=== PATIENT | female | born 1995 | race Caucasian/White ===

== ENCOUNTER 2025-03-02 13:00 | Outpatient (CLI) | payer MEDICAID, SELFPAY ==
[2025-03-02] VITALS (7 sets, daily range): BP systolic 114–119; BP diastolic 68–75; PULSE 80–92; RESP 18; TEMP 36.2; O2SAT 97; BMI 40.1
[2025-03-02 13:55] LABS: Hematocrit 28.7 % (37-47); Hemoglobin 9.4 g/dL (12.0-15.0); Mean Corp Hgb Conc 32.8 g/dL (32-36); Mean Corpuscular Volume 90.3 fL (81-99); Mean Platelet Vol. 10.4 fl (6.2-12.0); Platelet Count 190 K/mm3 (150-450); RBC Distribution Width CV 13.2 % (11.6-14.6); RBC Distribution Width SD 43.5 fl (35.1-43.9); Red Blood Count 3.18 M/mm3 (4.2-5.4); White Blood Count 6.8 K/mm3 (4.4-11.0)
[2025-03-02 14:34] LABS: Creatinine, Urine (random) 112.00 mg/dL (28.00-217.00); Protein, Urine (Random) 16.6 mg/dL (0.0-12.0); Protein:Creat Ratio 148 mg/g CRE (0-200)
[2025-03-02 14:35] LABS: AST(SGOT) 17 U/L (<=31); Alanine Aminotransfer ALT/SGPT 16 U/L (<=34); Estimated Creatinine Clearance 186.32 ml/min (50-250); Uric Acid 5.4 mg/dL (2.6-6.0)
--- NOTE | 2025-03-02 17:49 | OB.TRI.NOTE ---
HPI - General HPI Narrative LORA MAGAÑA, is a 29 F at 36.0 weeks gestation who presents with elevated blood pressures at home and headache. PFSH PFSH Home Medications ?Medication ?Instructions ?Recorded ?Last Taken ?Type aspirin 81 mg chewable tablet 162 mg PO DAILY 03/02/25 03/01/25 History (Aspirin Childrens) ferrous sulfate 325 mg (65 mg 325 mg PO DAILY 03/02/25 03/01/25 History iron) tablet insulin NPH isoph U-100 human 100 10 unit subcut QPM 03/02/25 03/01/25 History unit/mL (3 mL) subcutaneous pen vitamin-ferrous fumarate tab PO DAILY 03/02/25 03/01/25 History 28 mg iron-folic acid 800 mcg tablet ( Tablet) Allergy/AdvReac Type Severity Reaction Status Date / Time adhesive Allergy Intermediate Rash Verified 03/02/25 13:20 ROS Eyes Eyes: Denies blurry vision Cardiovascular Cardiovascular: Reports none; Denies chest pain at rest, chest pain with activity or dizziness Respiratory/Chest Respiratory/Chest: Denies cough or dyspnea Gastrointestinal Gastrointestinal: Reports none and other; Denies diarrhea or vomiting Genitourinary Genitourinary: Denies dysuria Musculoskeletal Musculoskeletal: Reports none Integumentary Integumentary: Reports none; Denies rash Neurologic Neurologic: Denies dizziness or other visual disturbances Psychiatric Psychiatric: Reports none Physical Exam Const alert and no apparent distress General Appearance: cooperative Orientation / Consciousness: awake Exam Limitations: no limitations HEENT normocephalic Eyes General Eye: normal appearance of both eyes Neck full ROM Chest inspection of chest normal Resp normal respiratory effort and normal air movement Effort and Inspection: symmetric chest movement Auscultation: clear to auscultation bilaterally Cardio regular rate GI soft to palpation, non-tender and non-distended Inspection: and other Back/Spine normal ROM Extremity full ROM, normal capillary refill and no calf tenderness Skin no rashes or lesions noted Neuro oriented x3 and CN's II-XII intact bilaterally Psych mental status grossly normal NST FHR Rate Baby A Baseline: 120 Variability:: Moderate Accelerations:: 15 x 15 Decelerations:: None NST Reactive:: Yes FHR Category:: Category I Uterine Activity:: Irregular Assessment & Plan (1) 36 weeks gestation of : (2) Chronic hypertension affecting : (3) GDM (gestational diabetes mellitus): (4) Headache: PLAN: Plan BP stable- no severe ranges BP ranging 114-119/68-75 PIH labs - Normal Tylenol 1000 mg PO X 1 given and headache improved D/C home with follow up in office this week
== END 2025-03-02 15:05 | disposition home or self-care (01) ==
LOC: WPOUT 13:11 → WP 13:12
PROVIDERS: Visit Provider Advanced Practice Midwife
DX: O99.891 Other specified diseases and conditions complicating pregnancy (principal); O24.419 Gestational diabetes mellitus in pregnancy, unspecified control; O10.913 Unspecified pre-existing hypertension complicating pregnancy, third trimester; R51.9 Headache, unspecified; Z3A.36 36 weeks gestation of pregnancy
CPT/HCPCS: 36415; 59025; 59050; 82565; 82570; 84156; 84450; 84460; 84550; 85027; 99221; G0378

== ENCOUNTER 2025-03-22 07:25 | Inpatient (IN) | payer MEDICAID, SELFPAY ==
[2025-03-22] VITALS (8 sets, daily range): BP systolic 110–166; BP diastolic 67–84; PULSE 72–97; RESP 16; TEMP 36.4–36.6; BMI 41.1; BMI 1949.0; BMI 20251226.0
--- OUTSIDE RECORDS SUMMARY | 2025-03-22 07:25 | XMS RPT_ITS | CCD ---
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 Date Time Provider Department 01/08/25 BEA ROSE OBGYWM During your visit today, we recorded the following information about you: Eleazar Hamilton RN 01/08/2025 10:14 AM Signed 28w3d Pt picked up Insulin NPH from [facility] yesterday; however, needs insulin needles to be able to administer to self. Please place order and fax to pharmacy. Informed Pt that message would be routed to provider AND Rx would be faxed to pharmacy. LUCINDA Heaton Karmon, MD 01/08/2025 11:57 AM Signed Please pend correct needles MD Hira Cosby Trisha, LUCINDA 01/08/2025 12:06 PM Signed Please file rx. LUCINDA Roman Trisha, RN 01/08/2025 12:08 PM Signed Left voicemail that rx was sent to her pharmacy. The following approved medication requests have been transmitted electronically. Requested Prescriptions Signed Prescriptions Disp Refills insulin needles, DISPOSABLE, (PEN NEEDLE) 31 gauge x 5/16 30 each 4 Si each once daily. Authorizing Provider: BEA ROSE Pharmacy Information Pharmacy Address Telephone [facility]/pharmacy #[id number] [address] [place] [address] Allergies As of Date: 01/08/2025 Noted Allergy Reaction ADHESIVE 09/04/2024 14 - Other: See Comments Comments: Surgical Glue: Inflammation around the incisions/pus Date Reviewed: 01/04/2025 Reviewed by: Bea Rose MD - Fully Assessed Reason for Visit: insulin needles [Other] Order(s):insulin needles, DISPOSABLE, (PEN NEEDLE) 31 gauge x 5/161 each once daily.Disp: 30 eachRfl: 4 Prescriptions as of 01/08/2025 - insulin needles, DISPOSABLE, (PEN NEEDLE) 31 gauge x 5/16 1 each once daily. - insulin NPH subcutaneous pen Inject 10 Units subcutaneously daily at bedtime. - BLOOD PRESSURE CUFF EVERY DAY - Blood-Glucose Meter Use as directed to check glucose levels up to seven times daily. - blood sugar diagnostic test strip Use as directed to check glucose levels up to seven times daily. - Lancets Use as directed to check glucose levels up to seven times daily. - alcohol swabs (ALCOHOL PREP PADS) Use as directed to check glucose levels up to seven times daily. - aspirin, enteric coated (ECOTRIN LOW STRENGTH) 81 mg EC tablet Take 2 tablets by mouth daily at bedtime. Starting at 12 weeks. - PNV no.95/ferrous fum/folic ac ( ORAL) Take by mouth. Problem List As Of Date 01/08/2025 Noted Resolved Chronic hypertension affecting (HCC) *09/05/2024 Family history of deafness [Z82.2] 09/05/2024 Obesity affecting in first trimester *09/05/2024 Nicotine dependence due to vaping tobacco produ*09/05/2024 Caffeine use during in first trimeste*09/05/2024 History of alcohol abuse [F10.11] 09/05/2024 Nausea and vomiting during (HCC) [O21*09/05/2024 Rubella non-immune status, antepartum (HCC) [Z3*09/06/2024 Elevated hemoglobin A1c [R73.09] 09/06/2024 Elevated glucose tolerance test [R73.09] 09/07/2024 Diet controlled gestational diabetes mellitus (*09/14/2024 Antepartum anemia complicating in thi*01/07/2025 Prescriptions ordered this encounter Disp Refills Start End PEN NEEDLE, DIABETIC 31 GAUGE X 5/16 30 e* 4 01/08/2025 Route: Misc Si each once daily. Encounter Status:Closed by LILLIAN TRACY on 01/08/25 Normal [facility] CBC panel Auto (Bld)on 01-04 Erythrocyte distribution width (RBC) [Ratio] 12.6 % Normal 11.5-15.0 [facility] Comment on above: Order Comment: Speci men Type: BLOOD SPECIMEN Ordering Facility: [facility] Address: [address] [place] [address] Performed By: #### 5 8410-2 #### [facility] CLIA [id number] [address] [place] [address] [place] Hematocrit (Bld) [Volume fraction] 30.1 % Low 36.0-46.0 [facility] Comment on above: Order Comment: Speci men Type: BLOOD SPECIMEN Ordering Facility: [facility] Address: [address] [place] [address] Performed By: #### 5 8410-2 #### [facility] CLIA [id number] [address] [place] [address] [place] Hemoglobin (Bld) [Mass/Vol] 10.6 g/dL Low 11.5-15.5 [facility] Comment on above: Order Comment: Speci men Type: BLOOD SPECIMEN Ordering Facility: [facility] Address: [address] [place] [address] Performed By: #### 5 8410-2 #### [id number] [address] [place] [address] [place] MCH (RBC) [Entitic mass] 31.4 pg Normal 26.0-34.0 [facility] Comment on above: Order Comment: Speci men Type: BLOOD SPECIMEN Ordering Facility: [facility] Address: [address] [place] [address] Performed By: #### 5 8410-2 #### [facility] CLIA [id number] [address] [place] [address] [place] MCHC (RBC) [Mass/Vol] 35.2 g/dL Normal 30.5-36.0 [facility] Comment on above: Order Comment: Speci men Type: BLOOD SPECIMEN Ordering Facility: [facility] Address: [address] [place] [address] Performed By: #### 5 8410-2 #### [facility] [id number] [address] [place] [address] [place] MCV (RBC) [Entitic vol] 89.1 fL Normal 80.0-100.0 [facility] Comment on above: Order Comment: Speci men Type: BLOOD SPECIMEN Ordering Facility: [facility] Address: [address] [place] [address] Performed By: #### 5 8410-2 #### [facility] CLIA [id number] [address] [place] [address] [place] Nucleated RBC (Bld) [#/Vol] 10*3/uL Normal <0.01 [facility] Comment on above: Order Comment: Speci men Type: BLOOD SPECIMEN Ordering Facility: [facility] Address: [address] [place] [address] Performed By: #### 5 8410-2 #### [facility] CLIA [id number] [address] [place] [address] [place] Platelet mean volume (Bld) [Entitic vol] 9.7 fL Normal 9.0-12.7 [facility] Comment on above: Order Comment: Speci men Type: BLOOD SPECIMEN Ordering Facility: [facility] Address: [address] [place] [address] Performed By: #### 5 8410-2 #### [facility] CLIA [id number] [address] [place] [address] [place] Platelets (Bld) [#/Vol] 200 10*3/uL Normal 150-400 [facility] Comment on above: Order Comment: Speci men Type: BLOOD SPECIMEN Ordering Facility: [facility] Address: [address] [place] [address] Performed By: #### 5 8410-2 #### [facility] CLIA [id number] [address] [place] [address] [place] RBC (Bld) [#/Vol] 3.38 10*6/uL Low 3.90-5.20 [facility] Comment on above: Order Comment: Speci men Type: BLOOD SPECIMEN Ordering Facility: [facility] Address: [address] [place] [address] Performed By: #### 5 8410-2 #### [facility] CLIA [id number] [address] [place] [address] [place] WBC (Bld) [#/Vol] 5.78 10*3/uL Normal 3.70-11.00 [facility] Comment on above: Order Comment: Speci men Type: BLOOD SPECIMEN Ordering Facility: [facility] Address: [address] [place] [address] Performed By: #### 5 8410-2 #### [facility] CLIA [id number] [address] [place] [address] [place] [facility] 2024 Ferritin [Mass/Vol] 35.5 ng/mL Normal 14.7-205.1 [facility] Comment on above: Order Comment: Speci men Type: BLOOD SPECIMENOrdering Facility: [facility] Address: [address] [place] [address] Performed By: #### 2 276-4, 96331-0 ####[facility] [id number] [place] [address] [place] Iron and Iron binding capaci panelon 01-04-2025 Iron [Mass/Vol] 66 ug/dL Normal 41-186 [facility] Comment on above: Order Comment: Speci men Type: BLOOD SPECIMEN Ordering Facility: [facility] Address: [address] [place] [address] Performed By: #### 5 8410-2 #### [facility] [id number] [address] [place] [address] [place] Iron binding capacity [Mass/Vol] 436 ug/dL High 232-386 [facility] Comment on above: Order Comment: Speci men Type: BLOOD SPECIMEN Ordering Facility: [facility] Address: [address] [place] [address] Performed By: #### 5 8410-2 #### [facility] CLIA [id number] [address] [place] [address] [place] Iron/TIBC [Molar ratio] 15.1 % Normal 15.0-57.0 [facility] Comment on above: Order Comment: Speci men Type: BLOOD SPECIMEN Ordering Facility: [facility] Address: [address] [place] [address] Performed By: #### 5 8410-2 #### [facility] CLIA [id number] [address] [place] [address] [place] Reagin and Treponema pallidu m IgG and IgM [Interp]on 01-04-2025 T. pallidum IgG+IgM IA Ql (S) Non-Reactive Normal Nonreactive [facility] Comment on above: Order Comment: Speci men Type: BLOOD SPECIMENOrdering Facility: [facility] Address: [address] [place] [address] Performed By: #### 7 3752-8 ####[facility] [id number] [place] [address] [place] Reagin+T pallidum IgG+IgM Se rPl-Impon 01-04-2025 Reagin and Treponema pallidum IgG and IgM [Interp] Cannot exclude recent Treponemal infection if specimen collected within 7-10 days after appearance of suspect lesions or 2-3 weeks after an exposure. Clinical correlation is required. Normal [facility] Comment on above: Order Comment: Speci men Type: BLOOD SPECIMENOrdering Facility: [facility] Address: [address] [place] [address] Performed By: #### 7 3752-8 ####[facility] [id number] [place] [address] [place] CNPNon 12-17-2024 CNPN Telephone ([id number]) -- BRONWYN HIGGINBOTHAM ([id number]) 1995 F Date Time Provider Department 12/17/24 TRICIA LAMBERT [id number] During your visit today, we recorded the following information about you: Tricia Lambert RN 12/17/2024 7:40 AM Signed 2nd risk assessment form submitted 12/17/2024. 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 - blood sugar diagnostic test strip Use as directed to check glucose levels up to seven times daily. - Lancets Use as directed to check glucose levels up to seven times daily. - alcohol swabs (ALCOHOL PREP PADS) Use as directed to check glucose levels up to seven times daily. - aspirin, enteric coated (ECOTRIN LOW STRENGTH) 81 mg EC tablet Take 2 tablets by mouth daily at bedtime. Starting at 12 weeks. - PNV no.95/ferrous fum/folic ac ( ORAL) Take by mouth. Problem List As Of Date 12/17/2024 Noted Resolved Chronic hypertension affecting (HCC) *09/05/2024 Family history of deafness [Z82.2] 09/05/2024 Obesity affecting in first trimester *09/05/2024 Nicotine dependence due to vaping tobacco produ*09/05/2024 Caffeine use during in first trimeste*09/05/2024 History of alcohol abuse [F10.11] 09/05/2024 Nausea and vomiting during (HCC) [O21*09/05/2024 Rubella non-immune status, antepartum (HCC) [O0*09/06/2024 Elevated hemoglobin A1c [R73.09] 09/06/2024 Elevated glucose tolerance test [R73.09] 09/07/2024 Diet controlled gestational diabetes mellitus (*09/14/2024 Encounter Status:Closed by TRICIA LAMBERT on 12/17/24 [facility] Telephone (OBGYWM) -- BRONWYN HIGGINBOTHAM ([id number]) 1995 F Date Time Provider Department 12/17/24 MARY MCDANIEL During your visit today, we recorded the following information about you: Tricia Neri RN 12/17/2024 10:50 AM Signed 25w2d Patient had her influenza vaccine in the office on Tuesday. On Tuesday she vomited x1. She's had a QUEZADA, body aches, fatigue and nausea since then. Afebrile with a temperature of 98.x. Questioning if these symptoms are caused by the vaccine. Reviewed typical side effects and s/s of allergic reaction. Denies feeling ill prior. Encouraged to rest, push fluids, and take Tylenol for QUEZADA/body aches. Good FM. Please advise. LUCINDA Choudhary Jessica, APRN.CNM 12/17/2024 11:22 AM Signed Ok to monitor. This can happen with the vaccine. If worsening recommend following up with primary care. Thank you, Mary Mcdaniel APRN.Eleazar Eubanks RN 12/17/2024 12:05 PM Signed Left message informing Pt that [employer] message would be sent AND to call office if she has any questions/concerns. Eleazar Hamilton RN Allergies As of Date: 12/17/2024 Noted Allergy Reaction ADHESIVE 09/04/2024 14 - Other: See Comments Comments: Surgical Glue: Inflammation around the incisions/pus Date Reviewed: 12/14/2024 Reviewed by: Tricia Carty MD - Fully Assessed Reason for Visit: Question (OB Question) [9012] Prescriptions as of 12/17/2024 - BLOOD PRESSURE CUFF EVERY DAY - Blood-Glucose Meter Use as directed to check glucose levels up to seven times daily. - blood sugar diagnostic test strip Use as directed to check glucose levels up to seven times daily. - Lancets Use as directed to check glucose levels up to seven times daily. - alcohol swabs (ALCOHOL PREP PADS) Use as directed to check glucose levels up to seven times daily. - aspirin, enteric coated (ECOTRIN LOW STRENGTH) 81 mg EC tablet Take 2 tablets by mouth daily at bedtime. Starting at 12 weeks. - PNV no.95/ferrous fum/folic ac ( ORAL) Take by mouth. Problem List As Of Date 12/17/2024 Noted Resolved Chronic hypertension affecting (HCC) *09/05/2024 Family history of deafness [Z82.2] 09/05/2024 Obesity affecting in first trimester *09/05/2024 Nicotine dependence due to vaping tobacco produ*09/05/2024 Caffeine use during in first trimeste*09/05/2024 History of alcohol abuse [F10.11] 09/05/2024 Nausea and vomiting during (HCC) [O21*09/05/2024 Rubella non-immune status, antepartum (HCC) [O0*09/06/2024 Elevated hemoglobin A1c [R73.09] 09/06/2024 Elevated glucose tolerance test [R73.09] 09/07/2024 Diet controlled gestational diabetes mellitus (*09/14/2024 Encounter Status:Closed by LILLIAN TRACY on 12/17/24 Normal [facility] Examination level ultrasound on 11-19-2024 Indication Detailed anatomic survey Chronic hypertension, Gestational diabetes mellitus before 24 weeks, Maternal obesity, BMI >35 Impression The patient is referred for a detailed anatomic survey. - Single, live, intrauterine . - biometry is consistent with the established gestational age. - No malformations were visualized on a complete detailed anatomic survey. - The amniotic fluid volume is normal amount. - The placenta is posterior, fundal. - The Transabdominal cervical length measures 32.4 mm with no evidence of funneling or other dynamic changes. - Not all structural malformations can be detected by ultrasound examination. Recommendations - growth every 4 weeks starting at 28 weeks. - Additional follow up as clinically indicated. Maternal Assessment Height 163 cm Height (ft) 5 ft Height (in) 4 in Physical Exam Initial weight (lb) 215 lb Initial BMI 36.90 kg/m Maternal assessment other: 1 Para 0 REMOTE READ Method Transabdominal ultrasound examination. View: Adequate visualization Dean . Number of fetuses: 1 Dating LMP on: 06/23/2024 GA by LMP 20 w + 6 d JANIS by LMP: 03/30/2025 GA by prior assessment 20 w + 6 d JANIS by prior assessment: 03/30/2025 Ultrasound examination on: 11/16/2024 GA by U/S based upon: AC, BPD, Femur, HC GA by U/S 21 w + 2 d JANIS by U/S: 03/27/2025 Assigned: based on stated JANIS, selected on 09/18/2024 Assigned GA 20 w + 6 d Assigned JANIS: 03/30/2025 General Evaluation Cardiac activity present. FHR 150 bpm. movements: present. Presentation: cephalic Placenta: Placental site: posterior, fundal Umbilical cord: Cord vessels: 3 vessel cord Amniotic fluid: Amount of AF: normal amount. MVP 5.2 cm Growth Overview Exam date GA BPD (mm) HC (mm) AC (mm) FL (mm) HL (mm) EFW (g) 10/18/2024 16w 5d 34.7 48% 128.8 35% 114.7 69% 24.5 83% 21.2 46% 183 70% 11/16/2024 20w 6d 50.1 62% 188.5 59% 168.9 76% 33.9 55% 31.9 39% 413 68% Biometry Standard BPD 50.1 mm 21w 1d 62% Hadlock OFD 66.8 mm 21w 0d 81% Nicolaides HC 188.5 mm 21w 1d 59% Riccardo Cerebellum tr 22.9 mm 21w 2d 79% Hill Nuchal fold 4.6 mm AC 168.9 mm 21w 6d 76% Hadlock Femur 33.9 mm 20w 6d 55% Riccardo Humerus 31.9 mm 20w 5d 39% Riccardo EFW 413 g 21w 1d 68% Hadlock EFW (lb) 0 lb EFW (oz) 15 oz EFW by: Hadlock (HC-AC-FL) Extended Collar Band Creaser 8.2 mm CM 3.6 mm 7% Nicolaides Extremities / Bony Struc FL / HC 0.18 13% Hadlock Other Structures FHR 150 bpm Anatomy Cranium: normal Lateral ventricles: normal Choroid plexus: normal Midline falx: normal Cavum septi pellucidi: normal Cerebellum: normal Cisterna magna: normal Head / Neck Vermis: normal Neck: normal Nuchal fold: normal Lips: normal Profile: normal Nose: normal Face Maxilla: normal Mandible: normal Orbits: normal Lens: normal 4-chamber view: normal RVOT view: normal LVOT view: normal 3-vessel view: normal 6-aihljn-nhteytb view: normal Heart / Thorax Situs: situs solitus (normal) Aortic arch view: normal SVC: normal IVC: normal Cardiac axis: normal Rt lung: normal Lt lung: normal Diaphragm: normal Cord insertion: normal Stomach: normal Kidneys: normal Bladder: normal Genitals: normal Abdomen Abdom. wall: normal Cervical spine: normal Thoracic spine: normal Lumbar spine: normal Sacral spine: normal Arms: normal Legs: normal Rt upper arm: normal Rt forearm: normal Rt hand: normal Rt fingers: normal Lt upper arm: normal Lt forearm: normal Lt hand: normal Lt fingers: normal Rt upper leg: normal Rt lower leg: normal Rt foot: normal Lt upper leg: normal Lt lower leg: normal Lt foot: normal sex: female Wants to know sex: yes Maternal Structures Uterus / Cervix Uterus: Visualized Cervix: Visualized Approach: Transabdominal Cervical length 32.4 mm Other: Patient declined transvaginal ultrasound for cervical length. Ovaries / Tubes / Adnexa Rt ovary: Visualized Lt ovary: Visualized Performed By: Bronwyn Reese RDMS, RVT Read By: Lorin Verdugo M.D. MATERNAL MEDICINE [facility] Examination level ultrasound on 11-16-2024 Radiology Study observation (narrative) [facility] CNCOon 11-02-2024 CNCO Letter Text Normal [facility] CNNURSEon 10-19-2024 CNNURSE Nurse Visit (EDEX20) -- BRONWYN HIGGINBOTHAM ([id number]) 1995 F Date Time Provider Department 10/19/24 10:00 AM ALEXIS OBRIEN EDEX20 During your visit today, we recorded the following information about you: Alexis Obrien, RN 10/19/2024 10:52 AM Signed DIABETES SELF-MANAGEMENT EDUCATION AND SUPPORT FOLLOW-UP VISIT Type of Diabetes: Gestational ( diabetes in ) Location: Main [place] Type of visit: Virtual (with video) individual -- I have communicated my name and active licensure. The patient's identity and physical location were verified at the time of this visit. Either the patient or their legal associate financial representative has been informed of the risks and benefits of -- and alternatives to -- treatment through a remote evaluation and consents to proceed with the evaluation remotely. Types of DSMES: Initial/Comprehensive (add to or update ADA spreadsheet) PATIENT'S MAIN CONCERN TODAY: New gestational diabetes diagnosis Support person present for education today: none Cognitive ability: Alert and oriented Motivation to learn: Interested Learning barriers identified by educator: none Method of instruction: written and verbal DIABETES SELF-MANAGEMENT FINDINGS: Monitoring: Patient states she's been checking her blood sugar using a fingerstick meter 4 times/day. Fasting and after meals. Meal Planning: Patient has been decreasing her carbohydrate intake after finding out she has gestational diabetes Medications: Not currently taking any diabetes medications Problem Solving: Patient scheduled a diabetes education visit for information about gestational diabetes INTERVENTIONS/TOPICS COVERED: -Diabetes Pathophysiology: diabetes disease process, role of insulin in the body, role of glucose in the body, insulin resistance, relationship of glucose and insulin in the body, hepatic glucose release, and gestational diabetes basics -Monitoring: BG targets, rationale for HGM, and testing frequency -Healthy Eating: impact of carbs on BG, Plate Method, basic carb counting, foods with carbs, portion sizes, and reading food labels -Medications: N/A, preemptively taught patient about insulin types/injection technique/ and hypoglycemia risks -Physical Activity: benefits of exercise and impact of exercise on BG -Acute Complications: hypoglycemia s/sx/tx -Chronic Complications: risks to mom and baby with elevated blood sugars during -Healthy Coping and Support: impact of stress on BG and benefits of a support system, types of support (ex:family, friends, support groups, diabetes groups on social media) EDUCATION HANDOUTS: Healthy You: Diabetes and LEARNING RESPONSE: Diabetes pathophysiology: Demonstrated understanding/competency today or at previous visit Healthy eating: Demonstrated understanding/competency today or at previous visit Being active: Demonstrated understanding/competency today or at previous visit Taking medications: Not applicable for this patient Monitoring glucose: Demonstrated understanding/competency today or at previous visit Acute complications: Demonstrated understanding/competency today or at previous visit Chronic complications: Demonstrated understanding/competency today or at previous visit Healthy coping: Demonstrated understanding/competency today or at previous visit Diabetes distress and support: Demonstrated understanding/competency today or at previous visit GOAL FOLLOW-UP -Healthy eating goal: MET patient has many changes to diet including portion control and lowering carb consumption -Healthy eating goal: making better food choices 3: I have a plan to start POSSIBLE FUTURE TOPICS: 1. The following topics were not assessed due to time limitations, but should be assessed at the next visit: all areas were assessed today or within the last 12 months. 2. The following topics should be taught or reinforced at the next visit: N/A. DIABETES EDUCATION PLAN: Individual follow-up, patient recommended to schedule follow-up if new questions arise or medication, such as insulin, gets prescribed. Time Spent (Minutes): 30 This visit note will be communicated to the healthcare provider via access to shared medical record. SIGNATURE: SUDHAKAR Ellis, RN PATIENT NAME: Bronwyn Higginbotham DATE: October 19, 2024 TIME: 8:41 AM PAGER: Referring Provider: JO LEO [[id number]] Allergies As of Date: 10/19/2024 Noted Allergy Reaction ADHESIVE 09/04/2024 14 - Other: See Comments Comments: Surgical Glue: Inflammation around the incisions/pus Date Reviewed: 10/18/2024 Reviewed by: Lili Han MA - Fully Assessed Reason for Visit: Diabetes [34] Visit Diagnoses:Supervision of high risk in second trimester ([facility]) [O09.92] Diet controlled gestational diabetes mellitus (GDM) in second trimester ([facility]) [O24.410] Order(s):CON (more content not included)... Normal [facility] Examination level ultrasound on 10-19-2024 Indication Early anatomic survey. Maternal obesity, BMI >35, Chronic hypertension, Gestational diabetes mellitus before 24 weeks Impression remote read The patient is referred for an early anatomic survey because of identified risk factors. - Single, live, intrauterine . - biometry is consistent with the established gestational age. - No malformations were visualized on a complete early anatomic assessment. - The amniotic fluid volume is normal amount. - The placenta is posterior. - A detailed anatomic survey at 20 weeks is indicated secondary to increased risk. - Not all structural malformations can be detected by ultrasound examination. Recommendations - A detailed exam at 20 weeks for increased risk. - Additional follow up as clinically indicated. Maternal Assessment Height 163 cm Height (ft) 5 ft Height (in) 4 in Physical Exam Initial weight (lb) 215 lb Initial BMI 36.90 kg/m Method Transabdominal ultrasound examination Dean . Number of fetuses: 1 Dating LMP on: 06/23/2024 GA by LMP 16 w + 5 d JANIS by LMP: 03/30/2025 GA by prior assessment 16 w + 5 d JANIS by prior assessment: 03/30/2025 Ultrasound examination on: 10/18/2024 GA by U/S based upon: AC, BPD, Femur, HC GA by U/S 17 w + 0 d JANIS by U/S: 03/28/2025 Assigned: based on stated JANIS, selected on 09/18/2024 Assigned GA 16 w + 5 d Assigned JANIS: 03/30/2025 General Evaluation Cardiac activity present. FHR 154 bpm. movements: present. Presentation: variable Placenta: Placental site: posterior Umbilical cord: Cord vessels: 3 vessel cord. Insertion site: normal insertion Amniotic fluid: Amount of AF: normal amount Biometry Standard BPD 34.7 mm 16w 5d 48% Hadlock OFD 46.2 mm 16w 0d 38% Nicolaides HC 128.8 mm 16w 2d 35% Riccardo Cerebellum tr 17.1 mm 17w 2d 65% Hill Nuchal fold 2.7 mm AC 114.7 mm 17w 2d 69% Hadlock Femur 24.5 mm 17w 3d 83% Riccardo Humerus 21.2 mm 16w 3d 46% Riccardo EFW 183 g 17w 0d 70% Hadlock EFW (lb) 0 lb EFW (oz) 6 oz EFW by: Hadlock (HC-AC-FL) Extended Collar Band Creaser 7.7 mm CM 2.0 mm 2% Nicolaides Extremities / Bony Struc FL / HC 0.19 99% Hadlock Other Structures FHR 154 bpm Anatomy Cranium: normal Lateral ventricles: normal Choroid plexus: normal Midline falx: normal Cerebellum: normal Cisterna magna: normal Lips: normal 4-chamber view: normal RVOT view: normal LVOT view: normal 3-vessel view: normal 9-[id number]-jpugmxj view: normal Heart / Thorax Diaphragm: normal Cord insertion: normal Stomach: normal Kidneys: normal Bladder: normal Cervical spine: normal Thoracic spine: normal Lumbar spine: normal Sacral spine: normal Arms: normal Legs: normal Rt upper arm: normal Rt forearm: normal Rt hand: normal Lt upper arm: normal Lt forearm: normal Lt hand: normal Rt upper leg: normal Rt lower leg: normal Rt foot: normal Lt upper leg: normal Lt lower leg: normal Lt foot: normal Maternal Structures Uterus / Cervix Uterus: Visualized Approach: Transabdominal Cervical length 38.1 mm Ovaries / Tubes / Adnexa Rt ovary: Suboptimal Lt ovary: Suboptimal Performed By: Eli Harper RDMS Read By: Lorin Verdugo M.D. MATERNAL MEDICINE [facility] 10-18-2024 DANIELA Telephone (OBGYWM) -- BRONWYN HIGGINBOTHAM ([id number]) 1995 F Date Time Provider Department 10/18/24 KENDALL DELGADO During your visit today, we recorded the following information about you: Eleazar Hamilton RN 10/18/2024 4:15 PM Signed FW: Refrral for an ENDO dietitian Received: Yesterday Kendall Delgado APRN.HYDROELECTRIC PRODUCTION MANAGER Drew Wstr Ob-Allergist/Immunologist Pool Can we make sure she gets scheduled? I put in the endo traveling construction superintendent consult order they requested. Have always placed the previous order that I placed so not sure what the issue was/why her appt got cancelled. Thank you, Kendall Delgado APRN.JOHN Previous Messages ----- Message ----- From: Poppy Lucas RD Sent: 10/17/2024 2:12 PM EDT To: Kendall Delgado APRN.CNP Subject: Refrral for an ENDO dietitian Mohinder Lee, This patient needs to be scheduled with an endo dietitian for her gestational diabetes. Could you please put in a referral for Consult to Diabetes Education for her to schedule. Thank you! Eleazar Smith RN 10/18/2024 4:15 PM Signed Pt is scheduled on 10/19/24 with endo dietitian education VV. Eleazar Hamilton RN Allergies As of Date: 10/18/2024 Noted Allergy Reaction ADHESIVE 09/04/2024 14 - Other: See Comments Comments: Surgical Glue: Inflammation around the incisions/pus Date Reviewed: 10/18/2024 Reviewed by: Lili Han MA - Fully Assessed Reason for Visit: Endo Dietitian education [Other] Prescriptions as of 10/18/2024 - Miscellaneous Medical Supply (BLOOD PRESSURE CUFF) 1 each once daily. - Blood-Glucose Meter Use as directed to check glucose levels up to seven times daily. - blood sugar diagnostic test strip Use as directed to check glucose levels up to seven times daily. - Lancets Use as directed to check glucose levels up to seven times daily. - alcohol swabs (ALCOHOL PREP PADS) Use as directed to check glucose levels up to seven times daily. - aspirin, enteric coated (ECOTRIN LOW STRENGTH) 81 mg EC tablet Take 2 tablets by mouth daily at bedtime. Starting at 12 weeks. - PNV no.95/ferrous fum/folic ac ( ORAL) Take by mouth. Problem List As Of Date 10/18/2024 Noted Resolved Chronic hypertension affecting (HCC) *09/05/2024 Family history of deafness [Z82.2] 09/05/2024 Encounter for supervision of high risk pregnanc*09/05/2024 Obesity affecting in first trimester *09/05/2024 Nicotine dependence due to vaping tobacco produ*09/05/2024 Caffeine use during in first trimeste*09/05/2024 History of alcohol abuse [F10.11] 09/05/2024 Nausea and vomiting during (HCC) [O21*09/05/2024 Rubella non-immune status, antepartum (HCC) [O0*09/06/2024 Elevated hemoglobin A1c [R73.09] 09/06/2024 Elevated glucose tolerance test [R73.09] 09/07/2024 Diet controlled gestational diabetes mellitus (*09/14/2024 Encounter Status:Closed by ELEAZAR HAMILTON on 10/18/24 Normal [facility] Examination level ultrasound on 10-18-2024 Radiology Study observation (narrative) [facility] CNNURSEon 09-25-2024 CNNURSE Nurse Visit (ENDIMT) -- BRONWYN HIGGINBOTHAM ([id number]) 1995 F Date Time Provider Department 09/25/24 4:00 PM LUCERO MIRELES During your visit today, we recorded the following information about you: Lucero Mireles, RN 09/25/2024 4:37 PM Signed DIABETES SELF-MANAGEMENT EDUCATION AND SUPPORT Location: [place] Type of visit: Virtual (with video) individual -- I have communicated my name and active licensure. The patient's identity and physical location were verified at the time of this visit. Either the patient or their legal associate financial representative has been informed of the risks and benefits of -- and alternatives to -- treatment through a remote evaluation and consents to proceed with the evaluation remotely. Types of DSMES: Initial/Comprehensive (add to or update ADA spreadsheet) PATIENT'S MAIN CONCERN TODAY: GDM Support person present for education today: none Cognitive ability: Alert and oriented Motivation to learn: Interested Learning barriers identified by educator: none Method of instruction: written and verbal INTERVENTIONS/TOPICS COVERED: -Diabetes Pathophysiology: gestational diabetes basics -Monitoring: BG targets, rationale for HGM, and using a home glucose monitor -Healthy Eating: Plate Method, basic carb counting, foods with carbs, reading food labels, and carb counting tools (books, Internet, smartphone apps) -Medications: reviewed insulin as likely, discussed insulin pens - pt had previously been warned by her MFM that this was likely -Physical Activity: benefits of exercise and impact of exercise on BG -Acute Complications: hypoglycemia s/sx/tx, hyperglycemia s/sx/tx, sick day rules, and pattern management -Chronic Complications: LT complications, importance of BG control to reduce risks, and risks to mom and baby with elevated blood sugars during -Healthy Coping and Support: impact of stress on BG DIABETES ASSESSMENT: Referring Physician: Kendall Delgado Previous Diabetes Education? No What are you hoping to gain from this visit? asked/not answered In your words, what is gestational diabetes? asked/not answered What concerns you about having gestational diabetes? asked/not answered Diabetes History: Type of Diabetes: Pre-Diabetes with How far along is your ? Weeks: 13 Does anyone in your family have diabetes? 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 never How often does someone help you read your pill bottles? never How often does someone have to help you take care of your diabetes? never Major stressors:asked/not answered Do any of the following things get in the way of managing your diabetes? No self-identified issues Health History: Do you use tobacco? Yes, How much? 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 Good Medical Issues/Complications: To whom are you reporting your blood sugar levels? OB PAST MEDICAL HISTORY Diagnosis Date Diet controlled gestational diabetes mellitus (GDM) in first trimester (HCC) 09/14/2024 Elevated hemoglobin A1c 09/06/2024 Hypertension Pre-diabetes Most recent A1C Lab Results Component Value Date HBA1C 6.0 09/05/2024 Physical Activity: Do you do a regular exercise? Yes; how many days per week 3-4 How long each day? 30-60 min Type of Exercise: walking Sleep: Do you get at least 7 hrs of sleep most nights? yes Current Outpatient Medications Medication Sig Blood-Glucose Meter Use as directed to check glucose levels up to seven times daily. (Patient not taking: Reported on 09/18/2024) blood sugar diagnostic test strip Use as directed to check glucose levels up to seven times daily. Lancets Use as directed to check glucose levels up to seven times daily. alcohol swabs (ALCOHOL PREP PADS) Use as directed to check glucose levels up to seven times daily. aspirin, enteric coated (ECOTRIN LOW STRENGTH) 81 mg EC tablet Take 2 tablets by mouth daily at bedtime. Starting at 12 weeks. (Patient not taking: Reported on 09/18/2024) PNV no.95/ferrous fum/folic ac ( ORAL) Take by mouth. No current facility-administered medications for this visit. Injections Technique: Do you take insulin or a medication you inject for your diabetes? No Blood Sugar Monitoring: Do you have a blood sugar monitor? Yes; What kind of meter is it? Accuch (more content not included)... Normal [facility] Examination level ultrasound on 09-18-2024 Indication First trimester anatomic survey Maternal obesity, BMI >35, Chronic hypertension, Gestational diabetes mellitus before 24 weeks Impression The patient is referred for a first trimester anatomy scan, including nuchal translucency measurement as clinically indicated, in a complicated by class 2 obesity (BMI 37), chronic hypertension (off antihypertensive therapy), and early diagnosis of GDM. She plans to have NIPS drawn today. - Single, live, intrauterine . - [place] rump length measurement is consistent with the established gestational age. - A qualitative screen of the nuchal translucency and other anatomic structures was unremarkable on a complete first trimester anatomic assessment. - Not all structural malformations can be detected by ultrasound examination. - A standard anatomic survey at 16 weeks and a detailed exam at 20 weeks is recommended for increased risk. Thank you for the referral. Recommendations As above Maternal Assessment Height 163 cm Height (ft) 5 ft Height (in) 4 in Physical Exam Initial weight (lb) 215 lb Initial BMI 36.90 kg/m Maternal assessment other: 1 Para 0 Method Transabdominal ultrasound examination Dean . Number of fetuses: 1 Dating LMP on: 06/23/2024 GA by LMP 12 w + 3 d JANIS by LMP: 03/30/2025 GA by prior assessment 12 w + 3 d JANIS by prior assessment: 03/30/2025 Ultrasound examination on: 09/18/2024 GA by U/S based upon: CRL GA by U/S 12 w + 6 d JANIS by U/S: 03/27/2025 Assigned: based on stated JANIS, selected on 09/18/2024 Assigned GA 12 w + 3 d Assigned JAINS: 03/30/2025 General Evaluation Cardiac activity present Placenta: posterior Cord vessels: 3 vessel cord Amniotic fluid: normal amount Biometry Standard FHR 169 bpm CRL 65.1 mm 12w 6d 72% Hadlock First Trimester Anatomy Calvarium: normal Falx cerebri: normal Choroid plexus: normal Profile: normal Nasal bone: normal Retronasal triangle: normal Maxilla: normal Mandible: normal Nuchal translucency: Unremarkable Situs: normal Cardiac position: normal Cardiac axis: normal 4-chamber view: normal 4-chamber view with color: normal 9-mzaqhd-[id number] view: normal Abdominal cord insertion: normal Stomach: normal Kidneys: normal Bladder: normal Color doppler of perivesical umbilical arteries: normal Vertebral alignment: normal Arms: normal Hands: normal Legs: normal Feet: normal Maternal Structures Uterus / Cervix Uterus: Visualized Uterus length 171 mm Uterus width 100 mm Uterus height 68 mm Uterus Vol 608.4 cm Ovaries / Tubes / Adnexa Rt ovary: Visualized Rt ovary D1 36 mm Rt ovary D2 21 mm Rt ovary D3 19 mm Rt ovary Vol 7.9 cm Lt ovary: Not visualized Performed By: Bronwyn Reese RDMS, RVT Read By: Kelvin Thompson M.D. MATERNAL MEDICINE [facility] Radiology Study observation (narrative) [facility] [id number] PLUSon 09-18-2024 Cell-free DNA./Cell-free DNA.total Dosage of chromosome-specific cfDNA (cfDNA) [Molar fraction] 15% Normal [facility] Comment on above: Order Comment: Speci men Type: BLOOD SPECIMEN Ordering Facility: [facility] Address: [address] [place] [address] Performed By: #### 5 8410-2 #### [facility] CLIA [id number] [address] [place] [address] OF [place] JESUS Chr 13+18+21+X+Y aneuploidy Dosage of chromosome-specific cfDNA Ql (cfDNA) Negative Normal [facility] Comment on above: Order Comment: Speci men Type: BLOOD SPECIMEN Ordering Facility: [facility] Address: [address] [place] [address] Performed By: #### 5 8410-2 #### [facility] CLIA [id number] [address] [place] [address] OF [place] JESUS Chr 21 trisomy Dosage of chromosome-specific cfDNA Ql (cfDNA) Negative Normal [facility] Comment on above: Order Comment: Speci men Type: BLOOD SPECIMEN Ordering Facility: [facility] Address: [address] [place] [address] Performed By: #### 5 8410-2 #### [facility] CLIA [id number] [address] [place] [address] Chr X and Y aneuploidy risk Sequencing Ql (cfDNA) [Interp] Not detected Normal [facility] Comment on above: Order Comment: Speci men Type: BLOOD SPECIMEN Ordering Facility: [facility] Address: [address] [place] [address] Result Comment: Not Detected Not Detected Performed By: #### 5 8410-2 #### [id number] [address] [place] [address] OF [facility] Citation Roberto (Reference lab test) Comment Normal [facility] Comment on above: Order Comment: Speci men Type: BLOOD SPECIMEN Ordering Facility: [facility] Address: [address] [place] [address] Result Comment: 1. P mateo MEREDITH, et al. Deepa Med. 2012;14(3):296-305. 2. Willian RODAS et al. Prenat Diag. 2013;33(6):591-597. 3. Jeronimo C, et al. Clin Chem. 2015 Apr;61(4):608-616. 4. Eduin MEREDITH et al. Deepa Med. 2011;13(11):913-920. 5. [facility]COG[facility] Practice Bulletin No. 226, Dec 2019. Performed By: #### 5 8410-2 #### [facility] CLIA [id number] [address] [place] [address] [place] OF [place] Gestational age Estimated from conception date Dean Normal [facility] Comment on above: Order Comment: Speci men Type: BLOOD SPECIMEN Ordering Facility: [facility] Address: [address] [place] [address] Performed By: #### 5 8410-2 #### [facility] CLIA [id number] [address] [place] [address] STATES OF [place] GESTATIONALAGE AGE > OR = 9W Yes Normal [facility] Comment on above: Order Comment: Kodi merino Type: BLOOD SPECIMEN Ordering Facility: [facility] Address: [address] [place] [address] Performed By: #### 5 8410-2 #### [facility] CLIA [id number] [address] [place] [address] OF [place]IA DE JESUS Laboratory comment Roberto (Report) Comment Normal [facility] Comment on above: Order Comment: Kodi merino Type: BLOOD SPECIMEN Ordering Facility: [facility] Address: [address] [place] [address] Result Comment: The MaterniT(R) 21 PLUS laboratory-developed test (LDT) analyzes circulating cell-free DNA from a maternal blood sample. This test is used for screening purposes and not diagnostic. Clinical correlation is recommended. Validation data on twin pregnancies is limited and the ability of this test to detect aneuploidy in higher multiple gestations has not yet been validated. Performed By: #### 5 8410-2 #### [facility] CLIA [id number] [address] [place] [address] [place] global risk management director name Nom (Provider) Comment Normal [facility] Comment on above: Order Comment: Kodi merino Type: BLOOD SPECIMEN Ordering Facility: [facility] Address: [address] [place] [address] Result Comment: This specimen showed an expected representation of chromosome 21, 18 and 13 material. Clinical correlation is suggested. Comment Jesus Hill MD, PhD, Director, [employer] Performed By: #### 5 8410-2 #### [facility] [id number] [address] [place] [address] OF [facility] LIMITATIONS OF THE TEST Comment Normal [facility] Comment on above: Order Comment: Kodi angelique Type: BLOOD SPECIMEN Ordering Facility: [facility] Address: [address] [place] [address] Result Comment: Summer joe the results of these tests are highly reliable, discordant results, including inaccurate sex prediction, may occur due to placental, maternal, or mosaicism or neoplasm; vanishing twin; prior maternal organ transplant; or other causes. These tests are screening tests and not diagnostic; they do not replace the accuracy and precision of diagnosis with CVS or amniocentesis. A patient with a positive test result should be referred for genetic counseling and offered invasive diagnosis for confirmation of test results.[5] The results of this testing, including the benefits and limitations, should be discussed with a qualified healthcare provider. management decisions, including termination of the , should not be based on the results of these tests alone. The healthcare provider is responsible for the use of this information in the management of their patient. Sex chromosomal aneuploidies are not reportable for known multiple gestations. A negative result does not ensure an unaffected nor does it exclude the possibility of other chromosomal abnormalities or defects which are not a part of these tests. An uninformative result may be reported, the causes of which may include, but are not limited to, insufficient sequencing coverage, noise or artifacts in the region, amplification or sequencing bias, or insufficient fraction. These tests are not intended to identify pregnancies at risk for neural tube defects or ventral wall defects. Testing for whole chromosome abnormalities (including sex chromosomes) and for subchromosomal abnormalities could lead to the potential discovery of both and maternal genomic abnormalities that could have major, minor, or no, clinical significance. Evaluating the significance of a positive or a non-reportable result may involve both invasive testing and additional studies on the mother. Such investigations may lead to a diagnosis of maternal chromosomal or subchromosomal abnormalities, which on occasion may be associated with benign or malignant maternal neoplasms. These tests may not accurately identify triploidy, balanced rearrangements, or the precise location of subchromosomal duplications or deletions; these may be detected by diagnosis with CVS or amniocentesis. The ability to report results may be impacted by maternal BMI, maternal weight, maternal systemic lupus erythematosus (SLE) and/or by certain pharmaceutical agents such as low molecular weight heparin (for example: Lovenox(R), Xaparin(R), Clexane(R) and Fragmin(R)). Performed By: #### 5 8410-2 #### [facility] [id number] [address] [place] [address] [place] Monosomy X risk Dosage of chromosome-specific cfDNA Ql (Plasma cell-free+WBC DNA) [Interp] Not detected Normal [facility] Comment on above: Order Comment: Kodi merino Type: BLOOD SPECIMEN Ordering Facility: [facility] Address: [address] [place] [address] Performed By: #### 5 8410-2 #### [facility] [id number] [address] [place] [address] NEGATIVE PREDICTIVE VALUE Note Normal [facility] Comment on above: Order Comment: Kodi merino Type: BLOOD SPECIMEN Ordering Facility: [facility] Address: [address] [place] [address] Result Comment: The Negative Predictive Value (NPV) for trisomy 21, 18, and 13 is greater than 99%. The NPV for SCA and ESS cannot be calculated as SCA and ESS are only reported when an abnormality is detected. Performed By: #### 5 8410-2 #### [facility] [id number] [address] [place] [address] [place] JESUS PERFORMANCE CHARACTERISTICS Note Normal [facility] Comment on above: Order Comment: Kodi merino Type: BLOOD SPECIMEN Ordering Facility: [facility] Address: [address] [place] [address], [place] [address] Result Comment: ! Sex ! Accuracy: 99.4% ! ! ! ! Region (associated syndrome) ! Est. Sens# ! Est. Spec ! ! ! ! Trisomy 21 (Down Syndrome) ! 99.1% ! 99.9% ! ! ! ! Trisomy 18 (Alvarado Syndrome) ! >99.9% ! 99.6% ! ! ! ! Trisomy 13 (Patau Syndrome) ! 91.7% ! 99.7% ! ! ! ! Sex Chromosome Aneuploidies## ! 96.2% ! 99.7% ! ! ! * As reported in ISCA database nstd37 [https://www.ncbi.nlm.nih.gov/dbvar/studies/nstd37/ ] # Estimated Sensitivity. Sensitivity estimated across the observed size distribution of each syndrome [per ISCA database nstd37] and across the range of fractions observed in routine clinical NIPT. Actual sensitivity can also be influenced by other factors such as the size of the event, total sequence counts, amplification bias, or sequence bias. ## Dean gestation only. Performed By: #### 5 8410-2 #### [facility] CLIA [id number] [address] [place] [address] POSITIVE PREDICTIVE VALUE N/A Normal [facility] Comment on above: Order Comment: Speci angelique Type: BLOOD SPECIMEN Ordering Facility: [facility] Address: [address] [place] [address] Performed By: #### 5 8410-2 #### [facility] CLIA [id number] [address] [place] [address] Reference Lab Test Method Comment Normal [facility] Comment on above: Order Comment: Specvipin merino Type: BLOOD SPECIMEN Ordering Facility: [facility] Address: [address] [place] [address] Result Comment: See Notes Circulating cell-free DNA was purified from the plasma component of maternal blood. The extracted DNA was then converted into a genomic DNA library for aneuploidy analysis of chromosomes 21, 18, and 13 via next generation sequencing.[1] Optional findings based on the test order include sex chromosome aneuploidy (SCA)[2], and enhanced sequencing series (ESS)[3], which will only be reported on as an additional finding when an abnormality is detected. SCA testing includes information on X and Y representation, while ESS testing includes deletions in selected regions (22q, 15q, 11q, 8q, 5p, 4p, 1p) and trisomy of chromosomes 16 and 22. Performed By: #### 5 8410-2 #### [facility] CLIA [id number] [address] [place] [address] [place] Service comment (Unsp spec) [Interp] Comment Normal [facility] Comment on above: Order Comment: Speci men Type: BLOOD SPECIMEN [facility]ing Facility: [facility] Address: [address] [place] [address] Result Comment: See Notes [employer]. is a subsidiary of [employer], using the brand [employer]. This test was developed and its performance characteristics determined by [employer]. It has not been cleared or approved by the Food and Drug Administration. This laboratory is certified under the Clinical Laboratory Improvement Amendments (CLIA) as qualified to perform high complexity clinical laboratory testing and accredited by the College of [place] [employer] (CAP). If there is future clinical need for adding MaterniT GENOME testing, this specimen will be available until term. [facility] samples will not be retained beyond 60 days. [facility] patients will have to send a new sample for re-sequencing ([facility] Test Code: 993122). Performed By: #### 5 8410-2 #### [facility] [id number] [address] [place] [address] [place] Sex Dosage of chromosome-specific cfDNA Nom (cfDNA) Comment Normal [facility] Comment on above: Order Comment: Speci men Type: BLOOD SPECIMEN [facility] Address: [address] [place] [address] Result Comment: Cons istent with Female Performed By: #### 5 8410-2 #### [facility] [id number] [address] [place] [address] [place] Test performance information Roberto (Unsp spec) Comment Normal [facility] Comment on above: Order Comment: Speci men Type: BLOOD SPECIMEN [facility]ing Facility: [facility] Address: [address] [place] [address] Result Comment: The performance characteristics of the MaterniT(R) 21 PLUS laboratory-developed test (LDT) have been determined in a clinical validation study with women at increased risk for chromosomal aneuploidy.[1-4] Performed By: #### 5 8410-2 #### [facility] CLIA [id number] [address] [place] [address] [place] Trisomy 13 risk Dosage of chromosome-specific cfDNA Ql (cfDNA) [Interp] Negative Normal [facility] Comment on above: Order Comment: Speci men Type: BLOOD SPECIMEN [facility]ing Facility: [facility] Address: [address] [place] [address] Performed By: #### 5 8410-2 #### [facility] CLIA [id number] [address] [place] [address] [place] Trisomy 18 risk Dosage of chromosome-specific cfDNA Ql (Plasma cell-free+WBC DNA) [Interp] Negative Normal [facility] Comment on above: Order Comment: Speci men Type: BLOOD SPECIMEN [facility]ing Facility: [facility] Address: [address] [place] [address] Performed By: #### 5 8410-2 #### [facility] CLIA [id number] [address] [place] [address] [place] URINE OB DIP B/Oon 5 Glucose Ql (U) Negative Neg mg/dL [facility] Interpretation and review of laboratory results Normal [facility] Protein.monoclonal (U) [Mass/Vol] Negative Neg mg/dL [facility] GLUCOSE GESTATIONAL, 1 HOURo n 09-14-2024 Glucose 1 Hr post Unsp challenge [Mass/Vol] 198 mg/dL High 74-179 [facility] Comment on above: Order Comment: Speci men Type: BLOOD SPECIMENOrdering Facility: [facility] Address: [address] [place] [address] Result Comment: [facility] Congress of Obstetricians and Gynecologists ([place]lli/Lucero) guidelines state gestational diabetes mellitus is present when 2 or more of the plasma glucose concentrations meet or exceed the following levels: fastin mg/dl, 1 hr: 180 mg/dl, 2 hr: 155 mg/dl, and 3 hr: 140 mg/dl. Performed By: #### G TGST1 ####[facility] [id number] [place] [address] [place] GLUCOSE GESTATIONAL, 2 HOURo n 09-14-2024 Glucose 2 Hr post Unsp challenge [Mass/Vol] 180 mg/dL High 74-154 [facility] Comment on above: Order Comment: Kodi merino Type: BLOOD SPECIMEN [facility] Facility[facility] Address: [address] [place] [address] Result Comment: [facility] Congress of Obstetricians and Gynecologists ([place]lli/Lucero) guidelines state gestational diabetes mellitus is present when 2 or more of the plasma glucose concentrations meet or exceed the following levels: fastin mg/dl, 1 hr: 180 mg/dl, 2 hr: 155 mg/dl, and 3 hr: 140 mg/dl. Performed By: #### 5 8410-2 #### [facility] CLIA [id number] [address] [place] [address] [place] GLUCOSE GESTATIONAL, FASTING on 09-14-2024 Glucose post fast [Mass/Vol] 106 mg/dL High 74-94 [facility] Comment on above: Order Comment: Kodi merino Type: BLOOD SPECIMENOrdering Facility: [facility] Address: [address] [place] [address] Result Comment: [facility] Congress of Obstetricians and Gynecologists ([place]/Lucero) guidelines state gestational diabetes mellitus is present when 2 or more of the plasma glucose concentrations meet or exceed the following levels: fastin mg/dl, 1 hr: 180 mg/dl, 2 hr: 155 mg/dl, and 3 hr: 140 mg/dl. Performed By: #### G TGSTF ####[facility] [id number] [place] [address] [place] GESTATIONAL GLUCOSE SCREEN, 1-HOUR, 50 GRAM, NON-FASTINGOrdered By: Roxanna Bliss on 09-07-2024 Glucose [Mass/Vol] 177 mg/dL High 74 - 134 mg/dL [facility] Comment on above: [place] Congress of Obstetricians and Gynecologists ([place]/Coustan) guidelines state a gestational diabetes mellitus positive screen is made, in women not previously diagnosed with overt diabetes, when the 1 hr plasma glucose level is equal to or above 140 mg/dL. The [facility] Shift Mechanic and [facility] recommends a 135 mg/dL cutoff. Interpretation and review of laboratory results Abnormal [facility] GESTATIONAL GLUCOSE SCREEN, 1-HOUR, 50 GRAM, NON-FASTINGon 09-07-2024 Glucose [Mass/Vol] 177 mg/dL High 74-134 [facility] Comment on above: Order Comment: Speci men Type: BLOOD SPECIMENOrdering Facility: [facility] Address: [address] [place] [address] Result Comment: [facility] Congress of Obstetricians and Gynecologists ([place]/Coustan) guidelines state a gestational diabetes mellitus positive screen is made, in women not previously diagnosed with overt diabetes, when the 1 hr plasma glucose level is equal to or above 140 mg/dL. The [facility] Shift [employer]ic and [facility] recommends a 135 mg/dL cutoff. Performed By: #### G LTGST ####[facility] [id number] [address] OF [facility] Mary 09-06-2024 [facility] Telephone ([id number]) -- BRONWYN HIGGINBOTHAM ([id number]) 1995 F Date Time Provider Department 09/06/24 TRICIA LAMBERT [id number] During your visit today, we recorded the following information about you: Tricia Lambert RN 09/06/2024 1:18 PM Signed 1st risk assessment form submitted 09/06/2024. 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 Starting at 12 weeks. - PNV no.95/ferrous fum/folic ac ( ORAL) Take by mouth. Problem List As Of Date 09/06/2024 Noted Resolved Chronic hypertension affecting (HCC) *09/05/2024 Family history of deafness [Z82.2] 09/05/2024 Encounter for supervision of high risk pregnanc*09/05/2024 Obesity affecting in first trimester *09/05/2024 Nicotine dependence due to vaping tobacco produ*09/05/2024 Caffeine use during in first trimeste*09/05/2024 History of alcohol abuse [F10.11] 09/05/2024 Nausea and vomiting during (HCC) [O21*09/05/2024 Rubella non-immune status, antepartum (HCC) [O0*09/06/2024 Elevated hemoglobin A1c [R73.09] 09/06/2024 Encounter Status:Closed by TRICIA LAMBERT on 09/06/24 Normal [facility] Bacteria Ur Culton Bacteria identified Cx Nom (U) ORGANISM ID: 1 10,000 -<50,000 CFU/ml Normal urogenital gabrielle Normal [facility] Comment on above: Performed By: #### 6 30-4 ####[facility] [id number] [place] [address] [place] C. trachomatis+N. gonorrhoea e DNA TAYLOR+probe Ql (Unsp spec)on 09-05-2024 C. trachomatis rRNA TAYLOR+probe Ql (Unsp spec) Not detected Normal Not detected [facility] Comment on above: Order Comment: Speci men Type: BLOOD SPECIMEN [facility] Address: [address] [place] [address] Performed By: #### 5 8410-2 #### [facility] CLIA [id number] [address] [place] [address] [place] N. gonorrhoeae rRNA TAYLOR+probe Ql (Unsp spec) Not detected Normal Not detected [facility] Comment on above: Order Comment: Speci men Type: BLOOD SPECIMEN [facility] Address: [address] [place] [address] Performed By: #### 5 8410-2 #### [facility] CLIA [id number] [address] [place] [address] [place] CBC W Auto Differential pane l (Bld)on 09-05-2024 Basophils (Bld) [#/Vol] 10*3/uL Normal <0.11 [facility] Comment on above: Order Comment: Speci men Type: BLOOD SPECIMENOrdering Facility: [facility] Address: [address] [place] [address] Performed By: #### 5 7021-8 ####[facility] [id number] [place] [address] [place] Basophils/100 WBC (Bld) 0.2 % Normal [facility] Comment on above: Order Comment: Speci men Type: BLOOD SPECIMENOrdering Facility: [facility] Address: [address] [place] [address] Performed By: #### 5 7021-8 ####[facility] [id number] [place] [address] [place] Differential cell count method Nom (Bld) Auto Normal [facility] Comment on above: Order Comment: Speci men Type: BLOOD SPECIMENOrdering Facility: [facility] Address: [address] [place] [address] Performed By: #### 5 7021-8 ####[facility] [id number] [place] [id number] [place] Eosinophils (Bld) [#/Vol] 0.10 10*3/uL Normal <0.46 [facility] Comment on above: Order Comment: Speci men Type: BLOOD SPECIMENOrdering Facility: [facility] Address: [address] [place] [address] Performed By: #### 5 7021-8 ####[facility] [id number] [place] [address] [place] Eosinophils/100 WBC (Bld) 1.2 % Normal [facility] Comment on above: Order Comment: Speci men Type: BLOOD SPECIMENOrdering Facility: [facility] Address: [address] [place] [address] Performed By: #### 5 7021-8 ####[facility] [id number] [place] [address] [place] Erythrocyte distribution width (RBC) [Ratio] 12.2 % Normal 11.5-15.0 [facility] Comment on above: Order Comment: Speci men Type: BLOOD SPECIMENOrdering Facility: [facility] Address: [address] [place] [address] Performed By: #### 5 7021-8 ####[facility] [id number] [place] [address] [place] Hematocrit (Bld) [Volume fraction] 34.6 % Low 36.0-46.0 [facility] Comment on above: Order Comment: Speci men Type: BLOOD SPECIMENOrdering Facility: [facility] Address: [address] [place] [address] Performed By: #### 5 7021-8 ####[facility] [id number] [place] [address] [place] Hemoglobin (Bld) [Mass/Vol] 12.0 g/dL Normal 11.5-15.5 [facility] Comment on above: Order Comment: Speci men Type: BLOOD SPECIMENOrdering Facility: [facility] Address: [address] [place] [address] Performed By: #### 5 7021-8 ####[facility] [id number] [place] [address] [place] Immature granulocytes (Bld) [#/Vol] 0.03 10*3/uL Normal <0.10 [facility] Comment on above: Order Comment: Speci men Type: BLOOD SPECIMENOrdering Facility: [facility] Address: [address] [place] [address] Performed By: #### 5 7021-8 ####[facility] [id number] [place] [address] [place] Immature granulocytes/100 WBC (Bld) 0.4 % Normal [facility] Comment on above: Order Comment: Speci men Type: BLOOD SPECIMENOrdering Facility: [facility] Address: [address] [place] [address] Performed By: #### 5 7021-8 ####[facility] [id number] [place] [address] [place] Lymphocytes (Bld) [#/Vol] 1.40 10*3/uL Normal 1.00-4.00 [facility] Comment on above: Order Comment: Speci men Type: BLOOD SPECIMENOrdering Facility: [facility] Address: [address] [place] [address] Performed By: #### 5 7021-8 ####[facility] [id number] [place] [address] [place] Lymphocytes/100 WBC (Bld) 16.5 % Normal [facility] Comment on above: Order Comment: Speci men Type: BLOOD SPECIMENOrdering Facility: [facility] Address: [address] [place] [address] Performed By: #### 5 7021-8 ####[facility] [id number] [place] [address] [place] MCH (RBC) [Entitic mass] 30.4 pg Normal 26.0-34.0 [facility] Comment on above: Order Comment: Speci men Type: BLOOD SPECIMENOrdering Facility: [facility] Address: [address] [place] [address] Performed By: #### 5 7021-8 ####[facility] [id number] [place] [address] [place] MCHC (RBC) [Mass/Vol] 34.7 g/dL Normal 30.5-36.0 [facility] Comment on above: Order Comment: Speci men Type: BLOOD SPECIMENOrdering Facility: [facility] Address: [address] [place] [address] Performed By: #### 5 7021-8 ####[facility] [id number] [place] [address] [place] MCV (RBC) [Entitic vol] 87.6 fL Normal 80.0-100.0 [facility] Comment on above: Order Comment: Speci men Type: BLOOD SPECIMENOrdering Facility: [facility] Address: [address] [place] [address] Performed By: #### 5 7021-8 ####[facility] [id number] [place] [address] [place] Monocytes (Bld) [#/Vol] 0.46 10*3/uL Normal <0.87 [facility] Comment on above: Order Comment: Speci men Type: BLOOD SPECIMENOrdering Facility: [facility] Address: [address] [place] [address] Performed By: #### 5 7021-8 ####[facility] [id number] [place] [address] [place] Monocytes/100 WBC (Bld) 5.4 % Normal [facility] Comment on above: Order Comment: Speci men Type: BLOOD SPECIMENOrdering Facility: [facility] Address: [address] [place] [address] Performed By: #### 5 7021-8 ####[facility] [id number] [place] [address] [place] Neutrophils (Bld) [#/Vol] 6.47 10*3/uL Normal 1.45-7.50 [facility] Comment on above: Order Comment: Speci men Type: BLOOD SPECIMENOrdering Facility: [facility] Address: [address] [place] [address] Performed By: #### 5 7021-8 ####[facility] [id number] [place] [address] [place] Neutrophils/100 WBC (Bld) 76.3 % Normal [facility] Comment on above: Order Comment: Speci men Type: BLOOD SPECIMENOrdering Facility: [facility] Address: [address] [place] [address] Performed By: #### 5 7021-8 ####[facility] [id number] [place] [address] [place] Nucleated RBC (Bld) [#/Vol] 10*3/uL Normal <0.01 [facility] Comment on above: Order Comment: Speci men Type: BLOOD SPECIMENOrdering Facility: [facility] Address: [address] [place] [address] Performed By: #### 5 7021-8 ####[facility] [id number] [place] [address] [place] Nucleated RBC/100 WBC (Bld) [Ratio] 0.0 /100 WBC Normal [facility] Comment on above: Order Comment: Speci men Type: BLOOD SPECIMENOrdering Facility: [facility] Address: [address] [place] [address] Performed By: #### 5 7021-8 ####[facility] JEANENCDONI [id number] [place] [address] [place] Platelet mean volume (Bld) [Entitic vol] 9.3 fL Normal 9.0-12.7 [facility] Comment on above: Order Comment: Speci men Type: BLOOD SPECIMENOrdering Facility: [facility] Address: [address] [place] [address] Performed By: #### 5 7021-8 ####[facility] [id number] [place] [address] [place] Platelets (Bld) [#/Vol] 252 10*3/uL Normal 150-400 [facility] Comment on above: Order Comment: Speci men Type: BLOOD SPECIMENOrdering Facility: [facility] Address: [address] [place] [address] Performed By: #### 5 7021-8 ####[facility] [id number] [place] [address] [place] RBC (Bld) [#/Vol] 3.95 10*6/uL Normal 3.90-5.20 [facility] Comment on above: Order Comment: Speci men Type: BLOOD SPECIMENOrdering Facility: [facility] Address: [address] [place] [address] Performed By: #### 5 7021-8 ####[facility] [id number] [place] [address] [place] WBC (Bld) [#/Vol] 8.48 10*3/uL Normal 3.70-11.00 [facility] Comment on above: Order Comment: Speci men Type: BLOOD SPECIMENOrdering Facility: [facility] Address: [address] [place] [address] Performed By: #### 5 7021-8 ####[facility] [id number] [place] [id number] [place] Comprehensive metabolic 2000 panelOrdered By: Lana Gatica on 09-05-2024 Albumin [Mass/Vol] 4 g/dL 3.9 - 4.9 g/dL [facility] ALP [Catalytic activity/Vol] 51 U/L 34 - 123 U/L [facility] ALT [Catalytic activity/Vol] 18 U/L 7 - 38 U/L [facility] Anion gap [Moles/Vol] 13 mmol/L 8 - 15 mmol/L [facility] AST [Catalytic activity/Vol] 18 U/L 13 - 35 U/L [facility] Bilirubin [Mass/Vol] 0.3 mg/dL 0.2 - 1.3 mg/dL [facility] Calcium [Mass/Vol] 9.2 mg/dL 8.5 - 10. 2 mg/dL [facility] Chloride [Moles/Vol] 103 mmol/L 98 - 107 mmol/L [facility] CO2 [Moles/Vol] 18 mmol/L Low 22 - 30 mmol/L [facility] Creatinine [Mass/Vol] 0.6 mg/dL 0.58 - 0.96 mg/dL [facility] GFR/1.73 sq M.predicted among non-blacks MDRD (S/P/Bld) [Vol rate/Area] 127 mL/min/{1.73_m2} - PINF [facility] Comment on above: Estimated Glomerular Filtration Rate (eGFR) is calculated using the 2020 CKD-EPI creatinine equation. This equation utilizes serum creatinine, sex, and age as parameters. The creatinine assay has traceable calibration to isotope dilution-mass spectrometry. Refer to KDIGO guidelines for clinical interpretation. In patients with unstable renal function, e.g. those with acute kidney injury, the eGFR may not accurately reflect actual GFR. Glucose [Mass/Vol] 90 mg/dL 74 - 99 mg/dL [facility] Comment on above: The [place] Diabete s Association (ADA) provides guidance for cutoff values for fasting glucose and random glucose. The ADA defines fasting as no caloric intake for at least 8 hours. Fasting plasma glucose results between 100 to 125 mg/dL indicate increased risk for diabetes (prediabetes). Fasting plasma glucose results greater than or equal to 126 mg/dL meet the criteria for diagnosis of diabetes. In the absence of unequivocal hyperglycemia, results should be confirmed by repeat testing. In a patient with classic symptoms of hyperglycemia or hyperglycemic crisis, random plasma glucose results greater than or equal to 200 mg/dL meet the criteria for diagnosis of diabetes. Reference: Standards of Medical Care in Diabetes 2016, [place] Diabetes Association. Diabetes Care. 2016.39(Suppl 1). Interpretation and review of laboratory results Abnormal [facility] Potassium [Moles/Vol] 3.9 mmol/L 3.7 - 5.1 mmol/L [facility] Protein [Mass/Vol] 6.8 g/dL 6.3 - 8.0 g/dL [facility] Sodium [Moles/Vol] 134 mmol/L Low 136 - 144 mmol/L [facility] Urea nitrogen [Mass/Vol] 8 mg/dL 7 - 21 mg/dL [facility] Comprehensive metabolic 2000 panelon 09-05-2024 Albumin [Mass/Vol] 4.0 g/dL Normal 3.9-4.9 [facility] Comment on above: Order Comment: Kodi merino Type: BLOOD SPECIMENOrdering Facility: [facility] Address: [address] [place] [address] Performed By: #### 2 4323-8 ####[facility] [id number] [place] [address] [place] ALP [Catalytic activity/Vol] 51 U/L Normal 34-123 [facility] Comment on above: Order Comment: Lyni men Type: BLOOD SPECIMENOrdering Facility: [facility] Address: [address] [place] [address] Performed By: #### 2 4323-8 ####[facility] [id number] [place] [address] [place] ALT [Catalytic activity/Vol] 18 U/L Normal 7-38 [facility] Comment on above: Order Comment: Lyni men Type: BLOOD SPECIMENOrdering Facility: [facility] Address: [address] [place] [id number] Performed By: #### 2 4323-8 ####[facility] YUNG MILL[facility]OWNCLIA [id number] [place] [address] [place] Anion gap [Moles/Vol] 13 mmol/L Normal 8-15 [facility] Comment on above: Order Comment: Speci men Type: BLOOD SPECIMENOrdering Facility: [facility] Address: [address] [place] [address] Performed By: #### 2 4323-8 ####[facility] MILLTOWNCLIA [id number] [place] [address] [place] AST [Catalytic activity/Vol] 18 U/L Normal 13-35 [facility] Comment on above: Order Comment: Speci men Type: BLOOD SPECIMENOrdering Facility: [facility] Address: [address] [place] [address] Performed By: #### 2 4323-8 ####[facility] [id number] [place] [address] [place] Bilirubin [Mass/Vol] 0.3 mg/dL Normal 0.2-1.3 [facility] Comment on above: Order Comment: Speci men Type: BLOOD SPECIMENOrdering Facility: [facility] Address: [facility] [place] [address] Performed By: #### 2 4323-8 ####[facility] MILLTOWNCLIA [id number] [place] [address] [place] Calcium [Mass/Vol] 9.2 mg/dL Normal 8.5-10.2 [facility] Comment on above: Order Comment: Speci men Type: BLOOD SPECIMENOrdering Facility: [facility] Address: [facility] [place] [address] Performed By: #### 2 4323-8 ####[facility] MILLWNCLIA [id number] [place] [address] [place] Chloride [Moles/Vol] 103 mmol/L Normal 98-107 [facility] Comment on above: Order Comment: Speci men Type: BLOOD SPECIMENOrdering Facility: [facility] Address: [address] [place] [address] Performed By: #### 2 4323-8 ####[facility] [id number] [place] [address] [place] CO2 [Moles/Vol] 18 mmol/L Low 22-30 [facility] Comment on above: Order Comment: Speci men Type: BLOOD SPECIMENOrdering Facility: [facility] Address: [address] [place] [address] Performed By: #### 2 4323-8 ####[facility] [id number] [place] [address] [place] Creatinine [Mass/Vol] 0.60 mg/dL Normal 0.58-0.96 [facility] Comment on above: Order Comment: Speci men Type: BLOOD SPECIMENOrdering Facility: [facility] Address: [address] [place] [address] Performed By: #### 2 4323-8 ####[facility] [id number] [address] [place] Creatinine and Glomerular filtration rate.predicted panel (S/P/Bld) 127 mL/min/1.73m??? Normal >=60 [facility] Comment on above: Order Comment: Speci men Type: BLOOD SPECIMENOrdering Facility: [facility] Address: [address] [place] [address] Result Comment: Nichelle mated Glomerular Filtration Rate (eGFR) is calculated using the 2020 CKD-EPI creatinine equation. This equation utilizes serum creatinine, sex, and age as parameters. The creatinine assay has traceable calibration to isotope dilution-mass spectrometry. Refer to KDIGO guidelines for clinical interpretation. In patients with unstable renal function, e.g. those with acute kidney injury, the eGFR may not accurately reflect actual GFR. Performed By: #### 2 4323-8 ####[facility] SONWNCLIA [id number] [place] [address] [place] Glucose [Mass/Vol] 90 mg/dL Normal 74-99 [facility] Comment on above: Order Comment: Speci men Type: BLOOD SPECIMENOrdering Facility: [facility] Address: [address] [place] [address] Result Comment: The [place] Diabetes Association (ADA) provides guidance for cutoff values for fasting glucose and random glucose. The ADA defines fasting as no caloric intake for at least 8 hours. Fasting plasma glucose results between 100 to 125 mg/dL indicate increased risk for diabetes (prediabetes). Fasting plasma glucose results greater than or equal to 126 mg/dL meet the criteria for diagnosis of diabetes. In the absence of unequivocal hyperglycemia, results should be confirmed by repeat testing. In a patient with classic symptoms of hyperglycemia or hyperglycemic crisis, random plasma glucose results greater than or equal to 200 mg/dL meet the criteria for diagnosis of diabetes. Reference: Standards of Medical Care in Diabetes 2016, [place] Diabetes Association. Diabetes Care. 2016.39(Suppl 1). Performed By: #### 2 4323-8 ####[facility] [id number] [place] [address] [place] Potassium [Moles/Vol] 3.9 mmol/L Normal 3.7-5.1 [facility] Comment on above: Order Comment: Speci men Type: BLOOD SPECIMENOrdering Facility: [facility] Address: [address] [place] [address] Performed By: #### 2 4323-8 ####[facility] [id number] [place] [address] [place] Protein [Mass/Vol] 6.8 g/dL Normal 6.3-8.0 [facility] Comment on above: Order Comment: Speci men Type: BLOOD SPECIMENOrdering Facility: [facility] Address: [address] [place], [place] [address] Performed By: #### 2 4323-8 ####[facility] [id number] [place] [address] [place] Sodium [Moles/Vol] 134 mmol/L Low 136-144 [facility] Comment on above: Order Comment: Speci men Type: BLOOD SPECIMENOrdering Facility: [facility] Address: [address] [place] [address] Performed By: #### 2 4323-8 ####[facility] [id number] [place] [address] [place] Urea nitrogen [Mass/Vol] 8 mg/dL Normal 7-21 [facility] Comment on above: Order Comment: Speci men Type: BLOOD SPECIMENOrdering Facility: [facility] Address: [address] [place] [address] Performed By: #### 2 4323-8 ####[facility] [id number] [place] [address] [place] HBV surface Ag Ql (S)on 08-26 Interpretation and review of laboratory results Normal [facility] HBV surface Ag Ser Qlon 08-26 HBV surface Ag Ql (S) Negative Normal Negative [facility] Comment on above: Order Comment: Speci men Type: BLOOD SPECIMEN [facility] Address: [address] [place] [address] Performed By: #### 5 8410-2 #### [facility] CLIA [id number] [address] [place] [address] [place] HCV Ab Ql (S)on 09-05-2024 Interpretation and review of laboratory results Normal [facility] HCV Ab Ser Qlon 09-05-2024 HCV Ab Ql (S) Negative Normal Negative [facility] Comment on above: Order Comment: Speci men Type: BLOOD SPECIMENOrdering Facility: [facility] Address: [address] [place] [address] Result Comment: The result suggests no evidence of infection with Hepatitis C virus. Should recent infection be suspected, repeat testing may be considered 4-6 weeks after this draw. Performed By: #### 1 6128-1 ####[facility] [id number] [place] [address] [place] HEPATITIS B SURFACE ANTIGENo n 09-05-2024 HBV surface Ag Ql (S) Negative Negative [facility] HEPATITIS C ANTIBODY IA WITH CONFIRMATIONon 09-05-2024 HCV Ab Ql (S) Negative Negative [facility] Comment on above: The result suggests no evidence of infection with Hepatitis C virus. Should recent infection be suspected, repeat testing may be considered 4-6 weeks after this draw. HGB ELECTROPHORESIS FOR EVAL (LAB ORDER)on 09-05-2024 Hemoglobin A (Bld) [Mass fraction] 97.6 % Normal 96.2-98.0 [facility] Comment on above: Order Comment: Speci men Type: BLOOD SPECIMENOrdering Facility: [facility] Address: [address] [place] [address] Performed By: #### H GBISRRAELV, [id number] ####[facility] [id number] [place] [address] [place] Hemoglobin A2 (Bld) [Mass fraction] 2.4 % Normal 2.0-3.1 [facility] Comment on above: Order Comment: Speci men Type: BLOOD SPECIMENOrdering Facility: [facility] Address: [address] [place] [address] Performed By: #### H GBELEV, [id number] ####[facility] [id number] [place] [address] [place] Hemoglobin Unsp Elph (Bld) [Mass fraction] No abnormal hemoglobin identified. Normal No abnormal hemoglobin identified. [facility] Comment on above: Order Comment: Speci men Type: BLOOD SPECIMENOrdering Facility: [facility] Address: [address] [place] [address] Performed By: #### H GBELEV, [id number] ####[facility] [id number] [place] [address] [place] HGB EVALUATION CASCADE INTER David 09-05-2024 Hemoglobin pattern (Bld) [Interp] Reviewed by Jenna Gerber M.D. Normal [facility] Comment on above: Order Comment: Speci men Type: BLOOD SPECIMENOrdering Facility: [facility] Address: [address] [place] [address] Performed By: #### H REMINGTONV, [id number] ####[facility] [id number] [address] [place] INTERPRETATION (HGB EVAL) Normal [facility] Comment on above: Order Comment: Speci men Type: BLOOD SPECIMENOrdering Facility: [facility] Address: [address] [place] [address] Result Comment: Hemo globins were analyzed by capillary electrophoresis and CBC red cell parameters were reviewed. No abnormal hemoglobin is identified. There is a normal hemoglobin capillary electrophoresis pattern. Performed By: #### H VA, [id number] ####[facility] [id number] [place] [address] [place] HIV 1+2 Ab IA Qlon HIV 1 and 2 Ab IA.rapid Nom (S/P/Bld) [facility] Comment on above: Test not indicated. HIV 1+2 Ab+HIV1 p24 Ag IA Ql Non-Reactive Nonreactive [facility] HIV immunoassay testing algorithm interpretation (S/P/Bld) [Interp] [facility] Comment on above: No evidence of HIV-1 or HIV-2 infection. Should recent infection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 Comment on above: Performed By: #### B MP ####[id number] [place] [address] CBCon 07-10-2020 Erythrocyte distribution width (RBC) [Ratio] 12.5 % Normal 11.5 - 14.5 [facility] Comment on above: Performed By: #### C BC #### [facility] [address] [place] [address] Hematocrit (Bld) [Volume fraction] 35.3 % Low 36.0 - 46.0 [facility] Comment on above: Performed By: #### C BC #### [facility] [address] [place] [address] Hemoglobin (Bld) [Mass/Vol] 11.9 g/dL Low 12.0 - 16.0 [facility] Comment on above: Performed By: #### C BC #### [facility] [address] [place] [address] MCHC (RBC) [Mass/Vol] 33.7 g/dL Normal 32.0 - 36.0 [facility] Comment on above: Performed By: #### C BC #### [facility] [address] [place] [address] MCV (RBC) [Entitic vol] 93 fL Normal 80 - 100 [facility] Comment on above: Performed By: #### C BC #### [place] [address] [place] [address] NUCLEATED RBC 0.0 /100 WBC Normal 0.0-0.0 [facility] Comment on above: Performed By: #### C BC #### [facility] [address] [place] [address] Platelets (Bld) [#/Vol] 209 10*3/uL Normal 150 - 450 [facility] Comment on above: Performed By: #### C BC #### [place] [address] [place] [address] RBC 3.81 x10E12/L Low 4.00 - 5.20 [facility] Comment on above: Performed By: #### C BC #### [facility] [address] [place] [address] WBC (Bld) [#/Vol] 13.1 10*3/uL High 4.4 - 11.3 [facility] Comment on above: Performed By: #### C BC #### [facility] [address] [place] [address] Admission Risk Screen - Adul ton 07-09-2020 Admission Risk Screen - Adult Allergies: Allergies: No Known Allergies: Patient Verification: New W ID Band Applied in my Departmentyes Patient Identity Verified Bypatient ID Band FULL Name, include Middle, spelling matches patient's ID used for verificationyes ID Band Matches Patient ID used for Verficationyes ID Band MRN Matches EMR MRNyes Visitor Restriction: Coronavirus Visitor Restriction: Reasonable restrictions to in-person visitors will be observed due to current coronavirus pandemic. Travel History: COVID-19 Screening Completedno exposure or symptoms Advance Directive: Advance Directive/DNRno Advance Directive Information Givenpatient/family declined Powers Fall Screen: History of falling (immediate or previous)no (0) Secondary Diagnosisyes (15) Intravenous Therapy/ Heparin/Saline Lockyes (20) Gait/Transferringnormal/be drest/wheelchair (0) Ambulatory Aidsnone/bedrest/nurse assist (0) Mental Statusoriented to own ability (0) Score: Low risk (<25). Moderate risk (25-44). High risk (>44).35 Powers InterventionsMODERATE INTERVENTIONS: *Low Interventions Plus: * falls risk band/sticker applied to patient, *yellow non-skid footwear, *instruct to call for assistance before getting out of bed, *bed/chair/bedside commode/toilet alarms, *sensory devices/ambulatory aides available and in reach, *medications reviewed for potential side effects and care planning., moderate interventions except: bed/chair/bedside commode/toilet alarms Family Violence Screen: Are you or have you been threatened or abused physically, emotionally, or sexually by anyoneno Do you feel UNSAFE going back to the place where you are livingno Clinical assessment: Are there any apparent signs of injuries/behaviors that could be related to abuse/neglectno Social Service Consult for abuse/neglect needed this visitno Functional Screen: Functional Screen: In the recent/past 2-4 weeks, patient or family have noticedno issues that require a speech/language consult at this time AM-PAC- Basic Mobility/Daily Activity: Patient baseline bedboundno Learning Assessment (Patient): Patient is Able to be Assessed for Learningyes Factors Influencing Readiness to Learnpain Factors that Impact Ability to Learnvisual problems Devices/Methods Used to Communicateglasses Learning Preferenceswritten material Cultural Considerationsnone Developmental Considerationsnone Jain Considerationsnone Learning Assessment (Other Learner): Other learner availableno Depression Screen: During the past month, have you often been bothered by feeling down, depressed or hopelessno During the past month, have you often had little interest or pleasure in doing thingsno Have you had any thoughts of harming anyone elseno Seymour Suicide: Risk Screen Not Applicable/Able to Answerable to be screened In the Past Month: Have you wished you were or could go to sleep and not wake upno In the Past Month: Have you had any actual thoughts of killing yourselfno Lifetime: Have you ever done, started to do, or prepared to do anything to end your lifeyes Was this within the past 3 monthsno Seymour Suicide Riskmoderate Adult Nutrition Screen: Have you recently lost weight without tryingno Have you been eating poorly because of a decreased appetiteno Malnutrition Screening Tool Score0 Malnutrition Screening Tool RiskMST = 0 or 1 Not at risk. Eating well with little or no weight loss Nutrition Consult needed this visitno Can Patient Participate in Room Serviceyes Patient requires Paper Dishes/Plastic Utensilsno Pain Screen: Pain Scalenumerical 0-10 Pain Scale Educationteaching provided Current Pain Level7 = Severe Acceptable Pain Level5 = Moderate Expression of Pain (nonverbal)guarding, verbalization Chronic Painno Spiritual Screen: Are there any cultural, spiritual, islam practices/values/needs that are important for us to knowno CAGE: Is this an injured patient at a Trauma Center ([facility]/[place]/Jamal/Prabhakar/Sameer Barron/Fabien): no Vaccinations: Vaccination - Influenza Vaccination Screen: Is it flu season (between and June 25)No Vaccination - Pneumonia Vaccination Screen: Patient has received a previous pneumonia vaccine:no/unknown... Immunocompetent persons with underlying chronic conditions or reside in mcfp care facilitiesnone of these conditions Persons with Functional or Anatomic Asplenianone of these conditions Immunocompromised Personsnone of these conditions Pneumonia vaccine NOT indicated due to:patient DOES NOT have a condition that indicates vaccination Sandeep: Skin - Sandeep Scale: Sandeep: Sensory Perception (response to environment)(4) no impairment Sandeep: Moisture (degree skin exposed to moisture)(4) rarely moist Sandeep: Activity (ability to walk)(3) walks occasionally Sandeep: Mobility (amount/control of body movement)(4) no l (more content not included)... Normal [facility] Discharge [id number] Discharge Profile2 Discharge Orders: Anticipated Discharge Date: Anticipated Discharge [id number] DNAR: DNAR Status: none Activity: activity as tolerated. May not drive while taking narcotics. No pushing, pulling, or lifting objects greater than 20 pounds until follow-up visit. Weight-bearing Instructions: full weight bearing. Diet: Dietregular Encourage FluidsDrink plenty of a variety of fluids to prevent dehydration. Signs of dehydration are: dry mouth, dark yellow urine in small amounts, and dizziness with change in position or increased feeling of weakness/tiredness. Wound Care 1: Wound Typesurgical incision Cleanse Withsoap and water Instructionsno lotions, creams, or tub soaks Other InstructionsYou have Dermabond (glue) along your incision. You can shower, pat dry; do not soak in a tub. The steri strips will fall off on their own. If they do not fall off in a week, gently peel them off. Call Provider If (Homegoing Patients): Fever of 100.4 F (38 C) or higher. Vomiting (throwing up) and not able to eat or drink for 12 hours. Any new concerning symptoms. Gynecology: Activity: Return to normal activity. No pushing, pulling or lifting objects greater than 10 pounds for 2 weeks. Call Provider If: Any questions, problems or concerns. Call [phone] to have the FRAME CLEANER Provider paged. Severe abdominal pain. Some discomfort is expected. Fever greater than 100.4 degree Fahrenheit. Heavy vaginal bleeding, soaking a large pad every 1 hour & passing large clots. Severe nausea and vomiting. Follow-Up - FRAME CLEANER Provider: Physician/Dept/ServiceGYN Provider CommentsPlease call your primary belt operator to schedule a follow-up visit in 2 weeks. Provider FINAL REVIEW of Orders: Final Review: Final Review of Medication Reconciliation and Orders Completedby Physician Reviewing ProviderPhilippe Dickson MD (Resident) at 10-Jul-2020 08:01:26 Appointments: Follow-Up Appointment 01: Physician/Dept/ServiceDr. Carolee Munoz - CONDENSER TUBE TENDER Reason for Referralpost op Scheduled Date/[id number] 14:00 [facility], [address] [place] [address] [address] Floor, [place] [address] Phone [phone] CommentsPlease wear a mask when entering the building. Please arrive 10-15 minutes early, bring photo ID, current list of medications & dosages, insurance cards and any copay that may apply. If unable to keep this appointment, please call to cancel at least 24 hrs prior to appointment. Other Clinician Instructions: Other Instructions: Nursing InstructionsCall your FRAME CLEANER care provider for fever/chills. Nausea/vomiting. Increased pain. Bright red heavy vaginal bleeding. Incisional redness/drainage/swelling. Severe constipation/diarrhea. Difficulty or burning with urination. Other Clinician InstructionsA few days after your discharge, one of our care coordinators will be calling you to see how things have been going at home. This phone call also gives you the opportunity to clarify any information on your discharge instructions or ask any questions that may have come up since leaving the hospital. Electronic Signatures: Philippe Dickson (Resident)) (Signed 10-Jul-2020 08:01) Authored: Discharge Orders, Provider FINAL REVIEW of Orders Kendall Nicholas ( (Resident)) (Signed 09-Jul-2020 18:54) Authored: Gynecology, Provider FINAL REVIEW of Orders Robbi Salazar (PT ACC REP) (Signed 09-Jul-2020 08:16) Authored: Nadine Vines (CN) (Signed 09-Jul-2020 02:23) Authored: Discharge Orders, Other Clinician Instructions, Gold Form - Financial Director Summary Mariann Mccord ( (Resident)) (Signed 09-Jul-2020 14:44) Authored: Discharge Orders, Provider FINAL REVIEW of Orders Last Updated: 10-Jul-2020 08:01 by Philippe Dickson (Resident)) [facility] Order Reconciliationon 07-09 Order Reconciliation Page 1 Discharge Reconciliation Document Reconciliation Type: Discharge requested on behalf of Philippe Dickson (Resident) done by Philippe Dickson (Resident)) Discharge - Reconciliation: 09-Jul-2020 18:51 by: Kendall Nicholas (Resident)) Discharge - Reset to Incomplete: 10-Jul-2020 07:54 by: Philippe Dickson ( (Resident)) Discharge - Reconciliation: 10-Jul-2020 07:56 by: Philippe Dickson ( (Resident)) Discharge - Reset to Incomplete: 10-Jul-2020 07:57 by: Philippe Dickson ( (Resident)) Discharge - Reconciliation: 10-Jul-2020 07:58 by: Philippe Dickson ( (Resident)) Discharge - Reset to Incomplete: 10-Jul-2020 08:08 by: Philippe Dickson (Resident)) Discharge - Reconciliation: 10-Jul-2020 08:09 by: Philippe Dickson ( (Resident)) Current OrdersDateHOME MEDICATIONS AT DISCHARGE DateReconciliation Comment/ Additional Information Acetaminophen Tablet (TYLENOL)DOSE = 975 mg Oral Every 6 Hours 09-Jul-2020 18:49 Acetaminophen is not required Docusate Capsule (COLACE)DOSE = 100 mg Oral At Bedtime 09-Jul-2020 18:49 Docusate is not required HYDROmorphone Injectable (DILAUDID)DOSE = 0.4 mg IntraVenous Push Every 5 Minutes, PRN Pain - Severe (7-10) (PACU)Clinician Notes: Claudia-operative order ONLYMax total of 4 mg regardless of dose. 09-Jul-2020 14:23 HYDROmorphone Injectable is not required Ketorolac Injectable (TORADOL)DOSE = 30 mg IntraVenous Push Every 6 HoursStop After 4 DosesClinician Notes: Start no sooner than 6 hours after last intra-operative dose. 09-Jul-2020 18:49 Ketorolac Injectable is not required Lactated Ringers Infusion IV Bag Volume = 1,000 mL Run at: 100 mL/hr IntraVenous Clinician Notes: Claudia-operative order ONLY 09-Jul-2020 14:23 Lactated Ringers Infusion is not required Lactated Ringers Infusion IV Bag Volume = 1,000 mL Run at: 40 mL/hr IntraVenous 09-Jul-2020 18:49 Lactated Ringers Infusion is not required Magnesium Hydroxide Oral Liquid CONCENTRATE (MILK OF MAGNESIA)DOSE = 10 mL Oral Every 24 Hours, PRN Constipation 09-Jul-2020 18:49 Magnesium Hydroxide Oral Liquid CONCENTRATE is not required Naloxone Injectable (NARCAN)DOSE = 0.1 mg IntraVenous Push Every 5 Minutes, PRN Respiratory rate 10 or less.Stop After 2 DosesClinician Notes: Maximum of 2 doses (0.2 mg). Notify provider. May repeat x1 while waiting for provider to arrive. 09-Jul-2020 18:49 Naloxone Injectable is not required Ondansetron Injectable (ZOFRAN)DOSE = 4 mg IntraVenous Push Every 6 Hours, PRN Nausea and/or Vomiting 09-Jul-2020 18:49 Ondansetron Injectable is not required Ondansetron Injectable (ZOFRAN)DOSE = 4 mg IntraVenous Push Once, PRN PONV, first lineClinician Notes: Claudia-operative order ONLY 09-Jul-2020 14:23 Ondansetron Injectable is not required oxyCODONE Immediate Release Tablet (OXYIR, ROXICODONE)DOSE = 10 mg Oral Every 4 Hours, PRN Pain - Severe (7-10)Clinician Notes: For patients who received intrathecal analgesia start 24 hours after intrathecal dose. 09-Jul-2020 18:49 oxyCODONE Immediate Release is not required oxyCODONE Immediate Release Tablet (OXYIR, ROXICODONE)DOSE = 5 mg Oral Every 4 Hours, PRN Pain - Mod (4-6)Clinician Notes: For patients who received intrathecal analgesia start 24 hours after intrathecal dose. 09-Jul-2020 18:49 oxyCODONE Immediate Release is not required Simethicone Tablet, Chewable (MYLICON)DOSE = 80 mg Oral 4 Times a Day, PRN Gas 09-Jul-2020 18:49 Simethicone is not required Home Medications Added During Discharge Reconciliation acetaminophen 325 mg oral tablet 3 tab(s) orally every 6 hours, As Needed Colace 100 mg oral capsule 1 cap(s) orally 2 times a day Discharge Discharge Diagnosis< N83.519 Ovarian torsion Discharge Provider, Gemma Neil Discharge Disposition : .Home Condition at Discharge: Satisfactory Discharge Communication Instructions for Nursing Only: Remove IV prior to discharge from hospital. Do not remove any midline, if present, without an order from the provider. Discharge Instructions - PHR After your discharge from the hospital, two Summary of Care Documents will be available online in your Personal Health Record (PHR). 1.Consolidated-Clinical Document Architecture (C-CDA) Patient Discharge Summary This document is a summary of your hospital stay to be kept for your reference.2.C-CDA Visit Summary This document is a summary of your hospital stay to be shared with your follow-up providers (doctor, traveling construction superintendent, physical therapist, etc.). Guidelines for a Healthy Lifestyle IBU 600 mg oral tablet 1 tab(s) orally every 6 hours, As Needed oxyCODONE 5 mg oral tablet 1 tab(s) orally every 6 hours, As Needed if pain is not well controlled with Tylenol and Ibuprofen All Active Home Medications at time of Discharge Reconciliation: 10-Jul-2020 08:09 acetaminophen 325 mg oral tablet 3 tab(s) orally every 6 hours, As Needed Colace 100 mg (more content not included)... Normal [facility] Order Reconciliation Page 1 Transfer Reconciliation Document Reconciliation Type: Transfer from OR requested on behalf of Kendall Nicholas (Resident) done by Kendall Nicholas ( (Resident)) Transfer from OR - Reconciliation: 09-Jul-2020 18:46 by: Kendall Nicholas ( (Resident)) Pre-Transfer OrdersDateReconciliation Comment/ Additional InformationPost Transfer OrdersDateStop Medications Acetaminophen Tablet (TYLENOL)DOSE = 650 mg Oral Every 4 Hours, PRN Pain - Mild (1-3) or fever 09-Jul-2020 02:24 Acetaminophen Tablet (TYLENOL)DOSE = 975 mg Oral Once 09-Jul-2020 14:01 Celecoxib (CELEBREX) CapsuleDOSE = 400 mg Oral OnceClinician Notes: To be given in pre op area (if no contraindications). 09-Jul-2020 14:01 Docusate Capsule (COLACE)DOSE = 100 mg Oral 2 Times a Day 09-Jul-2020 02:24 Gabapentin Capsule (NEURONTIN)DOSE = 600 mg Oral Once 09-Jul-2020 14:01 HYDROmorphone Injectable (DILAUDID)DOSE = 0.4 mg IntraVenous Push Every 4 Hours, PRN Pain - Severe (7-10) 09-Jul-2020 06:42 HYDROmorphone Injectable (DILAUDID)DOSE = 0.4 mg IntraVenous Push Every 5 Minutes, PRN Pain - Severe (7-10) (PACU)Clinician Notes: Claudia-operative order ONLYMax total of 4 mg regardless of dose. 09-Jul-2020 14:23 Reviewed and Reconciled HYDROmorphone Injectable (DILAUDID)DOSE = 0.4 mg IntraVenous Push Every 5 Minutes, PRN Pain - Severe (7-10) (PACU)Clinician Notes: Claudia-operative order ONLYMax total of 4 mg regardless of dose. 09-Jul-2020 14:23 09-Jul-2021 23:59 Ibuprofen Tablet (ADVIL, MOTRIN)DOSE = 600 mg Oral Every 6 Hours, PRN Pain - Mild (1-3) 09-Jul-2020 02:24 Metoclopramide Tablet (REGLAN)DOSE = 10 mg Oral 4 Times a Day Before Meals, PRN Nausea/Vomiting 09-Jul-2020 02:24 Ondansetron Injectable (ZOFRAN)DOSE = 4 mg IntraVenous Push Every 6 Hours, PRN Nausea 09-Jul-2020 02:24 Ondansetron Injectable (ZOFRAN)DOSE = 4 mg IntraVenous Push Once, PRN PONV, first lineClinician Notes: Claudia-operative order ONLY 09-Jul-2020 14:23 Reviewed and Reconciled Ondansetron Injectable (ZOFRAN)DOSE = 4 mg IntraVenous Push Once, PRN PONV, first lineClinician Notes: Claudia-operative order ONLY 09-Jul-2020 14:23 09-Jul-2021 23:59 oxyCODONE Immediate Release Tablet (OXYIR, ROXICODONE)DOSE = 5 mg Oral Every 4 Hours, PRN Pain - Mod (4-6) 09-Jul-2020 02:24 Polyethylene Glycol Powder for Reconstitution (MIRALAX)DOSE = 17 gram(s) Oral Daily, PRN Constipation 09-Jul-2020 02:26 Sodium Chloride 0.9% Injectable Flush via Peripheral LineVolume = 10 mL IntraVenous Flush Every 12 Hours and as Needed 09-Jul-2020 02:24 IV Fluids Lactated Ringers Infusion IV Bag Volume = 1,000 mL Run at: 100 mL/hr IntraVenous Clinician Notes: Claudia-operative order ONLY 09-Jul-2020 14:23 Reviewed and Reconciled Lactated Ringers Infusion IV Bag Volume = 1,000 mL Run at: 100 mL/hr IntraVenous Clinician Notes: Claudia-operative order ONLY 09-Jul-2020 14:23 09-Jul-2021 23:59 Lactated Ringers Infusion IV Bag Volume = 1,000 mL Run at: 125 mL/hr IntraVenous 09-Jul-2020 02:24 Additional Home Medications Normal [facility] Order Reconciliation Page 1 Admission Reconciliation Document Reconciliation Type: Admission requested on behalf of Rosa Portillo (Resident) done by Rosa Portillo ( (Resident)) Admission - Reconciliation: 09-Jul-2020 02:25 by: Rosa Portillo (Resident)) Additional Current Orders Acetaminophen Tablet (TYLENOL)DOSE = 650 mg Oral Every 4 Hours, PRN Pain - Mild (1-3) or fever Docusate Capsule (COLACE)DOSE = 100 mg Oral 2 Times a Day Ibuprofen Tablet (ADVIL, MOTRIN)DOSE = 600 mg Oral Every 6 Hours, PRN Pain - Mild (1-3) Lactated Ringers Infusion IV Bag Volume = 1,000 mL Run at: 125 mL/hr IntraVenous Metoclopramide Tablet (REGLAN)DOSE = 10 mg Oral 4 Times a Day Before Meals, PRN Nausea/Vomiting Ondansetron Injectable (ZOFRAN)DOSE = 4 mg IntraVenous Push Every 6 Hours, PRN Nausea oxyCODONE Immediate Release Tablet (OXYIR, ROXICODONE)DOSE = 5 mg Oral Every 4 Hours, PRN Pain - Mod (4-6) Sodium Chloride 0.9% Injectable Flush via Peripheral LineVolume = 10 mL IntraVenous Flush Every 12 Hours and as Needed Normal [facility] Preop Checkliston 07-09-2020 Preop Checklist Preop Checklist: Preop Checklist: Arrival [id number] Arrival Time13:45 Procedure Typediagnostic lap Temperature C36.5 degrees C Temperature F97.7 degrees F Heart Rate89 beats per minute Respiratory Rate16 breath per minute Blood Pressure Urmkwaqy902 mm/Hg Blood Pressure Hajmvcbgo32 mm/Hg NPO [id number] 00:01 ID Band Onyes Allergy Bandno known allergies Consent Signedyes H&P Completeyes Anesthesia Assessment Completedpending EKG Performedsee results tab Chest X-Ray Performedsee results tab HCG Urine TestComplete negative Chlorhexadine Bath Givennot applicable Nasal Antiseptic Appliednot applicable Hair Washednot applicable Soap and water bath with hair shampoo the night before surgerynot applicable Hat placed on infant prior to transportnot applicable SCD's Appliedsent to OR ABELINO Hose Appliednot ordered Denturesnot applicable Prostheticsnot applicable Hearing Aidsnot applicable Valuables Securedleft in patient room Glasses / Contactson chart Bowel Prepno Cardiovascular Assessment: Apicalregular Radial Pulsespalpable Pedal Pulsespalpable Extremitieswarm, well perfused Respiratory Assessment: Respirationsregular unlabored Air Exchangegood, equal Breath Soundsclear Neurological Assessment: Level of Consciousnessoriented, alert Mobilitymoves all extremities Able to Express Selfyes Age Appropriateyes Emotional Statuscalm Skin Assessment: Skin Site(s) with Current Compromisenone Preop Education: Surgical Site Infection Preventionyes Pain Scales and Managementyes Language / Communication: Language / CommunicationEnglish Electronic Signatures: Lora Retana (RN) (Signed 09-Jul-2020 13:59) Authored: Preop Checklist Last Updated: 09-Jul-2020 13:59 by Lora Retana (RN) Normal [facility] TYPE + SCREENon 07-09-[address] ABO [address] [facility] Comment on above: Performed By: #### T +S ####[id number] [place] [address] TYPE Positive [address] [facility] Comment on above: Performed By: #### T +S ####[id number] Surgical Pathology Depar tmenton 07-09-2020 [facility] Surgical Pathology Department Name BRONWYN HIGGINBOTHAM Pathologist: FIDENCIO FINK MD Date of Procedure: 07/09/2020 Date Received: 07/09/2020 Date Reported 07/24/2020 Submitting Physician: UZAIR STOKES M.D. Location: [facility] Copy To/Referring/Attending: UZAIR STOKES M.D. Other External # FINAL DIAGNOSIS A. 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 Electronically Signed Out By FIDENCIO FINK MD/LAZARO By the signature on this report, the individual or group listed as making the Final Interpretation/Diagnosis certifies that they have reviewed this case. Clinical History: 24yo G0 presents as a transfer from [facility] with concern for torsion Specimens Submitted As: A: DERMOID CYST Gross Description: Received in formalin, labeled with the patient's name and hospital number, is a ruptured multiloculated cyst and its contents aggregating to 13 x 8.0 x 9.7 cm. The cyst contents include skin, bone/cartilage, an aggregate of hair strands, soft tissue, and marie-pink fluid. The cyst lining is hemorrhagic. No solid are identified on the cyst wall. Residual normal appearing ovarian tissue is not identified. A photograph is taken. Decorating Instructor sections are submitted in 6 cassettes. AXQ Summary of Cassettes: Specimen Label Site A 1-4 associate financial representative sections of cyst wall 5-6 cyst contents [facility] Department of Pathology [id number] [place] [address] [facility] Comment on above: Performed By: #### U [facility] ####[facility] Surgical Pathology [id number] [address] US DUPLX ART/VEIN ABon 07-09 US DUPLX ART/VEIN AB Patient Name: BRONWYN HIGGINBOTHAM STUDY: US PELVIS; 07/09/2020 5:01 am INDICATION: pelvic pain, known dermoid, concern for torsion. COMPARISON: None. ACCESSION NUMBER(S): [id number] ORDERING CLINICIAN: ROSA PORTILLO TECHNIQUE: Multiple multiplanar static diaz scale, color and spectral waveform sonographic images of the pelvis were obtained. Transabdominal and endovaginal ultrasound was performed. FINDINGS: UTERUS: Uterus is of normal size measuring 9 cm and 3.4 cm in AP dimension and 5.5 cm in transverse dimension. ENDOMETRIUM: Normal measuring 6 mm in maximum thickness. RIGHT ADNEXA: Normal right ovary measuring 5 x 3 x 2.4 cm with normal vascular flow. LEFT ADNEXA: A large left adnexal cystic mass measuring 16 x 12 cm with mixed echogenicity containing fat fluid levels and dense central calcification consistent with a large left ovarian dermoid cyst. Peripheral ovarian tissue is identified with small follicles along the lateral aspect of the cyst. Minimal vascular flow is identified within this peripheral normal ovarian tissue. No vascular flow within the dermoid cyst. CUL DE SAC: Trace free fluid in the cul-de-sac. IMPRESSION: 1. A large left ovarian dermoid cyst measuring 16 x 12 cm. No intrinsic vascular flow within mature teratoma/dermoid cyst. Minimal vascular flow is identified within the left ovary along the lateral aspect of the dermoid cyst. Possible torsion can not be entirely excluded. 2. Normal uterus and right ovary. Electronically signed by: VALENTINA JOHNSON MD Normal [facility] US PELVISon 07-09-2020 US PELVIS Patient Name: BRONWYN HIGGINBOTHAM STUDY: US PELVIS; 07/09/2020 5:01 am INDICATION: pelvic pain, known dermoid, concern for torsion. COMPARISON: None. ACCESSION NUMBER(S): [id number] ORDERING CLINICIAN: ROSA PORTILLO TECHNIQUE: Multiple multiplanar static diaz scale, color and spectral waveform sonographic images of the pelvis were obtained. Transabdominal and endovaginal ultrasound was performed. FINDINGS: UTERUS: Uterus is of normal size measuring 9 cm and 3.4 cm in AP dimension and 5.5 cm in transverse dimension. ENDOMETRIUM: Normal measuring 6 mm in maximum thickness. RIGHT ADNEXA: Normal right ovary measuring 5 x 3 x 2.4 cm with normal vascular flow. LEFT ADNEXA: A large left adnexal cystic mass measuring 16 x 12 cm with mixed echogenicity containing fat fluid levels and dense central calcification consistent with a large left ovarian dermoid cyst. Peripheral ovarian tissue is identified with small follicles along the lateral aspect of the cyst. Minimal vascular flow is identified within this peripheral normal ovarian tissue. No vascular flow within the dermoid cyst. CUL DE SAC: Trace free fluid in the cul-de-sac. IMPRESSION: 1. A large left ovarian dermoid cyst measuring 16 x 12 cm. No intrinsic vascular flow within mature teratoma/dermoid cyst. Minimal vascular flow is identified within the left ovary along the lateral aspect of the dermoid cyst. Possible torsion can not be entirely excluded. 2. Normal uterus and right ovary. Electronically signed by: VALENTINA JOHNSON MD Normal [facility] XR ANKLE LEFT 3+ VIEWS (MIRTA ANTHONY)on 02-08-2019 Posterior and latera l malleolar fractures are again noted with suggestion of interval healing. [employer] Workstation ID: [id number] [facility] EXAMINATION: XR ANKL E LEFT 3+ VIEWS (STANDARD) HISTORY: ORDERING SYSTEM PROVIDED HISTORY: Bimalleolar ankle fracture, left, closed, initial encounter, TECHNOLOGIST PROVIDED HISTORY: Injury/Trauma Reason for exam: left ankle pain Cancer History: u Surgery, RadiationHistory: u Encounter Type: Subsequent/Follow-up Mechanism of injury: F\U LT BI. MAL FX. DOI:12/13/18 ORDERING SYSTEM PROVIDED DIAGNOSIS CODES: S82.842A Bimalleolar ankle fracture, left, closed, initial encounter COMPARISON: 01/11/2019. FINDINGS: Three views of the left ankle. Posterior malleolar and lateral malleolar fractures are again noted. Fracture lines appear more obscured suggesting interval healing. Alignment is stable. [facility] Interface, Rad In Jason ji Speechq - 02/08/2019 4:19 PM EST EXAMINATION: XR ANKLE LEFT 3+ VIEWS (STANDARD) HISTORY: ORDERING SYSTEM PROVIDED HISTORY: Bimalleolar ankle fracture, left, closed, initial encounter, TECHNOLOGIST PROVIDED HISTORY: Injury/Trauma Reason for exam: left ankle pain Cancer History: u Surgery, RadiationHistory: u Encounter Type: Subsequent/Follow-up Mechanism of injury: F\U LT BI. MAL FX. DOI:12/13/18 ORDERING SYSTEM PROVIDED DIAGNOSIS CODES: S82.842A Bimalleolar ankle fracture, left, closed, initial encounter COMPARISON: 01/11/2019. FINDINGS: Three views of the left ankle. Posterior malleolar and lateral malleolar fractures are again noted. Fracture lines appear more obscured suggesting interval healing. Alignment is stable. IMPRESSION: Posterior and lateral malleolar fractures are again noted with suggestion of interval healing. [employer] Workstation ID: [id number] [facility] XR ANKLE LEFT 3+ VIEWS (STANDARD) EXAMINATION: XR ANKLE LEFT 3+ VIEWS (STANDARD) HISTORY: ORDERING SYSTEM PROVIDED HISTORY: Bimalleolar ankle fracture, left, closed, initial encounter, TECHNOLOGIST PROVIDED HISTORY: Injury/Trauma Reason for exam: left ankle pain Cancer History: u Surgery, RadiationHistory: u Encounter Type: Subsequent/Follow-up Mechanism of injury: F U LT BI. MAL FX. DOI:12/13/18 ORDERING SYSTEM PROVIDED DIAGNOSIS CODES: S82.842A Bimalleolar ankle fracture, left, closed, initial encounter COMPARISON: 01/11/2019. FINDINGS: Three views of the left ankle. Posterior malleolar and lateral malleolar fractures are again noted. Fracture lines appear more obscured suggesting interval healing. Alignment is stable. IMPRESSION: Posterior and lateral malleolar fractures are again noted with suggestion of interval healing. [employer] Workstation ID: [id number] Dictated by: LETY WHITAKER on TueFeb 08, 2019 3:57:16 PM EST Transcribed by: TONY VALDIVIA on TueFeb 08, 2019 4:03:45 PM EST Finalized by: LETY WHITAKER on Radha Feb 08, 2019 4:16:46 PM EST [facility] Comment on above: Order Comment: Injur y/Trauma or Illness?:Injury/Trauma How long have you had these symptoms (acute/chronic)?:Acute Reason for exam?:left ankle pain History of cancer?:u Surgeries, chemotherapy, or radiation?:u Type of Exam?:Subsequent/Follow-up Mechanism of injury?:F U LT BI. MAL FX. DOI:12/13/18 XR ANKLE LEFT 3+ VIEWS (MIRTA RAJ)on 01-11-2019 XR ANKLE LEFT 3+ VIEWS (STANDARD) EXAMINATION: XR ANKLE LEFT 3+ VIEWS (STANDARD) HISTORY: ORDERING SYSTEM PROVIDED HISTORY: Bimalleolar ankle fracture, left, closed, initial encounter, TECHNOLOGIST PROVIDED HISTORY: Injury/Trauma Reason for exam: F U LT BI. MAL FX. DOI:12/13/18 Cancer History: u Surgery, RadiationHistory: u Encounter Type: Subsequent/Follow-up Mechanism of injury: twisted left ankle wrong after getting foot stuck in sand ORDERING SYSTEM PROVIDED DIAGNOSIS CODES: S82.842A Bimalleolar ankle fracture, left, closed, initial encounter COMPARISON: Left ankle from 12/25/2018. FINDINGS: 3 films were done of the left ankle. At the mid aspect the base of the posterior malleolus is a nondisplaced fracture. There are stable fracture lines involving the distal aspect of the left fibula/lateral malleolus. Fracture lines are somewhat hard to visualize which may be due to slight callus formation development. No new fractures are noted. Bone density is normal. Limited views of the foot are unremarkable. No soft tissue mass or foreign body is noted. IMPRESSION: 1. Stable nondisplaced fractures involving posterior malleolus and distal fibula including the lateral malleolus compared to the prior study. 2. No new changes are noted. Workstation ID: [id number] Dictated by: SAMRA CARABALLO on Radha Jan 11, 2019 9:33:48 AM EDT Transcribed by: SAMRA CARABALLO on Radha Jan 11, 2019 9:33:48 AM EDT Finalized by: SAMRA CARABALLO on [facility] Jan 11, 2019 9:33:48 AM EDT [facility] Comment on above: Order Comment: Injur y/Trauma or Illness?:Injury/Trauma How long have you had these symptoms (acute/chronic)?:Acute Reason for exam?:F U LT BI. MAL FX. DOI:12/13/18 History of cancer?:u Surgeries, chemotherapy, or radiation?:u Type of Exam?:Subsequent/Follow-up Mechanism of injury?:twisted left ankle wrong after getting foot stuck in sand 1. Stable nondisplac ed fractures involving posterior malleolus and distal fibula including the lateral malleolus compared to the prior study. 2. No new changes are noted. Workstation ID: [id number] [facility] EXAMINATION: XR ANKL E LEFT 3+ VIEWS (STANDARD) HISTORY: ORDERING SYSTEM PROVIDED HISTORY: Bimalleolar ankle fracture, left, closed, initial encounter, TECHNOLOGIST PROVIDED HISTORY: Injury/Trauma Reason for exam: F\U LT BI. MAL FX. DOI:12/13/18 Cancer History: u Surgery, RadiationHistory: u Encounter Type: Subsequent/Follow-up Mechanism of injury: twisted left ankle wrong after getting foot stuck in sand ORDERING SYSTEM PROVIDED DIAGNOSIS CODES: S82.842A Bimalleolar ankle fracture, left, closed, initial encounter COMPARISON: Left ankle from 12/25/2018. FINDINGS: 3 films were done of the left ankle. At the mid aspect the base of the posterior malleolus is a nondisplaced fracture. There are stable fracture lines involving the distal aspect of the left fibula/lateral malleolus. Fracture lines are somewhat hard to visualize which may be due to slight callus formation development. No new fractures are noted. Bone density is normal. Limited views of the foot are unremarkable. No soft tissue mass or foreign body is noted. [facility] Interface, Rad In Fu ji Speechq - 01/11/2019 9:36 AM EDT EXAMINATION: XR ANKLE LEFT 3+ VIEWS (STANDARD) HISTORY: ORDERING SYSTEM PROVIDED HISTORY: Bimalleolar ankle fracture, left, closed, initial encounter, TECHNOLOGIST PROVIDED HISTORY: Injury/Trauma Reason for exam: F\U LT BI. MAL FX. DOI:12/13/18 Cancer History: u Surgery, RadiationHistory: u Encounter Type: Subsequent/Follow-up Mechanism of injury: twisted left ankle wrong after getting foot stuck in sand ORDERING SYSTEM PROVIDED DIAGNOSIS CODES: S82.842A Bimalleolar ankle fracture, left, closed, initial encounter COMPARISON: Left ankle from 12/25/2018. FINDINGS: 3 films were done of the left ankle. At the mid aspect the base of the posterior malleolus is a nondisplaced fracture. There are stable fracture lines involving the distal aspect of the left fibula/lateral malleolus. Fracture lines are somewhat hard to visualize which may be due to slight callus formation development. No new fractures are noted. Bone density is normal. Limited views of the foot are unremarkable. No soft tissue mass or foreign body is noted. IMPRESSION: 1. Stable nondisplaced fractures involving posterior malleolus and distal fibula including the lateral malleolus compared to the prior study. 2. No new changes are noted. Workstation ID: [id number] [facility] XR ANKLE LEFT 3+ VIEWS (MIRTA DARD)on 12-25-2018 Nondisplaced distal posterior tibia and fibular metaphyseal fractures are noted. Ankle mortise appears intact. Clinical picture may warrant additional CT evaluation. RWA/pji Workstation ID: [id number] [facility] EXAMINATION: XR ANKL E LEFT 3+ VIEWS (STANDARD) HISTORY: Pain R52. [place] stress and weightbearing views requested for joint stabilization. COMPARISON: 12/18/2018 [facility]. TECHNIQUE: Erect AP, cross-fire lateral and oblique views of the left ankle. FINDINGS: There are vertical lucencies seen posteriorly involving both the tibia and fibula, on the lateral view, consistent with nondisplaced fractures. Associated vertical loose intraarticular lucency is suggested on the AP view of the tibia, and subtle contour disruption of the lateral fibular metaphysis is noted. Ankle mortise appears intact. [facility] Interface, Rad In Fu ji Speechq - 12/25/2018 2:03 PM EDT EXAMINATION: XR ANKLE LEFT 3+ VIEWS (STANDARD) HISTORY: Pain R52. [place] stress and weightbearing views requested for joint stabilization. COMPARISON: 12/18/2018 [facility]. TECHNIQUE: Erect AP, cross-fire lateral and oblique views of the left ankle. FINDINGS: There are vertical lucencies seen posteriorly involving both the tibia and fibula, on the lateral view, consistent with nondisplaced fractures. Associated vertical loose intraarticular lucency is suggested on the AP view of the tibia, and subtle contour disruption of the lateral fibular metaphysis is noted. Ankle mortise appears intact. IMPRESSION: Nondisplaced distal posterior tibia and fibular metaphyseal fractures are noted. Ankle mortise appears intact. Clinical picture may warrant additional CT evaluation. [email or web address][email or web address] Workstation ID: [id number] [facility] XR ANKLE LEFT 3+ VIEWS (STANDARD) EXAMINATION: XR ANKLE LEFT 3+ VIEWS (STANDARD) HISTORY: Pain R52. [place] stress and weightbearing views requested for joint stabilization. COMPARISON: 12/18/2018 left ankle [facility]. TECHNIQUE: Erect AP, cross-fire lateral and oblique views of the left ankle. FINDINGS: There are vertical lucencies seen posteriorly involving both the tibia and fibula, on the lateral view, consistent with nondisplaced fractures. Associated vertical loose intraarticular lucency is suggested on the AP view of the tibia, and subtle contour disruption of the lateral fibular metaphysis is noted. Ankle mortise appears intact. IMPRESSION: Nondisplaced distal posterior tibia and fibular metaphyseal fractures are noted. Ankle mortise appears intact. Clinical picture may warrant additional CT evaluation. [employer] Workstation ID: [id number] Dictated by: NEERU ONEAL on TueDec 25, 2018 1:40:16 PM EDT Transcribed by: TONY VALDIVIA on TueDec 25, 2018 1:42:37 PM EDT Finalized by: NEERU ONEAL on TueDec 25, 2018 2:01:04 PM EDT [facility] Comment on above: Order Comment: Injur y/Trauma or Illness?:Illness/Other How long have you had these symptoms (acute/chronic)?:Acute Reason for exam?:f/u of injury to left ankle 11 days ago History of cancer?:u Surgeries, chemotherapy, or radiation?:u Type of Exam?:Subsequent/Follow-up Additional signs and symptoms?:gravity stress and weightbearign views requested for joint stabilization XR COMPARISON IMPORTon 12-25 This order has been auto-finalized and does not contain a result. [facility] XR Ankle 3+ Views Lefton XR Ankle 3+ Views Left Exam Date/Time: 12/18/2018 13:40 EDT Reason for Exam: Fall Report STUDY: XR Ankle 3+ Views Left;; 12/18/2018 1:40 pm INDICATION: Fall. COMPARISON: None. ACCESSION NUMBER(S): [id number] ORDERING CLINICIAN: Dickson Pacheco FINDINGS: An oblique poorly visualized fracture line is seen in the distal fibula involving the lateral cortex with an overlying soft tissue swelling. No displacement is present. The medial and lateral malleoli are intact. The ankle mortise is normal in width. The talus and calcaneus are intact. IMPRESSION: Nondisplaced oblique fracture of the distal fibula. Soft tissue swelling overlying the lateral malleolus. FINAL REPORT Dictated: 12/18/2018 2:05 pm Pablo Garcia MD Signed (Electronic Signature): 12/18/2018 2:05 pm Signed by: Pablo Garcia MD Technologist: NICOLE [facility] XR Foot 3+ Views Lefton 11-27 XR Foot 3+ Views Left Exam Date/Time: 12/18/2018 13:40 EDT Reason for Exam: Sprain/Strain Report STUDY: XR Foot 3+ Views Left;; 12/18/2018 1:40 pm INDICATION: Sprain/Strain. COMPARISON: None. ACCESSION NUMBER(S): [id number] ORDERING CLINICIAN: Dickson Pacheco FINDINGS: An oblique nondisplaced fracture is seen through the distal fibula. The hind, mid and forefoot bones are intact. Normal alignment is seen at the tarsometatarsal and metatarsophalangeal joints. There is a soft tissue swelling on the distal dorsal foot. IMPRESSION: Nondisplaced fracture distal fibula. No fracture in the foot. FINAL REPORT Dictated: 12/18/2018 2:09 pm Pablo Garcia MD Signed (Electronic Signature): 12/18/2018 2:09 pm Signed by: Pablo Garcia MD Technologist: Lucinda [facility] Vital Signs Date Time Vital Sign Value Performing Clinician Facility 11-16-2024 12:59-0400 Body mass index (BMI) [Ratio] 37.11 kg/m2 Bea Rose MD Work Phone: [facility] 11-16-2024 12:59-0400 Body weight 98.07 kg Bea Rose MD Work Phone: [facility] 11-16-2024 12:59-0400 Diastolic blood pressure 70 mm[Hg] Bea Rose MD Work Phone: [facility] 11-16-2024 12:59-0400 Systolic blood pressure 110 mm[Hg] Bea Rose MD Work Phone: [facility] 10-18-2024 14:45-0400 Body mass index (BMI) [Ratio] 36.73 kg/m2 Jo Leo MD Work Phone: [facility] 10-18-2024 14:45-0400 Body weight 97.07 kg Jo Leo MD Work Phone: [facility] 10-18-2024 14:45-0400 Diastolic blood pressure 68 mm[Hg] Jo Leo MD Work Phone: [facility] 10-18-2024 14:45-0400 Systolic blood pressure 122 mm[Hg] Jo Leo MD Work Phone: [facility] 10-03-2024 14:41-0400 Body mass index (BMI) [Ratio] 37.76 kg/m2 Tricia Carty MD Work Phone: [facility] 10-03-2024 14:41-0400 Body weight 99.79 kg Tricia Carty MD Work Phone: [facility] 10-03-2024 14:41-0400 Diastolic blood pressure 66 mm[Hg] Tricia Carty MD Work Phone: [facility] 10-03-2024 14:41-0400 Systolic blood pressure 124 mm[Hg] Tricia Carty MD Work Phone: [facility] 09-18-2024 14:11-0400 Body mass index (BMI) [Ratio] 37.93 kg/m2 Bea Rose MD Work Phone: [facility] 09-18-2024 14:11-0400 Body weight 100.25 kg Bea Rose MD Work Phone: [facility] 09-18-2024 14:11-0400 Diastolic blood pressure 62 mm[Hg] Bea Rose MD Work Phone: [facility] 09-18-2024 14:11-0400 Systolic blood pressure 118 mm[Hg] Bea Rose MD Work Phone: [facility] 09-18-2024 12:50-0400 Diastolic blood pressure 75 mm[Hg] Kelvin Thompson MD Work Phone: [facility] 09-18-2024 12:50-0400 Systolic blood pressure 108 mm[Hg] Kelvin Thompson MD Work Phone: [facility] 09-18-2024 12:43-0400 Body mass index (BMI) [Ratio] 37.93 kg/m2 Kelvin Thompson MD Work Phone: [facility] 09-18-2024 12:43-0400 Body weight 100.25 kg Kelvin Thompson MD Work Phone: [facility] 09-05-2024 09:31-0400 Body height 162.6 cm Kendall Delgado MANAGER FITNESS.HYDROELECTRIC PRODUCTION MANAGER Work Phone: [facility] 09-05-2024 09:31-0400 Body mass index (BMI) [Ratio] 38.11 kg/m2 Kendall Haury MANAGER FITNESS.HYDROELECTRIC PRODUCTION MANAGER Work Phone: [facility] 09-05-2024 09:31-0400 Body weight 100.7 kg Kendall Haury MANAGER FITNESS.HYDROELECTRIC PRODUCTION MANAGER Work Phone: [facility] 09-05-2024 09:31-0400 Diastolic blood pressure 70 mm[Hg] Kendall Haury MANAGER FITNESS.HYDROELECTRIC PRODUCTION MANAGER Work Phone: [facility] 09-05-2024 09:31-0400 Systolic blood pressure 130 mm[Hg] Kendall Haury MANAGER FITNESS.HYDROELECTRIC PRODUCTION MANAGER Work Phone: [facility] 09-14-2021 03:26-0400 Diastolic blood pressure 87 mm[Hg] No Pcp Required [facility] 09-14-2021 03:26-0400 Heart rate 84 /min No Pcp Required [facility] 09-14-2021 03:26-0400 Respiratory rate 16 /min No Pcp Required [facility] 09-14-2021 03:26-0400 SaO2% (BldA) [Mass fraction] 99 % No Pcp Required [facility] 09-14-2021 03:26-0400 Systolic blood pressure 141 mm[Hg] No Pcp Required [facility] 02-08-2019 09:45-0500 BP Diastolic 84 mm[Hg] Kendall Kemp [facility] 02-08-2019 09:45-0500 BP Systolic 136 mm[Hg] Kendall Kemp [facility] 02-08-2019 09:45-0500 Pulse (Heart Rate) 92 /min Kendall Kemp [facility] 01-11-2019 08:40-0400 BP Diastolic 90 mm[Hg] Kendall Kemp [facility] 01-11-2019 08:40-0400 BP Systolic 150 mm[Hg] Kendall Kemp [facility] 01-11-2019 08:40-0400 Pulse (Heart Rate) 85 /min Kendall Kemp [facility] 12-25-2018 11:14-0400 BP Diastolic 85 mm[Hg] Kendall Kemp [facility] 12-25-2018 11:14-0400 BP Systolic 138 mm[Hg] Kendall Kemp [facility] 12-25-2018 11:14-0400 Pulse (Heart Rate) 83 /min Kendall Kemp [facility] Encounters Encounter Date Encounter Type Care Provider Facility Start: 02-05-2025 End: 02-05-2025 ambulatory MARY MCDANIEL Facility:[facility] Start: 02-05-2025 End: 02-05-2025 ambulatory BEA ROSE Facility:[facility] Start: 02-01-2025 End: 02-01-2025 ambulatory BEA ROSE Facility:[facility] Start: 01-21-2025 End: 01-21-2025 ambulatory JO LEO Facility:[facility] Start: 01-04-2025 End: 01-04-2025 ambulatory TRICIA CARTY Facility:[facility] Start: 12-14-2024 End: 12-14-2024 ambulatory TRICIA CARTY Facility:[facility] Start: 11-16-2024 End: 11-16-2024 Patient encounter procedure Bea Rose MD Work Phone: OB/Gynecology Comment on above: 20 weeks gestation o f (HCC) (Primary Dx); Supervision of high risk in second trimester (HCC); Diet controlled gestational diabetes mellitus (GDM) in second trimester (HCC); Chronic hypertension affecting (HCC) Chronic hypertension affecting (HCC) (Primary Dx); with uncertain dates in first trimester (HCC); Diet controlled gestational diabetes mellitus (GDM) in first trimester (HCC); Obesity affecting in first trimester, unspecified obesity type (HCC) Start: 11-16-2024 End: 11-16-2024 ambulatory KENDLAL EVELIN Facility:[facility] Start: 11-06-2024 End: 11-06-2024 Patient encounter procedure Marah Barajas [facility] Work Phone: [facility] Comment on above: Cystic fibrosis hilliard ier in second trimester, antepartum (HCC) (Primary Dx) Start: 11-06-2024 End: 11-06-2024 Telemedicine consultation with patient Marah Barajas [facility] Work Phone: [facility] Start: 11-06-2024 End: 11-06-2024 ambulatory MARAH BARAJAS Facility:[facility] Start: 11-02-2024 End: 11-02-2024 ambulatory CHAYO GARCIA Facility:[facility] Start: 10-19-2024 End: 10-19-2024 E-mail encounter from caregiver Alexis Obrien RN Diabetic Education Main X20 Start: 10-19-2024 End: 10-19-2024 Nursing evaluation of patient and report Alexis Obrien RN Diabetic Education Main X20 Comment on above: Supervision of high risk in second trimester (HCC); Diet controlled gestational diabetes mellitus (GDM) in second trimester (HCC) Start: 10-19-2024 End: 10-19-2024 ambulatory Alexis Obrien RN Diabetic Education M ain X20 Comment on above: Gestational Diabetes Booklet Start: 10-18-2024 End: 10-18-2024 Patient encounter procedure Jo Leo MD Work Phone: OB/Gynecology Comment on above: Supervision of high risk in second trimester (HCC) (Primary Dx); Diet controlled gestational diabetes mellitus (GDM) in second trimester (HCC); Chronic hypertension affecting (HCC); 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, antepartum (HCC) Encounter for routin e screening for malformation using ultrasonics ([facility]) (Primary Dx); Encounter for supervision of high risk in first trimester, antepartum ([facility]); 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 ([facility]); Severe obesity with body mass index (BMI) of 35.0 to 39.9 with comorbidity ([facility]); 16 weeks gestation of ([facility]) Start: 10-18-2024 End: 10-18-2024 Refill Jo Leo MD Work Phone: OB/Gynecology Comment on above: Med Change Request Start: 10-18-2024 End: 10-18-2024 Telephone encounter Kendall Delgado APRN.HYDROELECTRIC PRODUCTION MANAGER Work Phone: OB/Gynecology Comment on above: Endo Dietitian educa tion Start: 10-18-2024 End: 10-18-2024 ambulatory KELVIN THOMPSON Facility:[facility] Start: 10-17-2024 End: 10-17-2024 Orders Only Kendall Delgado APRN.HYDROELECTRIC PRODUCTION MANAGER Work Phone: OB/Gynecology Comment on above: Diet controlled gest ational diabetes mellitus (GDM) in second trimester ([facility]) (Primary Dx) Start: 10-03-2024 End: 10-03-2024 Office outpatient visit 15 minutes Tricia Carty MD Work Phone: OB/Gynecology Comment on above: 14 weeks gestation o f ([facility]) (Primary Dx); Chronic hypertension affecting ([facility]); Diet controlled gestational diabetes mellitus (GDM) in first trimester ([facility]); Rubella non-immune status, antepartum ([facility]) Start: 10-03-2024 End: 10-03-2024 ambulatory TRICIA CARTY Facility:[facility] Start: 09-25-2024 End: 09-25-2024 Nursing evaluation of patient and report Lucero Mireles RN Work Phone: Endocrinology Comment on above: Diet controlled gest ational diabetes mellitus (GDM) in first trimester ([facility]) Start: 09-25-2024 End: 09-25-2024 ambulatory KENDALL DELGADO Facility:[facility] Start: 09-18-2024 End: 09-18-2024 ambulatory KELVIN R JESSICA Facility:[facility] Start: 09-18-2024 End: 09-18-2024 Patient encounter procedure 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 [employer] 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 [employer] Maternal Medicine Comment on above: with uncer tain dates in first trimester (HCC) Diet controlled gest ational diabetes mellitus (GDM) in third trimester (HCC) (Primary Dx); Encounter for supervision of high risk in first trimester, antepartum (HCC); Chronic hypertension affecting (HCC) 12 weeks gestation o f (HCC) (Primary Dx); Diet controlled gestational diabetes mellitus (GDM) in first trimester (HCC); Chronic hypertension affecting ([facility]); 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, antepartum ([facility]) Start: 09-18-2024 End: 09-18-2024 ambulatory KELVIN THOMPSON Facility:[facility] Start: 09-14-2024 End: 11-14-2024 Follow-up encounter Kendall Delgado APRN.CNP Work Phone: OB/Gynecology Comment on above: Results Start: 09-14-2024 End: 09-14-2024 ambulatory KENDALLJOSE DELGADO Facility:[facility] Start: 09-07-2024 End: 11-07-2024 Follow-up encounter Kendall Delgado APRN.HYDROELECTRIC PRODUCTION MANAGER Work Phone: OB/Gynecology Comment on above: Results Start: 09-07-2024 End: 09-07-2024 ambulatory KENDALLJOSE QUEZADAJOSEFA Facility:[facility] Start: 09-06-2024 End: 11-06-2024 Follow-up encounter Kendall Delgado APRN.HYDROELECTRIC PRODUCTION MANAGER Work Phone: OB/Gynecology Comment on above: Results Start: 09-06-2024 End: 09-06-2024 Telephone encounter Tricia Lambert RN Maternal Medic ine Comment on above: 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) Start: 09-05-2024 End: 09-05-2024 ambulatory KENDALL DAMIENJOSEFA Facility:[facility] Start: 09-05-2024 End: 09-05-2024 Patient encounter procedure Kendall Delgado APRN.CNP Work Phone: OB/Gynecology Comment on above: Encounter for superv ision of high risk in first trimester, antepartum (HCC) (Primary Dx); 10 weeks gestation of (HCC); with uncertain dates in first trimester (HCC); Screen for STD (sexually transmitted disease); Screening for cervical cancer; Family history of deafness; Chronic hypertension affecting (HCC); Obesity affecting in first trimester, unspecified obesity type (HCC); Nicotine dependence due to vaping tobacco product; Caffeine use during in first trimester ([facility]); Nausea and vomiting during ([facility]); History of alcohol abuse Start: 09-05-2024 End: 09-05-2024 ambulatory KENDALL DELGADO Facility:[facility] Start: 06-08-2022 End: 06-08-2022 Emergency department patient visit Mariana Quiroga Jennifer [facility] Emergency 13 Start: 09-14-2021 End: 09-14-2021 Emergency department patient visit Doug Damicojuan [facility] Emergency 11 Start: 02-26-2019 End: 03-02-2019 Patient encounter procedure [facility] Start: 02-26-2019 End: 02-26-2019 Patient encounter procedure Kendall Kemp Work Phone: [facility] Comment on above: Bimalleolar ankle fr acture, left, closed, initial encounter (Primary Dx) Start: 02-21-2019 End: 02-25-2019 Patient encounter procedure [facility] Start: 02-21-2019 End: 02-21-2019 Patient encounter procedure Kendall Kemp Work Phone: [facility] Comment on above: Bimalleolar ankle fr acture, left, closed, initial encounter (Primary Dx) Start: 02-15-2019 End: 02-19-2019 Patient encounter procedure KENDALL [facility] Start: 02-15-2019 End: 02-15-2019 Patient encounter procedure Kendall Kemp Work Phone: [facility] Comment on above: Bimalleolar ankle fr acture, left, closed, initial encounter (Primary Dx) Start: 02-13-2019 End: 02-17-2019 Patient encounter procedure [facility] Start: 02-13-2019 End: 02-13-2019 Patient encounter procedure Kendall Kemp Work Phone: [facility] Comment on above: Bimalleolar ankle fr acture, left, closed, initial encounter (Primary Dx) Start: 02-08-2019 End: 02-09-2019 Patient encounter procedure KENDALL KEMP [facility] Start: 02-08-2019 End: 02-08-2019 Subsequent hospital visit by physician Kendall Kemp Work Phone: [facility] Comment on above: Bimalleolar ankle fr acture, left, closed, initial encounter Start: 02-08-2019 End: 02-08-2019 Office outpatient visit 15 minutes Kendall Kemp Work Phone: [facility] Comment on above: Bimalleolar ankle fr acture, left, closed, with routine healing, subsequent encounter (Primary Dx) Start: 02-07-2019 End: 02-11-2019 Patient encounter procedure KENDALLJOSE TURNER [facility] Start: 02-07-2019 End: 02-07-2019 Patient encounter procedure Kendall Kemp Work Phone: [facility] Comment on above: Bimalleolar ankle fr acture, left, closed, initial encounter (Primary Dx) Start: 02-05-2019 End: 02-09-2019 Patient encounter procedure KENDALLJOSE TURNER [facility] Start: 02-05-2019 End: 02-05-2019 Patient encounter procedure Kendall Kemp Work Phone: [facility] Comment on above: Bimalleolar ankle fr acture, left, closed, initial encounter (Primary Dx) Start: 02-01-2019 End: 02-05-2019 Patient encounter procedure KENDALL TURNER [facility] Start: 02-01-2019 End: 02-01-2019 Patient encounter procedure Kendall Kemp Work Phone: [facility] Comment on above: Bimalleolar ankle fr acture, left, closed, initial encounter Start: 01-11-2019 End: 01-12-2019 Patient encounter procedure KENDALL KEMP [facility] Start: 01-11-2019 End: 01-11-2019 Subsequent hospital visit by physician Kendall Kemp Work Phone: [facility] Comment on above: Bimalleolar ankle fr acture, left, closed, initial encounter Start: 01-11-2019 End: 01-11-2019 Office outpatient visit 15 minutes Kendall Kemp Work Phone: [facility] Comment on above: Bimalleolar ankle fr acture, left, closed, initial encounter (Primary Dx) Start: 12-25-2018 End: 12-26-2018 Patient encounter procedure PROVIDER NOT IN [facility] Start: 12-25-2018 End: 12-25-2018 Subsequent hospital visit by physician Provider Not In [facility] Radiology External Films Comment on above: Arrived Pain Start: 12-25-2018 End: 12-25-2018 Office outpatient new 30 minutes Kendall Kemp Work Phone: [facility] Comment on above: Bimalleolar ankle fr acture, left, closed, initial encounter (Primary Dx) Procedures Date Procedure Procedure Detail Performing Clinician Start: 11-16-2024 Us preg uterus after 1st trimest 1/1st gestation Kendall Delgado APRN.HYDROELECTRIC PRODUCTION MANAGER Work Phone: Start: 10-18-2024 Us preg uterus after 1st trimest 1/1st gestation Kelvin Thompson MD Work Phone: Start: 09-18-2024 Urnls dip stick/tabl et rgnt non-auto w/o micrscp Bea Rose MD Work Phone: Start: 09-18-2024 Us preg uterus after 1st trimest 1/1st gestation Kendall Delgado APRN.HYDROELECTRIC PRODUCTION MANAGER Work Phone: Start: 09-05-2024 Antibody screen KELVIN THOMPSON Comment on above: Order Comment: Speci men Type: BLOOD SPECIMENOrdering Facility: [facility] Address: [address] [place] [address] Performed By: #### T SPN ####CC MAIN BLOOD BANKCLIA [id number] [address] [place] Start: 09-05-2024 Us uterus l imited 1/> fetuses Kendall Delgado MANAGER FITNESS.HYDROELECTRIC PRODUCTION MANAGER Work Phone: Start: 06-08-2022 End: 06-08-2022 EKG impression Aurelio Spence Start: 07-09-2020 Antibody screen Comment on above: Performed By: #### T +S ####[id number] [place] [address] Start: 02-08-2019 X-ray of left ankle Sarina ly Y[employer]en Work Phone: Start: 01-11-2019 X-ray of left ankle [facility]ina [facility] [employer] Work Phone: Start: 12-25-2018 X-ray of left ankle Sarina [facility] [employer] Work Phone: Start: 12-25-2018 Radiographic imaging procedure External Transcribed Plan of Treatment Date Care Activity Detail Author Start: 2072 RSV Vaccine (1 - 1-d ose 75+ series) RSV Vaccine (1 - 1-dose 75+ series) [facility] Start: 09-06-2027 Screening for malign ant neoplasm of cervix Cervical Cancer Screening [facility] Start: 02-02-2025 RSV Vaccine (1 - Ris k 1-dose series) RSV Vaccine (1 - Risk 1-dose series) [facility] Start: 12-14-2024 End: 12-14-2024 Patient encounter procedure OB/Gynecology Comment on above: OB OB-needs growth ultr asounds ordered Start: 11-26-2024 Influenza vaccination C [facility] Start: 11-16-2024 End: 11-16-2024 Patient encounter procedure Maternal Medicine Comment on above: NEEDS TO RESH Anatom y OB Start: 11-06-2024 End: 11-06-2024 Patient encounter procedure 11/06/2024 11:00 AM EDT [facility] [address] [place] [address] Marah Barajas, [facility] [address] [facility] [place] [address] Encounter for supervision of high risk in first trimester, antepartum (HCC) [O09.91] [facility] Comment on above: Encounter for superv ision of high risk in first trimester, antepartum (HCC) [O09.91] Start: 11-02-2024 End: 11-02-2024 Patient encounter procedure Maternal Medicine Comment on above: Anatomy Anatomy/OB NEEDS TO RESH Anatom y Start: 10-19-2024 End: 10-19-2024 Nursing evaluation of patient and report 10/19/2024 10:00 AM EDT Nurse Visit Diabetic Education Main X20 [address] [place] [address] Alexis Obrien, LUCINDA Supervision of high risk in second trimester (HCC) [O09.92]; Diet controlled gestational diabetes mellitus (GDM) in second trimester (HCC) [O24.410] Diabetic Education Main X20 Comment on above: Supervision of high risk in second trimester (HCC) [O09.92]; Diet controlled gestational diabetes mellitus (GDM) in second trimester (HCC) [O24.410] Start: 10-18-2024 End: 10-18-2024 Patient encounter procedure Maternal Medicine Comment on above: Early anatomy OB 16wk anatomy>> NEEDS TO MICHA 8 appt to 20wks Start: 10-17-2024 End: 10-17-2024 Nutrition therapy Nutrition Therapy Comment on above: Diet controlled gest ational diabetes mellitus (GDM) in first trimester (HCC) [O24.410] Start: 10-03-2024 End: 10-03-2024 Patient encounter procedure 10/03/2024 2:50 PM EDT Routine Office Visit OB/Gynecology [address] [place], [place] [id number] Tricia Carty MD [address] [place], [place] [id number] OB OB/Gynecology Comment on above: OB Start: 09-25-2024 End: 09-25-2024 Nursing evaluation of patient and report 09/25/2024 4:00 PM EDT Nurse Visit Endocrinology [address] [place], [place] [id number] Lucero Mireles, LUCINDA [address] [address] Diet controlled gestational diabetes mellitus (GDM) in first trimester (HCC) [O24.410] Endocrinology Comment on above: Diet controlled gest ational diabetes mellitus (GDM) in first trimester (HCC) [O24.410] Start: 09-18-2024 End: 12-18-2024 Chromosome 21 trisomy [Presence] in Blood or Tissue by Cytogenetics [facility] Work Phone: Comment on above: Expected: 09/18/2024 , Expires: 12/18/2024 Start: 09-18-2024 End: 09-18-2025 OBSTETRIC ULTRASOUND WHI OBSTETRIC ULTRASOUND WHI Anc Imaging Routine Encounter for supervision of high risk in first trimester, antepartum (HCC) Expected: 09/18/2024, Expires: 09/18/2025 [facility] Comment on above: Expected: 09/18/2024 , Expires: 09/18/2025 Start: 09-18-2024 End: 09-18-2024 Patient encounter procedure Maternal Medicine Comment on above: Encounter for superv ision of high risk in first trimester, antepartum (HCC) [O09.91] Nuchal OB Start: 09-07-2024 End: 12-07-2024 GEST GLUC GUILHERME, 3-HR, 100 GM, FASTING GEST GLUC GUILHERME, 3-HR, 100 GM, FASTING Lab Routine Elevated glucose tolerance test Expected: 09/07/2024, Expires: 12/07/2024 [facility] Work Phone: Comment on above: Expected: 09/07/2024 , Expires: 12/07/2024 Start: 09-05-2024 End: 12-05-2024 ANEMIA REFLEX PANEL [facility] Work Phone: Comment on above: Expected: 09/05/2024 , Expires: 12/05/2024 Start: 09-05-2024 End: 12-05-2024 HEMOGLOBIN EVALUATION CASCADE [facility] Comment on above: Expected: 09/05/2024 , Expires: 12/05/2024 Start: 09-05-2024 End: 12-05-2024 Netpulse FORESIGHT CARRIER SCREEN [facility] Comment on above: Expected: 09/05/2024 , Expires: 12/05/2024 Start: 09-05-2024 End: 09-05-2025 OBSTETRIC ULTRASOUND WHI OBSTETRIC ULTRASOUND WHI Anc Imaging Routine with uncertain dates in first trimester (HCC) Expected: 09/05/2024, Expires: 09/05/2025 [facility] Comment on above: Expected: 09/05/2024 , Expires: 09/05/2025 Start: 09-05-2024 End: 12-05-2024 Protein/Creatinine [Mass Ratio] in Urine [facility] Comment on above: Expected: 09/05/2024 , Expires: 12/05/2024 Start: 09-05-2024 End: 12-05-2024 RUBELLA IGG ANTIBODY [facility] Comment on above: Expected: 09/05/2024 , Expires: 12/05/2024 Start: 09-05-2024 End: 12-05-2024 Thyrotropin [Units/volume] in Serum or Plasma [facility] Comment on above: Expected: 09/05/2024 , Expires: 12/05/2024 Start: 11-27-2023 Covid-19 Vaccine ( season) Covid-19 Vaccine () [facility] Start: 10-27-2020 Urine microalbumin profile DTaP,Tdap,Td Vaccine (7 - Td or Tdap) [facility] Start: 03-14-2019 End: 03-14-2019 Treatment 03/14/2019 Treatment Kendall Chacon MD [address] [place] [address] [phone] Ivis Mcelroy PT [facility] Start: 03-12-2019 End: 03-12-2019 Treatment 03/12/2019 Treatment Kendall Chacon MD [address] [place] [address] [phone] Simona Moreno PTA [facility] Start: 03-07-2019 End: 03-07-2019 Treatment 03/07/2019 Treatment Kendall Chacon MD [address] [place] [address] [phone] Sim[facility] Moreno [facility] Start: 03-05-2019 End: 03-05-2019 Treatment 03/05/2019 Treatment Kendall Chacon MD [address] [place] [address] [phone] Homer Hammond [facility] Start: 02-28-2019 End: 02-28-2019 Treatment 02/28/2019 Treatment Kendall Chacon MD [facility] [place] [address] [phone] Simona Moreno [facility] Start: 02-26-2019 End: 02-26-2019 Treatment 02/26/2019 Treatment Kendall Chacon MD [facility] [address] [place] [id number] [phone] [facility] Start: 02-21-2019 End: 02-21-2019 Treatment 02/21/2019 Treatment Kendall Chacon MD [facility] [place] [address] [phone] Ivis [facility]elroy [facility] Start: 02-19-2019 End: 02-19-2019 Treatment 02/19/2019 Treatment Kendall Chacon MD [address] [place] [address] [phone] Gertrude Raymond [facility] Start: 02-15-2019 End: 02-15-2019 Treatment 02/15/2019 Treatment Kendall Chacon MD [address] [place] [address] [phone] Gertrude Raymond [facility] Start: 02-13-2019 End: 02-13-2019 Treatment 02/13/2019 Treatment Bernarda Chaconily Yue, MD [address] [facility] [place] [address] [phone] Simona Moreno PTA [facility] Start: 02-08-2019 End: 02-08-2019 Office Visit 02/08/2019 Office Visit Orthopedic Surgery Kendall Kemp MD [address] [facility] [place] [address] [phone] [facility] Orthopedic [facility] Sports Medicine Start: 02-07-2019 End: 02-07-2019 Treatment 02/07/2019 Treatment Rehabilitation Kendall Kemp MD [address] [facility] [place] [address] [phone] Simona Moreno PTA [facility] Start: 02-05-2019 End: 02-05-2019 Treatment 02/05/2019 Treatment Kendall Chacon MD [address] [place] [address] [place] [address] [phone] Simona Moreno PTA [facility] Start: 01-11-2019 End: 01-11-2019 Office Visit 01/11/2019 Office Visit Orthopedic Surgery Kendall Kemp MD [address] [place] [address] [phone] [facility] Orthopedic [facility] Start: 11-26-2018 Influenza vaccinatio n given SEQUENTIAL INFLUENZA VACCINE (#1) [facility] Start: 2018 Screening for malign ant neoplasm of cervix Cervical Cancer Screening [facility] Start: 11-24-2015 Anxiety Screening Anxiety Screening [facility] Start: 11-24-2015 Depression Screening Depression Scre ening [facility] Start: 11-24-2015 Hepatitis C screening Hepatitis C Sc reelake [facility] Start: 11-24-2015 HIV screening HIV Screening [facility] Start: 2012 Vaccination for reina n papillomavirus HPV VACCINES (1 - Female 3-dose series) [facility] Start: 11-24-2011 Peds To Adult Transition Annual Assessment Peds To Adult Transition Annual Assessment [facility] Start: 2009 Peds To Adult Transition Initial Discussion Peds To Adult Transition Initial Discussion [facility] Start: 2008 Vaccination for reina n papillomavirus HPV VACCINES (1 - Female 2-dose series) [facility] Start: 2000 History and physical examination, annual for health maintenance Wellness Visit [facility] Start: 1997 Screening for Chlamy sulaiman trachomatis Chlamydia Screening [facility] Start: 1997 Screening for malign ant neoplasm of cervix PAP SMEAR [facility] Start: 1997 Tetanus vaccination TETANUS EVERY 10 YR [facility] Bacteria identified in Urine by Culture BACTERIAL CULTURE, URINE Microbiology Routine with uncertain dates in first trimester ([facility]) 09/05/2024 10:19 AM EDT [facility] Chlamydia trachomatis+Neisseria gonorrhoeae DNA [Presence] in Unspecified specimen by TAYLOR with probe detection GONORRHEA/CHLAMYDIA NAAT Lab Routine with uncertain dates in first trimester ([facility]) Screen for STD (sexually transmitted disease) 09/05/2024 10:19 AM EDT [facility] ECG COMPLETE ECG COMPLETE ECG Routine Chronic hypertension affecting ([facility]) Diet controlled gestational diabetes mellitus (GDM) in third trimester ([facility]) Ordered: 09/18/2024 [facility] Work Phone: Comment on above: Ordered: 09/18/2024 GEST GLUC GUILHERME, 3-HR, 100 GM, FASTING GEST GLUC GUILHERME, 3-HR, 100 GM, FASTING Lab Routine Elevated glucose tolerance test 09/14/2024 8:41 AM T [facility] PAP TEST PAP TEST Lab Rou julia with uncertain dates in first trimester ([facility]) Screening for cervical cancer 09/05/2024 10:19 AM EDT [facility] TRICHOMONAS VAGINALI S NAAT TRICHOMONAS VAGINALIS NAAT Lab Routine with uncertain dates in first trimester ([facility]) Screen for STD (sexually transmitted disease) 09/05/2024 10:19 AM T [facility] URINE OB DIP B/O URINE OB DIP B/ O Lab Routine Supervision of high risk in second trimester ([facility]) Diet controlled gestational diabetes mellitus (GDM) in second trimester ([facility]) Chronic hypertension affecting ([facility]) 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 2018 Medicaid [id number] 1995 Unknown [id number] 1997 Unknown [id number] [id number]. [id number] 1997 Unknown [id number] [id number]. [id number] 1997 Unknown [id number] 1997 Unknown [id number] [id number] Private Health Insurance [id number] Unknown Social History Date Type Detail Facility Start: 12-25-2018 End: 02-08-2019 Tobacco smoking status NHIS Current every day smoker [facility] Start: 12-25-2018 End: 09-05-2024 Cigarettes smoked current (pack per day) - Reported [facility] Start: 12-25-2018 End: 02-08-2019 Alcohol intake Lifetime non-drinker (finding) [facility] Start: 12-25-2018 History SDOH Alcohol Frequency 1 [facility] Start: 1995 Sex Assigned At Not on file [facility] Tobacco smoking consumption unknown [facility] Start: 09-04-2024 Tobacco smoking stat us NHIS Never smoked tobacco [facility] Start: 09-04-2024 Tobacco use and exposure Smokeless tobacco non-user [facility] Start: 09-05-2024 End: 11-16-2024 Alcoholic beverage intake Ex-drinker (finding) [facility] Start: 09-04-2024 End: 09-05-2024 Tobacco use panel [facility] Start: 08-24-2024 Adult Depression Screening Assessment 0 [facility] Start: 07-07-2024 [facility] Medical Equipment Procedure Code Equipment Code Equipment Origin al Text Equipment Identifier Dates Use as directed to check glucose levels up to seven times daily. [id number] Start: 09-14-2024 Use as directed to check glucose levels up to seven times daily. [id number] Start: 09-14-2024 Goals Date Patient Goal Desired Activity /State Personal health goal Clinical Notes 07-09-2020 to 02-01-2025 Quick Notes - Bea Rose MD - 11/16/2024 1:19 PM EDTPrenatal Quick Notes - Bea Rose MD - 11/16/2024 1:19 PM EDTPatient Alexis Olson RN - 10/19/2024 10:00 AM EDT Note Date & Type Note Facility 02-01-2025 Note HNO ID: [id number] Author: KAYLEE PZA MA Service: ? Author Type: Car Repairer Helper Type: Progress Notes Filed: 02/01/2025 14:50 Note Text: Patient identified by name and date of . Bronwyn Higginbotham presents today for a vaccination of Tdap. Patient denies an allergy to latex: yes Patient denies a severe (life-threatening) allergy to a previous dose of Tdap, DTP, DTaP, DT or Td vaccine. Yes Patient denies history of epilepsy or neurological problems: Yes Patient is afebrile and denies being moderately or severely ill: Yes Patient denies history of Guillain-[place] Syndrome (a severe paralytic illness): Yes Tdap Adacel injection was given without incident. See immunizations for details of immunizations administered today. VIS sheet provided: Yes Provider Bea Rose MD was present in office at time of injection. Kaylee Paz MA [facility] 11-16-2024 Progress note Formatting of t his note might be different from the original. S: Bronwyn denies LOF, contractions or vaginal bleeding O: 20w6d, see flow sheet SENSITIVE EXAM: Sensitive exam not performed. A/P: Assessment & Plan 20 weeks gestation of ([facility]) Orders: URINE OB DIP B/O Supervision of high risk in second trimester ([facility]) Orders: URINE OB DIP B/O Diet controlled gestational diabetes mellitus (GDM) in second trimester (HCC) Patient was not able to check regulary last week as was camping. Patient has prior 2 weeks and the majority are normal. Orders: URINE OB DIP B/O Chronic hypertension affecting (HCC) Orders: URINE OB DIP B/O Anatomy US today Bea Rose MD [facility] 11-16-2024 Miscellaneous Notes S: Bronwyn denies LOF, contractions or vaginal bleeding O: 20w6d, see flow sheet SENSITIVE EXAM: Sensitive exam not performed. A/P: Assessment & Plan 20 weeks gestation of (HCC) Orders: URINE OB DIP B/O Supervision of high risk in second trimester ([facility]) Orders: URINE OB DIP B/O Diet controlled gestational diabetes mellitus (GDM) in second trimester ([facility]) Patient was not able to check regulary last week as was camping. Patient has prior 2 weeks and the majority are normal. Orders: URINE OB DIP B/O Chronic hypertension affecting ([facility]) Orders: URINE OB DIP B/O Anatomy US today Bea Rose MD documented in this encounter [facility] 11-16-2024 Instructions Kaylee Paz MA - 11/16/2024 12:57 PM EDT SEQUENTIAL SCREENINGS The [facility] offers sequential screenings for women who are interested in screenings for chromosomal abnormalities and certain defects during a . The sequential screen combines ultrasound and blood tests to determine the risk of chromosomal abnormalities, including Down's Syndrome (Trisomy 21) and Trisomy 18, as well as open neural tube defects including spina bifida. Ultrasound examination is performed between 11 weeks and 13 weeks gestational age. Blood tests are drawn after the ultrasound and again later in the between 15 and 21 weeks gestational age. Please let your physician know if you are interested in this testing. It will require an appointment with our remanufacturing technician. This is not an ultrasound performed by a physician in our office during a routine visit. SIGNS AND SYMPTOMS OF LABOR 1. Contractions every 10 minutes or more often 2. Clear, pink, or brownish fluid (water) leaking from vagina 3. Feeling that baby is pushing down, pressure 4. Low, dull backache 5. Cramps that feel like a period 6. Cramps with or without diarrhea If you notice any of the above symptoms, contact our office at [phone] and ask to speak with a nurse. After hours, you can call doctors registry at [phone] OR call [facility] at [phone] and ask to have the doctor bessemer converter blower paged. If you consider this an emergency, dial -3 or go to your nearest emergency department. NEED HELP? Are you dealing with a violent or abusive relationship? Are you a victim of rape or sexual assult? Call [facility] ([place]) 24 hour Crisis Hotline: 349.763.2053 or 738-978-4119. MANUAL Your Guide to a Healthy manual is now on-line. Visit [email or web address] to download your free copy documented in this encounter [facility] 11-06-2024 History of Presen t illness Narrative Images from the original note were not included. REPRODUCTIVE GENETIC COUNSELING INITIAL VISIT Bronwyn Higginbotham : 1995 Above identifiers confirmed by Marah Barajas MS, [facility] Consultation requested by: Dr. Kelvin Thompson Date of clinic visit: November 06, 2024 Safety Consultant offered/present: No, Citizen [place] in [facility] EMR demographics Bronwyn Higginbotham is a 28 year old, female referred by Dr. Kelvin Thompson for genetic counseling to discuss her Bronwyn Higginbotham . Bronwyn Higginbotham is seen via a virtual Distance Health visit today via [employer] platform per patient choice. The visit is conducted synchronously in real-time. The patient attended the appointment on her own. I have communicated my name and active licensure. The patient's identity and physical location were verified at the time of this visit. Either the patient or their legal associate financial representative has been informed of the risks and benefits of -- and alternatives to -- treatment through a remote evaluation and consents to proceed with the evaluation remotely. PRESENTING PROBLEM: Bronwyn Higginbotham is currently 19w3d gestation (by LMP). 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 Ms. Higginbotham presents for genetic counseling to discuss these results and to make a plan for next steps. REPRODUCTIVE HISTORY: Currently : Yes / 19w3d (by LMP) LMP: 06/23/2024 JANIS: 03/30/2025 history: First Aneuploidy screening: low risk cfDNA screen for Trisomies 13, 18, 21 and sex chromosome aneuploidies ('[id number]') - result under lab tab CVS: No Amniocentesis: No SIGNIFICANT PAST MEDICAL/SURGICAL HISTORIES: PAST MEDICAL HISTORY Diagnosis Date Diet controlled gestational diabetes mellitus (GDM) in first trimester (HCC) 09/14/2024 Elevated hemoglobin A1c 09/06/2024 Hypertension Pre-diabetes FOB, currently age 30: Negative FAMILY HISTORY: A 3-generation pedigree was obtained for the patient and her partner and will be scanned into patient's EMR. Of note: - Genetic and/or Inherited Disease: No - Common Disorders: Yes / Ms. Higginbotham's mother and father both have degenerative disc disease. Her mother also has arthritis, fibromyalgia and a history of melanoma. Her partner's father has fibromyalgia. - Defects: No - Recurrent Loss/Infertility: No - DD/Autism: No - : No - Other: Yes / Ms. Higginbotham's partner's paternal half sister has deafness thought to be due to congenital infection. - Patient's ethnicity: NOS - Partner's ethnicity: Not asked - Patient and partner are NOT consanguineous The remainder of the known family history is negative for infertility, recurrent loss, stillbirth, unexplained infant , defects, malformation syndromes, chromosomal abnormalities, developmental delay, known or suspected genetic diseases, and consanguinity except as noted above and on the formal pedigree. 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 We reviewed that she was offered jackson-ethnic carrier screening as standard of care. We discussed the clinical features of CF and its autosomal recessive inheritance. We then reviewed that typically in order for the to be affected with Cystic Fibrosis, both parents must be CF carriers and the 25% risk in this scenario. Reviewed the jackson-ethnic carrier rate for Cystic Fibrosis is approximately 1:45. Discussed genotype phenotype correlations with CF (both variants must be known in order for prediction; only sometimes is this possible). We reviewed the availability of diagnosis via amniocentesis if both members of a couple are identified as CF carriers and there is a 1/4 chance for Cystic Fibrosis in their fetus. Also discussed testing via screening and risk for false positives as NBS is a sensitive but not specific test. Offered CF carrier screening to her partner. Reviewed risks, benefits, limitations and billing. She reports that her partner does not have insurance. Discussed genetic testing options with the lab for individuals in this scenario. Patient declines. She opts for testing via [place] NBS. Questions answered to the best of my ability; support provided throughout. SUGGESTIONS/PLAN: Bronwyn Higginbotham is recently identified as a CF carrier. Recommend CF carrier screening for patient's partner. Patient declines at this time indicating that her partner does not have insurance. Reviewed financial options through the lab, which patient declines. Reviewed that [place] has CF as a part of the screen. Follow-up as clinically indicated. Thank you for allowing me to participate in Bronwyn Higginbotham's care. Please feel free to contact me if either you or the family has questions, or concerns. I spent a total of 30 minutes on the date of the service, which included preparing to see the patient, [id number] patient care, completing clinical documentation, obtaining and/or reviewing separately obtained history, counseling and educating the patient/family/caregiver, ordering tests, communicating with other HCPs (not separately reported), independently interpreting results (not separately reported), communicating results to the patient/family/caregiver, and care coordination (not separately reported). This plan is being carried out under the oversight of Dr. Roxanna Robertson. This note will also be sent to the referring provider via the electronic medical record. Marah Barajas MS, [facility] Licensed, Certified Genetic Counselor documented in this encounter [facility] 11-06-2024 Note HNO ID: [id number] Author: MARAH BARAJAS LGC Service: ? Author Type: Genetic Counselor Type: Progress Notes Filed: 01/03/2025 13:53 Note Text: REPRODUCTIVE GENETIC COUNSELING INITIAL VISIT Bronwyn Higginbotham : 1995 Above identifiers confirmed by Marah Barajas MS, LGC Consultation requested by: Dr. Kelvin Thompson Date of clinic visit: November 06, 2024 Safety Consultant offered/present: No, Citizen [place] in [facility] EMR demographics Bronwyn Higginbotham is a 28 year old, female referred by Dr. Kelvin Thompson for genetic counseling to discuss her Bronwyn Higginbotham . Bronwyn Higginbotham is seen via a virtual Distance Health visit today via [employer] platform per patient choice. The visit is conducted synchronously in real-time. The patient attended the appointment on her own. I have communicated my name and active licensure. The patient's identity and physical location were verified at the time of this visit. Either the patient or their legal associate financial representative has been informed of the risks and benefits of -- and alternatives to -- treatment through a remote evaluation and consents to proceed with the evaluation remotely. PRESENTING PROBLEM: Bronwyn Higginbotham is currently 19w3d gestation (by LMP). She opted for 14 gene carrier screen ([facility]) on 09/05/2024 which identified that she is a Cystic Fibrosis carrier, CFTR:c. [id number](aka [id number]) remainder of the screen low risk. Ms. Higginbotham presents for genetic counseling to discuss these results and to make a plan for next steps. REPRODUCTIVE HISTORY: Currently : Yes / 19w3d (by LMP) LMP: 06/23/2024 JANIS: 03/30/2025 history: First Aneuploidy screening: low risk cfDNA screen for Trisomies 13, 18, 21 and sex chromosome aneuploidies ('[id number]') - result under lab tab CVS: No Amniocentesis: No SIGNIFICANT PAST MEDICAL/SURGICAL HISTORIES: PAST MEDICAL HISTORY Diagnosis Date Diet controlled gestational diabetes mellitus (GDM) in first trimester (HCC) 09/14/2024 Elevated hemoglobin A1c 09/06/2024 Hypertension Pre-diabetes FOB, currently age 30: Negative FAMILY HISTORY: A 3-generation pedigree was obtained for the patient and her partner and will be scanned into patient's EMR. Of note: - Genetic and/or Inherited Disease: No - Common Disorders: Yes / Ms. Higginbotham's mother and father both have degenerative disc disease. Her mother also has arthritis, fibromyalgia and a history of melanoma. Her partner's father has fibromyalgia. - Defects: No - Recurrent Loss/Infertility: No - DD/Autism: No - : No - Other: Yes / Ms. Higginbotham's partner's paternal half sister has deafness thought to be due to congenital infection. - Patient's ethnicity: NOS - Partner's ethnicity: Not asked - Patient and partner are NOT consanguineous The remainder of the known family history is negative for infertility, recurrent loss, stillbirth, unexplained , defects, malformation syndromes, chromosomal abnormalities, developmental delay, known or suspected genetic diseases, and consanguinity except as noted above and on the formal pedigree. 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 We reviewed that she was offered jackson-ethnic carrier screening as standard of care. We discussed the clinical features of CF and its autosomal recessive inheritance. We then reviewed that typically in order for the to be affected with Cystic Fibrosis, both parents must be CF carriers and the 25% risk in this scenario. Reviewed the jackson-ethnic carrier rate for Cystic Fibrosis is approximately 1:45. Discussed genotype phenotype correlations with CF (both variants must be known in order for prediction; only sometimes is this possible). We reviewed the availability of diagnosis via amniocentesis if both members of a couple are identified as CF carriers and there is a 1/4 chance for Cystic Fibrosis in their fetus. Also discussed testing via screening and risk for false positives as NBS is a sensitive but not specific test. Offered CF carrier screening to her partner. Reviewed risks, benefits, limitations and billing. She reports that her partner does not have insurance. Discussed genetic testing options with the lab for individuals in this scenario. Patient declines. She opts for testing via [place] NBS. Questions answered to the best of my ability; support provided throughout. SUGGESTIONS/PLAN: Bronwyn Higginbotham is recently identified as a CF carrier. Recommend CF carrier screening for patient's partner. Patient declines at this time indicating that her partner does not have insurance. Reviewed financial options through the lab, which patient declines. Reviewed that [place] has CF as a part (more content not included)... [facility] 10-19-2024 History of Presen t illness Narrative DIABETES SELF-MANAGEMENT EDUCATION AND SUPPORT FOLLOW-UP VISIT Type of Diabetes: Gestational ( diabetes in ) Location: Main [place] Type of visit: Virtual (with video) individual -- I have communicated my name and active licensure. The patient's identity and physical location were verified at the time of this visit. Either the patient or their legal associate financial representative has been informed of the risks and benefits of -- and alternatives to -- treatment through a remote evaluation and consents to proceed with the evaluation remotely. Types of DSMES: Initial/Comprehensive (add to or update ADA spreadsheet) PATIENT'S MAIN CONCERN TODAY: New gestational diabetes diagnosis Support person present for education today: none Cognitive ability: Alert and oriented Motivation to learn: Interested Learning barriers identified by educator: none Method of instruction: written and verbal DIABETES SELF-MANAGEMENT FINDINGS: Monitoring: Patient states she's been checking her blood sugar using a fingerstick meter 4 times/day. Fasting and after meals. Meal Planning: Patient has been decreasing her carbohydrate intake after finding out she has gestational diabetes Medications: Not currently taking any diabetes medications Problem Solving: Patient scheduled a diabetes education visit for information about gestational diabetes INTERVENTIONS/TOPICS COVERED: -Diabetes Pathophysiology: diabetes disease process, role of insulin in the body, role of glucose in the body, insulin resistance, relationship of glucose and insulin in the body, hepatic glucose release, and gestational diabetes basics -Monitoring: BG targets, rationale for HGM, and testing frequency -Healthy Eating: impact of carbs on BG, Plate Method, basic carb counting, foods with carbs, portion sizes, and reading food labels -Medications: N/A, preemptively taught patient about insulin types/injection technique/ and hypoglycemia risks -Physical Activity: benefits of exercise and impact of exercise on BG -Acute Complications: hypoglycemia s/sx/tx -Chronic Complications: risks to mom and baby with elevated blood sugars during -Healthy Coping and Support: impact of stress on BG and benefits of a support system, types of support (ex:family, friends, support groups, diabetes groups on social media) EDUCATION HANDOUTS: Healthy You: Diabetes and LEARNING RESPONSE: Diabetes pathophysiology: Demonstrated understanding/competency today or at previous visit Healthy eating: Demonstrated understanding/competency today or at previous visit Being active: Demonstrated understanding/competency today or at previous visit Taking medications: Not applicable for this patient Monitoring glucose: Demonstrated understanding/competency today or at previous visit Acute complications: Demonstrated understanding/competency today or at previous visit Chronic complications: Demonstrated understanding/competency today or at previous visit Healthy coping: Demonstrated understanding/competency today or at previous visit Diabetes distress and support: Demonstrated understanding/competency today or at previous visit GOAL FOLLOW-UP -Healthy eating goal: MET patient has many changes to diet including portion control and lowering carb consumption -Healthy eating goal: making better food choices 3: I have a plan to start POSSIBLE FUTURE TOPICS: 1. The following topics were not assessed due to time limitations, but should be assessed at the next visit: all areas were assessed today or within the last 12 months. 2. The following topics should be taught or reinforced at the next visit: N/A. DIABETES EDUCATION PLAN: Individual follow-up, patient recommended to schedule follow-up if new questions arise or medication, such as insulin, gets prescribed. Time Spent (Minutes): 30 This visit note will be communicated to the healthcare provider via access to shared medical record. SIGNATURE: SUDHAKAR Ellis, RN PATIENT NAME: Bronwyn Higginbotham DATE: October 19, 2024 TIME: 8:41 AM PAGER: documented in this encounter [facility] 10-19-2024 Note HNO ID: [id number] Author: ALEXIS OBRIEN RN Service: ? Author Type: Registered Nurse Type: Progress Notes Filed: 10/19/2024 10:52 Note Text: DIABETES SELF-MANAGEMENT EDUCATION AND SUPPORT FOLLOW-UP VISIT Type of Diabetes: Gestational ( diabetes in ) Location: [facility] [place] Type of visit: Virtual (with video) individual -- I have communicated my name and active licensure. The patient's identity and physical location were verified at the time of this visit. Either the patient or their legal associate financial representative has been informed of the risks and benefits of -- and alternatives to -- treatment through a remote evaluation and consents to proceed with the evaluation remotely. Types of DSMES: Initial/Comprehensive (add to or update ADA spreadsheet) PATIENT'S MAIN CONCERN TODAY: New gestational diabetes diagnosis Support person present for education today: none Cognitive ability: Alert and oriented Motivation to learn: Interested Learning barriers identified by educator: none Method of instruction: written and verbal DIABETES SELF-MANAGEMENT FINDINGS: Monitoring: Patient states she's been checking her blood sugar using a fingerstick meter 4 times/day. Fasting and after meals. Meal Planning: Patient has been decreasing her carbohydrate intake after finding out she has gestational diabetes Medications: Not currently taking any diabetes medications Problem Solving: Patient scheduled a diabetes education visit for information about gestational diabetes INTERVENTIONS/TOPICS COVERED: -Diabetes Pathophysiology: diabetes disease process, role of insulin in the body, role of glucose in the body, insulin resistance, relationship of glucose and insulin in the body, hepatic glucose release, and gestational diabetes basics -Monitoring: BG targets, rationale for HGM, and testing frequency -Healthy Eating: impact of carbs on BG, Plate Method, basic carb counting, foods with carbs, portion sizes, and reading food labels -Medications: N/A, preemptively taught patient about insulin types/injection technique/ and hypoglycemia risks -Physical Activity: benefits of exercise and impact of exercise on BG -Acute Complications: hypoglycemia s/sx/tx -Chronic Complications: risks to mom and baby with elevated blood sugars during -Healthy Coping and Support: impact of stress on BG and benefits of a support system, types of support (ex:family, friends, support groups, diabetes groups on social media) EDUCATION HANDOUTS: Healthy You: Diabetes and LEARNING RESPONSE: Diabetes pathophysiology: Demonstrated understanding/competency today or at previous visit Healthy eating: Demonstrated understanding/competency today or at previous visit Being active: Demonstrated understanding/competency today or at previous visit Taking medications: Not applicable for this patient Monitoring glucose: Demonstrated understanding/competency today or at previous visit Acute complications: Demonstrated understanding/competency today or at previous visit Chronic complications: Demonstrated understanding/competency today or at previous visit Healthy coping: Demonstrated understanding/competency today or at previous visit Diabetes distress and support: Demonstrated understanding/competency today or at previous visit GOAL FOLLOW-UP -Healthy eating goal: MET patient has many changes to diet including portion control and lowering carb consumption -Healthy eating goal: making better food choices 3: I have a plan to start POSSIBLE FUTURE TOPICS: 1. The following topics were not assessed due to time limitations, but should be assessed at the next visit: all areas were assessed today or within the last 12 months. 2. The following topics should be taught or reinforced at the next visit: N/A. DIABETES EDUCATION PLAN: Individual follow-up, patient recommended to schedule follow-up if new questions arise or medication, such as insulin, gets prescribed. Time Spent (Minutes): 30 This visit note will be communicated to the healthcare provider via access to shared medical record. SIGNATURE: SUDHAKAR Ellis, RN PATIENT NAME: Bronwyn Higignbotham DATE: October 19, 2024 TIME: 8:41 AM PAGER: [facility] 10-18-2024 Telephone encounter Note filed [facility] 10-18-2024 Miscellaneous Notes filed [facility] does not dispense rx for medical supply. Spoke to patient and she is requesting Drug Ruth. Requested Prescriptions Pending Prescriptions Disp Refills Miscellaneous Medical Supply (BLOOD PRESSURE CUFF) [Pharmacy Med Name: BLOOD PRESSURE CUFF - ADULT] 1 each 0 Sig: EVERY DAY Lillian Tracy RN documented in this encounter [facility] 10-18-2024 Telephone encounter Note Pt is scheduled on 10/19/24 with endo dietitian education VV. Eleazar Hamilton RN [facility] 10-18-2024 Telephone encounter Note Images from the original note were not included. FW: Refrral for an ENDO dietitian Received: Yesterday Kendall Delgado, MANAGER FITNESS.HYDROELECTRIC PRODUCTION MANAGER P Wstr Ob-Allergist/Immunologist Pool Can we make sure she gets scheduled? I put in the endo traveling construction superintendent consult order they requested. Have always placed the previous order that I placed so not sure what the issue was/why her appt got cancelled. Thank you, Kendall Delgado APRN.JOHN Previous Messages ----- Message ----- From: Poppy Lucas RD Sent: 10/17/2024 2:12 PM EDT To: Kendall Delgado APRN.CNP Subject: Refrral for an ENDO dietitian Hi Kendall, This patient needs to be scheduled with an endo dietitian for her gestational diabetes. Could you please put in a referral for Consult to Diabetes Education for her to schedule. Thank you! Poppy [facility] 10-18-2024 Miscellaneous Notes Pt is scheduled on 10/19/24 with endo dietitian education VV. Eleazar Hamilton RN Images from the original note were not included. FW: Refrral for an ENDO dietitian Received: Yesterday Kendall Delgado APRN.CNP P Wstr Ob-Allergist/Immunologist Pool Can we make sure she gets scheduled? I put in the endo traveling construction superintendent consult order they requested. Have always placed the previous order that I placed so not sure what the issue was/why her appt got cancelled. Thank you, Kendall Delgado APRN.JOHN Previous Messages ----- Message ----- From: Poppy Lucas RD Sent: 10/17/2024 2:12 PM EDT To: Kendall Delgado APRN.CNP Subject: Refrral for an ENDO dietitian Hi Kendall, This patient needs to be scheduled with an endo dietitian for her gestational diabetes. Could you please put in a referral for Consult to Diabetes Education for her to schedule. Thank you! Poppy documented in this encounter [facility] 10-18-2024 Telephone encounter Note [facility] does not dispense rx for medical supply. Spoke to patient and she is requesting Drug Ruth. Requested Prescriptions Pending Prescriptions Disp Refills Miscellaneous Medical Supply (BLOOD PRESSURE CUFF) [Pharmacy Med Name: BLOOD PRESSURE CUFF - ADULT] 1 each 0 Sig: EVERY DAY Lillian Tracy RN [facility] 10-18-2024 Progress note Formatting of t his note might be different from the original. SW- pt doing well. No QUEZADA, pain, vb, lof. +FM PE: Gen- NAD, well appearing Abd- Soft, NT See flowsheet A/p 16 wk gestation - High risk : Early anatomy US today. Schedule 20 wk anatomy and with MFM if possible. Completed MFM consultation - cHTN: Patient reports never being on medication. Has a wrist BP cuff at home that is reading significantly higher than office blood pressures. Rx sent for new arm cuff. To monitor daily at home. Cont LDA - A1GDM: Discussed cannot rule out pre existing diabetes. Recommend establishing with endo. Schedule diabetic education. BG log reviewed today - RTO 4 wks Jo Leo DO [facility] 10-18-2024 Miscellaneous Notes SW- pt doing well. No QUEZADA, pain, vb, lof. +FM PE: Gen- NAD, well appearing Abd- Soft, NT See flowsheet A/p 16 wk gestation - High risk : Early anatomy US today. Schedule 20 wk anatomy and with MFM if possible. Completed MFM consultation - cHTN: Patient reports never being on medication. Has a wrist BP cuff at home that is reading significantly higher than office blood pressures. Rx sent for new arm cuff. To monitor daily at home. Cont LDA - A1GDM: Discussed cannot rule out pre existing diabetes. Recommend establishing with endo. Schedule diabetic education. BG log reviewed today - RTO 4 wks Jo Leo DO documented in this encounter [facility] 10-18-2024 Instructions Lili Han MA - 10/18/2024 1:44 PM EDT SEQUENTIAL SCREENINGS The [facility] offers sequential screenings for women who are interested in screenings for chromosomal abnormalities and certain defects during a . The sequential screen combines ultrasound and blood tests to determine the risk of chromosomal abnormalities, including Down's Syndrome (Trisomy 21) and Trisomy 18, as well as open neural tube defects including spina bifida. Ultrasound examination is performed between 11 weeks and 13 weeks gestational age. Blood tests are drawn after the ultrasound and again later in the between 15 and 21 weeks gestational age. Please let your physician know if you are interested in this testing. It will require an appointment with our remanufacturing technician. This is not an ultrasound performed by a physician in our office during a routine visit. SIGNS AND SYMPTOMS OF LABOR 1. Contractions every 10 minutes or more often 2. Clear, pink, or brownish fluid (water) leaking from vagina 3. Feeling that baby is pushing down, pressure 4. Low, dull backache 5. Cramps that feel like a period 6. Cramps with or without diarrhea If you notice any of the above symptoms, contact our office at [phone] and ask to speak with a nurse. After hours, you can call doctors registry at [phone] OR call [facility] at [phone] and ask to have the doctor bessemer converter blower paged. If you consider this an emergency, dial 9-1-1 or go to your nearest emergency department. NEED HELP? Are you dealing with a violent or abusive relationship? Are you a victim of rape or sexual assult? Call [facility] ([facility] 24 hour Crisis Hotline: 955.963.7582 or 653-246-1062. MANUAL Your Guide to a Healthy manual is now on-line. Visit [email or web address] to download your free copy documented in this encounter [facility] 10-03-2024 Progress note Formatting of t his note might be different from the original. S: Bronwyn Higginbotham is a 28 year old female who presents at 03/30/2025, by Last Menstrual Period for a routine visit. Denies headache, visual changes, chest pain, shortness of breath, vaginal bleeding, leakage of fluid, or dysuria. Feeling well, no complaints. O: See flow sheet Gen: No apparent distress Reviewed BG. Some elevated values. Learning what foods to avoid. Discussed decreasing portion size Growth starting at 28 weeks ASSESSMENT/PLAN: 1. 14 weeks gestation of ([facility]) - ICD9: V22.2, ICD10: Z3A.14 (primary diagnosis) 2. Chronic hypertension affecting ([facility]) - ICD9: 642.00, ICD10: O10.919 Controlled 3. Diet controlled gestational diabetes mellitus (GDM) in first trimester ([facility]) - ICD9: 648.83, ICD10: O24.410 improving 4. Rubella non-immune status, antepartum ([facility]) - ICD9: 646.83, V15.83, ICD10: O09.899, Z28.39 MMR at delivery Tricia Carty MD [facility] 10-03-2024 Miscellaneous Notes S: Bronwyn Higginbotham is a 28 year old female who presents at 03/30/2025, by Last Menstrual Period for a routine visit. Denies headache, visual changes, chest pain, shortness of breath, vaginal bleeding, leakage of fluid, or dysuria. Feeling well, no complaints. O: See flow sheet Gen: No apparent distress Reviewed BG. Some elevated values. Learning what foods to avoid. Discussed decreasing portion size Growth starting at 28 weeks ASSESSMENT/PLAN: 1. 14 weeks gestation of ([facility]) - ICD9: V22.2, ICD10: Z3A.14 (primary diagnosis) 2. Chronic hypertension affecting ([facility]) - ICD9: 642.00, ICD10: O10.919 Controlled 3. Diet controlled gestational diabetes mellitus (GDM) in first trimester ([facility]) - ICD9: 648.83, ICD10: O24.410 improving 4. Rubella non-immune status, antepartum ([facility]) - ICD9: 646.83, V15.83, ICD10: O09.899, Z28.39 MMR at delivery Tricia Carty MD documented in this encounter [facility] 10-03-2024 Instructions Laura Deng LPN - 10/03/2024 2:38 PM EDT SEQUENTIAL SCREENINGS The [facility] offers sequential screenings for women who are interested in screenings for chromosomal abnormalities and certain defects during a . The sequential screen combines ultrasound and blood tests to determine the risk of chromosomal abnormalities, including Down's Syndrome (Trisomy 21) and Trisomy 18, as well as open neural tube defects including spina bifida. Ultrasound examination is performed between 11 weeks and 13 weeks gestational age. Blood tests are drawn after the ultrasound and again later in the between 15 and 21 weeks gestational age. Please let your physician know if you are interested in this testing. It will require an appointment with our remanufacturing technician. This is not an ultrasound performed by a physician in our office during a routine visit. SIGNS AND SYMPTOMS OF LABOR 1. Contractions every 10 minutes or more often 2. Clear, pink, or brownish fluid (water) leaking from vagina 3. Feeling that baby is pushing down, pressure 4. Low, dull backache 5. Cramps that feel like a period 6. Cramps with or without diarrhea If you notice any of the above symptoms, contact our office at [phone] and ask to speak with a nurse. After hours, you can call doctors registry at [phone] OR call [facility] at [phone] and ask to have the doctor bessemer converter blower paged. If you consider this an emergency, dial 9-1-4 or go to your nearest emergency department. NEED HELP? Are you dealing with a violent or abusive relationship? Are you a victim of rape or sexual assult? Call [facility] ([facility] 24 hour Crisis Hotline: 755.542.6639 or 126-491-0279. MANUAL Your Guide to a Healthy manual is now on-line. Visit [email or web address] to download your free copy documented in this encounter [facility] 09-25-2024 History of Presen t illness Narrative DIABETES SELF-MANAGEMENT EDUCATION AND SUPPORT Location: [place] Type of visit: Virtual (with video) individual -- I have communicated my name and active licensure. The patient's identity and physical location were verified at the time of this visit. Either the patient or their legal associate financial representative has been informed of the risks and benefits of -- and alternatives to -- treatment through a remote evaluation and consents to proceed with the evaluation remotely. Types of DSMES: Initial/Comprehensive (add to or update ADA spreadsheet) PATIENT'S MAIN CONCERN TODAY: GDM Support person present for education today: none Cognitive ability: Alert and oriented Motivation to learn: Interested Learning barriers identified by educator: none Method of instruction: written and verbal INTERVENTIONS/TOPICS COVERED: -Diabetes Pathophysiology: gestational diabetes basics -Monitoring: BG targets, rationale for HGM, and using a home glucose monitor -Healthy Eating: Plate Method, basic carb counting, foods with carbs, reading food labels, and carb counting tools (books, Internet, smartphone apps) -Medications: reviewed insulin as likely, discussed insulin pens - pt had previously been warned by her MFM that this was likely -Physical Activity: benefits of exercise and impact of exercise on BG -Acute Complications: hypoglycemia s/sx/tx, hyperglycemia s/sx/tx, sick day rules, and pattern management -Chronic Complications: LT complications, importance of BG control to reduce risks, and risks to mom and baby with elevated blood sugars during -Healthy Coping and Support: impact of stress on BG DIABETES ASSESSMENT: Referring Physician: Kendall Delgado Previous Diabetes Education? No What are you hoping to gain from this visit? asked/not answered In your words, what is gestational diabetes? asked/not answered What concerns you about having gestational diabetes? asked/not answered Diabetes History: Type of Diabetes: Pre-Diabetes with How far along is your ? Weeks: 13 Does anyone in your family have diabetes? 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 never How often does someone help you read your pill bottles? never How often does someone have to help you take care of your diabetes? never Major stressors:asked/not answered Do any of the following things get in the way of managing your diabetes? No self-identified issues Health History: Do you use tobacco? Yes, How much? 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 Good Medical Issues/Complications: To whom are you reporting your blood sugar levels? OB PAST MEDICAL HISTORY Diagnosis Date Diet controlled gestational diabetes mellitus (GDM) in first trimester (HCC) 09/14/2024 Elevated hemoglobin A1c 09/06/2024 Hypertension Pre-diabetes Most recent A1C Lab Results Component Value Date HBA1C 6.0 09/05/2024 Physical Activity: Do you do a regular exercise? Yes; how many days per week 3-4 How long each day? 30-60 min Type of Exercise: walking Sleep: Do you get at least 7 hrs of sleep most nights? yes Current Outpatient Medications Medication Sig Blood-Glucose Meter Use as directed to check glucose levels up to seven times daily. (Patient not taking: Reported on 09/18/2024) blood sugar diagnostic test strip Use as directed to check glucose levels up to seven times daily. Lancets Use as directed to check glucose levels up to seven times daily. alcohol swabs (ALCOHOL PREP PADS) Use as directed to check glucose levels up to seven times daily. aspirin, enteric coated (ECOTRIN LOW STRENGTH) 81 mg EC tablet Take 2 tablets by mouth daily at bedtime. Starting at 12 weeks. (Patient not taking: Reported on 09/18/2024) PNV no.95/ferrous fum/folic ac ( ORAL) Take by mouth. No current facility-administered medications for this visit. Injections Technique: Do you take insulin or a medication you inject for your diabetes? No Blood Sugar Monitoring: Do you have a blood sugar monitor? Yes; What kind of meter is it? Accuchek Guide How often do you check? 4x per day When you check? before breakfast and other 1 hour. Do you log your blood sugars? Yes. Where do you throw away your lancets? asked/not answered Meal Planning: Are you currently following any meal plan? None How many meals do you eat per day? Three Which meals do you tend to skip? None Beverages: water and unsweetened tea EDUCATION HANDOUTS: Link sent LEARNING RESPONSE: Diabetes pathophysiology: Demonstrated understanding/competency today or at previous visit Healthy eating: Demonstrated understanding/competency today or at previous visit Being active: Demonstrated understanding/competency today or at previous visit Taking medications: Not applicable for this patient Monitoring glucose: Demonstrated understanding/competency today or at previous visit Acute complications: Demonstrated understanding/competency today or at previous visit Chronic complications: Demonstrated understanding/competency today or at previous visit Healthy coping: Demonstrated understanding/competency today or at previous visit Diabetes distress and support: Demonstrated understanding/competency today or at previous visit PATIENT SELECTED THE FOLLOWING GOALS: -Healthy eating goal: making better food choices 3: I have a plan to start POSSIBLE FUTURE TOPICS: 1. The following topics were not assessed due to time limitations, but should be assessed at the next visit: . 2. The following topics should be taught or reinforced at the next visit: . DIABETES EDUCATION PLAN: Education completed and annual diabetes education follow-up visit recommended Time Spent (Minutes): 30 This visit note will be communicated to the healthcare provider via access to shared medical record. SIGNATURE: Lucero Mireles RN PATIENT NAME: Bronwyn Higginbotham DATE: September 25, 2024 TIME: 3:47 PM documented in this encounter [facility] 09-25-2024 Note HNO ID: [id number] Author: LUCERO MIRELES RN Service: ? Author Type: Registered Nurse Type: Progress Notes Filed: 09/25/2024 16:37 Note Text: DIABETES SELF-MANAGEMENT EDUCATION AND SUPPORT Location: [place] Type of visit: Virtual (with video) individual -- I have communicated my name and active licensure. The patient's identity and physical location were verified at the time of this visit. Either the patient or their legal associate financial representative has been informed of the risks and benefits of -- and alternatives to -- treatment through a remote evaluation and consents to proceed with the evaluation remotely. Types of DSMES: Initial/Comprehensive (add to or update ADA spreadsheet) PATIENT'S MAIN CONCERN TODAY: GDM Support person present for education today: none Cognitive ability: Alert and oriented Motivation to learn: Interested Learning barriers identified by educator: none Method of instruction: written and verbal INTERVENTIONS/TOPICS COVERED: -Diabetes Pathophysiology: gestational diabetes basics -Monitoring: BG targets, rationale for HGM, and using a home glucose monitor -Healthy Eating: Plate Method, basic carb counting, foods with carbs, reading food labels, and carb counting tools (books, Internet, smartphone apps) -Medications: reviewed insulin as likely, discussed insulin pens - pt had previously been warned by her MFM that this was likely -Physical Activity: benefits of exercise and impact of exercise on BG -Acute Complications: hypoglycemia s/sx/tx, hyperglycemia s/sx/tx, sick day rules, and pattern management -Chronic Complications: LT complications, importance of BG control to reduce risks, and risks to mom and baby with elevated blood sugars during -Healthy Coping and Support: impact of stress on BG DIABETES ASSESSMENT: Referring Physician: Kendall Delgado Previous Diabetes Education? No What are you hoping to gain from this visit? asked/not answered In your words, what is gestational diabetes? asked/not answered What concerns you about having gestational diabetes? asked/not answered Diabetes History: Type of Diabetes: Pre-Diabetes with How far along is your ? Weeks: 13 Does anyone in your family have diabetes? 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 never How often does someone help you read your pill bottles? never How often does someone have to help you take care of your diabetes? never Major stressors:asked/not answered Do any of the following things get in the way of managing your diabetes? No self-identified issues Health History: Do you use tobacco? Yes, How much? 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 Good Medical Issues/Complications: To whom are you reporting your blood sugar levels? OB PAST MEDICAL HISTORY Diagnosis Date Diet controlled gestational diabetes mellitus (GDM) in first trimester ([facility]) 09/14/2024 Elevated hemoglobin A1c 09/06/2024 Hypertension Pre-diabetes Most recent A1C Lab Results Component Value Date HBA1C 6.0 09/05/2024 Physical Activity: Do you do a regular exercise? Yes; how many days per week 3-4 How long each day? 30-60 min Type of Exercise: walking Sleep: Do you get at least 7 hrs of sleep most nights? yes Current Outpatient Medications Medication Sig Blood-Glucose Meter Use as directed to check glucose levels up to seven times daily. (Patient not taking: Reported on 09/18/2024) blood sugar diagnostic test strip Use as directed to check glucose levels up to seven times daily. Lancets Use as directed to check glucose levels up to seven times daily. alcohol swabs (ALCOHOL PREP PADS) Use as directed to check glucose levels up to seven times daily. aspirin, enteric coated (ECOTRIN LOW STRENGTH) 81 mg EC tablet Take 2 tablets by mouth daily at bedtime. Starting at 12 weeks. (Patient not taking: Reported on 09/18/2024) PNV no.95/ferrous fum/folic ac ( ORAL) Take by mouth. No current facility-administered medications for this visit. Injections Technique: Do you take insulin or a medication you inject for your diabetes? No Blood Sugar Monitoring: Do you have a blood sugar monitor? Yes; What kind of meter is it? Accuchek Guide How often do you check? 4x per day When you check? before breakfast and other 1 hour. Do you log your blood sugars? Yes. Where do you throw away your lancets? asked/not (more content not included)... [facility] 09-20-2024 Progress note Formatting of t his note might be different from the original. KJ - S: Bronwyn denies LOF, contractions or vaginal bleeding. O: 12w5d, see flow sheet SENSITIVE EXAM: Sensitive exam not performed. A/P: Assessment & Plan 12 weeks gestation of ([facility]) Orders: URINE OB DIP B/O Diet controlled gestational diabetes mellitus (GDM) in first trimester ([facility]) Diabetic education & nutrition consults scheduled. 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 MFM consult today. Reviewed recommendation for serial assessment of growth (every 4 weeks starting at 28 weeks gestation) and given her HTN and early GDM, twice weekly surveillance beginning at 32 weeks gestation. Discussed that the timing of delivery would be based on /maternal status however delivery is anticipated at 37-39 weeks gestation. Bea Rose MD [facility] 09-20-2024 Miscellaneous Notes KJ - S: Bronwyn denies LOF, contractions or vaginal bleeding. O: 12w5d, see flow sheet SENSITIVE EXAM: Sensitive exam not performed. A/P: Assessment & Plan 12 weeks gestation of ([facility]) Orders: URINE OB DIP B/O Diet controlled gestational diabetes mellitus (GDM) in first trimester ([facility]) Diabetic education & nutrition consults scheduled. 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 MFM consult today. Reviewed recommendation for serial assessment of growth (every 4 weeks starting at 28 weeks gestation) and given her HTN and early GDM, twice weekly surveillance beginning at 32 weeks gestation. Discussed that the timing of delivery would be based on /maternal status however delivery is anticipated at 37-39 weeks gestation. Bea Rose MD documented in this encounter [facility] 09-18-2024 Instructions Kori Trent MA - 09/18/2024 2:09 PM EDT SEQUENTIAL SCREENINGS The [facility] offers sequential screenings for women who are interested in screenings for chromosomal abnormalities and certain defects during a . The sequential screen combines ultrasound and blood tests to determine the risk of chromosomal abnormalities, including Down's Syndrome (Trisomy 21) and Trisomy 18, as well as open neural tube defects including spina bifida. Ultrasound examination is performed between 11 weeks and 13 weeks gestational age. Blood tests are drawn after the ultrasound and again later in the between 15 and 21 weeks gestational age. Please let your physician know if you are interested in this testing. It will require an appointment with our remanufacturing technician. This is not an ultrasound performed by a physician in our office during a routine visit. SIGNS AND SYMPTOMS OF LABOR 1. Contractions every 10 minutes or more often 2. Clear, pink, or brownish fluid (water) leaking from vagina 3. Feeling that baby is pushing down, pressure 4. Low, dull backache 5. Cramps that feel like a period 6. Cramps with or without diarrhea If you notice any of the above symptoms, contact our office at [phone] and ask to speak with a nurse. After hours, you can call doctors registry at [phone] OR call [facility] at [phone] and ask to have the doctor bessemer converter blower paged. If you consider this an emergency, dial 7-2-0 or go to your nearest emergency department. NEED HELP? Are you dealing with a violent or abusive relationship? Are you a victim of rape or sexual assult? Call [facility] ([facility] 24 hour Crisis Hotline: 377.919.8667 or 670-746-2908. MANUAL Your Guide to a Healthy manual is now on-line. Visit [email or web address] to download your free copy SEQUENTIAL SCREENINGS The [facility] offers sequential screenings for women who are interested in screenings for chromosomal abnormalities and certain defects during a . The sequential screen combines ultrasound and blood tests to determine the risk of chromosomal abnormalities, including Down's Syndrome (Trisomy 21) and Trisomy 18, as well as open neural tube defects including spina bifida. Ultrasound examination is performed between 11 weeks and 13 weeks gestational age. Blood tests are drawn after the ultrasound and again later in the between 15 and 21 weeks gestational age. Please let your physician know if you are interested in this testing. It will require an appointment with our remanufacturing technician. This is not an ultrasound performed by a physician in our office during a routine visit. SIGNS AND SYMPTOMS OF LABOR 1. Contractions every 10 minutes or more often 2. Clear, pink, or brownish fluid (water) leaking from vagina 3. Feeling that baby is pushing down, pressure 4. Low, dull backache 5. Cramps that feel like a period 6. Cramps with or without diarrhea If you notice any of the above symptoms, contact our office at [phone] and ask to speak with a nurse. After hours, you can call doctors registry at [phone] OR call [facility] at [phone] and ask to have the doctor bessemer converter blower paged. If you consider this an emergency, dial 9-1-1 or go to your nearest emergency department. NEED HELP? Are you dealing with a violent or abusive relationship? Are you a victim of rape or sexual assult? Call [facility] ([place]) 24 hour Crisis Hotline: 378.105.1519 or 580-564-2413. MANUAL Your Guide to a Healthy manual is now on-line. Visit [email or web address] to download your free copy documented in this encounter [facility] 09-18-2024 History of Presen t illness Narrative Maternal Medicine Consult Note Requested by: Kendall ARCHER Reporting: Note/evaluation from today sent to requesting provider via shared medical record. History of Present Illness 28 year old at 12w3d presenting for MFM consultation secondary to chronic hypertension and recently diagnosed GDM. Her medical history is notable for class 2 obesity (BMI 36) and chronic hypertension, which was diagnosed in 2011. She is not currently on antihypertensive therapy, denies a history of prior antihypertensive therapy use/prescription, and denies any known end organ involvement secondary to HTN. In addition, early A1c was in the prediabetic range at 6.0%, and she subsequently had an elevated 3hr GTT that resulted at 106/198/180/(final value not reported) c/w early diagnosis of GDM. Blood sugar monitoring supplies were ordered, and she states her test strips just arrived in the mail today - so she has not started monitoring her blood sugars. She reports dietary/nutritional counseling at [facility], hwoever she has not yet had a formal nutrition consult. Baseline CMP, P/C, and TSH were normal. Her past medical and surgical histories are notable for a laparoscopic ovarian cystectomy (mature teratoma) and are otherwise remarkable. She has no prior OB history. She reports no significant gynecologic history and denies fibroids, dysplasia requiring conization, or other gynecologic conditions or surgeries. She denies any personal or family history of significant genetic diagnoses for herself or her partner. She denies tobacco, alcohol or illicit substance abuse. She has no known drug allergies and her current mediations include vitamins and ASA. 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 She reports that her partner has not been tested (he does not have health insurance). She reported feeling well overall today and denied abdominal pain, contractions, or VB. ROS otherwise negative as below. PAST MEDICAL HISTORY Diagnosis Date Diet controlled gestational diabetes mellitus (GDM) in first trimester (HCC) 09/14/2024 Elevated hemoglobin A1c 09/06/2024 Hypertension Pre-diabetes PAST SURGICAL HISTORY Procedure Laterality Date PAST SURGICAL HISTORY OF 2020 teratoma cyst removal Family History Problem Relation Age of Onset Hypertension Mother Heart Father heart calcifaction No Known Problems Sister No Known Problems Brother Diabetes Maternal Grandmother Lung Cancer Maternal Grandfather Diabetes Paternal Grandmother other (liver) Paternal Grandfather liver failure Current Outpatient Medications Medication Sig Dispense Refill Blood-Glucose Meter Use as directed to check glucose levels up to seven times daily. 1 each 0 blood sugar diagnostic test strip Use as directed to check glucose levels up to seven times daily. 200 strip 8 Lancets Use as directed to check glucose levels up to seven times daily. 200 each 8 alcohol swabs (ALCOHOL PREP PADS) Use as directed to check glucose levels up to seven times daily. 200 each 8 aspirin, enteric coated (ECOTRIN LOW STRENGTH) 81 mg EC tablet Take 2 tablets by mouth daily at bedtime. Starting at 12 weeks. 180 tablet 2 PNV no.95/ferrous fum/folic ac ( ORAL) Take by mouth. No current facility-administered medications for this visit. ALLERGIES Allergen Reactions Adhesive Other: See Comments Surgical Glue: Inflammation around the incisions/pus Review Of Systems: General: negative for fatigue, unintentional weight gain or loss, fever, chills Skin: negative for ulceration, rash, hair changes, nail changes Eyes: negative for double vision, loss of vision, itching. Ears/Nose/Throat: negative for deafness, epistaxis and frequent URI's Respiratory: negative for shortness of breath, wheezing, pleurisy Cardiovascular: negative for chest pain, pressure, palpitations Gastrointestinal: negative for abdominal pain, nausea, emesis, diarrhea Genitourinary: negative for frequency, hematuria, dysuria, flank pain, vaginal bleeding Neurologic: negative for syncope, seizures, weakness, gait problems, numbness. Musculoskeletal: negative for joint pain, joint swelling, no muscle weakness Psychiatric: negative for sleep disturbance, anxiety, depression, suicidal or homicidal ideation Hematologic/Lymphatic/Immunologi c: negative for anemia, bleeding, bruising Endocrine: negative for heat or cold intolerance, polydipsia, polyuria Physical Exam: BP 108/75 Wt 221 lb (100.2 kg) LMP 06/23/2024 (Approximate) BMI 37.93 kg/m General: Alert, oriented x 3, NAD. HEENT: Normocephalic, atraumatic, mucous membranes moist, sclerae anicteric. Thyroid: Normal size, non-tender, no nodules. CV: RRR, normal S1S2 without murmur/gallops. Pulmonary: CTAB without wheezes/rales. Abdominal: Soft/obese, non-tender, non-distended without rebound or guarding. Extremities: Non-tender, no erythema, trace edema. Skin: no rash or skin changes. Psych: normal mood and affect. OB - US today - IMPRESSION: - Single, live, intrauterine . - [place] rump length measurement is consistent with the established gestational age. - A qualitative screen of the nuchal translucency and other anatomic structures was unremarkable on a complete first trimester anatomic assessment. - Not all structural malformations can be detected by ultrasound examination. - A standard anatomic survey at 16 weeks and a detailed exam at 20 weeks is recommended for increased risk. Records/Labs: Available and relevant records reviewed in EMR Impression: [place] gestation at 12w3d Chronic hypertension - stable off antihypertensive therapy Early GDMA2 (cannot exclude pregestational T2DM) CF carrier Class 2 obesity Plan: During consultation today we discussed the following recommendations for her care: Chronic hypertension We reviewed in detail the maternal and risks of chronic hypertension in . Reviewed maternal risks of superimposed preeclampsia or end organ involvement for severe, uncontrolled hypertension. Reviewed risks including FGR, placental abruption, and IUFD. The potential for medically-indicated PTD was discussed along with the gestational age-related risks of prematurity. Reviewed importance of BP control and home monitoring. Patient has a BP cuff and recommended she monitor/log her BP and bring log to visits for review with her OB provider team. We reviewed the target BP range for (< 140/90 mmHg), which has been demonstrated to improve outcomes. Currently her HTN is controlled off antihypertensive therapy, and recommend BP surveillance with initiation of antihypertensive therapy if indicated. Recommend ASA prophylaxis (2 tabs 81 mg ASA daily). Baseline CMP and P/C were normal. Recommend obtaining a baseline maternal EKG (ordered). Reviewed recommendation for serial assessment of growth (every 4 weeks starting at 28 weeks gestation) and given her HTN and early GDM, twice weekly surveillance beginning at 32 weeks gestation. Discussed that the timing of delivery would be based on /maternal status however delivery is anticipated at 37-39 weeks gestation. HTN/Pre-E symptoms and precautions were reviewed. Early GDMA2 (cannot exclude pregestational T2DM) We reviewed the diagnosis, maternal/ risks, and management of GDM in detail today. We reviewed the maternal and risks including growth abnormalities/macrosomia, shoulder dystocia/ injury, delivery, preeclampsia and IUFD. We reviewed risks of hypoglycemia, hyperbilirubinemia, and NICU admission. We reviewed the importance of strict glycemic control to optimize maternal and outcomes. Recommend nutrition consultation (ordered), initiation of DM diet/healthy eating, and initiation of serial CBG monitoring. Target glycemic range for was reviewed (fasting and 1 hour postprandial with goals <95 and <140 respectively). Reviewed that based on her GTT results and early GDM diagnosis, I anticipate that she will require insulin therapy. Recommend short-interval follow-up evaluation to assess her blood sugar log and to initiate therapy if indicated. Baseline CMP, P/C, and TSH were normal. Recommend an early anatomic survey at 16 weeks gestation, a detailed anatomic survey at 20 weeks gestation, serial assessment of growth (every 4 weeks starting at 28 weeks gestation) and twice weekly surveillance beginning at 32 weeks gestation. Discussed that the timing of delivery would be based on /maternal status however delivery is anticipated at 37-39 weeks gestation. Lastly, we reviewed that given the timing of her GDM diagnosis and the physiologic change of , underlying pregestational Type 2 DM cannot be excluded. We reviewed risk for persistent/ongoing T2DM and recommend she have a 2hr GTT at 6 weeks and if negative screening for DM at 1-3 year intervals ongoing given the risk of developing overt Type 2 DM in the next decade. CF carrier We reviewed her carrier screening results, which demonstrate that she is a carrier for CF. We reviewed that CF is a multisystem disorder caused by pathogenic mutations of the CFTR gene resulting in multisystem disease involving several organs including the lungs (chronic infection), pancreas (pancreatic insufficiency), liver, intestine, and reproductive tract. We reviewed the genetic inheritance of CF (autosomal recessive) and discussed the 25% risk of having a child with CF if her partner is also a carrier. Carrier screening for her partner was recommended; however he does not have insurance. genetic counseling is recommended, which may be able to assess for other testing options for her partner. The availability of diagnostic genetic testing (amniocentesis/[facility]S) was discussed. Class 2 obesity We reviewed the maternal and risks of obesity in . We discussed the association of obesity with increased risks of macrosomia, GDM (and sequelae), delivery, preeclampsia, and IUFD. [place] of medicine weight gain guidelines for reviewed. Diet, exercise, and nutrition guidelines for reviewed. growth/ surveillance as per GDM/HTN above. First trimester counseling provided. OB precautions and DM precautions were reviewed. Based on her comorbidities, recommended comanagement with MFM for . Recommend follow-up evaluation in ~ 2 weeks to review her blood sugars and assess the need for treatment. All patient questions were addressed to her satisfaction today. Thank you for your referral to Maternal Medicine. Please feel free to contact me with questions. Sincerely, Kelvin Thompson MD I spent a total of 60 minutes on the date of the service which included preparing to see the patient, [id number] patient care, completing clinical documentation, obtaining and/or reviewing separately obtained history, performing a medically appropriate examination, counseling and educating the patient/family/caregiver, ordering medications, tests, or procedures, communicating results to the patient/family/caregiver, and care coordination (not separately reported). documented in this encounter [facility] 09-18-2024 Note HNO ID: [id number] Author: KELVIN THOMPSON MD Service: ? Author Type: Physician Type: Progress Notes Filed: 09/18/2024 14:15 Note Text: Maternal Medicine Consult Note Requested by: Kendall ARCHER Reporting: Note/evaluation from today sent to requesting provider via shared medical record. History of Present Illness 28 year old at 12w3d presenting for MFM consultation secondary to chronic hypertension and recently diagnosed GDM. Her medical history is notable for class 2 obesity (BMI 36) and chronic hypertension, which was diagnosed in 2011. She is not currently on antihypertensive therapy, denies a history of prior antihypertensive therapy use/prescription, and denies any known end organ involvement secondary to HTN. In addition, early A1c was in the prediabetic range at 6.0%, and she subsequently had an elevated 3hr GTT that resulted at 106/198/180/(final value not reported) c/w early diagnosis of GDM. Blood sugar monitoring supplies were ordered, and she states her test strips just arrived in the mail today - so she has not started monitoring her blood sugars. She reports dietary/nutritional counseling at [facility], hwoever she has not yet had a formal nutrition consult. Baseline CMP, P/C, and TSH were normal. Her past medical and surgical histories are notable for a laparoscopic ovarian cystectomy (mature teratoma) and are otherwise remarkable. She has no prior OB history. She reports no significant gynecologic history and denies fibroids, dysplasia requiring conization, or other gynecologic conditions or surgeries. She denies any personal or family history of significant genetic diagnoses for herself or her partner. She denies tobacco, alcohol or illicit substance abuse. She has no known drug allergies and her current mediations include vitamins and ASA. 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 She reports that her partner has not been tested (he does not have health insurance). She reported feeling well overall today and denied abdominal pain, contractions, or VB. ROS otherwise negative as below. PAST MEDICAL HISTORY Diagnosis Date Diet controlled gestational diabetes mellitus (GDM) in first trimester (HCC) 09/14/2024 Elevated hemoglobin A1c 09/06/2024 Hypertension Pre-diabetes PAST SURGICAL HISTORY Procedure Laterality Date PAST SURGICAL HISTORY OF 2020 teratoma cyst removal Family History Problem Relation Age of Onset Hypertension Mother Heart Father heart calcifaction No Known Problems Sister No Known Problems Brother Diabetes Maternal Grandmother Lung Cancer Maternal Grandfather Diabetes Paternal Grandmother other (liver) Paternal Grandfather liver failure Current Outpatient Medications Medication Sig Dispense Refill Blood-Glucose Meter Use as directed to check glucose levels up to seven times daily. 1 each 0 blood sugar diagnostic test strip Use as directed to check glucose levels up to seven times daily. 200 strip 8 Lancets Use as directed to check glucose levels up to seven times daily. 200 each 8 alcohol swabs (ALCOHOL PREP PADS) Use as directed to check glucose levels up to seven times daily. 200 each 8 aspirin, enteric coated (ECOTRIN LOW STRENGTH) 81 mg EC tablet Take 2 tablets by mouth daily at bedtime. Starting at 12 weeks. 180 tablet 2 PNV no.95/ferrous fum/folic ac ( ORAL) Take by mouth. No current facility-administered medications for this visit. ALLERGIES Allergen Reactions Adhesive Other: See Comments Surgical Glue: Inflammation around the incisions/pus Review Of Systems: General: negative for fatigue, unintentional weight gain or loss, fever, chills Skin: negative for ulceration, rash, hair changes, nail changes Eyes: negative for double vision, loss of vision, itching. Ears/Nose/Throat: negative for deafness, epistaxis and frequent URI's Respiratory: negative for shortness of breath, wheezing, pleurisy Cardiovascular: negative for chest pain, pressure, palpitations Gastrointestinal: negative for abdominal pain, nausea, emesis, diarrhea Genitourinary: negative for frequency, hematuria, dysuria, flank pain, vaginal bleeding Neurologic: negative for syncope, seizures, weakness, gait problems, numbness. Musculoskeletal: negative for joint pain, joint swelling, no muscle weakness Psychiatric: negative for sleep disturbance, anxiety, depression, suicidal or homicidal ideation Hematologic/Lymphatic/Immunologi c: negative for anemia, bleeding, bruising Endocrine: negative for heat or cold intolerance, polydipsia, polyuria Physical Exam: BP 108/75 Wt 221 lb (100.2 kg) LMP 06/23/2024 (Approximate) BMI 37.93 kg/m? General: Alert, oriented x 3, NAD. HEENT: Normocephalic, atraumatic, mucous membranes moist, sclerae anicteric. Thyroid: Normal size, non-tender, no nodules. CV: RRR, normal S1S2 wi (more content not included)... [facility] 09-14-2024 Telephone encounter Note Please notify patient: Abnormal 3 hour, consistent with early GDM. Can stop 3 hour testing as she has already met criteria for diagnosis. Supplies ordered. Nutrition consult and diabetes consult placed. Patient to bring glucose logs to next appointment. Kendall Delgado APRN.CNP [facility] 09-14-2024 Miscellaneous Notes Please notify patient: Abnormal 3 hour, consistent with early GDM. Can stop 3 hour testing as she has already met criteria for diagnosis. Supplies ordered. Nutrition consult and diabetes consult placed. Patient to bring glucose logs to next appointment. Kendall Delgado APRN.CNP documented in this encounter [facility] 09-06-2024 Telephone encounter Note 1st risk assessment form submitted 09/06/2024. Tricia Lambert RN [facility] 09-06-2024 Miscellaneous Notes 1st risk assessment form submitted 09/06/2024. Tricia Lambert RN documented in this encounter [facility] 09-06-2024 Telephone encounter Note Please notify patient: A1C 6.0 Needs to complete early 1 hour Kendall Delgado APRN.CNP [facility] 09-06-2024 Miscellaneous Notes Please notify patient: A1C 6.0 Needs to complete early 1 hour Kendall Delgado APRN.CNP documented in this encounter [facility] 09-05-2024 Instructions Kendall Delgado APRN.HYDROELECTRIC PRODUCTION MANAGER - 09/05/2024 9:17 AM EDT Please select the following link to access the [facility] Your Guide to a Healthy . [email or web address] How SMOKING Affects Your and Your Baby During Smoking during affects you and your baby's health before, during and after your baby is born. The nicotine (the addictive substance in cigarettes), carbon monoxide and numerous other poisons you inhale from a cigarette are carried through your bloodstream and go directly to your baby. Smoking while will: Lower the amount of oxygen available to you and your growing baby Increase your baby's heart rate Increase the chances of miscarriage and stillbirth Increase the risk that your baby is born prematurely and/or born with low weight Increase your baby's risk of developing respiratory problems The more cigarettes you smoke per day, the greater your baby's chances of developing these and other health problems. There is no safe level of smoking for your baby's health. How does secondhand smoke affect me and my baby? Second-hand smoke (also called passive smoke or environmental tobacco smoke) is the combination of smoke from a burning cigarette and smoke exhaled by a smoker. The smoke that ramirez off the end of a cigarette or cigar contains more harmful substances ( tar, carbon monoxide, nicotine and others) than the smoke inhaled by the smoker. If you are regularly exposed to second-hand smoke, you increase your and your baby's risk of developing lung cancer, heart disease, emphysema, allergies, asthma and other health problems. Babies exposed to second-hand smoke may also develop reduced lung capacity and are at higher risk for sudden infant syndrome (SIDS). What happens if I keep smoking after my baby is born? If you continue to smoke after your baby is born, you increase his or her chance of developing certain illnesses and problems, such as: Frequent colds Bronchitis and pneumonia Asthma Chronic coughs Ear infections High blood pressure Learning and behavior problems later in childhood Why should I quit smoking? Smoking is the leading cause of preventable in the [place] By quitting you can: Prolong your life Lower your risk of heart disease Lower your risk of developing lung, throat, mouth, pancreatic and bladder cancer Lower your risk of developing breathing problems such as chronic obstructive pulmonary disease (COPD), asthma and emphysema Lower your risk of developing allergies Raise your energy level Improve your appearance; your skin will wrinkle less and look better, and your fingers and teeth will not be yellow Improve your sense of smell and taste Feel healthier overall, with improved self-esteem Save a lot of money (the average smoker spends $740 a year for cigarettes!) How can I quit smoking? There is no one way to quit smoking that works for everyone, since each person has different smoking habits. Here are some tips: Hide your matches, lighters, and ashtrays. Take a deep breath and hold it for five to ten seconds whenever you get the urge to smoke. Designate your home a non-smoking area. Ask people who smoke not to smoke around you. Drink less caffeinated beverages; caffeine may stimulate your urge to smoke. Also avoid alcohol, as it also may increase your urge to smoke and can be harmful to your baby. Change your habits connected with smoking. If you smoked while driving or when feeling stressed, try other activities to replace smoking. Keep mints or gum (preferably sugarless) on hand for those times when you get the urge to smoke. Stay active to keep your mind off smoking and help relieve tension: take a walk, exercise, read a book or try a new a hobby. Look for support from others. Join a support group or smoking cessation program, such as the [facility] Smoking Cessation Program. For more information, please call . Do not go places where many people are smoking such as bars or clubs, and smoking sections of restaurants. Should I use a nicotine replacement to help me quit? Nicotine gum and patches release nicotine into the bloodstream of the smoker who is trying to quit. Although these products can reduce withdrawal symptoms and decrease cravings in smokers who are trying to quit, nicotine is quite toxic and potentially harmful to the fetus (as well as to the infant who is ). Therefore, these and any other products containing nicotine are not always ecommended for the woman who is trying to quit smoking. They may be prescribed in indivdual cases. How will I feel when I quit? The benefits of not smoking start within days of quitting. After you quit, you and your baby's heart beat will return to normal, and your baby will be less likely to develop breathing problems. You may have symptoms of withdrawal because your body is used to nicotine, the addictive substance in cigarettes. You may crave cigarettes, be irritable, feel very hungry, cough often, get headaches or have difficulty concentrating. The withdrawal symptoms are only temporary. They are strongest when you first quit but will go away within 10 to 14 days. When withdrawal symptoms occur, stay in control. Think about your reasons for quitting. Remind yourself that these are signs that your body is healing and getting used to being without cigarettes. Remember that withdrawal symptoms are easier to treat than the major diseases that smoking can cause. Even after the withdrawal is over, expect periodic urges to smoke. However, these cravings are generally short-lived and will go away whether you smoke or not. Don't Smoke! If you smoke again (called a relapse) do not lose hope. Seventy-five percent of those who quit relapse. Most smokers quit three times before they are successful. If you relapse, don't give up! Plan ahead and think about what you will do next time you get the urge to smoke. (This information is provided by the [facility] and is not intended to replace the medical advice of your doctor or health care provider. Please consult your health care provider for advice about a specific medical condition. For additional written health information, please call the Cancer Answer Line at [facility] [place] Tuesday - Tuesday 8-4:30 for assistance: [phone]. Or visit [email or web address]/) [facility] s Smoking Cessation Program The [facility] Smoking Cessation Program is a comprehensive, multifaceted program that can be tailored to your individual needs. We offer a variety of services designed to help you throughout the process, including office visits, distance health visits (virtual or telephone), and the eCoach program or pharmacy consultations. To schedule, call [phone] Appointments: An office visit: This is a one-on-one approach where you go to an office and meet with the provider to discuss your options for quitting. Distance health visits: This type of visit can be completed via virtual visit or telephone visit. Virtual visits require a smartphone, tablet or computer with access to a webcam, microphone and Internet connection. You will need to sign up for [employer] prior to your virtual visit. Telephone visits can be completed via audio only if patient does not have access to the above Pharmacotherapy Nicotine replacement therapy (patches, gum, lozenges, inhalers or nasal spray) Bupropion (Wellbutrin) Chantix Integrative and Lifestyle Medicine Services: Acupuncture Holistic Psychotherapy Meditation Yoga And more The eCoach program Expert tips tailored to you Behavioral replacements Recognizing individual triggers On your schedule Pharmacy consultation You can meet with a pharmacist (either online or in person) to discuss smoking cessation medications, including: Nicotine replacement therapy: gum, patches, lozenges, inhalers or nasal spray Bupropion SR Varenicline (Chantix ) The [place] [employer] (ACS) has a section devoted to quitting tobacco with information on where to get help, interactive tools, the relationship of tobacco and cancer, how to keep your kids smoke-free, smoke-free communities and the ACS s annual [place] Smokeout. Visit this link for more info: https://www.cancer.org/cancer/ri sk-prevention/tobacco/guide-quit ting-smoking.html The [place] [employer] Association has tools, tips, support and fact sheets to help you stop smoking or to help a loved one quit. There s also more information about [place] From Smoking , the program we use in our smoking classes at [facility]. Visit this link for more info: https://www.lung.org/quit-smokin g/htgh-ikilyzc-ulnv-smoking The National Cancer [place] s site, Smokefree.gov, has an abundance of free and accurate resources to encourage smokers to stop: Smokefree apps for your smartphone offer individualized guidance once you input your information You can sign up for the SmokefreeZiarcoT text messaging program, which sends you daily text messages with encouragement, tips and advice to help making quitting easier Create a personalized Quit Plan by choosing a quit date and answering seven questions Take a quiz on your withdrawal symptoms See how you can prepare to quit 6-960-YASH-NOW is the national portal to a network of state quitlines. Quitlines offer evidence-based support--like counseling, referrals to local programs, and free medication--to people who want to quit tobacco. documented in this encounter [facility] 09-04-2024 Note HNO ID: [id number] Author: KENDALL DELGADO APRN.JOHN Service: ? Author Type: Nurse Practitioner Type: Progress Notes Filed: 09/05/2024 10:26 Note Text: Purchasing Analyst offered: Patient declines. INITIAL OB ASSESSMENT HPI: Bronwyn is a 28 year old White here to establish Obstetrical Care. Patient's last menstrual period was 06/23/2024 (approximate). from OB Dating Form. was planned Complaints: no OB History Gravida1 Para0 Term0 Preterm0 AB0 Living0 SAB0 IAB0 Ectopic0 Multiple0 Live Births0 Previous history: Prior : never History of 4th degree laceration: NA History of shoulder dystocia: No History of Hypertensive disorders including pre-eclampsia or gestational hypertension: NA History of gestational diabetes: NA Patient's Risk Screening for delivery: Have you had a prior dean between 20w and 36w6d? No How many pregnancies have you had before? 0 Did you have a previous baby with a GBS Infection? No Please select all that apply for any prior : N/A MEDICAL/PSYCHOSOCIAL HISTORY: History of hemorrhage or bleeding concerns: No Thyroid Disease: No History of chronic hypertension: not diagnosed. Occasionally takes at home: ranging from systolic of 120s-160s and diastolic of 74-100s History of pre-existing diabetes: Prediabetes No results found for: ABORHD BMI 38.11 kg/(m2) Last Pap: 2023? History of abnormal pap: No Prior treatment for cervical dysplasia: none. Last HPV: never done History of STDs: None Partner History of STDs: None Did you have a partner with Herpes? No Tobacco use: No E-Cigarette/Vaping Use: Yes Caffeine use: Yes Drug use: No Alcohol use: No Multivitamin with Folic acid: Yes Would refuse blood transfusion if medically necessary: No Social Needs: How often does this describe you? I don't have enough money to pay my bills: Sometimes Within the past 12 months, have you worried that your food would run out before you had money to buy more? Never In the past 12 months, has lack of reliable transportation kept you from going to medical appointments or work, or from getting things needed for daily living? Never In the past 12 months, have you had any concerns about having a place to live, or about the condition or quality of your housing? Never Would you like more information on any of the following (please check all that apply)? Not interested Social History: Do you have any history of depression, anxiety, PTSD, or other mood problems? No Do you have a history of abuse or trauma that may impact your experience? No Are you currently employed? Yes Depression/Anxiety Screening: denies symptoms of depression. OB Depression and Anxiety Screening- This Encounter Feeling down, depressed, or hopeless: Not at all Little interest or pleasure in doing things: Not at all Feeling nervous, anxious, or on edge Not at all Not being able to stop or control worrying Not at all Anxiety Pre-Screening Total (If >/= 3 additional questions will be reviewed) 0 Genetic Screening: Partner present: Yes Patient verbalized knowledge of partner family health history: No Do you or your partner have any personal or family history of defects not previously discussed: boyfriend's half sister was born deaf Do you have history of a complicated by anomaly, genetic condition, or demise: No Preeclampsia Risk Screening: Screening for prevention of preeclampsia: High risk factors: Chronic hypertension Moderate risk ractors: Nulliparity and Obesity (body mass index greater than 30) OB Risk Screening: Completed, no positive findings documented. Marital Status:Partnering Partner: Name: Frantz Age: 28 Occupation: [employer] Gender: Male PAST MEDICAL HISTORY Diagnosis Date Hypertension PAST SURGICAL HISTORY Procedure Laterality Date PAST SURGICAL HISTORY OF 2020 teratoma cyst removal Current Outpatient Medications Medication Sig Dispense Refill PNV no.95/ferrous fum/folic ac ( ORAL) Take by mouth. No current facility-administered medications for this visit. Allergies As of Date: 09/05/2024 Allergen Noted Reaction ADHESIVE 09/04/2024 Other: See Comments Fully Assessed 09/05/2024 Does patient have penicillin allergy: No SBIRT Bronwyn Higginbotham was given the 4's screening tool. Bronwyn answered as follows: OB Opioid Screening - Last Recorded (since 12/10/2023) Did any of your parents have a problem with alcohol or other drug use? No Does your partner have a problem with alcohol or other drug use? No In the past, have you had difficulties in your life because of alcohol or other drugs, including prescription medications? Yes alcohol- 2 years sober In the past month have you drunk any alcohol or used other drugs? No Are you taking medication for pain during the either prescribed or not? No Based (more content not included)... [facility] 09-04-2024 History of Presen t illness Narrative Images from the original note were not included. Purchasing Analyst offered: Patient declines. INITIAL OB ASSESSMENT HPI: Bronwyn is a 28 year old White here to establish Obstetrical Care. Patient's last menstrual period was 06/23/2024 (approximate). from OB Dating Form. was planned Complaints: no OB History Gravida1 Para0 Term0 Preterm0 AB0 Living0 SAB0 IAB0 Ectopic0 Multiple0 Live Births0 Previous history: Prior : never History of 4th degree laceration: NA History of shoulder dystocia: No History of Hypertensive disorders including pre-eclampsia or gestational hypertension: NA History of gestational diabetes: NA Patient's Risk Screening for delivery: Have you had a prior dean between 20w and 36w6d? No How many pregnancies have you had before? 0 Did you have a previous baby with a GBS Infection? No Please select all that apply for any prior : N/A MEDICAL/PSYCHOSOCIAL HISTORY: History of hemorrhage or bleeding concerns: No Thyroid Disease: No History of chronic hypertension: not diagnosed. Occasionally takes at home: ranging from systolic of 120s-160s and diastolic of 74-100s History of pre-existing diabetes: Prediabetes No results found for: ABORHD BMI 38.11 kg/(m^2) Last Pap: 2023? History of abnormal pap: No Prior treatment for cervical dysplasia: none. Last HPV: never done History of STDs: None Partner History of STDs: None Did you have a partner with Herpes? No Tobacco use: No E-Cigarette/Vaping Use: Yes Caffeine use: Yes Drug use: No Alcohol use: No Multivitamin with Folic acid: Yes Would refuse blood transfusion if medically necessary: No Social Needs: How often does this describe you? I don't have enough money to pay my bills: Sometimes Within the past 12 months, have you worried that your food would run out before you had money to buy more? Never In the past 12 months, has lack of reliable transportation kept you from going to medical appointments or work, or from getting things needed for daily living? Never In the past 12 months, have you had any concerns about having a place to live, or about the condition or quality of your housing? Never Would you like more information on any of the following (please check all that apply)? Not interested Social History: Do you have any history of depression, anxiety, PTSD, or other mood problems? No Do you have a history of abuse or trauma that may impact your experience? No Are you currently employed? Yes Depression/Anxiety Screening: denies symptoms of depression. OB Depression and Anxiety Screening- This Encounter Feeling down, depressed, or hopeless: Not at all Little interest or pleasure in doing things: Not at all Feeling nervous, anxious, or on edge Not at all Not being able to stop or control worrying Not at all Anxiety Pre-Screening Total (If >/= 3 additional questions will be reviewed) 0 Genetic Screening: Partner present: Yes Patient verbalized knowledge of partner family health history: No Do you or your partner have any personal or family history of defects not previously discussed: boyfriend's half sister was born deaf Do you have history of a complicated by anomaly, genetic condition, or demise: No Preeclampsia Risk Screening: Screening for prevention of preeclampsia: High risk factors: Chronic hypertension Moderate risk ractors: Nulliparity and Obesity (body mass index greater than 30) OB Risk Screening: Completed, no positive findings documented. Marital Status:Partnering Partner: Name: Frantz Age: 28 Occupation: [employer] Gender: Male PAST MEDICAL HISTORY Diagnosis Date Hypertension PAST SURGICAL HISTORY Procedure Laterality Date PAST SURGICAL HISTORY OF 2020 teratoma cyst removal Current Outpatient Medications Medication Sig Dispense Refill PNV no.95/ferrous fum/folic ac ( ORAL) Take by mouth. No current facility-administered medications for this visit. Allergies As of Date: 09/05/2024 Allergen Noted Reaction ADHESIVE 09/04/2024 Other: See Comments Fully Assessed 09/05/2024 Does patient have penicillin allergy: No SBIRT Bronwyn Higginbotham was given the 4P's screening tool. Bronwyn answered as follows: OB Opioid Screening - Last Recorded (since 12/10/2023) Did any of your parents have a problem with alcohol or other drug use? No Does your partner have a problem with alcohol or other drug use? No In the past, have you had difficulties in your life because of alcohol or other drugs, including prescription medications? Yes alcohol- 2 years sober In the past month have you drunk any alcohol or used other drugs? No Are you taking medication for pain during the either prescribed or not? No Based on the screen and further questions, she is considered at Low risk due to: being sober for 2 years! Positive reinforcement of current behavior. Plan to rescreen early third trimester. Kendall Delgado APRN.HYDROELECTRIC PRODUCTION MANAGER REVIEW OF SYSTEMS: GENERAL: Negative for: Fever or Chills HEENT: Negative for: Headache, Impaired Vision, Ringing in Ears, Nosebleeds NECK: Negative for: Swelling, Pain, Stiffness RESPIRATORY: Negative for: Cough, Shortness of breath, Wheezing GASTROINTESTINAL: Negative for: Heartburn, Constipation, Diarrhea, Blood in stool + occasional nausea MUSCULOSKELETAL: Negative for: Muscle or joint pain, stiffness, Joint swelling + occasional back pain NEUROLOGIC/PSYCHIATRIC: Negative for: Weakness, Paralysis, Numbness, Tingling, Tremor, Anxiety, Depression, Memory loss SKIN: Negative for: Rash, Itching GENITOURINARY: Negative for: vaginal itching, vaginal discharge, hematuria or dysuria SENSITIVE EXAM: The sensitive examination was discussed with the Patient or Patient's Authorized Decorating Instructor. As applicable, any other physician, advance practice provider, medical student, or other health professional student that will be observing or involved in the sensitive examination for educational or training purposes was discussed with the Patient or Authorized Decorating Instructor. The Patient or Authorized Decorating Instructor has agreed to proceed with the sensitive examination. (Sensitive examination includes inspection and/or palpation of the breasts, pelvis, prostate and anorectal regions). PHYSICAL EXAM: BP 130/70 Ht 5' 4 (1.63m) Wt 222 lb (100.7kg) LMP 06/23/2024 BMI 38.09 kg/(m^2). GENERAL: pleasant in no apparent distress DERMATOLOGY: Normal, without lesions, non-icteric, and non-hirsute NECK: Supple, full range of motion, no adenopathy, and thyroid normal CHEST: Normal inspiratory effort BREAST: soft, non-tender, symmetric, no dominant mass, normal nipple-areolar complex, no lymphadenopathy, and no nipple discharge ABDOMEN: soft, non-tender, and no masses NEURO: alert and oriented x3,exam grossly non-focal PELVIS: External genitalia normal without lesions. Perineal body intact. No vaginal or cervical lesions. Difficult to visualize due to habitus. Cervix closed. Uterus 10 week size. No adnexal masses or tenderness. Clinical Pelvimetry: Pelvimetry clinically assessed as adequate Limited OB ultrasound exam: single intrauterine and positive cardiac activity ASSESSMENT: 28 year old at 10w4d wks gestational age PLAN: 1) Patient oriented to practice. Patient given new OB orientation folder. Discussed nutrition, folic acid supplementation, dietary guidelines, exercise, smoking, alcohol, caffeine, and drug use. Discussed gestational weight gain guidelines. Discussed routine OB labs including STD/HIV. Discussed how to access Your guide to a health and the Assistant Unit Forester. Discussed hemoglobin electrophoresis. Patient: Accepts Reviewed midwifery and tire design engineer services that are available. 2) Screening: Hemoglobin A1C: ordered Baby Aspirin: The patient has been counseled about the potential benefits of low dose aspirin in and our recommendation that this be offered to all patients, regardless of whether they meet the high risk criteria specified above. She Accepts Aneuploidy Screening: Discussed aneuploidy screening, nuchal translucency/first trimester early anatomy ultrasound and NIPT. The risks/benefits and limitations of NIPT/aneuploidy screening were reviewed including the potential for false negative and false positive results. The availability of genetic counseling was reviewed. Information on aneuploidy screening was provided. The patient chooses to proceed with First trimester early anatomy ultrasound (12-13w6d) Myriad Carrier Screening: Discussed myriad carrier screening. We discussed the availability of professional-society guided carrier screening and reviewed the conditions screened and limitations of screening. The availability of genetic counseling was reviewed. Information on carrier screening was provided. The patient Accepts 3) Patient offered option of Virtual Visits. Patient unsure. May consider in future. 4) Current tobacco use: The patient has been counseled about the risks of tobacco use during and cessation has been recommended. Patient plans to quit or decrease smoking without outside assistance. 5 minutes were spent discussing the risks of tobacco use and providing cessation resources. ACTIVE PROBLEM LIST Encounter for Supervision of High Risk in First Trimester, Antepartum ([facility]) - 09/05/2024 Comment: Care Checklist Vaccines: [] Flu vaccine [] declined [] RSV vaccine 32 0/7 - 36 6/7 (Nov - Apr) [] declined [] COVID vaccine [] declined [] TDaP 27-36 [] declined First trimester: [x] Dating US [x] 1st tri labs [x] Pap smear [x] Carrier screening [] declined [] NIPT screening - considering [] declined [x] First trimester anatomy scan [] declined [x] universal ASA ordered (start 12w-16w) [] declined [] M Power Consult [] not indicated [] declined Second trimester: [] Anatomy scan [] Mode of Delivery - [] Feeding - [] Pump ordered [] Diabetes screen [] CBC, RPR [] Behavioral Health Screening Third trimester (28-30 weeks): [] Consent [] Contraception [] Laundry Sorter [] TeamBirth handout Third trimester (36-40 weeks): [] GBS [] Presentation - [] Scheduled [] yes - Hibiclens, pre-op instructions, CBC, T&S ordered [] no [] H&P [] Preferences worksheet [] Obesity Affecting in First Trimester ([facility]) - 09/05/2024 Comment: -Pre BMI 36 - Plan for 32 week growth q 4 weeks. - Weekly NSTs at 36 weeks. Chronic Hypertension Affecting ([facility]) - 09/05/2024 Comment: Chronic HTN in Checklist -Chronic hypertension diagnosis year:2011 -Prior medications: NA -Medication at onset of : None -Related complications (ie: kidney disease, heart disease, etc): No -If Yes: -Outside of managed by: No one -History of PEC/siPEC: No - If Yes: Please fill in gestational age at diagnosis/delivery, maternal/ complications Current medication: None -Last date of medication change: NA [x] BP cuff [x] ASA at 12 weeks (send Rx) [x] Baseline urine protein:creatinine within 12 months [x] Baseline creatinine, LFTs within 12 months [] Baseline ECG or echo within 12 months [] Initiate/Titrate therapy to target BP range < 140/90 mmHg [] MFM consult by 14 weeks or within 2 weeks if presenting for care after 14 weeks [] Consider follow up MFM consult/co-management visit at 28-32 weeks Family History of Deafness - 09/05/2024 Comment: September 05, 2024 FOB half sister. Kendall Delgado APRN.CNP Nicotine Dependence Due to Vaping Tobacco Product - 09/05/2024 Comment: September 05, 2024 Has decreased down from going through vape every 3 days to every 2 weeks. Risks reviewed. Resources provided. Cessation encouraged. Kendall Delgado APRN.CNP Caffeine Use During in First Trimester ([facility]) - 09/05/2024 Comment: September 05, 2024 Drinking idiagter energy drinks. Recommend replacing with coffee/tea and limiting to 200 mg per day. Discussed caffeine's effects on BP. Kendall Delgado APRN.CNP History of Alcohol Abuse - 09/05/2024 Comment: September 05, 2024 Sober for 2 years! Kendall Delgado APRN.CNP Nausea and Vomiting During ([facility]) - 09/05/2024 Comment: 09/05/24 Vitamin B6 and Unisom doses reviewed. To notify if prescription is needed. Kendall Delgado APRN.CNP Follow up in 2 weeks or sooner prn. Plan for NT scan between 12w0d and 13w6d gestation. MFM consult placed. Kendall Delgado APRN.CNP documented in this encounter [facility] 07-10-2020 Note Send Summary: Discharge Summary Providers: Provider RoleProvider Name ReferringUzair Stokes PrimaryRequired, No Pcp AttendingUzair Stokes Note Recipients: Discharge: Summary: Admission Date: .09-Jul-2020 01:52:00 Discharge Date: 10-Jul-2020 Attending Physician at Discharge: Gemma Neil Admission Reason: Abdominal pain(1) Final Discharge Diagnoses: ovarian torsion, dermoid cyst Procedures: Date: 09-Jul-2020 18:43:00 Procedure Name: 1. diagnostic laparoscopy 2. left ovarian detorsion 3. left ovarian cystectomy 4. laparoscopic washout of cystic contents Condition at Discharge: Satisfactory Disposition at Discharge: .Home Vital Signs: T PRBPSpO2 [id number]% Date/Time07/10 4:284/15 4: 4: 4: 4:28 Range(35.6C - 37.3C ) (73 - 101 ) (16 - 18 ) (108 - 131 )/ (69 - 81 ) (95% - 98% ) Highest temp of 37.3 C was recorded at 07/09 22:55 Date: Weight/Scale Type:Height: 09-Jul-2020 02:5288.6 kg / [id number] cm Physical Exam: Gen: NAD CV: RRR Resp: normal respiratory effort, CTAB Abd: soft, appropriately tender, dermabond covering laparoscopic incisions Ext: no edema, SCDs in place Neuro: AOx3 Psych: normal affect Hospital Course: Hospital course: Patient was admitted for concern for ovarian torsion and dermoid cyst on 07/09, she underwent a diagnostic laparoscopy, left ovarian cystectomy, L ovarian detorsion, and laparoscopic washout of cystic concents. Her procedure was uncomplicated, see operative report for full details. Her post operative course was uncomplicated; by POD#1 her pain was controlled with oral pain meds, was tolerating a diet, voiding spontaneously, and able to ambulate. She was appropriate for discharge home on POD#1. She will follow up with [facility] as an outpatient. [facility] DOA/S 07/09 24yo G0 presents as a transfer from [facility] with concern for torsion. Patient reports that she has increasing diffuse abdominal pain for the past 2 weeks but it become acutely worse today. Patient states that she has had intermittent abdominal pain ranging from 9/10 pain and 6/10 pain. States that the pain was worse in the RUQ. Reports that she had some N/V that was present after an episode of binge drinking. She is now able to tolerate liquids and hasn't tried solids yet. 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 Vitals were stable, CBC was WNL, and UA was largely normal. test was negative and coronavirus was not detected. This AM, patient had TVUS and was more uncomfortable after. Pain worsens with movement or manipulation. Denies nausea at this time but had nausea on Tuesday when pain got acutely worse. OBHx: never GYNHx: Menarche @ 13, regular monthly periods lasting 5-8 days with heavy flow. Uses super pads and sometimes soils underwear. Has cramping associated with periods but no history of premenstrual pelvic pain. [place] with women only. 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 FH: denies All: NKDA Meds: Tylenol PRN Discharge Information: and Continuing Care: Lab Results - Pending: Surgical Pathology Drawn at 09-Jul-2020 17:41:00 Radiology Results - Pending: Ultrasound Duplex Abd/Pel/Scrotal Cmpt at 09-Jul-2020 05:34:00 Discharge Instructions: Activity: activity as tolerated. May not drive while taking narcotics. No pushing, pulling, or lifting objects greater than 20 pounds until follow-up visit. Weight-bearing Instructions: full weight bearing. Return to normal activity No pushing, pulling or lifting objects greater than 10 pounds for 2 weeks Nutrition/Diet: regular Encourage Fluids: Drink plenty of a variety of fluids to prevent dehydration. Signs of dehydration are: dry mouth, dark yellow urine in small amounts, and dizziness with change in position or increased feeling of weakness/tiredness. Wound Care: Wound Type: surgical incision Cleanse With: soap and water Instructions: no lotions, creams, or tub soaks Other Instructions: You have Dermabond (glue) along your incision. You can shower, pat dry; do not soak in a tub. The steri strips will fall off on their own. If they do not fall off in a week, gently peel them off. Follow Up Appointments: Follow-Up - FRAME CLEANER Provider: Physician/Dept/Service: FRAME CLEANER Provider Follow-Up Appointment 01: Physician/Dept/Service: Dr. Carolee Munoz - CONDENSER TUBE TENDER Reason for Referral: post op Scheduled Date/Time: 29-Jul-2020 14:00 Location: [facility], [address] [place] [address] [address] [facility], [place] [address] Discharge Medications: Home Medication Colace 100 mg oral capsule - 1 cap(s) orally 2 times a day PRN Medication remy (more content not included)... [facility] 07-09-2020 Note Post Operative Note: PreOp Diagnosis: ovarian mass Post-Procedure Diagnosis: left ovarian mass, left ovarian torsion Procedure: 1. diagnostic laparoscopy 2. left ovarian detorsion 3. left ovarian cystectomy 4. laparoscopic washout of cystic contents Surgeon: malu Resident/Fellow/Other Purchase Price Analyst: justo mccord Anesthesia: GETA Estimated Blood Loss (mL): 25 Blood Replacement: none Specimen: yes. 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 She had originally presented to the outside ED with abdominal pain, nausea and vomiting. The patient was binge drinking over the weekend and initially thought she was experiencing a hangover from the alcohol intake however, the symptoms persisted beyond 24 hours so she decided to be evaluated. Imaging was obtained, with the above-noted findings in addition to characteristics of the ovarian mass consistent with a dermoid tumor. Based on her symptoms of pain as well as nausea vomiting, there was suspicion for ovarian torsion. The decision was made to take her to the operating room for diagnostic laparoscopy as well as ovarian cystectomy. The risk and benefits were discussed with the patient including the risk of bleeding, the risk of infection, the risk of injury to surrounding organs structures. We also discussed the possibility of needing to complete this via laparotomy due to the size. Surgical consent was obtained. Procedure Details: Patient was taken to the operating room. A timeout was performed identifying the patient by name, medical record number, and date of . General anesthesia was induced after bilateral sequential compression devices were placed on her lower extremities. She was repositioned in lithotomy using the Naveen stirrups. A bimanual exam was performed with a large, firm mass occupying the left side of the abdomen up beyond the umbilicus. She was then prepped and draped in the usual sterile fashion. An orogastric tube was placed. A bivalve speculum was placed in the vagina with good visualization of the cervix. An acorn uterine manipulator was inserted. A Ott catheter was inserted. Attention was then turned to the abdomen. We decided to place a left upper quadrant trocar due to the size of the ovarian mass. We identified Christian's point, and a 5 mm trocar was inserted using optical entry. Once intra-abdominal placement was ascertained, the abdominal cavity was insufflated with carbon dioxide gas. The ovarian mass was visualized, which was noted to be very large, the ovarian tissue was somewhat dusky, as well as the left fallopian tube. The adnexa was torsed on its blood supply. We placed two 5 mm trochars on the right side, 1 in the right lower quadrant, and the other in the right upper quadrant. We placed an additional 5 mm trocar in the left lower quadrant. These were inserted after placing the patient in steep Trendelenburg position. We were able to detorse the left adnexa, which was twisted approximately 2-3 times around the IP ligament. We started the ovarian cystectomy by making a linear incision over top the enlarged ovarian mass, after identifying approximately where the hilum of the ovary would be. We began to a enucleate or attempt to enucleate the ovarian cyst. The cystectomy took considerable time and effort due to the sheer size of the cyst. The cyst wall did not separate from the ovarian tissue as easily as expected, and we had to continue to identify planes. There was a copious amount of sebum as well as hair contained within the ovarian cyst. The size and the contents of the ovarian cyst contributed to the challenge of the cystectomy. We spent approximately 2 hours excising the ovarian cyst as we were dedicated to the preservation of the left ovary. Once we were satisfied with the excision of the cyst wall from what we deemed normal ovarian tissue, removal of the cyst wall and contents from the abdomen required 2 separate retrieval devices. Additionally, we had to extend the left lower quadrant port site, from 5 mm size to approximately 5 cm in size to be able to remove the tissue. There was also noted to be a large piece of what appeared to be scalp-like tissue. Once the cyst wall and contents were removed from the abdomen (which took considerable amount of time and effort), we spent a significant amount of time copiously irrigatin (more content not included)... [facility] 07-09-2020 Note History & Physical R eviewed: /Lactating: Are You no (1) Are You Currently Breastfeedingno (1) I have reviewed the History and Physical dated: 09-Jul-2020 History and Physical reviewed and relevant findings noted. Patient examined to review pertinent physical findings.: No significant changes Home Medications Reviewed: no changes noted Allergies Reviewed: no changes noted ERAS (Enhanced Recovery After Surgery): ERAS Patient: no Consent: COVID-19 Consent: COVID-19 Risk ConsentSurgeon has reviewed manuel risks related to the risk of missy COVID-19 and if they contract COVID-19 what the risks are. Signatures/Attestation: Note Completion: I am a: Resident/Fellow Attending AttestationI saw and evaluated the patient. I personally obtained the manuel and critical portions of the history and physical exam or was physically present for manuel and critical portions performed by the resident/fellow. I reviewed the resident/fellows documentation and discussed the patient with the resident/fellow. I agree with the resident/fellows medical decision making as documented in the note. I personally evaluated the patient [id number] Attending Provider Inpatient Certification StatementI certify this patients need for inpatient care based on the above documentation including; the order to admit as inpatient, the anticipated length of stay, diagnosis, problem list and plan of care, and discharge plan. Electronic Signatures: Elen Juan) (Signed 25-Jul-2020 17:47) Authored: Note Completion Co-Signer: History & Physical Reviewed, ERAS, Consent, Note Completion Mariann Mccord (Resident)) (Signed 09-Jul-2020 07:19) Authored: History & Physical Reviewed, ERAS, Consent, Note Completion Last Updated: 25-Jul-2020 17:47 by Elen Juan) References: 1. Data Referenced From History and Physical 09-Jul-2020 02:59 [facility] 07-09-2020 Note History of Present I llness: /Lactating: Are You no (1) Are You Currently Breastfeedingno (1) Admission Reason: Abdominal pain HPI: 24yo G0 presents as a transfer from [facility] with concern for torsion. Patient reports that she has increasing diffuse abdominal pain for the past 2 weeks but it become acutely worse today. Patient states that she has had intermittent abdominal pain ranging from 9/10 pain and 6/10 pain. States that the pain was worse in the RUQ. Reports that she had some N/V that was present after an episode of binge drinking. She is now able to tolerate liquids and hasn't tried solids yet. 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 Vitals were stable, CBC was WNL, and UA was largely normal. test was negative and coronavirus was not detected. This AM, patient had TVUS and was more uncomfortable after. Pain worsens with movement or manipulation. Denies nausea at this time but had nausea on Tuesday when pain got acutely worse. OBHx: never GYNHx: Menarche @ 13, regular monthly periods lasting 5-8 days with heavy flow. Uses super pads and sometimes soils underwear. Has cramping associated with periods but no history of premenstrual pelvic pain. [place] with women only. 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 FH: denies All: NKDA Meds: Tylenol PRN Family History: Family History: reviewed and not pertinent to presenting problem Allergies: No Known Allergies: Medications Prior to Admission: Outpatient Meds have not been reviewed. Review of Systems: Gastrointestinal: POSITIVE: Constipation, Abdominal Pain; COMMENTS: 09/04 All Other Systems: All other systems reviewed and are negative Objective: Objective Information: T PRBPSpO2 [id number]/[id number]% Date/Time07/09 2: 2: 2: 2: 2:02 Range(37.6C - 37.6C ) (109 - 109 ) (20 - 20 ) (128 - 128 )/ (82 - 82 ) (95% - 95% ) Highest temp of 37.6 C was recorded at 07/09 2:02 Physical Exam by System: Constitutional: Well developed, awake/alert/oriented x3, no distress, alert and cooperative Eyes: PERRL, EOMI, clear sclera ENMT: mucous membranes moist, no apparent injury, no lesions seen Head/Neck: supple Respiratory/Thorax: Patent airways, CTAB, normal breath sounds with good chest expansion, thorax symmetric Cardiovascular: Regular, rate and rhythm, no murmurs, 2+ equal pulses of the extremities, normal S 1and S 2 Gastrointestinal: Nondistended, hard in midline, soft on sides, diffusely tender with palpation worse on R side, no rebound tenderness or guarding, palpable mass Genitourinary: def Musculoskeletal: intact ROM Extremities: normal extremities, no cyanosis edema Neurological: alert and oriented x3 Psychological: Appropriate mood and behavior Skin: Warm and dry, no lesions, no rashes Recent Lab Results: Results: I have reviewed these laboratory results: Coronavirus 2019, Screen Asymptomatic 08-Jul-2020 22:15:00 ResultValue Fluid Source Nasal, Nasopharyngeal Coronavirus 2019,PCR NOT DETECTED Reference Range: Not Detected . This test has received FDA Emergency Use Authorization (EUA) and has been verified by [facility]. This test is only authorized for the duration of time that circum Urine Test 08-Jul-2020 17:26:00 ResultValue HCG, Urine NEGATIVE Urinalysis 08-Jul-2020 17:26:00 ResultValue Color, Urine Yellow Reference Range: STRAW,YELLOW Appearance, Urine HAZY Specific [place], Urine 1.017 pH, Urine 6.0 Protein, Urine NEGATIVE Glucose, Urine NEGATIVE Blood, Urine NEGATIVE Ketones, Urine 5(TRACE) A Bilirubin, Urine NEGATIVE Urobilinogen, Urine <2.0 Nitrite, Urine Negative Leukocyte Esterase, Urine SMALL(1+) A Urinalysis, Microscopic 08-Jul-2020 17:26:00 ResultValue White Cells 10 A Red Blood Cells 1 Epithelial Cells, Squamous 6 Bacteria, Urine 1+ A Mucous 1+ Hepatic Function Panel 08-Jul-2020 16:22:00 ResultValue Aspartate Transaminase, Serum 11 ALB 4.6 T Bili 0.9 Bilirubin, Serum Direct - Conjugated 0.2 ALKP 48 Alanine Aminotransferase, Serum 9 T Pro 7.4 Complete Blood Count + Differential 08-Jul-2020 16:22:00 ResultValue White Blood Cell Count 13.7 H Nucleated Erythrocyte Count 0.1 Red Blood Cell Count 4.20 HGB 12.7 HCT 38.6 MCV 92 MCHC 32.9 PLT 262 RDW-CV 13.2 Differential Comment SEE MANUAL DIFF Basic Metabolic Panel 08-Jul-2020 16:22:00 ResultValue Glucose, Serum 119 H NA 136 K 3.6 CL 100 Bicarbonate, Serum 27 Anion Gap, Serum 13 BUN 10 CREAT 0.77 GFR-Non >60 GFR- >60 Calcium, Serum 9.4 (more content not included)... [facility] Evaluation note Diagnosis Encounter for supervision of high risk in first trimester, antepartum (HCC)- Primary 10 weeks gestation of ([facility]) state, incidental with uncertain dates in first trimester ([facility]) Screen for STD (sexually transmitted disease) Screening examination for venereal disease Screening for cervical cancer Screening for malignant neoplasm of the cervix Family history of deafness Family history of deafness or hearing loss Chronic hypertension affecting ([facility]) Obesity affecting in first trimester, unspecified obesity type ([facility]) Nicotine dependence due to vaping tobacco product Caffeine use during in first trimester ([facility]) Nausea and vomiting during ([facility]) History of alcohol abuse Nondependent alcohol abuse, in remission [facility] Diagnosis with uncertain dates in first trimester ([facility]) [facility] Diagnosis Diet controlled gestational diabetes mellitus (GDM) in third trimester ([facility])- Primary Encounter for supervision of high risk in first trimester, antepartum ([facility]) Chronic hypertension affecting ([facility]) [facility]* Diagnosis 12 weeks gestation of ([facility])- Primary state, incidental Diet controlled gestational diabetes mellitus (GDM) in first trimester ([facility]) Chronic hypertension affecting ([facility]) 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, antepartum (HCC) Diet controlled gestational diabetes mellitus (GDM) in first trimester (HCC) documented in this encounter [facility] note* Diagnosis 12 weeks gestation of (HCC)- Primary state, incidental Diet controlled gestational diabetes mellitus (GDM) in first trimester (HCC) Chronic hypertension affecting (HCC) 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, antepartum (HCC) 14 weeks gestation of (HCC)- Primary state, incidental Chronic hypertension affecting (HCC) Diet controlled gestational diabetes mellitus (GDM) in first trimester ([facility]) Rubella non-immune status, antepartum ([facility]) Other specified complication, antepartum documented in this encounter [facility] note* Diagnosis 12 weeks gestation of (HCC)- Primary state, incidental Diet controlled gestational diabetes mellitus (GDM) in first trimester (HCC) Chronic hypertension affecting (HCC) 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, antepartum (HCC) Diet controlled gestational diabetes mellitus (GDM) in second trimester (HCC)- Primary documented in this encounter [facility] note* Diagnosis 12 weeks gestation of (HCC)- Primary state, incidental Diet controlled gestational diabetes mellitus (GDM) in first trimester (HCC) Chronic hypertension affecting (HCC) 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, antepartum (HCC) Supervision of high risk in second trimester (HCC)- Primary Unspecified high-risk Diet controlled gestational diabetes mellitus (GDM) in second trimester (HCC) Chronic hypertension affecting (HCC) 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, antepartum (HCC) documented in this encounter [facility] note* Diagnosis 12 weeks gestation of (HCC)- Primary state, incidental Diet controlled gestational diabetes mellitus (GDM) in first trimester (HCC) Chronic hypertension affecting (HCC) 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, antepartum (HCC) Supervision of high risk in second trimester (HCC) Unspecified high-risk Diet controlled gestational diabetes mellitus (GDM) in second trimester (HCC) Chronic hypertension affecting ([facility]) [facility] Diagnosis 12 weeks gestation of ([facility])- Primary state, incidental Diet controlled gestational diabetes mellitus (GDM) in first trimester (HCC) Chronic hypertension affecting (HCC) 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, antepartum ([facility]) Supervision of high risk in second trimester ([facility]) Unspecified high-risk Diet controlled gestational diabetes mellitus (GDM) in second trimester ([facility]) [facility]* Diagnosis 12 weeks gestation of ([facility])- Primary state, incidental Diet controlled gestational diabetes mellitus (GDM) in first trimester ([facility]) Chronic hypertension affecting ([facility]) 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, antepartum ([facility]) Supervision of high risk in second trimester ([facility])- Primary Unspecified high-risk Diet controlled gestational diabetes mellitus (GDM) in second trimester ([facility]) Chronic hypertension affecting ([facility]) 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, antepartum ([facility]) 18 weeks gestation of ([facility]) state, incidental Cystic fibrosis carrier in second trimester, antepartum ([facility])- Primary [facility]* Diagnosis Elevated hemoglobin A1c- Primary Other abnormal blood chemistry 12 weeks gestation of ([facility])- Primary state, incidental Diet controlled gestational diabetes mellitus (GDM) in first trimester ([facility]) Chronic hypertension affecting (HCC) 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, antepartum ([facility]) Supervision of high risk in second trimester ([facility])- Primary Unspecified high-risk Diet controlled gestational diabetes mellitus (GDM) in second trimester ([facility]) Chronic hypertension affecting ([facility]) 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, antepartum ([facility]) 18 weeks gestation of ([facility]) state, incidental [facility]* Diagnosis Elevated glucose tolerance test- Primary Impaired glucose tolerance test 12 weeks gestation of ([facility])- Primary state, incidental Diet controlled gestational diabetes mellitus (GDM) in first trimester ([facility]) Chronic hypertension affecting (HCC) 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, antepartum ([facility]) Supervision of high risk in second trimester ([facility])- Primary Unspecified high-risk Diet controlled gestational diabetes mellitus (GDM) in second trimester ([facility]) Chronic hypertension affecting (HCC) 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, antepartum ([facility]) 18 weeks gestation of ([facility]) state, incidental [facility] Diagnosis 12 weeks gestation of ([facility])- Primary state, incidental Diet controlled gestational diabetes mellitus (GDM) in first trimester ([facility]) Chronic hypertension affecting ([facility]) 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, antepartum ([facility]) Encounter for routine screening for malformation using ultrasonics ([facility])- Primary Encounter for routine screening for malformation using ultrasonics Encounter for supervision of high risk in first trimester, antepartum ([facility]) 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 ([facility]) Severe obesity with body mass index (BMI) of 35.0 to 39.9 with comorbidity ([facility]) 16 weeks gestation of ([facility]) state, incidental Supervision of high risk in second trimester ([facility])- Primary Unspecified high-risk Diet controlled gestational diabetes mellitus (GDM) in second trimester ([facility]) Chronic hypertension affecting ([facility]) 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, antepartum ([facility]) 18 weeks gestation of ([facility]) state, incidental documented in this encounter [facility] note* Diagnosis Diet controlled gestational diabetes mellitus (GDM) in first trimester ([facility])- Primary Elevated glucose tolerance test Impaired glucose tolerance test 12 weeks gestation of ([facility])- Primary state, incidental Diet controlled gestational diabetes mellitus (GDM) in first trimester ([facility]) Chronic hypertension affecting ([facility]) 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, antepartum ([facility]) Supervision of high risk in second trimester ([facility])- Primary Unspecified high-risk Diet controlled gestational diabetes mellitus (GDM) in second trimester ([facility]) Chronic hypertension affecting ([facility]) 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, antepartum ([facility]) 18 weeks gestation of ([facility]) state, incidental documented in this encounter [facility] note* Diagnosis 12 weeks gestation of ([facility])- Primary state, incidental Diet controlled gestational diabetes mellitus (GDM) in first trimester ([facility]) Chronic hypertension affecting ([facility]) 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, antepartum ([facility]) Supervision of high risk in second trimester ([facility])- Primary Unspecified high-risk Diet controlled gestational diabetes mellitus (GDM) in second trimester ([facility]) Chronic hypertension affecting ([facility]) 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, antepartum ([facility]) 18 weeks gestation of ([facility]) state, incidental 20 weeks gestation of (HCC)- Primary state, incidental Supervision of high risk in second trimester (HCC) Unspecified high-risk Diet controlled gestational diabetes mellitus (GDM) in second trimester (HCC) Chronic hypertension affecting (HCC) * Assessment & Plan Note - Bea Rose MD - 11/16/2024 1:21 PM EDTAssociated Problem(s): Chronic hypertension affecting (HCC) Orders: URINE OB DIP B/O [facility]* Diagnosis 12 weeks gestation of (HCC)- Primary state, incidental Diet controlled gestational diabetes mellitus (GDM) in first trimester (HCC) Chronic hypertension affecting (HCC) 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, antepartum (HCC) Supervision of high risk in second trimester (HCC)- Primary Unspecified high-risk Diet controlled gestational diabetes mellitus (GDM) in second trimester (HCC) Chronic hypertension affecting (HCC) 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, antepartum (HCC) 18 weeks gestation of (HCC) state, incidental Chronic hypertension affecting (HCC)- Primary with uncertain dates in first trimester (HCC) Diet controlled gestational diabetes mellitus (GDM) in first trimester (HCC) Obesity affecting in first trimester, unspecified obesity type (HCC) 20 weeks gestation of (HCC)- Primary state, incidental Supervision of high risk in second trimester (HCC) Unspecified high-risk Diet controlled gestational diabetes mellitus (GDM) in second trimester (HCC) Chronic hypertension affecting ([facility]) documented in this encounter [facility] for visit Narrative* Consult, Test, Treat (Routine) - Closed Specialty Diagnoses / Procedures Referred By Contraghavendra t Referred To Contact Diagnoses Diet controlled gestational diabetes mellitus (GDM) in first trimester (HCC) Procedures CONSULT TO DIABETES EDUCATION DSME MEDICAL NUTRITION ASSMT&IVNTJ INDIV EACH 15 AK MEDICAL NUTRITION ASSMT&IVNTJ INDIV EACH 15 [place] MEDICAL NUTRITION ASSMT&IVNTJ INDIV EACH 15 [place] MEDICAL NUTRITION ASSMT&IVNTJ INDIV EACH 15 [place] Kendall Delgado [place] [place] [address] Phone: tel: fax: Referral ID Status Reason Start Date Expiration Date V isits Requested Visits Authorized [id number] Closed PCP Requested Referral 09/14/2024 09/14/2025 1 1 [facility] History of Present Illness * Kendall Kemp MD - 12/25/2018 12:56 PM EDT Impression: 1. Bimalleolar ankle fracture, left, closed, initial encounter The above diagnosis as well as the options for treatment were discussed with Bronwyn in clinic today. She has a bimalleolar ankle fracture of the posterior and lateral malleolus. There is no widening on standing stress radiographs. I have placed her in a cast today. A short leg cast was placed on herleft lower extremity and she tolerated procedure well. She will follow-up in 2 weeks with repeat x-rays to make sure she does not have any continued widening. She has a boot at home. She will bring that with her. We may be able to put her in the boot at that time. I would recommend 6 weeks nonweightbearing for this injury followed by progressive weightbearing. Bronwyn Higginbotham was agreeable to the plan and there were no learning barriers encountered. Follow-Up: 2 weeks. New xrays will be needed at the next visit. 3 views left ankle standing Subjective: Bronwyn Higginbotham is a 23 y.o. female seen as a new patient for left bimalleolar ankle fracture. She sustained the injury on 12/13/2018. She was in [facility] where she was living at the time. She twisted her ankle when she was standing in the sand. She had immediate pain. [facility]. She went to the [place] emergency department on 12/18/2018 where x-rays were performed. She was diagnosed with a nondisplaced lateral malleolar fracture and placed in a splint. She called my clinic for a follow-up appointment. She has remained nonweightbearing. She states that she has significant pain in the ankle with any attempted weightbearing. She denies any other treatments. The pain is along the lateral and posterior aspects of the ankle. It is improved with elevation. She is taking [id number] medication, Tylenol for pain. This helps.. She is not currently employed. She smokes 1 pack/day. She is not a diabetic. History reviewed. No pertinent past medical history. and History reviewed. No pertinent surgical history. Past medical, past surgical, family history, medications, allergies, and smoking status reviewed and updated as appropriate in [facility]. A 10-system review of systems was completed by Bronwyn nix and reviewed by Dr. Kendall Kemp during the visit. This has been initialed, dated, and scanned to this encounter. Objective: Vitals: 12/25/18 1114 BP: 138/85 Pulse: 83 General: no acute distress Appearance: Appears stated age Neurologic: Patient is alert and oriented x3 pleasant and cooperative. Mood and affect: Normal HEENT: normocephalic, attraumatic. Extraocular muscles grossly normal. Pulm: respiratory effort is normal Foot and Ankle - Physical Exam Standing: Not performed due to the nature of the injury. Deformities: Swelling about the foot and ankle Palpation: Tenderness to palpation over the distal fibula. Also tenderness at the posterior aspect of the ankle. Tenderness over the deltoid ligament as well. ROM Ankle: decreased Subtalar: decreased MTP: decreased Muscle/Tendons Strength + EHL/FHL motor intact Pulses Dorsal Pedis: Present 2+ Tibial Artery: Present 2+ Nerves Tibial Nerve Lateral Plantar: intact Medial Plantar: intact Superficial Peroneal: intact Deep Peroneal: intact Sural: intact Saphenous: intact Skin Intact. Swelling present Radiographs: Xrays from today's date were reviewed today in clinic and discussed with the patient. A formal readwill be perfomed by radiology. They were also interpreted by myself. My findings and impressions can be found below. Radiographs from today's date include stress radiographs. There is a standing stress radiograph of the ankle. This is a bimalleolar ankle fracture with a fracture of the medial and posterior malleolus. Standing view however does not show any widening of the mortise. Nondisplaced fractures. No significant callus formation. documented in this encounter* Kendall Kemp MD - 12/25/2018 12:56 PM EDT Impression: 1. Bimalleolar ankle fracture, left, closed, initial encounter The above diagnosis as well as the options for treatment were discussed with Bronwyn in clinic today. She has a bimalleolar ankle fracture of the posterior and lateral malleolus. There is no widening on standing stress radiographs. I have placed her in a cast today. A short leg cast was placed on herleft lower extremity and she tolerated procedure well. She will follow-up in 2 weeks with repeat x-rays to make sure she does not have any continued widening. She has a boot at home. She will bring that with her. We may be able to put her in the boot at that time. I would recommend 6 weeks nonweightbearing for this injury followed by progressive weightbearing. Bronwyn Higginbotham was agreeable to the plan and there were no learning barriers encountered. Follow-Up: 2 weeks. New xrays will be needed at the next visit. 3 views left ankle standing Subjective: Bronwyn Higginbotham is a 23 y.o. female seen as a new patient for left bimalleolar ankle fracture. She sustained the injury on 12/13/2018. She was in [facility] where she was living at the time. She twisted her ankle when she was standing in the sand. She had immediate pain. She was actually movingback to the [facility] at the time. She went to the [place] emergency department on 12/18/2018 where x-rays were performed. She was diagnosed with a nondisplaced lateral malleolar fracture and placed in a splint. She called my clinic for a follow-up appointment. She has remained nonweightbearing. She states that she has significant pain in the ankle with any attempted weightbearing. She denies any other treatments. The pain is along the lateral and posterior aspects of the ankle. It is improved with elevation. She is taking [id number] medication, Tylenol for pain. This helps.. She is not currently employed. She smokes 1 pack/day. She is not a diabetic. History reviewed. No pertinent past medical history. and History reviewed. No pertinent surgical history. Past medical, past surgical, family history, medications, allergies, and smoking status reviewed and updated as appropriate in [facility]. A 10-system review of systems was completed by Bronwyn today and reviewed by Dr. Kendall Kemp during the visit. This has been initialed, dated, and scanned to this encounter. Objective: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 Status Reason Start Date Expiration Date V isits Requested Visits Authorized [id number] Closed PCP Requested Referral 10/18/2024 10/18/2025 1 1 Reason Comments Care Genetics Specialty Diagnoses / Procedures Referred By Contac t Referred To Contact Diagnoses Encounter for supervision of high risk in first trimester, antepartum (HCC) Procedures MEDICAL GENETICS COUNSELING EACH 30 MINUTES Kelvin Thompson MD [address] [place] [address] Phone: tel: fax: [facility] [address] [place] [phone] Referral ID Status Reason Start Date Expiration Date Visits Requested Visits Authorized [id number] Pending Review PCP Requested Referral Auto-Generate d Referral 09/18/2024 09/18/2025 1 1 Reason Onset Date Comments Results 09/06/2024 Reason Onset Date Comments Results 09/07/2024 Specialty Diagnoses / Procedures Referred By Contac t Referred To Contact [facility] Diagnoses Encounter for supervision of high risk in first trimester, antepartum (HCC) Procedures OBSTETRIC ULTRASOUND WHI US PREG UTERUS AFTER 1ST TRIMEST GESTATION Kelvin Thompson MD [address] [place] [address] Phone: tel: fax: [facility] [address] [place] [address] Referral ID Status Reason Start Date Expiration Date V isits Requested Visits Authorized [id number] Closed Auto-Generate d Referral 09/18/2024 09/18/2025 1 1 Reason Onset Date Comments Results 09/14/2024 Reason Onset Date Comments Care 11/16/2024 Referral ID Status Reason Start Date Expiration Date V isits Requested Visits Authorized [id number] Closed Auto-Generate d Referral 09/05/2024 09/05/2025 1 1 INFORMATION SOURCE (unrecogn ized section and content) DATE CREATED AUTHOR 01/11/2019 [facility] DATE CREATED AUTHOR AUTHOR'S ORGANIZ ATION 02/03/2019 [facility] DATE CREATED AUTHOR AUTHOR'S ORGANIZ ATION 02/08/2019 [facility] DATE CREATED AUTHOR AUTHOR'S ORGANIZ ATION 04/06/2019 [facility] DATE CREATED AUTHOR AUTHOR'S ORGANIZ ATION 07/30/2020 [facility] DATE CREATED AUTHOR AUTHOR'S ORGANIZ ATION 08/01/2020 [facility] DATE CREATED AUTHOR AUTHOR'S ORGANIZ ATION 08/05/2022 [facility] DATE CREATED AUTHOR AUTHOR'S ORGANIZ ATION 02/06/2025 [facility] <item><item> Privacy Markings (unrecogniz ed section and content) Section Author: Blanca Ross PROHIBITION ON REDISCLOSURE OF CONFIDENTIAL INFORMATION This notice accompanies a disclosure of information concerning a client made to you with the consent of such client. Section Author: Blanca Ross PROHIBITION ON REDISCLOSURE OF CONFIDENTIAL INFORMATION This notice accompanies a disclosure of information concerning a client made to you with the consent of such client. Source Comments (unrecognize d section and content) In the event this informatio n is protected by the Federal Confidentiality of Alcohol and Drug Abuse Patient Records regulations: The Federal rules restrict any use of the information to criminally investigate or prosecute any alcohol or drug abuse patient.[facility] HealthIn the event this information is protected by the Federal Confidentiality of Alcohol and Drug Abuse Patient Records regulations: The Federal rules restrict any use of the information to criminally investigate or prosecute any alcohol or drug abuse patient.[facility] HealthIn the event this information is protected by the Federal Confidentiality of Alcohol and Drug Abuse Patient Records regulations: The Federal rules restrict any use of the information to criminally investigate or prosecute any alcohol or drug abuse patient.[facility] HealthIn the event this information is protected by the Federal Confidentiality of Alcohol and Drug Abuse Patient Records regulations: The Federal rules restrict any use of the information to criminally investigate or prosecute any alcohol or drug abuse patient.[facility] HealthIn the event this information is protected by the Federal Confidentiality of Alcohol and Drug Abuse Patient Records regulations: The Federal rules restrict any use of the information to criminally investigate or prosecute any alcohol or drug abuse patient.[facility] HealthIn the event this information is protected by the Federal Confidentiality of Alcohol and Drug Abuse Patient Records regulations: The Federal rules restrict any use of the information to criminally investigate or prosecute any alcohol or drug abuse patient.[facility] HealthIn the event this information is protected by the Federal Confidentiality of Alcohol and Drug Abuse Patient Records regulations: The Federal rules restrict any use of the information to criminally investigate or prosecute any alcohol or drug abuse patient.[facility] HealthIn the event this information is protected by the Federal Confidentiality of Alcohol and Drug Abuse Patient Records regulations: The Federal rules restrict any use of the information to criminally investigate or prosecute any alcohol or drug abuse patient.[facility] HealthIn the event this information is protected by the Federal Confidentiality of Alcohol and Drug Abuse Patient Records regulations: The Federal rules restrict any use of the information to criminally investigate or prosecute any alcohol or drug abuse patient.[facility] HealthIn the event this information is protected by the Federal Confidentiality of Alcohol and Drug Abuse Patient Records regulations: The Federal rules restrict any use of the information to criminally investigate or prosecute any alcohol or drug abuse patient.[facility] HealthIn the event this information is protected by the Federal Confidentiality of Alcohol and Drug Abuse Patient Records regulations: The Federal rules restrict any use of the information to criminally investigate or prosecute any alcohol or drug abuse patient.[facility] HealthIn the event this information is protected by the Federal Confidentiality of Alcohol and Drug Abuse Patient Records regulations: The Federal rules restrict any use of the information to criminally investigate or prosecute any alcohol or drug abuse patient.[facility] HealthIn the event this information is protected by the Federal Confidentiality of Alcohol and Drug Abuse Patient Records regulations: The Federal rules restrict any use of the information to criminally investigate or prosecute any alcohol or drug abuse patient.[facility] HealthIn the event this information is protected by the Federal Confidentiality of Alcohol and Drug Abuse Patient Records regulations: The Federal rules restrict any use of the information to criminally investigate or prosecute any alcohol or drug abuse patient.[facility] HealthIn the event this information is protected by the Federal Confidentiality of Alcohol and Drug Abuse Patient Records regulations: The Federal rules restrict any use of the information to criminally investigate or prosecute any alcohol or drug abuse patient.[facility] HealthIn the event this information is protected by the Federal Confidentiality of Alcohol and Drug Abuse Patient Records regulations: The Federal rules restrict any use of the information to criminally investigate or prosecute any alcohol or drug abuse patient.[facility] HealthIn the event this information is protected by the Federal Confidentiality of Alcohol and Drug Abuse Patient Records regulations: The Federal rules restrict any use of the information to criminally investigate or prosecute any alcohol or drug abuse patient.[facility] HealthIn the event this information is protected by the Federal Confidentiality of Alcohol and Drug Abuse Patient Records regulations: The Federal rules restrict any use of the information to criminally investigate or prosecute any alcohol or drug abuse patient.[facility] HealthIn the event this information is protected by the Federal Confidentiality of Alcohol and Drug Abuse Patient Records regulations: The Federal rules restrict any use of the information to criminally investigate or prosecute any alcohol or drug abuse patient.[facility] HealthIn the event this information is protected by the Federal Confidentiality of Alcohol and Drug Abuse Patient Records regulations: The Federal rules restrict any use of the information to criminally investigate or prosecute any alcohol or drug abuse patient.[facility] FOR RECORDS PERTAINING TO PATIENTS WHO ARE OR HAVE BEEN ENROLLED IN A CHEMICAL DEPENDENCY/SUBSTANCEABUSE PROGRAM, SOME INFORMATION MAY BE OMITTED. This clinical summary was aggregated from multiple sources. Caution should be exercised in using it in the provision of clinical care. This summary normalizes information from multiple sources, and as a consequence, information in this document may materially change the coding, format and clinical context of patient data. In addition, data may be omitted in some cases. CLINICAL DECISIONS SHOULD BE BASED ON THE PRIMARY CLINICAL RECORDS. [employer] [facility]. provides no warranty or guarantee of the accuracy or completeness of information in this document.
--- OUTSIDE RECORDS SUMMARY | 2025-03-22 07:26 | XMS RPT_ITS | CCD ---
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 Performed By: #### 5 8410-2 #### [facility] [id number] [address] [place] [address] [place] Test performance information Roberto (Unsp spec) Comment [facility] Comment on above: Order Comment: Speci men Type: BLOOD SPECIMEN Ordering Facility: [facility] Address: [address] [place] [address] Result Comment: The performance characteristics of the MaterniT(R) 21 PLUS laboratory-developed test (LDT) have been determined in a clinical validation study with women at increased risk for chromosomal aneuploidy.[1-4] Performed By: #### 5 8410-2 #### [facility] CLIA [id number] [address] [place] [address] OF [place] Trisomy 13 risk Dosage of chromosome-specific cfDNA Ql (cfDNA) [Interp] Negative [facility] Comment on above: Order Comment: Speci men Type: BLOOD SPECIMEN Ordering Facility: [facility] Address: [address] [place] [address] Performed By: #### 5 8410-2 #### [facility] CLIA [id number] [address] [place] [address] OF [place] Trisomy 18 risk Dosage of chromosome-specific cfDNA Ql (Plasma cell-free+WBC DNA) [Interp] Negative [facility] Comment on above: Order Comment: Speci men Type: BLOOD SPECIMEN Ordering Facility: [facility] Address: [address] [place] [address] Performed By: #### 5 8410-2 #### [facility] CLIA [id number] [address] [place] [address] [place] URINE OB DIP B/Oon 5 Glucose Ql (U) Negative Neg mg/dL [facility] Interpretation and review of laboratory results Normal [facility] Protein.monoclonal (U) [Mass/Vol] Negative Neg mg/dL [facility] GLUCOSE GESTATIONAL, 1 HOURo n 09-14-2024 Glucose 1 Hr post Unsp challenge [Mass/Vol] 198 mg/dL High 74-179 [facility] Comment on above: Order Comment: Speci men Type: BLOOD SPECIMENOrdering Facility: [facility] Address: [address] [place] [address] Result Comment: [facility] Congress of Obstetricians and Gynecologists ([place]/Lucero) guidelines state gestational diabetes mellitus is present when 2 or more of the plasma glucose concentrations meet or exceed the following levels: fastin mg/dl, 1 hr: 180 mg/dl, 2 hr: 155 mg/dl, and 3 hr: 140 mg/dl. Performed By: #### G TGST1 ####[facility] [id number] [place] [address] [place] GLUCOSE GESTATIONAL, 2 HOURo n 09-14-2024 Glucose 2 Hr post Unsp challenge [Mass/Vol] 180 mg/dL High 74-154 [facility] Comment on above: Order Comment: Kodi merino Type: BLOOD SPECIMEN Ordering Facility: [facility] Address: [address] [place] [address] Result Comment: [facility] Congress of Obstetricians and Gynecologists (Elli/Lucero) guidelines state gestational diabetes mellitus is present when 2 or more of the plasma glucose concentrations meet or exceed the following levels: fastin mg/dl, 1 hr: 180 mg/dl, 2 hr: 155 mg/dl, and 3 hr: 140 mg/dl. Performed By: #### 5 8410-2 #### [facility] CLIA [id number] [address] [place] [address] [place] GLUCOSE GESTATIONAL, FASTING on 09-14-2024 Glucose post fast [Mass/Vol] 106 mg/dL High 74-94 [facility] Comment on above: Order Comment: Kodi merino Type: BLOOD SPECIMENOrdering Facility: [facility] Address: [address] [place] [address] Result Comment: [facility] Congress of Obstetricians and Gynecologists ([place]/Lucero) guidelines state gestational diabetes mellitus is present when 2 or more of the plasma glucose concentrations meet or exceed the following levels: fastin mg/dl, 1 hr: 180 mg/dl, 2 hr: 155 mg/dl, and 3 hr: 140 mg/dl. Performed By: #### G TGSTF ####[facility] [id number] [place] [address] [place] GESTATIONAL GLUCOSE SCREEN, 1-HOUR, 50 GRAM, NON-FASTINGOrdered By: Roxanna Bliss on 09-07-2024 Glucose [Mass/Vol] 177 mg/dL High 74 - 134 mg/dL [facility] Comment on above: [place] Congress of Obstetricians and Gynecologists ([place]/Coustan) guidelines state a gestational diabetes mellitus positive screen is made, in women not previously diagnosed with overt diabetes, when the 1 hr plasma glucose level is equal to or above 140 mg/dL. [facility] Order Dispatcher Chief and [facility] [place] recommends a 135 mg/dL cutoff. Interpretation and review of laboratory results Abnormal [facility] GESTATIONAL GLUCOSE SCREEN, 1-HOUR, 50 GRAM, NON-FASTINGon 09-07-2024 Glucose [Mass/Vol] 177 mg/dL High 74-134 [facility] Comment on above: Order Comment: Speci men Type: BLOOD SPECIMENOrdering Facility: [facility] Address: [address] [place] [address] Result Comment: [facility] Congress of Obstetricians and Gynecologists ([place]/Coustan) guidelines state a gestational diabetes mellitus positive screen is made, in women not previously diagnosed with overt diabetes, when the 1 hr plasma glucose level is equal to or above 140 mg/dL. [facility] Order Dispatcher Chief and [facility] [place] recommends a 135 mg/dL cutoff. Performed By: #### G LTGST ####[facility] [id number] [address] OF [facility] Mary 09-06-2024 [facility] Telephone ([id number]) -- BRONWYN HIGGINBOTHAM ([id number]) 1995 F Date Time Provider Department 09/06/24 TRICIA LAMBERT [id number] During your visit today, we recorded the following information about you: Tricia Lambert RN 09/06/2024 1:18 PM Signed 1st risk assessment form submitted 09/06/2024. 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 trachomatis+N. gonorrhoea e DNA TAYLOR+probe Ql (Unsp spec)on 09-05-2024 C. trachomatis rRNA TAYLOR+probe Ql (Unsp spec) Not detected Normal Not detected [facility] Comment on above: Order Comment: Speci men Type: BLOOD SPECIMEN Ordering Facility: [facility] Address: [address] [place] [address] Performed By: #### 5 8410-2 #### [facility] CLIA [id number] [address] [place] [address] [place] N. gonorrhoeae rRNA TAYLOR+probe Ql (Unsp spec) Not detected Normal Not detected [facility] Comment on above: Order Comment: Speci men Type: BLOOD SPECIMEN Ordering Facility: [facility] Address: [address] [place] [address] Performed By: #### 5 8410-2 #### [facility] CLIA [id number] [address] [place] [address] [place] CBC W Auto Differential pane l (Bld)on 09-05-2024 Basophils (Bld) [#/Vol] 10*3/uL Normal <0.11 [facility] Comment on above: Order Comment: Speci men Type: BLOOD SPECIMENOrdering Facility: [facility] Address: [address] [place] [address] Performed By: #### 5 7021-8 ####[facility] [id number] [place] [address] [place] Basophils/100 WBC (Bld) 0.2 % [facility] Comment on above: Order Comment: Speci men Type: BLOOD SPECIMENOrdering Facility: [facility] Address: [address] [place] [address] Performed By: #### 5 7021-8 ####[facility] [id number] [place] [address] [place] Differential cell count method Nom (Bld) Auto [facility] Comment on above: Order Comment: Speci men Type: BLOOD SPECIMENOrdering Facility: [facility] Address: [address] [place] [address] Performed By: #### 5 7021-8 ####[facility] [id number] [place] [id number] [place] Eosinophils (Bld) [#/Vol] 0.10 10*3/uL Normal <0.46 [facility] Comment on above: Order Comment: Speci men Type: BLOOD SPECIMENOrdering Facility: [facility] Address: [address] [place] [address] Performed By: #### 5 7021-8 ####[facility] [id number] [place] [address] [place] Eosinophils/100 WBC (Bld) 1.2 % [facility] Comment on above: Order Comment: Speci men Type: BLOOD SPECIMENOrdering Facility: [facility] Address: [address] [place] [address] Performed By: #### 5 7021-8 ####[facility] [id number] [place] [address] [place] Erythrocyte distribution width (RBC) [Ratio] 12.2 % Normal 11.5-15.0 [facility] Comment on above: Order Comment: Speci men Type: BLOOD SPECIMENOrdering Facility: [facility] Address: [address] [place] [address] Performed By: #### 5 7021-8 ####[facility] [id number] [place] [address] [place] Hematocrit (Bld) [Volume fraction] 34.6 % Low 36.0-46.0 [facility] Comment on above: Order Comment: Speci men Type: BLOOD SPECIMENOrdering Facility: [facility] Address: [address] [place] [address] Performed By: #### 5 7021-8 ####[facility] [id number] [place] [address] [place] Hemoglobin (Bld) [Mass/Vol] 12.0 g/dL Normal 11.5-15.5 [facility] Comment on above: Order Comment: Speci men Type: BLOOD SPECIMENOrdering Facility: [facility] Address: [address] [place] [address] Performed By: #### 5 7021-8 ####[facility] LUIS [id number] [place] [address] [place] Immature granulocytes (Bld) [#/Vol] 0.03 10*3/uL Normal <0.10 [facility] Comment on above: Order Comment: Speci men Type: BLOOD SPECIMENOrdering Facility: [facility] Address: [address] [place] [address] Performed By: #### 5 7021-8 ####[facility] [id number] [place] [address] [place] Immature granulocytes/100 WBC (Bld) 0.4 % [facility] Comment on above: Order Comment: Speci men Type: BLOOD SPECIMENOrdering Facility: [facility] Address: [address] [place] [address] Performed By: #### 5 7021-8 ####[facility] [id number] [place] [address] [place] Lymphocytes (Bld) [#/Vol] 1.40 10*3/uL Normal 1.00-4.00 [facility] Comment on above: Order Comment: Speci men Type: BLOOD SPECIMENOrdering Facility: [facility] Address: [address] [place] [address] Performed By: #### 5 7021-8 ####[facility] [id number] [place] [address] [place] Lymphocytes/100 WBC (Bld) 16.5 % [facility] Comment on above: Order Comment: Speci men Type: BLOOD SPECIMENOrdering Facility: [facility] Address: [address] [place] [address] Performed By: #### 5 7021-8 ####[facility] [id number] [place] [address] [place] MCH (RBC) [Entitic mass] 30.4 pg Normal 26.0-34.0 [facility] Comment on above: Order Comment: Speci men Type: BLOOD SPECIMENOrdering Facility: [facility] Address: [address] [place] [address] Performed By: #### 5 7021-8 ####[facility] [id number] [place] [address] [place] MCHC (RBC) [Mass/Vol] 34.7 g/dL Normal 30.5-36.0 [facility] Comment on above: Order Comment: Speci men Type: BLOOD SPECIMENOrdering Facility: [facility] Address: [address] [place] [address] Performed By: #### 5 7021-8 ####[facility] [id number] [place] [address] [place] MCV (RBC) [Entitic vol] 87.6 fL Normal 80.0-100.0 [facility] Comment on above: Order Comment: Speci men Type: BLOOD SPECIMENOrdering Facility: [facility] Address: [address] [place] [address] Performed By: #### 5 7021-8 ####[facility] [id number] [place] [address] [place] Monocytes (Bld) [#/Vol] 0.46 10*3/uL Normal <0.87 [facility] Comment on above: Order Comment: Speci men Type: BLOOD SPECIMENOrdering Facility: [facility] Address: [address] [place] [address] Performed By: #### 5 7021-8 ####[facility] [id number] [place] [address] [place] Monocytes/100 WBC (Bld) 5.4 % Normal [facility] Comment on above: Order Comment: Speci men Type: BLOOD SPECIMENOrdering Facility: [facility] Address: [address] [place] [address] Performed By: #### 5 7021-8 ####[facility] [id number] [place] [address] [place] Neutrophils (Bld) [#/Vol] 6.47 10*3/uL Normal 1.45-7.50 [facility] Comment on above: Order Comment: Speci men Type: BLOOD SPECIMENOrdering Facility: [facility] Address: [address] [place] [address] Performed By: #### 5 7021-8 ####[facility] [id number] [place] [address] [place] Neutrophils/100 WBC (Bld) 76.3 % Normal [facility] Comment on above: Order Comment: Speci men Type: BLOOD SPECIMENOrdering Facility: [facility] Address: [address] [place] [address] Performed By: #### 5 7021-8 ####[facility] [id number] [place] [address] [place] Nucleated RBC (Bld) [#/Vol] 10*3/uL Normal <0.01 [facility] Comment on above: Order Comment: Speci men Type: BLOOD SPECIMENOrdering Facility: [facility] Address: [address] [place] [address] Performed By: #### 5 7021-8 ####[facility] [id number] [place] [address] [place] Nucleated RBC/100 WBC (Bld) [Ratio] 0.0 /100 WBC Normal [facility] Comment on above: Order Comment: Speci men Type: BLOOD SPECIMENOrdering Facility: [facility] Address: [address] [place] [address] Performed By: #### 5 7021-8 ####[facility] JEANENCDONI [id number] [place] [address] [place] Platelet mean volume (Bld) [Entitic vol] 9.3 fL Normal 9.0-12.7 [facility] Comment on above: Order Comment: Speci men Type: BLOOD SPECIMENOrdering Facility: [facility] Address: [address] [place] [address] Performed By: #### 5 7021-8 ####[facility] [id number] [place] [address] [place] Platelets (Bld) [#/Vol] 252 10*3/uL Normal 150-400 [facility] Comment on above: Order Comment: Speci men Type: BLOOD SPECIMENOrdering Facility: [facility] Address: [address] [place] [address] Performed By: #### 5 7021-8 ####[facility] [id number] [place] [address] [place] RBC (Bld) [#/Vol] 3.95 10*6/uL Normal 3.90-5.20 [facility] Comment on above: Order Comment: Speci men Type: BLOOD SPECIMENOrdering Facility: [facility] Address: [address] [place] [address] Performed By: #### 5 7021-8 ####[facility] [id number] [place] [address] [place] WBC (Bld) [#/Vol] 8.48 10*3/uL Normal 3.70-11.00 [facility] Comment on above: Order Comment: Speci men Type: BLOOD SPECIMENOrdering Facility: [facility] Address: [address] [place] [address] Performed By: #### 5 7021-8 ####[facility] [id number] [place] [id number] [place] Comprehensive metabolic 2000 panelOrdered By: Lana Gatica on 09-05-2024 Albumin [Mass/Vol] 4 g/dL 3.9 - 4.9 g/dL [facility] ALP [Catalytic activity/Vol] 51 U/L 34 - 123 U/L [facility] ALT [Catalytic activity/Vol] 18 U/L 7 - 38 U/L [facility] Anion gap [Moles/Vol] 13 mmol/L 8 - 15 mmol/L [facility] AST [Catalytic activity/Vol] 18 U/L 13 - 35 U/L [facility] Bilirubin [Mass/Vol] 0.3 mg/dL 0.2 - 1.3 mg/dL [facility] Calcium [Mass/Vol] 9.2 mg/dL 8.5 - 10. 2 mg/dL [facility] Chloride [Moles/Vol] 103 mmol/L 98 - 107 mmol/L [facility] CO2 [Moles/Vol] 18 mmol/L Low 22 - 30 mmol/L [facility] Creatinine [Mass/Vol] 0.6 mg/dL 0.58 - 0.96 mg/dL [facility] GFR/1.73 sq M.predicted among non-blacks MDRD (S/P/Bld) [Vol rate/Area] 127 mL/min/{1.73_m2} - PINF [facility] Comment on above: Estimated Glomerular Filtration Rate [...] [Mass/Vol] 90 mg/dL 74 - 99 mg/dL [facility] Comment on above: The [place] Diabete s Association (ADA) provides guidance for [...] Standards of Medical Care in Diabetes 2016, [place] Diabetes Association. Diabetes Care. 2016.39(Suppl 1). Interpretation and review of laboratory results Abnormal [facility] Potassium [Moles/Vol] 3.9 mmol/L 3.7 - 5.1 mmol/L [facility] Protein [Mass/Vol] 6.8 g/dL 6.3 - 8.0 g/dL [facility] Sodium [Moles/Vol] 134 mmol/L Low 136 - 144 mmol/L [facility] Urea nitrogen [Mass/Vol] 8 mg/dL 7 - 21 mg/dL [facility] Comprehensive metabolic 2000 panelon 09-05-2024 Albumin [Mass/Vol] 4.0 g/dL Normal 3.9-4.9 [facility] Comment on above: Order Comment: Kodi merino Type: BLOOD SPECIMENOrdering Facility: [facility] Address: [address] [place] [address] Performed By: #### 2 4323-8 ####[facility] [id number] [place] [address] [place] ALP [Catalytic activity/Vol] 51 U/L Normal 34-123 [facility] Comment on above: Order Comment: Lyni men Type: BLOOD SPECIMENOrdering Facility: [facility] Address: [address] [place] [address] Performed By: #### 2 4323-8 ####[facility] [id number] [place] [address] [place] ALT [Catalytic activity/Vol] 18 U/L Normal 7-38 [facility] Comment on above: Order Comment: Lyni men Type: BLOOD SPECIMENOrdering Facility: [facility] Address: [address] [place] [id number] Performed By: #### 2 4323-8 ####[facility]OWN[facility] [id number] [place] [address] [place] Anion gap [Moles/Vol] 13 mmol/L Normal 8-15 [facility] Comment on above: Order Comment: Speci men Type: BLOOD SPECIMENOrdering Facility: [facility] Address: [address] [place] [address] Performed By: #### 2 4323-8 ####[facility] MILLTOWNCLIA [id number] [place] [address] [place] AST [Catalytic activity/Vol] 18 U/L Normal 13-35 [facility] Comment on above: Order Comment: Speci men Type: BLOOD SPECIMENOrdering Facility: [facility] Address: [address] [place] [address] Performed By: #### 2 4323-8 ####[facility]CL[facility] [id number] [place] [address] [place] Bilirubin [Mass/Vol] 0.3 mg/dL Normal 0.2-1.3 [facility] Comment on above: Order Comment: Speci men Type: BLOOD SPECIMENOrdering Facility: [facility] Address: Formerly named [facility] [place] [place] [address] Performed By: #### 2 4323-8 ####[facility] MILLTOWNCLIA [id number] [place] [address] [place] Calcium [Mass/Vol] 9.2 mg/dL Normal 8.5-10.2 [facility] Comment on above: Order Comment: Speci men Type: BLOOD SPECIMENOrdering Facility: [facility] Address: Formerly named [facility] [place] [place] [address] Performed By: #### 2 4323-8 ####[facility] MILLWNCLIA [id number] [place] [address] [place] Chloride [Moles/Vol] 103 mmol/L Normal 98-107 [facility] Comment on above: Order Comment: Speci men Type: BLOOD SPECIMENOrdering Facility: [facility] Address: [address] [place] [address] Performed By: #### 2 4323-8 ####[facility] [id number] [place] [address] [place] CO2 [Moles/Vol] 18 mmol/L Low 22-30 [facility] Comment on above: Order Comment: Speci men Type: BLOOD SPECIMENOrdering Facility: [facility] Address: [address] [place] [address] Performed By: #### 2 4323-8 ####[facility] [id number] [place] [address] [place] Creatinine [Mass/Vol] 0.60 mg/dL Normal 0.58-0.96 [facility] Comment on above: Order Comment: Speci men Type: BLOOD SPECIMENOrdering Facility: [facility] Address: [address] [place] [address] Performed By: #### 2 4323-8 ####[facility] [id number] [address] OF [place] Creatinine and Glomerular filtration rate.predicted panel (S/P/Bld) 127 mL/min/1.73m??? Normal >=60 [facility] Comment on above: Order Comment: Speci men Type: BLOOD SPECIMENOrdering Facility: [facility] Address: [address] [place] [address] Result Comment: Nichelle mated Glomerular Filtration Rate [...] actual GFR. Performed By: #### 2 4323-8 ####[facility] [facility] [id number] [place] [address] [place] Glucose [Mass/Vol] 90 mg/dL Normal 74-99 [facility] Comment on above: Order Comment: Speci men Type: BLOOD SPECIMENOrdering Facility: [facility] Address: [address] [place] [address] Result Comment: The [place] Diabetes Association (ADA) provides guidance for cutoff [...] Standards of Medical Care in Diabetes 2016, [place] Diabetes Association. Diabetes Care. 2016.39(Suppl 1). Performed By: #### 2 4323-8 ####[facility] [id number] [place] [address] [place] Potassium [Moles/Vol] 3.9 mmol/L Normal 3.7-5.1 [facility] Comment on above: Order Comment: Speci men Type: BLOOD SPECIMENOrdering Facility: [facility] Address: [address] [place] [address] Performed By: #### 2 4323-8 ####[facility] [id number] [place] [address] [place] Protein [Mass/Vol] 6.8 g/dL Normal 6.3-8.0 [facility] Comment on above: Order Comment: Speci men Type: BLOOD SPECIMENOrdering Facility: [facility] Address: [address] [place], [place] [address] Performed By: #### 2 4323-8 ####[facility] [id number] [place] [address] [place] Sodium [Moles/Vol] 134 mmol/L Low 136-144 [facility] Comment on above: Order Comment: Speci men Type: BLOOD SPECIMENOrdering Facility: [facility] Address: [address] [place] [address] Performed By: #### 2 4323-8 ####[facility] [id number] [place] [address] [place] Urea nitrogen [Mass/Vol] 8 mg/dL Normal 7-21 [facility] Comment on above: Order Comment: Speci men Type: BLOOD SPECIMENOrdering Facility: [facility] Address: [address] [place] [address] Performed By: #### 2 4323-8 ####[facility] [id number] [place] [address] [place] HBV surface Ag Ql (S)on 08-26 Interpretation and review of laboratory results Normal [facility] HBV surface Ag Ser Qlon 08-26 HBV surface Ag Ql (S) Negative Normal Negative [facility] Comment on above: Order Comment: Speci men Type: BLOOD SPECIMEN [facility] Address: [address] [place] [address] Performed By: #### 5 8410-2 #### [facility] CLIA [id number] [address] [place] [address] [place] HCV Ab Ql (S)on 09-05-2024 Interpretation and review of laboratory results Normal [facility] HCV Ab Ser Qlon 09-05-2024 HCV Ab Ql (S) Negative Normal Negative [facility] Comment on above: Order Comment: Speci men Type: BLOOD SPECIMENOrdering Facility: [facility] Address: [address] [place] [address] Result Comment: The result suggests no evidence of infection with Hepatitis C virus. Should recent infection be suspected, repeat testing may be considered 4-6 weeks after this draw. Performed By: #### 1 6128-1 ####[facility] LABCLIA [id number] [place] [address] [place] HEPATITIS B SURFACE ANTIGENo n 09-05-2024 HBV surface Ag Ql (S) Negative Negative [facility] HEPATITIS C ANTIBODY IA WITH CONFIRMATIONon 09-05-2024 HCV Ab Ql (S) Negative Negative [facility] Comment on above: The result suggests no evidence of infection with Hepatitis C virus. Should recent infection be suspected, repeat testing may be considered 4-6 weeks after this draw. HGB ELECTROPHORESIS FOR EVAL (LAB ORDER)on 09-05-2024 Hemoglobin A (Bld) [Mass fraction] 97.6 % Normal 96.2-98.0 [facility] Comment on above: Order Comment: Speci men Type: BLOOD SPECIMENOrdering Facility: [facility] Address: [address] [place] [address] Performed By: #### H GBISRRAELV, [id number] ####[facility] LABCLIA [id number] [place] [address] [place] Hemoglobin A2 (Bld) [Mass fraction] 2.4 % Normal 2.0-3.1 [facility] Comment on above: Order Comment: Speci men Type: BLOOD SPECIMENOrdering Facility: [facility] Address: [address] [place] [address] Performed By: #### H GBELEV, [id number] ####[facility] LABCLIA [id number] [place] [address] [place] Hemoglobin Unsp Elph (Bld) [Mass fraction] No abnormal hemoglobin identified. Normal No abnormal hemoglobin identified. [facility] Comment on above: Order Comment: Speci men Type: BLOOD SPECIMENOrdering Facility: [facility] Address: [address] [place] [address] Performed By: #### H GBELEV, [id number] ####[facility] LABCLIA [id number] [place] [address] [place] HGB EVALUATION CASCADE INTER David 09-05-2024 Hemoglobin pattern (Bld) [Interp] Reviewed by Jenna Gerber M.D. Normal [facility] Comment on above: Order Comment: Speci men Type: BLOOD SPECIMENOrdering Facility: [facility] Address: [address] [place] [address] Performed By: #### H REMINGTONV, [id number] ####[facility] LABCLIA [id number] [address] [place] INTERPRETATION (HGB EVAL) Normal [facility] Comment on above: Order Comment: Speci men Type: BLOOD SPECIMENOrdering Facility: [facility] Address: [address] [place] [address] Result Comment: Hemo globins were analyzed by capillary electrophoresis and CBC red cell parameters were reviewed. No abnormal hemoglobin is identified. There is a normal hemoglobin capillary electrophoresis pattern. Performed By: #### H VA, [id number] ####[facility] LABCLIA [id number] [place] [address] [place] HIV 1+2 Ab IA Qlon HIV 1 and 2 Ab IA.rapid Nom (S/P/Bld) [facility] Comment on above: Test not indicated. HIV 1+2 Ab+HIV1 p24 Ag IA Ql Non-Reactive Nonreactive [facility] HIV immunoassay testing algorithm interpretation (S/P/Bld) [Interp] [facility] Comment on above: No evidence of HIV-1 or HIV-2 infection. Should recent infection be suspected, repeat testing may be considered 2-3 weeks after this draw. [place] Rev. Code 3701.243(E): This information has been [...] release of HIV test results or diagnoses. [facility] HIV 1 and 2 Ab IA.rapid Nom (S/P/Bld) Normal [facility] Comment on above: Order Comment: Speci men Type: BLOOD SPECIMEN [facility] Address: [address] [place] [address] Result Comment: Test not indicated. Performed By: #### 5 8410-2 #### [facility] CLIA [id number] [address] [place] [address] [place] HIV 1+2 Ab+HIV1 p24 Ag IA Ql Non-Reactive Normal Nonreactive [facility] Comment on above: Order Comment: Speci men Type: BLOOD SPECIMEN [facility] Address: [address] [place] [address] Performed By: #### 5 8410-2 #### [facility] CLIA [id number] [address] [place] [address] [place] HIV immunoassay testing algorithm interpretation (S/P/Bld) [Interp] Normal [facility] Comment on above: Order Comment: Speci men Type: BLOOD SPECIMEN [facility] Address: [address] [place] [address] Result Comment: No e vidence of HIV-1 or HIV-2 infection. Should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 2007;53:766-72 Performed By: #### B MP ####[id number] [place] [address] GFR-NON AM. >60 Normal >60 [facility] Comment on above: Performed By: #### B MP ####[id number] [place] [address] Glucose [Mass/Vol] 147 mg/dL High 74 - 99 [facility] Comment on above: Performed By: #### B MP ####[id number] [place] [address] HCO3 (Bld) [Moles/Vol] 28 mmol/L Normal 21 - 32 [facility] Comment on above: Performed By: #### B MP ####[id number] [place] [address] Potassium [Moles/Vol] 4.5 mmol/L Normal 3.5 - 5.3 [facility] Comment on above: Performed By: #### B MP ####[id number] [place] [address] Sodium [Moles/Vol] 137 mmol/L Normal 136 - 145 [facility] Comment on above: Performed By: #### B MP ####[id number] [place] [address] Urea nitrogen [Mass/Vol] 9 mg/dL Normal 6 - 23 [facility] Comment on above: Performed By: #### B MP ####[id number] [place] [address] CBCon 07-10-2020 Erythrocyte distribution width (RBC) [Ratio] 12.5 % Normal 11.5 - 14.5 [facility] Comment on above: Performed By: #### C BC #### [facility] [address] [place] [address] Hematocrit (Bld) [Volume fraction] 35.3 % Low 36.0 - 46.0 [facility] Comment on above: Performed By: #### C BC #### [facility] [address] [place] [address] Hemoglobin (Bld) [Mass/Vol] 11.9 g/dL Low 12.0 - 16.0 [facility] Comment on above: Performed By: #### C BC #### [facility] [address] [place] [address] MCHC (RBC) [Mass/Vol] 33.7 g/dL Normal 32.0 - 36.0 [facility] Comment on above: Performed By: #### C BC #### [facility] [address] [place] [address] MCV (RBC) [Entitic vol] 93 fL Normal 80 - 100 [facility] Comment on above: Performed By: #### C BC #### [place] [address] [place] [address] NUCLEATED RBC 0.0 /100 WBC Normal 0.0-0.0 [facility] Comment on above: Performed By: #### C BC #### [facility] [address] [place] [address] Platelets (Bld) [#/Vol] 209 10*3/uL Normal 150 - 450 [facility] Comment on above: Performed By: #### C BC #### [place] [address] [place] [address] RBC 3.81 x10E12/L Low 4.00 - 5.20 [facility] Comment on above: Performed By: #### C BC #### [facility] [address] [place] [address] WBC (Bld) [#/Vol] 13.1 10*3/uL High 4.4 - 11.3 [facility] Comment on above: Performed By: #### C BC #### [facility] [address] [place] [address] Admission Risk Screen - Adul ton 07-09-2020 [...] Learning Preferenceswritten material Cultural Considerationsnone Developmental Considerationsnone Church Considerationsnone Learning Assessment (Other Learner): Other learner availableno Depression Screen: During the past month, have you often been bothered by feeling down, depressed or hopelessno During the past month, have you often had little interest or pleasure in doing thingsno Have you had any thoughts of harming anyone elseno [place] Suicide: Risk Screen Not Applicable/Able to Answerable [...] Was this within the past 3 monthsno [place] Suicide Riskmoderate Adult Nutrition Screen: Have you [...] Spiritual Screen: Are there any cultural, spiritual, mormonism practices/values/needs that are important for us to knowno CAGE: Is this an injured patient at a Trauma Center ([facility]/[place]/Prabhakar/Sameer Barron/Fabien): no Vaccinations: Vaccination - Influenza Vaccination Screen: Is it flu season (between and June 25)No Vaccination - Pneumonia Vaccination Screen: Patient has received a previous pneumonia vaccine:no/unknown... Immunocompetent persons with underlying chronic conditions or reside in fpc care facilitiesnone of these conditions Persons with [...] no l (more content not included)... Normal [facility] Discharge [id number] 021 Discharge Profile2 Discharge Orders: Anticipated Discharge Date: Anticipated Discharge [id number] DNAR: DNAR Status: none Activity: activity as [...] If: Any questions, problems or concerns. Call [phone] to have the WAX COATING MACHINE TENDER Provider paged. Severe abdominal pain. Some discomfort is expected. Fever greater than 100.4 degree Fahrenheit. Heavy vaginal bleeding, soaking a large pad every 1 hour & passing large clots. Severe nausea and vomiting. Follow-Up - WAX COATING MACHINE TENDER Provider: Physician/Dept/ServiceGYN Provider CommentsPlease call your primary toll lineman to schedule a follow-up visit in 2 weeks. Provider FINAL REVIEW of Orders: Final Review: Final Review of Medication Reconciliation and Orders Completedby Physician Reviewing ProviderPhilippe Dicksno MD (Resident) at 10-Jul-2020 08:01:26 Appointments: Follow-Up Appointment 01: Physician/Dept/ServiceDr. Carolee Munoz - LICENSED GUIDE Reason for Referralpost op Scheduled Date/[id number] 14:00 [facility], [address] [place] [address] [address] Floor, [place] [address] Phone [phone] CommentsPlease wear a mask when entering the building. Please arrive 10-15 minutes early, bring photo ID, current list of medications & dosages, insurance cards and any copay that may apply. If unable to keep this appointment, please call to cancel at least 24 hrs prior to appointment. Other Clinician Instructions: Other Instructions: Nursing InstructionsCall your WAX COATING MACHINE TENDER care provider for fever/chills. Nausea/vomiting. Increased pain. [...] Orders, Other Clinician Instructions, Gold Form - Choir Director Summary Mariann Mccord ( (Resident)) (Signed 09-Jul-2020 14:44) Authored: Discharge Orders, Provider FINAL REVIEW of Orders Last Updated: 10-Jul-2020 08:01 by Philippe Dickson (Resident)) [facility] Order Reconciliationon 07-09 Order Reconciliation Page 1 [...] be shared with your follow-up providers (doctor, booking manager, physical therapist, etc.). Guidelines for a Healthy [...] 100 mg (more content not included)... Normal [facility] Order Reconciliation Page 1 Transfer Reconciliation Document [...] IntraVenous 09-Jul-2020 02:24 Additional Home Medications Normal [facility] Order Reconciliation Page 1 Admission Reconciliation Document [...] Every 12 Hours and as Needed Normal [facility] Preop Checkliston 07-09-2020 Preop Checklist Preop Checklist: Preop Checklist: Arrival [id number] Arrival Time13:45 Procedure Typediagnostic lap Temperature C36.5 degrees C Temperature F97.7 degrees F Heart Rate89 beats per minute Respiratory Rate16 breath per minute Blood Pressure Npadxyai058 mm/Hg Blood Pressure Ypcdpqnro16 mm/Hg NPO [id number] 00:01 ID Band Onyes Allergy Bandno known [...] 09-Jul-2020 13:59 by Lora Retana (RN) Normal [facility] TYPE + SCREENon 07-09-2020 ABO TYPE A Normal [facility] Comment on above: Performed By: #### T +S ####[id number] [place] [address] RH TYPE Positive Normal [facility] Comment on above: Performed By: #### T +S ####[id number] Surgical Pathology Depar tmenton 07-09-2020 [facility] Surgical Pathology Department Name BRONWYN HIGGINBOTHAM Pathologist: FIDENCIO FINK MD Date of Procedure: 07/09/2020 Date Received: 07/09/2020 Date Reported 07/24/2020 Submitting Physician: UZAIR STOKES M.D. Location: [facility] Copy To/Referring/Attending: UZAIR STOKES M.D. Other External [...] 24yo G0 presents as a transfer from [facility] with concern for torsion Specimens Submitted As: [...] is not identified. A photograph is taken. Director Women sections are submitted in 6 cassettes. AXQ Summary of Cassettes: Specimen Label Site A 1-4 independent sales representative sections of cyst wall 5-6 cyst contents [facility] Department of Pathology [address] [place] [address] Normal [facility] Comment on above: Performed By: #### U [facility] ####[facility] Surgical Pathology [id number] [facility] [address] US DUPLX ART/VEIN ABon 07-09 US DUPLX ART/VEIN AB Patient Name: BRONWYN HIGGINBOTHAM STUDY: US PELVIS; 07/09/2020 5:01 am INDICATION: pelvic pain, known dermoid, concern for torsion. COMPARISON: None. ACCESSION NUMBER(S): [id number] ORDERING CLINICIAN: ROSA PORTILLO TECHNIQUE: Multiple multiplanar [...] Electronically signed by: VALENTINA JOHNSON MD Normal [facility] US PELVISon 07-09-2020 US PELVIS Patient Name: BRONWYN HIGGINBOTHAM STUDY: US PELVIS; 07/09/2020 5:01 am INDICATION: pelvic pain, known dermoid, concern for torsion. COMPARISON: None. ACCESSION NUMBER(S): [id number] ORDERING CLINICIAN: ROSA PORTILLO TECHNIQUE: Multiple multiplanar [...] Electronically signed by: VALENTINA JOHNSON MD Normal [facility] XR ANKLE LEFT 3+ VIEWS (MIRTA ANTHONY)on 02-08-2019 Posterior and latera l malleolar fractures are again noted with suggestion of interval healing. [employer] Workstation ID: [id number] [facility] EXAMINATION: XR ANKL E LEFT 3+ VIEWS [...] obscured suggesting interval healing. Alignment is stable. [facility] Interface, Rad In Jason ji Speechq - [...] again noted with suggestion of interval healing. [employer] Workstation ID: [id number] [facility] XR ANKLE LEFT 3+ VIEWS (STANDARD) EXAMINATION: [...] again noted with suggestion of interval healing. [employer] Workstation ID: [id number] Dictated by: LETY WHITAKER on TueFeb 08, 2019 3:57:16 PM EST Transcribed by: TONY VALDIVIA on TueFeb 08, 2019 4:03:45 PM EST Finalized by: LETY WHITAKER on Radha Feb 08, 2019 4:16:46 PM EST [facility] Comment on above: Order Comment: Injur y/Trauma [...] AM EDT Finalized by: SAMRA CARABALLO on [facility] Jan 11, 2019 9:33:48 AM EDT [facility] Comment on above: Order Comment: Injur y/Trauma [...] new changes are noted. Workstation ID: [id number] [facility] EXAMINATION: XR ANKL E LEFT 3+ VIEWS [...] tissue mass or foreign body is noted. [facility] Interface, Rad In Fu ji Speechq - [...] new changes are noted. Workstation ID: [id number] [facility] XR ANKLE LEFT 3+ VIEWS (MIRTA DARD)on 12-25-2018 Nondisplaced distal posterior tibia and fibular metaphyseal fractures are noted. Ankle mortise appears intact. Clinical picture may warrant additional CT evaluation. [employer]/pji Workstation ID: [id number] [facility] EXAMINATION: XR ANKL E LEFT 3+ VIEWS (STANDARD) HISTORY: Pain R52. Cades stress and weightbearing views requested for joint stabilization. COMPARISON: 12/18/2018 [facility]. TECHNIQUE: Erect AP, cross-fire lateral and oblique views of the left ankle. FINDINGS: There are vertical lucencies seen posteriorly involving both the tibia and fibula, on the lateral view, consistent with nondisplaced fractures. Associated vertical loose intraarticular lucency is suggested on the AP view of the tibia, and subtle contour disruption of the lateral fibular metaphysis is noted. Ankle mortise appears intact. [facility] Interface, Rad In Fu ji Speechq - 12/25/2018 2:03 PM EDT EXAMINATION: XR ANKLE LEFT 3+ VIEWS (STANDARD) HISTORY: Pain R52. Cades stress and weightbearing views requested for joint stabilization. COMPARISON: 12/18/2018 [facility]. TECHNIQUE: Erect AP, cross-fire lateral and [...] Clinical picture may warrant additional CT evaluation. [employer] Workstation ID: [id number] [facility] XR ANKLE LEFT 3+ VIEWS (STANDARD) EXAMINATION: XR ANKLE LEFT 3+ VIEWS (STANDARD) HISTORY: Pain R52. Cades stress and weightbearing views requested for joint stabilization. COMPARISON: 12/18/2018 left ankle [facility]. TECHNIQUE: Erect AP, cross-fire lateral and oblique [...] Clinical picture may warrant additional CT evaluation. [employer] Workstation ID: [id number] Dictated by: NEERU ONEAL on TueDec 25, 2018 1:40:16 PM EDT Transcribed by: TONY VALDIVIA on TueDec 25, 2018 1:42:37 PM EDT Finalized by: NEERU ONEAL on TueDec 25, 2018 2:01:04 PM EDT [facility] Comment on above: Order Comment: Injur y/Trauma [...] auto-finalized and does not contain a result. [facility] XR Ankle 3+ Views Lefton XR Ankle 3+ Views Left Exam Date/Time: 12/18/2018 13:40 EDT Reason for Exam: Fall Report STUDY: XR Ankle 3+ Views Left;; 12/18/2018 1:40 pm INDICATION: Fall. COMPARISON: None. ACCESSION NUMBER(S): [id number] ORDERING CLINICIAN: Dickson Pacheco FINDINGS: An oblique [...] Signed by: Pablo Garcia MD Technologist: NICOLE [facility] XR Foot 3+ Views Lefton 11-27 XR Foot 3+ Views Left Exam Date/Time: 12/18/2018 13:40 EDT Reason for Exam: Sprain/Strain Report STUDY: XR Foot 3+ Views Left;; 12/18/2018 1:40 pm INDICATION: Sprain/Strain. COMPARISON: None. ACCESSION NUMBER(S): [id number] ORDERING CLINICIAN: Dickson Pacheco FINDINGS: An oblique [...] Signed by: Pablo Garcia MD Technologist: Lucinda [facility] Vital Signs Date Time Vital Sign Value Performing Clinician Facility 11-16-2024 12:59-0400 Body mass index (BMI) [Ratio] 37.11 kg/m2 Bea Rose MD Work Phone: [facility] 11-16-2024 12:59-0400 Body weight 98.07 kg Bea Rose MD Work Phone: [facility] 11-16-2024 12:59-0400 Diastolic blood pressure 70 mm[Hg] Bea Rose MD Work Phone: [facility] 11-16-2024 12:59-0400 Systolic blood pressure 110 mm[Hg] Bea Rose MD Work Phone: [facility] 10-18-2024 14:45-0400 Body mass index (BMI) [Ratio] 36.73 kg/m2 Jo Leo MD Work Phone: [facility] 10-18-2024 14:45-0400 Body weight 97.07 kg Jo Leo MD Work Phone: [facility] 10-18-2024 14:45-0400 Diastolic blood pressure 68 mm[Hg] Jo Leo MD Work Phone: [facility] 10-18-2024 14:45-0400 Systolic blood pressure 122 mm[Hg] Jo Leo MD Work Phone: [facility] 10-03-2024 14:41-0400 Body mass index (BMI) [Ratio] 37.76 kg/m2 Tricia Carty MD Work Phone: [facility] 10-03-2024 14:41-0400 Body weight 99.79 kg Tricia Carty MD Work Phone: [facility] 10-03-2024 14:41-0400 Diastolic blood pressure 66 mm[Hg] Tricia Carty MD Work Phone: [facility] 10-03-2024 14:41-0400 Systolic blood pressure 124 mm[Hg] Tricia Carty MD Work Phone: [facility] 09-18-2024 14:11-0400 Body mass index (BMI) [Ratio] 37.93 kg/m2 Bea Rose MD Work Phone: [facility] 09-18-2024 14:11-0400 Body weight 100.25 kg Bea Rose MD Work Phone: [facility] 09-18-2024 14:11-0400 Diastolic blood pressure 62 mm[Hg] Bea Rose MD Work Phone: [facility] 09-18-2024 14:11-0400 Systolic blood pressure 118 mm[Hg] Bea Rose MD Work Phone: [facility] 09-18-2024 12:50-0400 Diastolic blood pressure 75 mm[Hg] Kelvin Thompson MD Work Phone: [facility] 09-18-2024 12:50-0400 Systolic blood pressure 108 mm[Hg] Kelvin Thompson MD Work Phone: [facility] 09-18-2024 12:43-0400 Body mass index (BMI) [Ratio] 37.93 kg/m2 Kelvin Thompson MD Work Phone: [facility] 09-18-2024 12:43-0400 Body weight 100.25 kg Kelvin Thompson MD Work Phone: [facility] 09-05-2024 09:31-0400 Body height 162.6 cm Kendall Delgado FEED MIXER HELPER.HOUSE FELLOW Work Phone: [facility] 09-05-2024 09:31-0400 Body mass index (BMI) [Ratio] 38.11 kg/m2 Kendall Haury FEED MIXER HELPER.HOUSE FELLOW Work Phone: [facility] 09-05-2024 09:31-0400 Body weight 100.7 kg Kendall Haury FEED MIXER HELPER.HOUSE FELLOW Work Phone: [facility] 09-05-2024 09:31-0400 Diastolic blood pressure 70 mm[Hg] Kendall Haury FEED MIXER HELPER.HOUSE FELLOW Work Phone: [facility] 09-05-2024 09:31-0400 Systolic blood pressure 130 mm[Hg] Kendall Haury FEED MIXER HELPER.HOUSE FELLOW Work Phone: [facility] 09-14-2021 03:26-0400 Diastolic blood pressure 87 mm[Hg] No Pcp Required [facility] 09-14-2021 03:26-0400 Heart rate 84 /min No Pcp Required [facility] 09-14-2021 03:26-0400 Respiratory rate 16 /min No Pcp Required [facility] 09-14-2021 03:26-0400 SaO2% (BldA) [Mass fraction] 99 % No Pcp Required [facility] 09-14-2021 03:26-0400 Systolic blood pressure 141 mm[Hg] No Pcp Required [facility] 02-08-2019 09:45-0500 BP Diastolic 84 mm[Hg] Kendall Kemp [facility] 02-08-2019 09:45-0500 BP Systolic 136 mm[Hg] Kendall Kemp [facility] 02-08-2019 09:45-0500 Pulse (Heart Rate) 92 /min Kendall Kemp [facility] 01-11-2019 08:40-0400 BP Diastolic 90 mm[Hg] Kendall Kemp [facility] 01-11-2019 08:40-0400 BP Systolic 150 mm[Hg] Kendall Kemp [facility] 01-11-2019 08:40-0400 Pulse (Heart Rate) 85 /min Kendall Kemp [facility] 12-25-2018 11:14-0400 BP Diastolic 85 mm[Hg] Kendall Kemp [facility] 12-25-2018 11:14-0400 BP Systolic 138 mm[Hg] Kendall Kemp [facility] 12-25-2018 11:14-0400 Pulse (Heart Rate) 83 /min Kendall Kemp [facility] Encounters Encounter Date Encounter Type Care Provider Facility Start: 02-05-2025 End: 02-05-2025 ambulatory MARY MCDANIEL Facility:[facility] Start: 02-05-2025 End: 02-05-2025 ambulatory BEA ROSE Facility:[facility] Start: 02-01-2025 End: 02-01-2025 ambulatory BEA ROSE Facility:[facility] Start: 01-21-2025 End: 01-21-2025 ambulatory JO LEO Facility:[facility] Start: 01-04-2025 End: 01-04-2025 ambulatory TRICIA CARTY Facility:[facility] Start: 12-14-2024 End: 12-14-2024 ambulatory TRICIA CARTY Facility:[facility] Start: 11-16-2024 End: 11-16-2024 Patient encounter [...] type (HCC) Start: 11-16-2024 End: 11-16-2024 ambulatory KENDALL EVELIN Facility:[facility] Start: 11-06-2024 End: 11-06-2024 Patient encounter procedure Marah Barajas 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 Work Phone: [facility] Start: 11-06-2024 End: 11-06-2024 ambulatory MARAH BARAJAS Facility:[facility] Start: 11-02-2024 End: 11-02-2024 ambulatory CHAYO GARCIA Facility:[facility] Start: 10-19-2024 End: 10-19-2024 E-mail encounter from caregiver Alexis Obrien RN Diabetic Education Main X20 Start: 10-19-2024 End: 10-19-2024 Nursing evaluation of patient and report Aleixs Obrien RN Diabetic Education Main X20 Comment [...] routin e screening for malformation using ultrasonics ([facility]) (Primary Dx); Encounter for supervision of high risk in first trimester, antepartum ([facility]); 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 ([facility]); Severe obesity with body mass index (BMI) of 35.0 to 39.9 with comorbidity ([facility]); 16 weeks gestation of ([facility]) Start: 10-18-2024 End: 10-18-2024 Refill Jo Leo MD Work Phone: OB/Gynecology Comment on above: Med Change Request Start: 10-18-2024 End: 10-18-2024 Telephone encounter Kendall Delgado APRN.HOUSE FELLOW Work Phone: OB/Gynecology Comment on above: Endo Dietitian educa tion Start: 10-18-2024 End: 10-18-2024 ambulatory KELVIN THOMPSON Facility:[facility] Start: 10-17-2024 End: 10-17-2024 Orders Only Kendall Delgado APRN.HOUSE FELLOW Work Phone: OB/Gynecology Comment on above: Diet controlled gest ational diabetes mellitus (GDM) in second trimester ([facility]) (Primary Dx) Start: 10-03-2024 End: 10-03-2024 Office outpatient visit 15 minutes Tricia Carty MD Work Phone: OB/Gynecology Comment on above: 14 weeks gestation o f ([facility]) (Primary Dx); Chronic hypertension affecting ([facility]); Diet controlled gestational diabetes mellitus (GDM) in first trimester ([facility]); Rubella non-immune status, antepartum ([facility]) Start: 10-03-2024 End: 10-03-2024 ambulatory TRICIA CARTY Facility:[facility] Start: 09-25-2024 End: 09-25-2024 Nursing evaluation of patient and report Lucero Mireles RN Work Phone: Endocrinology Comment on above: Diet controlled gest ational diabetes mellitus (GDM) in first trimester ([facility]) Start: 09-25-2024 End: 09-25-2024 ambulatory KENDALL DELGADO Facility:[facility] Start: 09-18-2024 End: 09-18-2024 ambulatory KELVIN R JESSICA Facility:[facility] Start: 09-18-2024 End: 09-18-2024 Patient encounter procedure Whi Tech 1 Research Engineer Mfm Wstr Mob Maternal Medicine Comment [...] in first trimester (HCC); Chronic hypertension affecting ([facility]); 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, antepartum ([facility]) Start: 09-18-2024 End: 09-18-2024 ambulatory KELVIN THOMPSON Facility:[facility] Start: 09-14-2024 End: 11-14-2024 Follow-up encounter Kendall Delgado APRN.CNP Work Phone: OB/Gynecology Comment on above: Results Start: 09-14-2024 End: 09-14-2024 ambulatory KENDALLJOSE DELGADO Facility:[facility] Start: 09-07-2024 End: 11-07-2024 Follow-up encounter Kendall Delgado APRN.HOUSE FELLOW Work Phone: OB/Gynecology Comment on above: Results Start: 09-07-2024 End: 09-07-2024 ambulatory KENDALLJOSE QUEZADAJOSEFA Facility:[facility] Start: 09-06-2024 End: 11-06-2024 Follow-up encounter Kendall Delgado APRN.HOUSE FELLOW Work Phone: OB/Gynecology Comment on above: Results Start: 09-06-2024 End: 09-06-2024 Telephone encounter Tricia Lambert RN Maternal Medic ine Comment on above: Pea Viner Mechanic - O ther (PRAF) Start: 09-05-2024 End: 09-05-2024 ambulatory KENDALL DAMIENJOSEFA Facility:[facility] Start: 09-05-2024 End: 09-05-2024 Patient encounter [...] product; Caffeine use during in first trimester ([facility]); Nausea and vomiting during ([facility]); History of alcohol abuse Start: 09-05-2024 End: 09-05-2024 ambulatory KENDALL DELGADO Facility:[facility] Start: 06-08-2022 End: 06-08-2022 Emergency department patient visit Mariana Quiroga Jennifer [facility] Emergency 13 Start: 09-14-2021 End: 09-14-2021 Emergency department patient visit Doug Damicojuan [facility] Emergency 11 Start: 02-26-2019 End: 03-02-2019 Patient encounter procedure [facility] Start: 02-26-2019 End: 02-26-2019 Patient encounter procedure Kendall Kemp Work Phone: [facility] Comment on above: Bimalleolar ankle fr acture, left, closed, initial encounter (Primary Dx) Start: 02-21-2019 End: 02-25-2019 Patient encounter procedure [facility] Start: 02-21-2019 End: 02-21-2019 Patient encounter procedure Kendall Kemp Work Phone: [facility] Comment on above: Bimalleolar ankle fr acture, left, closed, initial encounter (Primary Dx) Start: 02-15-2019 End: 02-19-2019 Patient encounter procedure KENDALL [facility] Start: 02-15-2019 End: 02-15-2019 Patient encounter procedure Kendall Kemp Work Phone: [facility] Comment on above: Bimalleolar ankle fr acture, left, closed, initial encounter (Primary Dx) Start: 02-13-2019 End: 02-17-2019 Patient encounter procedure [facility] Start: 02-13-2019 End: 02-13-2019 Patient encounter procedure Kendall Kemp Work Phone: [facility] Comment on above: Bimalleolar ankle fr acture, left, closed, initial encounter (Primary Dx) Start: 02-08-2019 End: 02-09-2019 Patient encounter procedure KENDALL KEMP [facility] Start: 02-08-2019 End: 02-08-2019 Subsequent hospital visit by physician Kendall Kemp Work Phone: [facility] Comment on above: Bimalleolar ankle fr acture, left, closed, initial encounter Start: 02-08-2019 End: 02-08-2019 Office outpatient visit 15 minutes Kendall Kepm Work Phone: [facility] Comment on above: Bimalleolar ankle fr acture, left, closed, with routine healing, subsequent encounter (Primary Dx) Start: 02-07-2019 End: 02-11-2019 Patient encounter procedure KENDALLJOSE [facility] Start: 02-07-2019 End: 02-07-2019 Patient encounter procedure Kendall Kemp Work Phone: [facility] Comment on above: Bimalleolar ankle fr acture, left, closed, initial encounter (Primary Dx) Start: 02-05-2019 End: 02-09-2019 Patient encounter procedure KENDALLJOSE [facility] Start: 02-05-2019 End: 02-05-2019 Patient encounter procedure Kendall Kemp Work Phone: [facility] Comment on above: Bimalleolar ankle fr acture, left, closed, initial encounter (Primary Dx) Start: 02-01-2019 End: 02-05-2019 Patient encounter procedure KENDALL [facility] Start: 02-01-2019 End: 02-01-2019 Patient encounter procedure Kendall Kemp Work Phone: [facility] Comment on above: Bimalleolar ankle fr acture, left, closed, initial encounter Start: 01-11-2019 End: 01-12-2019 Patient encounter procedure KENDALL KEMP [facility] Start: 01-11-2019 End: 01-11-2019 Subsequent hospital visit by physician Kendall Kemp Work Phone: [facility] Comment on above: Bimalleolar ankle fr acture, left, closed, initial encounter Start: 01-11-2019 End: 01-11-2019 Office outpatient visit 15 minutes Kendall Kemp Work Phone: [facility] Comment on above: Bimalleolar ankle fr acture, left, closed, initial encounter (Primary Dx) Start: 12-25-2018 End: 12-26-2018 Patient encounter procedure PROVIDER NOT IN [facility] Start: 12-25-2018 End: 12-25-2018 Subsequent hospital visit by physician Provider Not In [facility] Radiology External Films Comment on above: Arrived Pain Start: 12-25-2018 End: 12-25-2018 Office outpatient new 30 minutes Kendall Kemp Work Phone: [facility] Comment on above: Bimalleolar ankle fr acture, left, closed, initial encounter (Primary Dx) Procedures Date Procedure Procedure Detail Performing Clinician Start: 11-16-2024 Us preg uterus after 1st trimest 1/1st gestation Kendall Delgado APRN.HOUSE FELLOW Work Phone: Start: 10-18-2024 Us preg uterus after 1st trimest 1/1st gestation Kelvin Thompson MD Work Phone: Start: 09-18-2024 Urnls dip stick/tabl et rgnt non-auto w/o micrscp Bea Rose MD Work Phone: Start: 09-18-2024 Us preg uterus after 1st trimest 1/1st gestation Kendall Delgado APRN.HOUSE FELLOW Work Phone: Start: 09-05-2024 Antibody screen KELVIN THOMPSON Comment on above: Order Comment: Speci men Type: BLOOD SPECIMENOrdering Facility: [facility] Address: [address] [place] [address] Performed By: #### T SPN ####CC MAIN BLOOD BANKCLIA [id number] [address] [place] Start: 09-05-2024 Us uterus l imited 1/> fetuses Kendall Delgado FEED MIXER HELPER.HOUSE FELLOW Work Phone: Start: 06-08-2022 End: 06-08-2022 EKG impression Aurelio Spence Start: 07-09-2020 Antibody screen Comment on above: Performed By: #### T +S ####[id number] [facility] [place] [address] Start: 02-08-2019 X-ray of left ankle Sarina [...] RSV Vaccine (1 - 1-dose 75+ series) [facility] Start: 09-06-2027 Screening for malign ant neoplasm of cervix Cervical Cancer Screening [facility] Start: 02-02-2025 RSV Vaccine (1 - Ris k 1-dose series) RSV Vaccine (1 - Risk 1-dose series) [facility] Start: 12-14-2024 End: 12-14-2024 Patient encounter procedure OB/Gynecology Comment on above: OB OB-needs growth ultr asounds ordered Start: 11-26-2024 Influenza vaccination C [facility] Start: 11-16-2024 End: 11-16-2024 Patient encounter procedure Maternal Medicine Comment on above: NEEDS TO RESH Anatom y OB Start: 11-06-2024 End: 11-06-2024 Patient encounter procedure 11/06/2024 11:00 AM EDT [facility] [address] [place] [address] Marah Barajas, [facility] [address] [facility] [place] [address] Encounter for supervision of high risk in [...] EDT Nurse Visit Diabetic Education Main X20 [address] [place] [address] Alexis Obrien, LUCINDA Supervision of high risk [...] Office Visit OB/Gynecology [address] [place], [place] [id number] Tricia Carty MD [address] [place], [place] [id number] OB OB/Gynecology Comment on above: OB Start: 09-25-2024 End: 09-25-2024 Nursing evaluation of patient and report 09/25/2024 4:00 PM EDT Nurse Visit Endocrinology [address] [place], [place] [id number] Lucero Mireles, LUCINDA [address] [address] Diet controlled gestational diabetes mellitus (GDM) in first trimester (HCC) [O24.410] Endocrinology Comment on above: Diet controlled gest ational diabetes mellitus (GDM) in first trimester (HCC) [O24.410] Start: 09-18-2024 End: 12-18-2024 Chromosome 21 trisomy [Presence] in Blood or Tissue by Cytogenetics [facility] Work Phone: Comment on above: Expected: 09/18/2024 , Expires: 12/18/2024 Start: 09-18-2024 End: 09-18-2025 OBSTETRIC ULTRASOUND WHI OBSTETRIC ULTRASOUND WHI Anc Imaging Routine Encounter for supervision of high risk in first trimester, antepartum (HCC) Expected: 09/18/2024, Expires: 09/18/[address] [facility] Comment on above: Expected: 09/18/2024 , Expires: 09/18/2025 Start: 09-18-2024 End: 09-18-2024 Patient encounter procedure Maternal Medicine Comment on above: Encounter for superv ision of high risk in first trimester, antepartum (HCC) [O09.91] [facility] Start: 09-07-2024 End: 12-07-2024 GEST GLUC GUILHERME, 3-HR, 100 GM, FASTING GEST GLUC GUILHERME, 3-HR, 100 GM, FASTING Lab Routine Elevated glucose tolerance test Expected: 09/07/2024, Expires: 12/07/2024 [facility] Work Phone: Comment on above: Expected: 09/07/2024 , Expires: 12/07/2024 Start: 09-05-2024 End: 12-05-2024 ANEMIA REFLEX PANEL [facility] Work Phone: Comment on above: Expected: 09/05/2024 , Expires: 12/05/2024 Start: 09-05-2024 End: 12-05-2024 HEMOGLOBIN EVALUATION CASCADE [facility] Comment on above: Expected: 09/05/2024 , Expires: 12/05/2024 Start: 09-05-2024 End: 12-05-2024 [employer] FORESIGHT CARRIER SCREEN [facility] Comment on above: Expected: 09/05/2024 , Expires: 12/05/2024 Start: 09-05-2024 End: 09-05-2025 OBSTETRIC ULTRASOUND WHI OBSTETRIC ULTRASOUND WHI Anc Imaging Routine with uncertain dates in first trimester (HCC) Expected: 09/05/2024, Expires: 09/05/[address] [facility] Comment on above: Expected: 09/05/2024 , Expires: 09/05/2025 Start: 09-05-2024 End: 12-05-2024 Protein/Creatinine [Mass Ratio] in Urine [facility] Comment on above: Expected: 09/05/2024 , Expires: 12/05/2024 Start: 09-05-2024 End: 12-05-2024 RUBELLA IGG ANTIBODY [facility] Comment on above: Expected: 09/05/2024 , Expires: 12/05/2024 Start: 09-05-2024 End: 12-05-2024 Thyrotropin [Units/volume] in Serum or Plasma [facility] Comment on above: Expected: 09/05/2024 , Expires: 12/05/2024 Start: 11-27-2023 Covid-19 Vaccine ( season) Covid-19 Vaccine () [facility] Start: 10-27-2020 Urine microalbumin profile DTaP,Tdap,Td Vaccine (7 - Td or Tdap) [facility] Start: 03-14-2019 End: 03-14-2019 Treatment 03/14/2019 Treatment Kendall Chacon MD [address] [place] [address] [phone] Ivis Mcelroy PT [facility] Start: 03-12-2019 End: 03-12-2019 Treatment 03/12/2019 Treatment Kendall Chacon MD [address] [place] [address] [phone] Simona Moreno PTA [facility] Start: 03-07-2019 End: 03-07-2019 Treatment 03/07/2019 Treatment Kendall Chacon MD [address] [place] [address] [phone] Simona Moreno [facility] Start: 03-05-2019 End: 03-05-2019 Treatment 03/05/2019 Treatment Kendall Chacon MD [address] [place] [address] [phone] [facility] Start: 02-28-2019 End: 02-28-2019 Treatment 02/28/2019 Treatment Kendall Chacon MD [facility] [address] [phone] Simona Moreno [facility] Start: 02-26-2019 End: 02-26-2019 Treatment 02/26/2019 Treatment Kendall Chacon MD [facility] [address] [place] [id number] [phone] [facility] Start: 02-21-2019 End: 02-21-2019 Treatment 02/21/2019 Treatment Kendall Chacon MD [facility] [place] [address] [phone] Ivis [facility] Start: 02-19-2019 End: 02-19-2019 Treatment 02/19/2019 Treatment Kendall Chacon MD [address] [place] [address] [phone] [facility] Start: 02-15-2019 End: 02-15-2019 Treatment 02/15/2019 Treatment Kendall Chacon MD [address] [place] [address] [phone] [facility] Start: 02-13-2019 End: 02-13-2019 Treatment 02/13/2019 Treatment Bernarda Chaconily Yue, MD [address] [facility] [place] [address] [phone] Simona Moreno PTA [facility] Start: 02-08-2019 End: 02-08-2019 Office Visit 02/08/2019 Office Visit Orthopedic Surgery Kendall Kemp MD [address] [facility] [place] [address] [phone] [facility] Start: 02-07-2019 End: 02-07-2019 Treatment 02/07/2019 Treatment Rehabilitation Kendall Kemp MD [address] [facility] [place] [address] [phone] Simona Moreno PTA [facility] Start: 02-05-2019 End: 02-05-2019 Treatment 02/05/2019 Treatment Kendall Chacon MD [address] [place] [address] [place] [address] [phone] Simona Moreno PTA [facility] Start: 01-11-2019 End: 01-11-2019 Office Visit 01/11/2019 Office Visit Orthopedic Surgery Kendall Kemp MD [address] [place] [address] [phone] [facility] Start: 11-26-2018 Influenza vaccinatio n given SEQUENTIAL INFLUENZA VACCINE (#1) [facility] Start: 2018 Screening for malign ant neoplasm of cervix Cervical Cancer Screening [facility] Start: 11-24-2015 Anxiety Screening Anxiety Screening [facility] Start: 11-24-2015 Depression Screening Depression Scre ening [facility] Start: 11-24-2015 Hepatitis C screening Hepatitis C Sc reelake [facility] Start: 11-24-2015 HIV screening HIV Screening [facility] Start: 2012 Vaccination for reina n papillomavirus HPV VACCINES (1 - Female 3-dose series) [facility] Start: 11-24-2011 Peds To Adult Transition Annual Assessment Peds To Adult Transition Annual Assessment [facility] Start: 2009 Peds To Adult Transition Initial Discussion Peds To Adult Transition Initial Discussion [facility] Start: 2008 Vaccination for reina n papillomavirus HPV VACCINES (1 - Female 2-dose series) [facility] Start: 2000 History and physical examination, annual for health maintenance Wellness Visit [facility] Start: 1997 Screening for Chlamy sulaiman trachomatis Chlamydia Screening [facility] Start: 1997 Screening for malign ant neoplasm of cervix PAP SMEAR [facility] Start: 1997 Tetanus vaccination TETANUS EVERY 10 YR [facility] Bacteria identified in Urine by Culture BACTERIAL CULTURE, URINE Microbiology Routine with uncertain dates in first trimester ([facility]) 09/05/2024 10:19 AM EDT [facility] Chlamydia trachomatis+Neisseria gonorrhoeae DNA [Presence] in Unspecified specimen by TAYLOR with probe detection GONORRHEA/CHLAMYDIA NAAT Lab Routine with uncertain dates in first trimester ([facility]) Screen for STD (sexually transmitted disease) 09/05/2024 10:19 AM EDT [facility] ECG COMPLETE ECG COMPLETE ECG Routine Chronic hypertension affecting ([facility]) Diet controlled gestational diabetes mellitus (GDM) in third trimester ([facility]) Ordered: 09/18/2024 [facility] Work Phone: Comment on above: Ordered: 09/18/2024 GEST GLUC GUILHERME, 3-HR, 100 GM, FASTING GEST GLUC GUILHERME, 3-HR, 100 GM, FASTING Lab Routine Elevated glucose tolerance test 09/14/2024 8:41 AM T [facility] PAP TEST PAP TEST Lab Rou julia with uncertain dates in first trimester ([facility]) Screening for cervical cancer 09/05/2024 10:19 AM EDT [facility] TRICHOMONAS VAGINALI S NAAT TRICHOMONAS VAGINALIS NAAT Lab Routine with uncertain dates in first trimester ([facility]) Screen for STD (sexually transmitted disease) 09/05/2024 10:19 AM T [facility] URINE OB DIP B/O URINE OB DIP B/ O Lab Routine Supervision of high risk in second trimester ([facility]) Diet controlled gestational diabetes mellitus (GDM) in second trimester ([facility]) Chronic hypertension affecting ([facility]) 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, antepartum ([facility]) Ordered: 10/18/2024 [facility] Work Phone: Comment on above: Ordered: 10/18/2024 URINE OB DIP B/O URINE OB DIP B/ O Lab Routine 20 weeks gestation of (HCC) Supervision of high risk in second trimester (HCC) Diet controlled gestational diabetes mellitus (GDM) in second trimester (HCC) Chronic hypertension affecting (HCC) Ordered: 11/16/2024 [facility] Work Phone: Comment on above: Ordered: 11/16/2024 Payers Date Payer Category Payer Medicaid [id number] 2018 Medicaid [id number] 1995 Unknown [id number] 1995 Unknown [id number] [id number]. [id number] 1995 Unknown [id number] 2.16. [id number] 1995 Unknown [id number] 1995 Unknown [id number] Private Health Insurance [id number] Unknown Social History Date Type Detail Facility Start: 12-25-2018 End: 02-08-2019 Tobacco smoking status NHIS Current every day smoker [facility] Start: 12-25-2018 End: 09-05-2024 Cigarettes smoked current (pack per day) - Reported [facility] Start: 12-25-2018 End: 02-08-2019 Alcohol intake Lifetime non-drinker (finding) [facility] Start: 12-25-2018 History SDOH Alcohol Frequency 1 [facility] Start: 1995 Sex Assigned At Not on file [facility] Tobacco smoking consumption unknown [facility] Start: 09-04-2024 Tobacco smoking stat us NHIS Never smoked tobacco [facility] Start: 09-04-2024 Tobacco use and exposure Smokeless tobacco non-user [facility] Start: 09-05-2024 End: 11-16-2024 Alcoholic beverage intake Ex-drinker (finding) [facility] Start: 09-04-2024 End: 09-05-2024 Tobacco use panel [facility] Start: 08-24-2024 Adult Depression Screening Assessment [address] [facility] Start: 07-07-[address] [facility] Medical Equipment Procedure Code Equipment Code Equipment Origin al Text Equipment Identifier Dates Use as directed to check glucose levels up to seven times daily. [id number] Start: 09-14-2024 Use as directed to check glucose levels up to seven times daily. [id number] Start: 09-14-2024 Goals Date Patient Goal Desired Activity /State Personal health goal Clinical Notes 07-09-2020 to 02-01-2025 Quick Notes - Bea Rose MD - 11/16/2024 1:19 PM EDTPrenatal Quick Notes - Bea Rose MD - 11/16/2024 1:19 PM EDTPatient Alxeis Olson RN - 10/19/2024 10:00 AM EDT Note Date & Type Note Facility 02-01-2025 Note HNO ID: [id number] Author: KAYLEE PAZ MA Service: ? Author Type: Internet Merchant Type: Progress Notes Filed: 02/01/2025 14:50 Note [...] severely ill: Yes Patient denies history of Guillain-Loganton Syndrome (a severe paralytic illness): Yes Tdap Adacel injection was given without incident. See immunizations for details of immunizations administered today. VIS sheet provided: Yes Provider Bea Rose MD was present in office at time of injection. Kaylee Paz MA [facility] 11-16-2024 Progress note Formatting of t his note might be different from the original. S: Bronwyn denies LOF, contractions or vaginal bleeding O: 20w6d, see flow sheet SENSITIVE EXAM: Sensitive exam not performed. A/P: Assessment & Plan 20 weeks gestation of ([facility]) Orders: URINE OB DIP B/O Supervision of high risk in second trimester ([facility]) Orders: URINE OB DIP B/O Diet controlled gestational diabetes mellitus (GDM) in second trimester (HCC) Patient was not able to check regulary last week as was camping. Patient has prior 2 weeks and the majority are normal. Orders: URINE OB DIP B/O Chronic hypertension affecting (HCC) Orders: URINE OB DIP B/O Anatomy US today Bea Rose MD [facility] 11-16-2024 Miscellaneous Notes S: Bronwyn denies LOF, contractions or vaginal bleeding O: 20w6d, see flow sheet SENSITIVE EXAM: Sensitive exam not performed. A/P: Assessment & Plan 20 weeks gestation of (HCC) Orders: URINE OB DIP B/O Supervision of high risk in second trimester ([facility]) Orders: URINE OB DIP B/O Diet controlled gestational diabetes mellitus (GDM) in second trimester ([facility]) Patient was not able to check regulary last week as was camping. Patient has prior 2 weeks and the majority are normal. Orders: URINE OB DIP B/O Chronic hypertension affecting ([facility]) Orders: URINE OB DIP B/O Anatomy US today Bea Rose MD documented in this encounter [facility] 11-16-2024 Instructions Kaylee Paz MA - 11/16/2024 12:57 PM EDT SEQUENTIAL SCREENINGS The [facility] offers sequential screenings for women who are [...] It will require an appointment with our windows laptop technician. This is not an ultrasound performed [...] the above symptoms, contact our office at [phone] and ask to speak with a nurse. After hours, you can call doctors registry at [phone] OR call [facility] at [phone] and ask to have the doctor tongue and groove machine setter paged. If you consider this an emergency, dial - or go to your nearest emergency department. NEED HELP? Are you dealing with a violent or abusive relationship? Are you a victim of rape or sexual assult? Call [facility] ([place]) 24 hour Crisis Hotline: 597.395.5536 or 529-572-4883. MANUAL Your Guide to a Healthy manual is now on-line. Visit [email or web address] to download your free copy documented in this encounter [facility] 11-06-2024 History of Presen t illness Narrative Images from the original note were not included. REPRODUCTIVE GENETIC COUNSELING INITIAL VISIT Bronwyn Higginbotham : 1995 Above identifiers confirmed by Marah Barajas MS, [facility] Consultation requested by: Dr. Kelvin Thompson Date of clinic visit: November 06, 2024 Assessment Clinician offered/present: No, Burmese in [facility] EMR demographics Bronwyn Higginbotham is a 28 year old, female referred by Dr. Kelvin Thompson for genetic counseling to discuss her Bronwyn Higginbotham . Bronwyn Higginbotham is seen via a virtual Distance Health visit today via [employer] platform per patient choice. The visit is conducted synchronously in real-time. The patient attended the appointment on her own. I have communicated my name and active licensure. The patient's identity and physical location were verified at the time of this visit. Either the patient or their legal independent sales representative has been informed of the risks and benefits of -- and alternatives to -- treatment through a remote evaluation and consents to proceed with the evaluation remotely. PRESENTING PROBLEM: Bronwyn Higginbotham is currently 19w3d gestation (by LMP). 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 Ms. Higginbotham presents for genetic counseling to discuss these results and to make a plan for next steps. 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 We reviewed that she was offered jackson-ethnic [...] the lab, which patient declines. Reviewed that [place] has CF as a part of the screen. Follow-up as clinically indicated. Thank you for allowing me to participate in Bronwyn Higginbotham's care. Please feel free to contact me if either you or the family has questions, or concerns. I spent a total of 30 minutes on the date of the service, which included preparing to see the patient, [id number] patient care, completing clinical documentation, obtaining and/or [...] the electronic medical record. Marah Barajas MS, [facility] Licensed, Certified Genetic Counselor documented in this encounter [facility] 11-06-2024 Note HNO ID: [id number] Author: MARAH BARAJAS LGC Service: ? Author Type: Genetic Counselor Type: Progress Notes Filed: 01/03/2025 13:53 Note Text: REPRODUCTIVE GENETIC COUNSELING INITIAL VISIT Bronwyn Higginbotham : 1995 Above identifiers confirmed by Marah Barajas MS, LGC Consultation requested by: Dr. Kelvin Thompson Date of clinic visit: November 06, 2024 Assessment Clinician offered/present: No, Burmese in [facility] EMR demographics Bronwyn Higginbotham is a 28 year old, female referred by Dr. Kelvin Thompson for genetic counseling to discuss her Bronwyn Higginbotham . Bronwyn Higginbotham is seen via a virtual Distance Health visit today via [employer] platform per patient choice. The visit is conducted synchronously in real-time. The patient attended the appointment on her own. I have communicated my name and active licensure. The patient's identity and physical location were verified at the time of this visit. Either the patient or their legal independent sales representative has been informed of the risks and benefits of -- and alternatives to -- treatment through a remote evaluation and consents to proceed with the evaluation remotely. PRESENTING PROBLEM: Bronwyn Higginbotham is currently 19w3d gestation (by LMP). 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 Ms. Higginbotham presents for genetic counseling to discuss these results and to make a plan for next steps. 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 We reviewed that she was offered jackson-ethnic [...] the lab, which patient declines. Reviewed that [place] has CF as a part (more content not included)... [facility] 10-19-2024 History of Presen t illness Narrative DIABETES SELF-MANAGEMENT EDUCATION AND SUPPORT FOLLOW-UP VISIT Type of Diabetes: Gestational ( diabetes in ) Location: [facility] Type of visit: Virtual (with video) individual -- I have communicated my name and active licensure. The patient's identity and physical location were verified at the time of this visit. Either the patient or their legal independent sales representative has been informed of the risks [...] 8:41 AM PAGER: documented in this encounter [facility] 10-19-2024 Note HNO ID: [id number] Author: ALEXIS OBRIEN RN Service: ? Author Type: Registered Nurse Type: Progress Notes Filed: 10/19/2024 10:52 Note Text: DIABETES SELF-MANAGEMENT EDUCATION AND SUPPORT FOLLOW-UP VISIT Type of Diabetes: Gestational ( diabetes in ) Location: [facility] Type of visit: Virtual (with video) individual -- I have communicated my name and active licensure. The patient's identity and physical location were verified at the time of this visit. Either the patient or their legal independent sales representative has been informed of the risks [...] October 19, 2024 TIME: 8:41 AM PAGER: [facility] 10-18-2024 Telephone encounter Note filed [facility] 10-18-2024 Miscellaneous Notes filed [facility] does not dispense rx for medical supply. Spoke to patient and she is requesting [facility]. Requested Prescriptions Pending Prescriptions Disp Refills Miscellaneous Medical Supply (BLOOD PRESSURE CUFF) [Pharmacy Med Name: BLOOD PRESSURE CUFF - ADULT] 1 each 0 Sig: EVERY DAY Lillian Tracy RN documented in this encounter [facility] 10-18-2024 Telephone encounter Note Pt is scheduled on 10/19/24 with endo dietitian education VV. Eleazar Hamilton RN [facility] 10-18-2024 Telephone encounter Note Images from the original note were not included. FW: Refrral for an ENDO dietitian Received: Yesterday Kendall Delgado, FEED MIXER HELPER.HOUSE FELLOW P Wstr Ob-Manufacturing Plant Technician Pool Can we make sure she gets scheduled? I put in the endo booking manager consult order they requested. Have always placed [...] for her to schedule. Thank you! Poppy [facility] 10-18-2024 Miscellaneous Notes Pt is scheduled on 10/19/24 with endo dietitian education VV. Eleazar Hamilton RN Images from the original note were not included. FW: Refrral for an ENDO dietitian Received: Yesterday Kendall Delgado APRN.CNP P Wstr Ob-Manufacturing Plant Technician Pool Can we make sure she gets scheduled? I put in the endo booking manager consult order they requested. Have always placed [...] Thank you! Poppy documented in this encounter [facility] 10-18-2024 Telephone encounter Note [facility] does not dispense rx for medical supply. Spoke to patient and she is requesting [facility]. Requested Prescriptions Pending Prescriptions Disp Refills Miscellaneous Medical Supply (BLOOD PRESSURE CUFF) [Pharmacy Med Name: BLOOD PRESSURE CUFF - ADULT] 1 each 0 Sig: EVERY DAY Lillian Tracy RN [facility] 10-18-2024 Progress note Formatting of t his [...] - RTO 4 wks Jo Leo DO [facility] 10-18-2024 Miscellaneous Notes SW- pt doing well. [...] Jo Leo DO documented in this encounter [facility] 10-18-2024 Instructions Lili Han MA - 10/18/2024 1:44 PM EDT SEQUENTIAL SCREENINGS The [facility] offers sequential screenings for women who are [...] It will require an appointment with our windows laptop technician. This is not an ultrasound performed [...] the above symptoms, contact our office at [phone] and ask to speak with a nurse. After hours, you can call doctors registry at [phone] OR call [facility] at [phone] and ask to have the doctor tongue and groove machine setter paged. If you consider this an emergency, dial 9-1-1 or go to your nearest emergency department. NEED HELP? Are you dealing with a violent or abusive relationship? Are you a victim of rape or sexual assult? Call [facility] ([facility] 24 hour Crisis Hotline: 427.273.1795 or 566-289-1650. MANUAL Your Guide to a Healthy manual is now on-line. Visit [email or web address] to download your free copy documented in this encounter [facility] 10-03-2024 Progress note Formatting of t his [...] weeks ASSESSMENT/PLAN: 1. 14 weeks gestation of ([facility]) - ICD9: V22.2, ICD10: Z3A.14 (primary diagnosis) 2. Chronic hypertension affecting ([facility]) - ICD9: 642.00, ICD10: O10.919 Controlled 3. Diet controlled gestational diabetes mellitus (GDM) in first trimester ([facility]) - ICD9: 648.83, ICD10: O24.410 improving 4. Rubella non-immune status, antepartum ([facility]) - ICD9: 646.83, V15.83, ICD10: O09.899, Z28.39 MMR at delivery Tricia Carty MD [facility] 10-03-2024 Miscellaneous Notes S: Bronwyn Higginbotham is [...] weeks ASSESSMENT/PLAN: 1. 14 weeks gestation of ([facility]) - ICD9: V22.2, ICD10: Z3A.14 (primary diagnosis) 2. Chronic hypertension affecting ([facility]) - ICD9: 642.00, ICD10: O10.919 Controlled 3. Diet controlled gestational diabetes mellitus (GDM) in first trimester ([facility]) - ICD9: 648.83, ICD10: O24.410 improving 4. Rubella non-immune status, antepartum ([facility]) - ICD9: 646.83, V15.83, ICD10: O09.899, Z28.39 MMR at delivery Tricia Carty MD documented in this encounter [facility] 10-03-2024 Instructions Laura Deng LPN - 10/03/2024 2:38 PM EDT SEQUENTIAL SCREENINGS The [facility] offers sequential screenings for women who are [...] It will require an appointment with our windows laptop technician. This is not an ultrasound performed [...] the above symptoms, contact our office at [phone] and ask to speak with a nurse. After hours, you can call doctors registry at [phone] OR call [facility] at [phone] and ask to have the doctor tongue and groove machine setter paged. If you consider this an emergency, dial 9-1-0 or go to your nearest emergency department. NEED HELP? Are you dealing with a violent or abusive relationship? Are you a victim of rape or sexual assult? Call [facility] ([facility] 24 hour Crisis Hotline: 559.183.2514 or 470-745-9356. MANUAL Your Guide to a Healthy manual is now on-line. Visit [email or web address] to download your free copy documented in this encounter [facility] 09-25-2024 History of Presen t illness Narrative DIABETES SELF-MANAGEMENT EDUCATION AND SUPPORT Location: [place] Type of visit: Virtual (with video) individual -- I have communicated my name and active licensure. The patient's identity and physical location were verified at the time of this visit. Either the patient or their legal independent sales representative has been informed of the risks [...] Race/Ethnic Origin: White/ Does you culture or methodist require any of the following: No cultural/mormonism practices affecting DM Do you have problems with: No difficulty seeing/hearing/reading/writing/s peaking Occupation: [employer] Work hours: 1st shift - 5a-3p Support [...] TIME: 3:47 PM documented in this encounter [facility] 09-25-2024 Note HNO ID: [id number] Author: LUCERO MIRELES RN Service: ? Author Type: Registered Nurse Type: Progress Notes Filed: 09/25/2024 16:37 Note Text: DIABETES SELF-MANAGEMENT EDUCATION AND SUPPORT Location: [place] Type of visit: Virtual (with video) individual -- I have communicated my name and active licensure. The patient's identity and physical location were verified at the time of this visit. Either the patient or their legal independent sales representative has been informed of the risks [...] Race/Ethnic Origin: White/ Does you culture or methodist require any of the following: No cultural/mormonism practices affecting DM Do you have problems with: No difficulty seeing/hearing/reading/writing/s peaking Occupation: [employer] Work hours: 1st shift - 5a-3p Support [...] gestational diabetes mellitus (GDM) in first trimester ([facility]) 09/14/2024 Elevated hemoglobin A1c 09/06/2024 Hypertension Pre-diabetes [...] your lancets? asked/not (more content not included)... [facility] 09-20-2024 Progress note Formatting of t his note might be different from the original. KJ - S: Bronwyn denies LOF, contractions or vaginal bleeding. O: 12w5d, see flow sheet SENSITIVE EXAM: Sensitive exam not performed. A/P: Assessment & Plan 12 weeks gestation of ([facility]) Orders: URINE OB DIP B/O Diet controlled gestational diabetes mellitus (GDM) in first trimester ([facility]) Diabetic education & nutrition consults scheduled. Orders: URINE OB DIP B/O Chronic hypertension affecting ([facility]) Orders: URINE OB DIP B/O Cystic fibrosis [...] at 37-39 weeks gestation. Bea Rose MD [facility] 09-20-2024 Miscellaneous Notes KJ - S: Bronwyn denies LOF, contractions or vaginal bleeding. O: 12w5d, see flow sheet SENSITIVE EXAM: Sensitive exam not performed. A/P: Assessment & Plan 12 weeks gestation of ([facility]) Orders: URINE OB DIP B/O Diet controlled gestational diabetes mellitus (GDM) in first trimester ([facility]) Diabetic education & nutrition consults scheduled. 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 MFM consult today. [...] Bea Rose MD documented in this encounter [facility] 09-18-2024 Instructions Kori Trent MA - 09/18/2024 2:09 PM EDT SEQUENTIAL SCREENINGS The [facility] offers sequential screenings for women who are [...] It will require an appointment with our windows laptop technician. This is not an ultrasound performed [...] the above symptoms, contact our office at [phone] and ask to speak with a nurse. After hours, you can call doctors registry at [phone] OR call [facility] at [phone] and ask to have the doctor tongue and groove machine setter paged. If you consider this an emergency, dial 2-7-2 or go to your nearest emergency department. NEED HELP? Are you dealing with a violent or abusive relationship? Are you a victim of rape or sexual assult? Call [facility] [place] ([facility] 24 hour Crisis Hotline: 731.333.4523 or 764-408-6179. MANUAL Your Guide to a Healthy manual is now on-line. Visit [email or web address] to download your free copy SEQUENTIAL SCREENINGS The [facility] offers sequential screenings for women who are [...] It will require an appointment with our windows laptop technician. This is not an ultrasound performed [...] the above symptoms, contact our office at [phone] and ask to speak with a nurse. After hours, you can call doctors registry at [phone] OR call [facility] at [phone] and ask to have the doctor tongue and groove machine setter paged. If you consider this an emergency, dial 9-1-1 or go to your nearest emergency department. NEED HELP? Are you dealing with a violent or abusive relationship? Are you a victim of rape or sexual assult? Call [facility] ([place]) 24 hour Crisis Hotline: 148.507.7135 or 075-390-1713. MANUAL Your Guide to a Healthy manual is now on-line. Visit [email or web address] to download your free copy documented in this encounter [facility] 09-18-2024 History of Presen t illness Narrative [...] blood sugars. She reports dietary/nutritional counseling at [facility], hwoever she has not yet [...] IMPRESSION: - Single, live, intrauterine . - Grimes rump length measurement is consistent with the [...] GDM (and sequelae), delivery, preeclampsia, and IUFD. [place] of medicine weight gain guidelines for reviewed. [...] which included preparing to see the patient, [id number] patient care, completing clinical documentation, obtaining and/or reviewing separately obtained history, performing a medically appropriate examination, counseling and educating the patient/family/caregiver, ordering medications, tests, or procedures, communicating results to the patient/family/caregiver, and care coordination (not separately reported). documented in this encounter [facility] 09-18-2024 Note HNO ID: [id number] Author: KELVIN THOMPSON MD Service: ? Author [...] blood sugars. She reports dietary/nutritional counseling at [facility], hwoever she has not yet [...] normal S1S2 wi (more content not included)... [facility] 09-14-2024 Telephone encounter Note Please notify patient: Abnormal 3 hour, consistent with early GDM. Can stop 3 hour testing as she has already met criteria for diagnosis. Supplies ordered. Nutrition consult and diabetes consult placed. Patient to bring glucose logs to next appointment. Kendall Delgado APRN.CNP [facility] 09-14-2024 Miscellaneous Notes Please notify patient: Abnormal 3 hour, consistent with early GDM. Can stop 3 hour testing as she has already met criteria for diagnosis. Supplies ordered. Nutrition consult and diabetes consult placed. Patient to bring glucose logs to next appointment. Kendall Delgado APRN.CNP documented in this encounter [facility] 09-06-2024 Telephone encounter Note 1st risk assessment form submitted 09/06/2024. Tricia Lambert RN [facility] 09-06-2024 Miscellaneous Notes 1st risk assessment form submitted 09/06/2024. Tricia Lambert RN documented in this encounter [facility] 09-06-2024 Telephone encounter Note Please notify patient: A1C 6.0 Needs to complete early 1 hour Kendall Delgado APRN.CNP [facility] 09-06-2024 Miscellaneous Notes Please notify patient: A1C 6.0 Needs to complete early 1 hour Kendall Delgado APRN.CNP documented in this encounter [facility] 09-05-2024 Instructions Kendall Delgado APRN.HOUSE FELLOW - 09/05/2024 9:17 AM EDT Please select the following link to access the [facility] Your Guide to a Healthy . [email or web address] [...] smoke. (This information is provided by the [facility] and is not intended to replace the medical advice of your doctor or health care provider. Please consult your health care provider for advice about a specific medical condition. For additional written health information, please call the Cancer Answer Line at [facility] [place] Tuesday - Tuesday 8-4:30 for assistance: [phone]. Or visit [email or web address]/) [facility] s Smoking Cessation Program The [facility] Smoking Cessation Program is a comprehensive, multifaceted program that can be tailored to your individual needs. We offer a variety of services designed to help you throughout the process, including office visits, distance health visits (virtual or telephone), and the eCoach program or pharmacy consultations. To schedule, call [phone] Appointments: An office visit: This is a [...] You will need to sign up for Destineerhart prior to your virtual visit. Telephone visits [...] spray Bupropion SR Varenicline (Chantix ) The [place] [employer] (ACS) has a section devoted to quitting tobacco with information on where to get help, interactive tools, the relationship of tobacco and cancer, how to keep your kids smoke-free, smoke-free communities and the ACS s annual Great [place] Smokeout. Visit this link for more info: https://www.cancer.org/cancer/ri sk-prevention/tobacco/guide-quit ting-smoking.html The [place] Lung Association has tools, tips, support and fact sheets to help you stop smoking or to help a loved one quit. There s also more information about [place] From Smoking , the program we use in our smoking classes at [facility]. Visit this link for more info: https://www.lung.org/quit-smokin g/papq-tqbvhar-foii-smoking The National Cancer [place] s site, Smokefree.gov, has an abundance of free and accurate resources to encourage smokers to stop: Smokefree apps for your smartphone offer individualized guidance once you input your information You can sign up for the SmokefreeZeta InteractiveT text messaging program, which sends you daily text messages with encouragement, tips and advice to help making quitting easier Create a personalized Quit Plan by choosing a quit date and answering seven questions Take a quiz on your withdrawal symptoms See how you can prepare to quit 8-721-MJYF-NOW is the national portal to a network of state quitlines. Quitlines offer evidence-based support--like counseling, referrals to local programs, and free medication--to people who want to quit tobacco. documented in this encounter [facility] 09-04-2024 Note HNO ID: [id number] Author: KENDALL DELGADO APRN.JOHN Service: ? Author Type: Nurse Practitioner Type: Progress Notes Filed: 09/05/2024 10:26 Note Text: Technical Specialist Cytology offered: Patient declines. INITIAL OB ASSESSMENT HPI: [...] Status:Partnering Partner: Name: Frantz Age: 30 Occupation: [email or web address] Gender: Male PAST MEDICAL HISTORY Diagnosis Date [...] not? No Based (more content not included)... [facility] 09-04-2024 History of Presen t illness Narrative Images from the original note were not included. Technical Specialist Cytology offered: Patient declines. INITIAL OB ASSESSMENT HPI: [...] Status:Partnering Partner: Name: Frantz Age: 30 Occupation: [employer] Gender: Male PAST MEDICAL HISTORY Diagnosis Date [...] Does patient have penicillin allergy: No SBIRT Bronywn Higginbotham was given the 4P's screening tool. [...] to rescreen early third trimester. Kendall Delgado APRN.HOUSE FELLOW REVIEW OF SYSTEMS: GENERAL: Negative for: Fever [...] discussed with the Patient or Patient's Authorized Director Women. As applicable, any other physician, advance practice provider, medical student, or other health professional student that will be observing or involved in the sensitive examination for educational or training purposes was discussed with the Patient or Authorized Director Women. The Patient or Authorized Director Women has agreed to proceed with the sensitive [...] Your guide to a health and the Expansion Joint Finisher. Discussed hemoglobin electrophoresis. Patient: Accepts Reviewed midwifery and sample maker hand services that are available. 2) Screening: Hemoglobin [...] of High Risk in First Trimester, Antepartum ([facility]) - 09/05/2024 Comment: Care Checklist Vaccines: [] [...] (28-30 weeks): [] Consent [] Contraception [] Lead Network Architect [] TeamBirth handout Third trimester (36-40 weeks): [] GBS [] Presentation - [] Scheduled [] yes - Hibiclens, pre-op instructions, CBC, T&S ordered [] no [] H&P [] Preferences worksheet [] Obesity Affecting in First Trimester ([facility]) - 09/05/2024 Comment: -Pre BMI 36 - Plan for 32 week growth q 4 weeks. - Weekly NSTs at 36 weeks. Chronic Hypertension Affecting ([facility]) - 09/05/2024 Comment: Chronic HTN in Checklist [...] - 09/05/2024 Comment: September 05, 2024 Drinking 80 Degrees Westter energy drinks. Recommend replacing with coffee/tea and [...] Kendall Delgado APRN.CNP documented in this encounter [facility] 07-10-2020 Note Send Summary: Discharge Summary Providers: [...] at Discharge: .Home Vital Signs: T PRBPSpO2 [id number]% Date/Time07/10 4:284/15 4: 4: 4: 4:28 Range(35.6C - 37.3C ) (73 - 101 ) (16 - 18 ) (108 - 131 )/ (69 - 81 ) (95% - 98% ) Highest temp of 37.3 C was recorded at 07/09 22:55 Date: Weight/Scale Type:Height: 09-Jul-2020 02:5288.6 kg / [id number] cm Physical Exam: Gen: NAD CV: RRR [...] on POD#1. She will follow up with [facility] as an outpatient. [facility] 07/09 24yo G0 presents as a transfer from [facility] with concern for torsion. Patient reports that [...] liquids and hasn't tried solids yet. At [facility], a CT scan was performed that showed an 11.7p90p18bm pelvic mass concerning for mature teratoma. Vitals [...] but no history of premenstrual pelvic pain. Jay with women only. 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 FH: denies All: NKDA Meds: Tylenol PRN [...] them off. Follow Up Appointments: Follow-Up - WAX COATING MACHINE TENDER Provider: Physician/Dept/Service: WAX COATING MACHINE TENDER Provider Follow-Up Appointment 01: Physician/Dept/Service: Dr. Carolee Munoz - LICENSED GUIDE Reason for Referral: post op Scheduled Date/Time: 29-Jul-2020 14:00 Location: [facility], [address] [place] [address] [address] [facility], [place] [address] Discharge Medications: Home Medication Colace 100 mg oral capsule - 1 cap(s) orally 2 times a day PRN Medication remy (more content not included)... [facility] 07-09-2020 Note Post Operative Note: PreOp Diagnosis: ovarian mass Post-Procedure Diagnosis: left ovarian mass, left ovarian torsion Procedure: 1. diagnostic laparoscopy 2. left ovarian detorsion 3. left ovarian cystectomy 4. laparoscopic washout of cystic contents Surgeon: malu Resident/Fellow/Other Hand Washer: justo mccord Anesthesia: GETA Estimated Blood Loss [...] time copiously irrigatin (more content not included)... [facility] 07-09-2020 Note History & Physical R eviewed: [...] the note. I personally evaluated the patient [id number] Attending Provider Inpatient Certification StatementI certify this [...] Referenced From History and Physical 09-Jul-2020 02:59 [facility] 07-09-2020 Note History of Present I llness: /Lactating: Are You no (1) Are You Currently Breastfeedingno (1) Admission Reason: Abdominal pain HPI: 24yo G0 presents as a transfer from [facility] with concern for torsion. Patient reports that [...] liquids and hasn't tried solids yet. At [facility], a CT scan was performed that showed an [id number] pelvic mass concerning for mature teratoma. Vitals [...] but no history of premenstrual pelvic pain. Jay with women only. 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 FH: denies All: NKDA Meds: Tylenol PRN Family History: Family History: reviewed and not pertinent to presenting problem Allergies: No Known Allergies: Medications Prior to Admission: Outpatient Meds have not been reviewed. Review of Systems: Gastrointestinal: POSITIVE: Constipation, Abdominal Pain; COMMENTS: 09/04 All Other Systems: All other systems reviewed and are negative Objective: Objective Information: T PRBPSpO2 [id number]/8295% Date/Time07/09 2: 2: 2: 2: 2:02 Range(37.6C [...] Authorization (EUA) and has been verified by [facility]. This test is only authorized for the duration of time that circum Urine Test 08-Jul-2020 17:26:00 ResultValue HCG, Urine NEGATIVE Urinalysis 08-Jul-2020 17:26:00 ResultValue Color, Urine Yellow Reference Range: STRAW,YELLOW Appearance, Urine HAZY Specific Cades, Urine 1.017 pH, Urine 6.0 Protein, Urine [...] Calcium, Serum 9.4 (more content not included)... [facility] Evaluation note Diagnosis Encounter for supervision of high risk in first trimester, antepartum (HCC)- Primary 10 weeks gestation of ([facility]) state, incidental with uncertain dates in first trimester ([facility]) Screen for STD (sexually transmitted disease) Screening examination for venereal disease Screening for cervical cancer Screening for malignant neoplasm of the cervix Family history of deafness Family history of deafness or hearing loss Chronic hypertension affecting ([facility]) Obesity affecting in first trimester, unspecified obesity type ([facility]) Nicotine dependence due to vaping tobacco product Caffeine use during in first trimester ([facility]) Nausea and vomiting during ([facility]) History of alcohol abuse Nondependent alcohol abuse, in remission [facility] Diagnosis with uncertain dates in first trimester ([facility]) [facility] Diagnosis Diet controlled gestational diabetes mellitus (GDM) in third trimester ([facility])- Primary Encounter for supervision of high risk in first trimester, antepartum ([facility]) Chronic hypertension affecting ([facility]) 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, antepartum (HCC) Diet controlled gestational diabetes mellitus (GDM) in first trimester (HCC) documented in this encounter [facility] note* Diagnosis 12 weeks gestation of (HCC)- Primary state, incidental Diet controlled gestational diabetes mellitus (GDM) in first trimester (HCC) Chronic hypertension affecting (HCC) 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, antepartum (HCC) 14 weeks gestation of (HCC)- Primary state, incidental Chronic hypertension affecting (HCC) Diet controlled gestational diabetes mellitus (GDM) in first trimester ([facility]) Rubella non-immune status, antepartum ([facility]) Other specified complication, antepartum documented in this encounter [facility] note* Diagnosis 12 weeks gestation of (HCC)- Primary state, incidental Diet controlled gestational diabetes mellitus (GDM) in first trimester (HCC) Chronic hypertension affecting (HCC) 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, antepartum (HCC) Diet controlled gestational diabetes mellitus (GDM) in second trimester (HCC)- Primary documented in this encounter [facility] note* Diagnosis 12 weeks gestation of [...] trimester, antepartum (HCC) documented in this encounter [facility] note* Diagnosis 12 weeks gestation of (HCC)- Primary state, incidental Diet controlled gestational diabetes mellitus (GDM) in first trimester (HCC) Chronic hypertension affecting (HCC) 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, antepartum ([facility]) Encounter for routine screening for malformation using ultrasonics ([facility])- Primary Encounter for routine screening for malformation using ultrasonics Encounter for supervision of high risk in first trimester, antepartum ([facility]) 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 ([facility]) Severe obesity with body mass index (BMI) of 35.0 to 39.9 with comorbidity ([facility]) 16 weeks gestation of ([facility]) state, incidental Supervision of high risk in second trimester ([facility])- Primary Unspecified high-risk Diet controlled gestational diabetes mellitus (GDM) in second trimester ([facility]) Chronic hypertension affecting ([facility]) 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, antepartum ([facility]) 18 weeks gestation of ([facility]) state, incidental documented in this encounter [facility] note* Diagnosis Diet controlled gestational diabetes mellitus (GDM) in first trimester ([facility])- Primary Elevated glucose tolerance test Impaired glucose tolerance test 12 weeks gestation of ([facility])- Primary state, incidental Diet controlled gestational diabetes mellitus (GDM) in first trimester ([facility]) Chronic hypertension affecting ([facility]) 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, antepartum ([facility]) Supervision of high risk in second trimester ([facility])- Primary Unspecified high-risk Diet controlled gestational diabetes mellitus (GDM) in second trimester ([facility]) Chronic hypertension affecting ([facility]) 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, antepartum ([facility]) 18 weeks gestation of ([facility]) state, incidental documented in this encounter [facility] note* Diagnosis 12 weeks gestation of ([facility])- Primary state, incidental Diet controlled gestational diabetes mellitus (GDM) in first trimester ([facility]) Chronic hypertension affecting ([facility]) 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, antepartum ([facility]) Supervision of high risk in second trimester ([facility])- Primary Unspecified high-risk Diet controlled gestational diabetes mellitus (GDM) in second trimester ([facility]) Chronic hypertension affecting ([facility]) 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 Diagnosis 12 weeks gestation of (HCC)- [...] in second trimester (HCC) Chronic hypertension affecting ([facility]) documented in this encounter [facility] for visit Narrative* Consult, Test, Treat (Routine) - Closed Specialty Diagnoses / Procedures Referred By Contraghavendra t Referred To Contact Diagnoses Diet controlled gestational diabetes mellitus (GDM) in first trimester (HCC) Procedures CONSULT TO DIABETES EDUCATION DSME MEDICAL NUTRITION ASSMT&IVNTJ INDIV EACH 15 [place] MEDICAL NUTRITION ASSMT&IVNTJ INDIV EACH 15 [place] MEDICAL NUTRITION ASSMT&IVNTJ INDIV EACH 15 [place] MEDICAL NUTRITION ASSMT&IVNTJ INDIV EACH 15 [place] Kendall Delgado [place] [address] [place] [address] Phone: tel: fax: Referral ID Status Reason Start Date Expiration Date V isits Requested Visits Authorized [id number] Closed PCP Requested Referral 09/14/2024 09/14/20[address] [facility] History of Present Illness * Kendall Kemp [...] the injury on 12/13/2018. She was in [facility] where she was living at the time. She twisted her ankle when she was standing in the sand. She had immediate pain. [facility] She went to the [place] emergency department on 12/18/2018 where x-rays were [...] is improved with elevation. She is taking pkbt-joc-[id number] medication, Tylenol for pain. This helps.. She is not currently employed. She smokes 1 pack/day. She is not a diabetic. History reviewed. No pertinent past medical history. and History reviewed. No pertinent surgical history. Past medical, past surgical, family history, medications, allergies, and smoking status reviewed and updated as appropriate in [facility]. A 10-system review of systems was completed [...] 3 views left ankle standing Subjective: Bronwyn Higginbohtam is a 23 y.o. female seen as a new patient for left bimalleolar ankle fracture. She sustained the injury on 12/13/2018. She was in [facility] where she was living at the time. She twisted her ankle when she was standing in the sand. She had immediate pain. [facility] She went to the [place] emergency department on 12/18/2018 where x-rays were [...] is improved with elevation. She is taking [id number]-ltyigmu medication, Tylenol for pain. This helps.. She is not currently employed. She smokes 1 pack/day. She is not a diabetic. History reviewed. No pertinent past medical history. and History reviewed. No pertinent surgical history. Past medical, past surgical, family history, medications, allergies, and smoking status reviewed and updated as appropriate in [facility]. 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 Ivis Mcelroy PT State License, [id number] documented in this encounter* Simona Moreno, THREAD SINGER - 02/05/2019 2:30 PM EST [facility] DAILY TREATMENT NOTE Today's [...] OTHER Notes Simona 05/09 2:30-3:00 Therapeutic Exercise (35879) Intervention Scifit 6' lv 1 Parameters Shuttle squat (A) Intervention 4 way ankle RTB 2x10 Parameters marble pick ups (A) Intervention weight shifting (A) Parameters Gastroc stretch x10 Manual Therapy (34467) Intervention STM gastroc stretches 30 x10 PT Treatment Times Therex Total Time 30 Direct Treatment Time 30 Total Treatment Time 30 Skilled Intervention demonstrated by modifications of treatment per exercise log including increased intensity and safety interventions per exercise log. Progress towards goals as expected. Plan for Next Visit: Treatment Visit with focus on strength Simona Moreno PTA STATE LICENSE, [id number] documented in this encounter* Simona Moreno PTA - 02/07/2019 2:30 PM EST [facility] DAILY TREATMENT NOTE Today's [...] OTHER Notes Simona 05/09 2:20-3:00 Therapeutic Exercise (76881) Intervention Scifit 8' lv 1 Parameters Shuttle squat BLE 25# Intervention 4 way ankle RTB 2x10 Parameters marble pick ups (A) Intervention weight shifting (A) Parameters Gastroc stretch x10 Intervention rocker board 30 x3 Parameters clamshells RTB x20 Intervention towel scrunches Neuro Re-Ed (08712) Intervention Ambulates in facility with boot 6x 50 feet without crutches Manual Therapy (26825) Intervention STM gastroc /HS with stick 8' [...] on strengthening Simona Moreno PTA STATE LICENSE, [id number] documented in this encounter* Simona Moreno PTA - 02/13/2019 2:30 PM EST [facility] DAILY TREATMENT NOTE Today's [...] Treatments: Physical Therapy Exercise Log - 02/13/19 3443 OTHER Notes Simona 05/09 2:30-3:05 Vitals concurrent Therapeutic Exercise (31411) Intervention Scifit 8' lv 1 Parameters Shuttle squat BLE 25# Intervention 4 way ankle RTB 2x10 Parameters marble pick ups (A) Intervention weight shifting (A) Parameters Gastroc stretch x10 Intervention rocker board 30 x3 Parameters clamshells RTB x20 Intervention towel scrunches Neuro Re-Ed (66219) Intervention Ambulates in facility with boot 6x 50 feet without crutches Manual Therapy (40454) Intervention STM gastroc /HS 8' PT Treatment Times Therex Total Time 30 Direct Treatment Time 30 Total Treatment Time 30 Progress towards goals as expected. Plan for Next Visit: Treatment Visit with focus on WB and strength Simona Moreno PTA STATE LICENSE, [id number] documented in this encounter* Simona Moreno PTA - 02/21/2019 2:30 PM EST [facility] RE[facility] DAILY TREATMENT NOTE Today's Date [...] 1500 OTHER Notes 07/07 2:20-259 Therapeutic Exercise (94065) Intervention Scifit 8' lv 1 Parameters Shuttle squat BLE 25# x[address] ankle RTB 2x10 Parameters Gastroc stretch 10x10 Intervention rocker board seated 30x3 Parameters clamshells RTB x20 Parameters bridges with RTB x20 Intervention step up taps 8 forward/lateral x15 each Neuro Re-Ed (45146) Intervention Ambulates in facility with shoe 2x 50 feet without crutches Manual Therapy (59729) Intervention STM gastroc /HS 6' PT Treatment [...] and ROM Simona Moreno PTA STATE LICENSE, [id number] documented in this encounter* Simona Moreno PTA - 02/26/2019 2:30 PM EST [facility] DAILY TREATMENT NOTE Today's Date [...] Notes 08/06 2:20-3:00 Vitals concurrent Therapeutic Exercise (74537) Intervention Scifit 8' lv 1 Parameters Shuttle squat BLE 37# x[address] ankle GTB 2x10 Parameters Gastroc stretch 10x10 Intervention rocker board seated 30x3 Parameters clamshells GTB x20 Parameters bridges with GTB x20 Intervention step up taps 8 forward/lateral x15 each Neuro Re-Ed (98929) Intervention Ambulates in facility with shoe 2x 50 feet without crutches Manual Therapy (71100) Intervention STM gastroc /HS 6' PT Treatment Times Therex Total Time 30 Direct Treatment Time 30 Total Treatment Time 40 Skilled Intervention demonstrated by modifications of treatment per exercise log including increased intensity and safety interventions per exercise log. Progress towards goals as expected. Plan for Next Visit: Treatment Visit with focus on strength Simona Moreno PTA STATE LICENSE, [id number] documented in this encounter* Gertrude Raymond PTA - 02/15/2019 2:30 PM EST [facility] DAILY TREATMENT NOTE Today's Date 02/15/2019 Patient Name: Bronwyn Higginbotham Date of : [...] 1422 OTHER Notes 06/06 2:20-259 Therapeutic Exercise (23319) Intervention Scifit 8' lv 1 Parameters Shuttle squat BLE 25# x[address] ankle RTB 2x10 Parameters Gastroc stretch 10x10 Intervention rocker board seated 30x3 Parameters clamshells RTB x20 Neuro Re-Ed (84015) Intervention Ambulates in facility with boot 6x 50 feet without crutches Manual Therapy (03761) Intervention STM gastroc /HS 8' PT Treatment [...] gentle strengthening Gertrude Raymond PTA STATE LICENSE, [id number] documented in this encounter* Exten, Kendall Turner [...] FoundDocuments on File Type Date Recorded Patient Director Women Expl anation Advance Directives and Livin g Will 12/25/2018 11:44 AM Documents on File Type Date Recorded Patient Director Women Expl anation Advance Directives and Livin g Will 01/11/2019 8:40 AM Documents on File Type Date Recorded Patient Director Women Expl anation Advance Directives and Livin g [...] closed, initial encounter Kendall Kemp MD [address] [place] [address] [place] [address] Reason Comments Pain LT ANKLE PAIN Pain Reason Comments Follow-up LT BI. MAL FX DOI Follow-up Reason Comments Physical Therapy Bimalleolar ankle fr acture, left, closed, initial encounter Reason Comments Post-op POST OP LEFT BI. MAL FX DOI 12/13/18 Injury Reason Comments Initial OB Visit Reason Comments [employer] - Other PRAF Reason Comments US Specialty Diagnoses / Procedures Referred By Contac t Referred To Contact [facility] Diagnoses with uncertain dates in first trimester (HCC) Procedures OBSTETRIC ULTRASOUND WHI US PREG UTERUS AFTER 1ST TRIMEST GESTATION Kendall Delgado, FEED MIXER HELPER.HOUSE FELLOW [address] [address] Phone: tel: fax: [facility] [address] [place] [address] Referral ID Status Reason Start Date Expiration Date V isits Requested Visits Authorized [id number] Closed Auto-Generate d Referral 09/05/2024 09/05/2025 1 1 Reason Comments Consult Specialty Diagnoses / Procedures Referred By Contac t Referred To Contact Diagnoses Encounter for supervision of high risk in first trimester, antepartum (HCC) Chronic hypertension affecting (HCC) Procedures CONSULT TO MATERNAL MEDI OFFICE/OUTPATIENT [facility] MDM 60 MINUTES Kendall Delgado APRN.HOUSE FELLOW [address] [place] [address] Phone: tel: fax: Referral ID Status Reason Start Date Expiration Date V isits Requested Visits Authorized [id number] Closed PCP Requested Referral Auto-Generated Referral 09/05/2024 [...] trimester (HCC) Procedures CONSULT TO ENDOCRINOLOGY OFFICE/OUTPATIENT [facility] 60 MINUTES Jo Leo MD [address] [place] [address] Phone: tel: fax: Referral ID Status Reason Start Date Expiration Date V isits Requested Visits Authorized [id number] Closed PCP Requested Referral 10/18/2024 10/18/2025 1 1 Reason Comments [facility] Specialty Diagnoses / Procedures Referred By Contac t Referred To Contact Diagnoses Encounter for supervision of high risk in first trimester, antepartum (HCC) Procedures MEDICAL GENETICS COUNSELING EACH 30 MINUTES Kelvin Thompson MD [address] [place] [address] Phone: tel: fax: [facility] [address] [place] [phone] Referral ID Status Reason Start Date Expiration Date Visits Requested Visits Authorized [id number] Pending Review PCP Requested Referral Auto-Generate d Referral 09/18/2024 09/18/2025 1 1 Reason Onset Date Comments Results 09/06/2024 Reason Onset Date Comments Results 09/07/2024 Specialty Diagnoses / Procedures Referred By Contac t Referred To Contact [facility] Diagnoses Encounter for supervision of high risk in first trimester, antepartum (HCC) Procedures OBSTETRIC ULTRASOUND WHI US PREG UTERUS AFTER 1ST TRIMEST GESTATION Kelvin Thompson MD [address] [place] [address] Phone: tel: fax: [facility] [address] [place] [address] Referral ID Status Reason Start Date Expiration Date V isits Requested Visits Authorized [id number] Closed Auto-Generate d Referral 09/18/2024 09/18/2025 1 1 Reason Onset Date Comments Results 09/14/2024 Reason Onset Date Comments Care 11/16/2024 Referral ID Status Reason Start Date Expiration Date V isits Requested Visits Authorized [id number] Closed Auto-Generate d Referral 09/05/2024 09/05/2025 1 1 INFORMATION SOURCE (unrecogn ized section and content) DATE CREATED AUTHOR 01/11/2019 [facility] DATE CREATED AUTHOR AUTHOR'S ORGANIZ ATION 02/03/2019 [facility] DATE CREATED AUTHOR AUTHOR'S ORGANIZ ATION 02/08/2019 [facility] DATE CREATED AUTHOR AUTHOR'S ORGANIZ ATION 04/06/2019 [facility] DATE CREATED AUTHOR AUTHOR'S ORGANIZ ATION 07/30/2020 [facility] DATE CREATED AUTHOR AUTHOR'S ORGANIZ ATION 08/01/2020 [facility] DATE CREATED AUTHOR AUTHOR'S ORGANIZ ATION 08/05/2022 [facility] DATE CREATED AUTHOR AUTHOR'S ORGANIZ ATION 02/06/2025 [facility] <item><item> Privacy Markings (unrecogniz ed section [...] or prosecute any alcohol or drug abuse patient.[facility] Hospital[facility] the event this information is protected by the Federal Confidentiality of Alcohol and Drug Abuse Patient Records regulations: The Federal rules restrict any use of the information to criminally investigate or prosecute any alcohol or drug abuse patient.[facility] HospitalIn the event this information is protected by the Federal Confidentiality of Alcohol and Drug Abuse Patient Records regulations: The Federal rules restrict any use of the information to criminally investigate or prosecute any alcohol or drug abuse patient.[facility] HospitalIn the event this information is protected by the Federal Confidentiality of Alcohol and Drug Abuse Patient Records regulations: The Federal rules restrict any use of the information to criminally investigate or prosecute any alcohol or drug abuse patient.[facility] HospitalIn the event this information is protected by the Federal Confidentiality of Alcohol and Drug Abuse Patient Records regulations: The Federal rules restrict any use of the information to criminally investigate or prosecute any alcohol or drug abuse patient.[facility] HospitalIn the event this information is protected by the Federal Confidentiality of Alcohol and Drug Abuse Patient Records regulations: The Federal rules restrict any use of the information to criminally investigate or prosecute any alcohol or drug abuse patient.[facility] HospitalIn the event this information is protected by the Federal Confidentiality of Alcohol and Drug Abuse Patient Records regulations: The Federal rules restrict any use of the information to criminally investigate or prosecute any alcohol or drug abuse patient.[facility] HospitalIn the event this information is protected by the Federal Confidentiality of Alcohol and Drug Abuse Patient Records regulations: The Federal rules restrict any use of the information to criminally investigate or prosecute any alcohol or drug abuse patient.[facility] HospitalIn the event this information is protected by the Federal Confidentiality of Alcohol and Drug Abuse Patient Records regulations: The Federal rules restrict any use of the information to criminally investigate or prosecute any alcohol or drug abuse patient.[facility] HospitalIn the event this information is protected by the Federal Confidentiality of Alcohol and Drug Abuse Patient Records regulations: The Federal rules restrict any use of the information to criminally investigate or prosecute any alcohol or drug abuse patient.[facility] HospitalIn the event this information is protected by the Federal Confidentiality of Alcohol and Drug Abuse Patient Records regulations: The Federal rules restrict any use of the information to criminally investigate or prosecute any alcohol or drug abuse patient.[facility] HospitalIn the event this information is protected by the Federal Confidentiality of Alcohol and Drug Abuse Patient Records regulations: The Federal rules restrict any use of the information to criminally investigate or prosecute any alcohol or drug abuse patient.[facility] HospitalIn the event this information is protected by the Federal Confidentiality of Alcohol and Drug Abuse Patient Records regulations: The Federal rules restrict any use of the information to criminally investigate or prosecute any alcohol or drug abuse patient.[facility] HospitalIn the event this information is protected by the Federal Confidentiality of Alcohol and Drug Abuse Patient Records regulations: The Federal rules restrict any use of the information to criminally investigate or prosecute any alcohol or drug abuse patient.[facility] HospitalIn the event this information is protected by the Federal Confidentiality of Alcohol and Drug Abuse Patient Records regulations: The Federal rules restrict any use of the information to criminally investigate or prosecute any alcohol or drug abuse patient.[facility] HospitalIn the event this information is protected by the Federal Confidentiality of Alcohol and Drug Abuse Patient Records regulations: The Federal rules restrict any use of the information to criminally investigate or prosecute any alcohol or drug abuse patient.[facility] HospitalIn the event this information is protected by the Federal Confidentiality of Alcohol and Drug Abuse Patient Records regulations: The Federal rules restrict any use of the information to criminally investigate or prosecute any alcohol or drug abuse patient.[facility] HospitalIn the event this information is protected by the Federal Confidentiality of Alcohol and Drug Abuse Patient Records regulations: The Federal rules restrict any use of the information to criminally investigate or prosecute any alcohol or drug abuse patient.[facility] HospitalIn the event this information is protected by the Federal Confidentiality of Alcohol and Drug Abuse Patient Records regulations: The Federal rules restrict any use of the information to criminally investigate or prosecute any alcohol or drug abuse patient.[facility] HospitalIn the event this information is protected by the Federal Confidentiality of Alcohol and Drug Abuse Patient Records regulations: The Federal rules restrict any use of the information to criminally investigate or prosecute any alcohol or drug abuse patient.[facility] FOR RECORDS PERTAINING TO PATIENTS WHO ARE [...] BE BASED ON THE PRIMARY CLINICAL RECORDS. [employer] [facility]. provides no warranty or guarantee of the accuracy or completeness of information in this document.
[2025-03-22 08:46] LABS: Hematocrit 30.2 % (37-47); Hemoglobin 10.1 g/dL (12.0-15.0); Immature Granulocytes Count 0.030 X10^3/uL (0.0-0.0); Mean Corp Hgb Conc 33.4 g/dL (32-36); Mean Corpuscular Volume 89.6 fL (81-99); Mean Platelet Vol. 10.7 fl (6.2-12.0); NRBC Flagged by Analyzer 0 % (0-5); Platelet Count 170 K/mm3 (150-450); RBC Distribution Width CV 13.5 % (11.6-14.6); RBC Distribution Width SD 43.8 fl (35.1-43.9); Red Blood Count 3.37 M/mm3 (4.2-5.4); White Blood Count 6.7 K/mm3 (4.4-11.0)
--- OUTSIDE RECORDS SUMMARY | 2025-03-22 09:22 | XMS RPT_ITS | CCD ---
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 at increased risk for chromosomal aneuploidy.[1-4] Performed By: #### 5 8410-2 #### [facility] CLIA [id number] [address] [place] [address] OF [place] DE JESUS Trisomy 13 risk Dosage of chromosome-specific cfDNA Ql (cfDNA) [Interp] Negative Normal [facility] Comment on above: Order Comment: Speci men Type: BLOOD SPECIMEN Ordering Facility: [facility] Address: [address] [place] [address] Performed By: #### 5 8410-2 #### [facility] CLIA [id number] [address] [place] [address] OF [place] DE JESUS Trisomy 18 risk Dosage of chromosome-specific cfDNA Ql (Plasma cell-free+WBC DNA) [Interp] Negative Normal [facility] Comment on above: Order Comment: Speci men Type: BLOOD SPECIMEN Ordering Facility: [facility] Address: [address] [place] [address] Performed By: #### 5 8410-2 #### [facility] CLIA [id number] [address] [place] [address] [place] URINE OB DIP B/Oon 5 Glucose Ql (U) Negative Neg mg/dL [facility] Interpretation and review of laboratory results Normal [facility] Protein.monoclonal (U) [Mass/Vol] Negative Neg mg/dL [facility] GLUCOSE GESTATIONAL, 1 HOURo n 09-14-2024 Glucose 1 Hr post Unsp challenge [Mass/Vol] 198 mg/dL High 74-179 [facility] Comment on above: Order Comment: Speci men Type: BLOOD SPECIMENOrdering Facility: [facility] Address: [address] [place] [address] Result Comment: [facility] Congress of Obstetricians and Gynecologists (Elli/Lucero) guidelines state gestational diabetes mellitus is present when 2 or more of the plasma glucose concentrations meet or exceed the following levels: fastin mg/dl, 1 hr: 180 mg/dl, 2 hr: 155 mg/dl, and 3 hr: 140 mg/dl. Performed By: #### G TGST1 ####[facility] [id number] [place] [address] [place] GLUCOSE GESTATIONAL, 2 HOURo n 09-14-2024 Glucose 2 Hr post Unsp challenge [Mass/Vol] 180 mg/dL High 74-154 [facility] Comment on above: Order Comment: Kodi merino Type: BLOOD SPECIMEN Ordering Facility: [facility] Address: [address] [place] [address] Result Comment: [facility] Congress of Obstetricians and Gynecologists (Elli/Lucero) guidelines state gestational diabetes mellitus is present when 2 or more of the plasma glucose concentrations meet or exceed the following levels: fastin mg/dl, 1 hr: 180 mg/dl, 2 hr: 155 mg/dl, and 3 hr: 140 mg/dl. Performed By: #### 5 8410-2 #### [facility] CLIA [id number] [address] [place] [address] [place] GLUCOSE GESTATIONAL, FASTING on 09-14-2024 Glucose post fast [Mass/Vol] 106 mg/dL High 74-94 [facility] Comment on above: Order Comment: Kodi merino Type: BLOOD SPECIMENOrdering Facility: [facility] Address: [address] [place] [address] Result Comment: [facility] Congress of Obstetricians and Gynecologists (Converse/Lucero) guidelines state gestational diabetes mellitus is present when 2 or more of the plasma glucose concentrations meet or exceed the following levels: fastin mg/dl, 1 hr: 180 mg/dl, 2 hr: 155 mg/dl, and 3 hr: 140 mg/dl. Performed By: #### G TGSTF ####[facility] [id number] [place] [address] [place] GESTATIONAL GLUCOSE SCREEN, 1-HOUR, 50 GRAM, NON-FASTINGOrdered By: Roxanna Bliss on 09-07-2024 Glucose [Mass/Vol] 177 mg/dL High 74 - 134 mg/dL [facility] Comment on above: Stateless Congress of Obstetricians and Gynecologists (Calloway/Coustan) guidelines state a gestational diabetes mellitus positive screen is made, in women not previously diagnosed with overt diabetes, when the 1 hr plasma glucose level is equal to or above 140 mg/dL. The [facility] recommends a 135 mg/dL cutoff. Interpretation and review of laboratory results Abnormal [facility] GESTATIONAL GLUCOSE SCREEN, 1-HOUR, 50 GRAM, NON-FASTINGon 09-07-2024 Glucose [Mass/Vol] 177 mg/dL High 74-134 [facility] Comment on above: Order Comment: Speci men Type: BLOOD SPECIMENOrdering Facility: [facility] Address: [address] [place] [address] Result Comment: [facility] Congress of Obstetricians and Gynecologists (Calloway/Coustan) guidelines state a gestational diabetes mellitus positive screen is made, in women not previously diagnosed with overt diabetes, when the 1 hr plasma glucose level is equal to or above 140 mg/dL. The [facility] recommends a 135 mg/dL cutoff. Performed By: #### G LTGST ####[facility] [id number] [address] OF [facility] Mary 09-06-2024 [facility] Telephone ([phone]) -- BRONWYN HIGGINBOTHAM ([id number]) 1995 F Date Time Provider Department 09/06/24 TRICIA LAMBERT [id number] During your visit today, we recorded the following information about you: Tricia Lambert RN 09/06/2024 1:18 PM Signed 1st risk assessment form submitted 09/06/2024. 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 trachomatis+N. gonorrhoea e DNA TAYLOR+probe Ql (Unsp spec)on 09-05-2024 C. trachomatis rRNA TAYLOR+probe Ql (Unsp spec) Not detected Normal Not detected [facility] Comment on above: Order Comment: Speci men Type: BLOOD SPECIMEN Ordering Facility: [facility] Address: [address] [place] [address] Performed By: #### 5 8410-2 #### [facility] CLIA [id number] [address] [place] [address] [place] N. gonorrhoeae rRNA TAYLOR+probe Ql (Unsp spec) Not detected Normal Not detected [facility] Comment on above: Order Comment: Speci men Type: BLOOD SPECIMEN Ordering Facility: [facility] Address: [address] [place] [address] Performed By: #### 5 8410-2 #### [facility] CLIA [id number] [address] [place] [address] [place] CBC W Auto Differential pane l (Bld)on 09-05-2024 Basophils (Bld) [#/Vol] 10*3/uL Normal <0.11 [facility] Comment on above: Order Comment: Speci men Type: BLOOD SPECIMENOrdering Facility: [facility] Address: [address] [place] [address] Performed By: #### 5 7021-8 ####[facility] [id number] [place] [address] [place] Basophils/100 WBC (Bld) 0.2 % Normal [facility] Comment on above: Order Comment: Speci men Type: BLOOD SPECIMENOrdering Facility: [facility] Address: [address] [place] [address] Performed By: #### 5 7021-8 ####[facility] [id number] [place] [address] [place] Differential cell count method Nom (Bld) Auto Normal [facility] Comment on above: Order Comment: Speci men Type: BLOOD SPECIMENOrdering Facility: [facility] Address: [address] [place] [address] Performed By: #### 5 7021-8 ####[facility] [id number] [place] [id number] [place] Eosinophils (Bld) [#/Vol] 0.10 10*3/uL Normal <0.46 [facility] Comment on above: Order Comment: Speci men Type: BLOOD SPECIMENOrdering Facility: [facility] Address: [address] [place] [address] Performed By: #### 5 7021-8 ####[facility]A [id number] [place] [address] [place] Eosinophils/100 WBC (Bld) 1.2 % Normal [facility] Comment on above: Order Comment: Speci men Type: BLOOD SPECIMENOrdering Facility: [facility] Address: [address] [place] [address] Performed By: #### 5 7021-8 ####[facility] [id number] [place] [address] [place] Erythrocyte distribution width (RBC) [Ratio] 12.2 % Normal 11.5-15.0 [facility] Comment on above: Order Comment: Speci men Type: BLOOD SPECIMENOrdering Facility: [facility] Address: [address] [place] [address] Performed By: #### 5 7021-8 ####[facility] [id number] [place] [address] [place] Hematocrit (Bld) [Volume fraction] 34.6 % Low 36.0-46.0 [facility] Comment on above: Order Comment: Speci men Type: BLOOD SPECIMENOrdering Facility: [facility] Address: [address] [place] [address] Performed By: #### 5 7021-8 ####[facility] [id number] [place] [address] [place] Hemoglobin (Bld) [Mass/Vol] 12.0 g/dL Normal 11.5-15.5 [facility] Comment on above: Order Comment: Speci men Type: BLOOD SPECIMENOrdering Facility: [facility] Address: [address] [place] [address] Performed By: #### 5 7021-8 ####[facility] LUIS [id number] [place] [address] [place] Immature granulocytes (Bld) [#/Vol] 0.03 10*3/uL Normal <0.10 [facility] Comment on above: Order Comment: Speci men Type: BLOOD SPECIMENOrdering Facility: [facility] Address: [address] [place] [address] Performed By: #### 5 7021-8 ####[facility]ENTERFRANCISCO JA [id number] [place] [address] [place] Immature granulocytes/100 WBC (Bld) 0.4 % Normal [facility] Comment on above: Order Comment: Speci men Type: BLOOD SPECIMENOrdering Facility: [facility] Address: [address] [place] [address] Performed By: #### 5 7021-8 ####[facility] [id number] [place] [address] [place] Lymphocytes (Bld) [#/Vol] 1.40 10*3/uL Normal 1.00-4.00 [facility] Comment on above: Order Comment: Speci men Type: BLOOD SPECIMENOrdering Facility: [facility] Address: [address] [place] [address] Performed By: #### 5 7021-8 ####[facility] [id number] [place] [address] [place] Lymphocytes/100 WBC (Bld) 16.5 % Normal [facility] Comment on above: Order Comment: Speci men Type: BLOOD SPECIMENOrdering Facility: [facility] Address: [address] [place] [address] Performed By: #### 5 7021-8 ####[facility] [id number] [place] [address] [place] MCH (RBC) [Entitic mass] 30.4 pg Normal 26.0-34.0 [facility] Comment on above: Order Comment: Speci men Type: BLOOD SPECIMENOrdering Facility: [facility] Address: [address] [place] [address] Performed By: #### 5 7021-8 ####[facility] [id number] [place] [address] [place] MCHC (RBC) [Mass/Vol] 34.7 g/dL Normal 30.5-36.0 [facility] Comment on above: Order Comment: Speci men Type: BLOOD SPECIMENOrdering Facility: [facility] Address: [address] [place] [address] Performed By: #### 5 7021-8 ####[facility] [id number] [place] [address] [place] MCV (RBC) [Entitic vol] 87.6 fL Normal 80.0-100.0 [facility] Comment on above: Order Comment: Speci men Type: BLOOD SPECIMENOrdering Facility: [facility] Address: [address] [place] [address] Performed By: #### 5 7021-8 ####[facility] [id number] [place] [address] [place] Monocytes (Bld) [#/Vol] 0.46 10*3/uL Normal <0.87 [facility] Comment on above: Order Comment: Speci men Type: BLOOD SPECIMENOrdering Facility: [facility] Address: [address] [place] [address] Performed By: #### 5 7021-8 ####[facility] [id number] [place] [address] [place] Monocytes/100 WBC (Bld) 5.4 % Normal [facility] Comment on above: Order Comment: Speci men Type: BLOOD SPECIMENOrdering Facility: [facility] Address: [address] [place] [address] Performed By: #### 5 7021-8 ####[facility] [id number] [place] [address] [place] Neutrophils (Bld) [#/Vol] 6.47 10*3/uL Normal 1.45-7.50 [facility] Comment on above: Order Comment: Speci men Type: BLOOD SPECIMENOrdering Facility: [facility] Address: [address] [place] [address] Performed By: #### 5 7021-8 ####[facility] [id number] [place] [address] [place] Neutrophils/100 WBC (Bld) 76.3 % Normal [facility] Comment on above: Order Comment: Speci men Type: BLOOD SPECIMENOrdering Facility: [facility] Address: [address] [place] [address] Performed By: #### 5 7021-8 ####[facility] [id number] [place] [address] [place] Nucleated RBC (Bld) [#/Vol] 10*3/uL Normal <0.01 [facility] Comment on above: Order Comment: Speci men Type: BLOOD SPECIMENOrdering Facility: [facility] Address: [address] [place] [address] Performed By: #### 5 7021-8 ####[facility] [id number] [place] [address] [place] Nucleated RBC/100 WBC (Bld) [Ratio] 0.0 /100 WBC Normal [facility] Comment on above: Order Comment: Speci men Type: BLOOD SPECIMENOrdering Facility: [facility] Address: [address] [place] [address] Performed By: #### 5 7021-8 ####[facility] JEANENCDONI [id number] [place] [address] [place] Platelet mean volume (Bld) [Entitic vol] 9.3 fL Normal 9.0-12.7 [facility] Comment on above: Order Comment: Speci men Type: BLOOD SPECIMENOrdering Facility: [facility] Address: [address] [place] [address] Performed By: #### 5 7021-8 ####[facility]ERNCSunil [id number] [place] [address] [place] Platelets (Bld) [#/Vol] 252 10*3/uL Normal 150-400 [facility] Comment on above: Order Comment: Speci men Type: BLOOD SPECIMENOrdering Facility: [facility] Address: [address] [place] [address] Performed By: #### 5 7021-8 ####[facility]ERN[facility] [id number] [place] [address] [place] RBC (Bld) [#/Vol] 3.95 10*6/uL Normal 3.90-5.20 [facility] Comment on above: Order Comment: Speci men Type: BLOOD SPECIMENOrdering Facility: [facility] Address: [address] [place] [address] Performed By: #### 5 7021-8 ####[facility] [id number] [place] [address] [place] WBC (Bld) [#/Vol] 8.48 10*3/uL Normal 3.70-11.00 [facility] Comment on above: Order Comment: Speci men Type: BLOOD SPECIMENOrdering Facility: [facility] Address: [address] [place] [address] Performed By: #### 5 7021-8 ####[facility] [id number] [place] [id number] [place] Comprehensive metabolic 2000 panelOrdered By: Lana Gatica on 09-05-2024 Albumin [Mass/Vol] 4 g/dL 3.9 - 4.9 g/dL [facility] ALP [Catalytic activity/Vol] 51 U/L 34 - 123 U/L [facility] ALT [Catalytic activity/Vol] 18 U/L 7 - 38 U/L [facility] Anion gap [Moles/Vol] 13 mmol/L 8 - 15 mmol/L [facility] AST [Catalytic activity/Vol] 18 U/L 13 - 35 U/L [facility] Bilirubin [Mass/Vol] 0.3 mg/dL 0.2 - 1.3 mg/dL [facility] Calcium [Mass/Vol] 9.2 mg/dL 8.5 - 10. 2 mg/dL [facility] Chloride [Moles/Vol] 103 mmol/L 98 - 107 mmol/L [facility] CO2 [Moles/Vol] 18 mmol/L Low 22 - 30 mmol/L [facility] Creatinine [Mass/Vol] 0.6 mg/dL 0.58 - 0.96 mg/dL [facility] GFR/1.73 sq M.predicted among non-blacks MDRD (S/P/Bld) [Vol rate/Area] 127 mL/min/{1.73_m2} - PINF [facility] Comment on above: Estimated Glomerular Filtration Rate [...] [Mass/Vol] 90 mg/dL 74 - 99 mg/dL [facility] Comment on above: The Stateless Diabete s Association (ADA) provides guidance for [...] Standards of Medical Care in Diabetes 2016, Stateless Diabetes Association. Diabetes Care. 2016.39(Suppl 1). Interpretation and review of laboratory results Abnormal [facility] Potassium [Moles/Vol] 3.9 mmol/L 3.7 - 5.1 mmol/L [facility] Protein [Mass/Vol] 6.8 g/dL 6.3 - 8.0 g/dL [facility] Sodium [Moles/Vol] 134 mmol/L Low 136 - 144 mmol/L [facility] Urea nitrogen [Mass/Vol] 8 mg/dL 7 - 21 mg/dL [facility] Comprehensive metabolic 2000 panelon 09-05-2024 Albumin [Mass/Vol] 4.0 g/dL Normal 3.9-4.9 [facility] Comment on above: Order Comment: Kodi merino Type: BLOOD SPECIMENOrdering Facility: [facility] Address: [address] [place] [address] Performed By: #### 2 4323-8 ####[facility] [id number] [place] [address] [place] ALP [Catalytic activity/Vol] 51 U/L Normal 34-123 [facility] Comment on above: Order Comment: Lyni men Type: BLOOD SPECIMENOrdering Facility: [facility] Address: [address] [place] [address] Performed By: #### 2 4323-8 ####[facility] [id number] [place] [address] [place] ALT [Catalytic activity/Vol] 18 U/L Normal 7-38 [facility] Comment on above: Order Comment: Lyni men Type: BLOOD SPECIMENOrdering Facility: [facility] Address: [address] [place] [id number] Performed By: #### 2 4323-8 ####[facility] YUNG MILLTOWNCLIA [id number] [place] [address] [place] Anion gap [Moles/Vol] 13 mmol/L Normal 8-15 [facility] Comment on above: Order Comment: Speci men Type: BLOOD SPECIMENOrdering Facility: [facility] Address: [address] [place] [address] Performed By: #### 2 4323-8 ####[facility] MILLTOWNCLIA [id number] [place] [address] [place] AST [Catalytic activity/Vol] 18 U/L Normal 13-35 [facility] Comment on above: Order Comment: Speci men Type: BLOOD SPECIMENOrdering Facility: [facility] Address: [address] [place] [address] Performed By: #### 2 4323-8 ####[facility] ERWNCLIA [id number] [place] [address] [place] Bilirubin [Mass/Vol] 0.3 mg/dL Normal 0.2-1.3 [facility] Comment on above: Order Comment: Speci men Type: BLOOD SPECIMENOrdering Facility: [facility] Address: [facility] [place] [address] Performed By: #### 2 4323-8 ####[facility] MILLTOWNCLIA [id number] [place] [address] [place] Calcium [Mass/Vol] 9.2 mg/dL Normal 8.5-10.2 [facility] Comment on above: Order Comment: Speci men Type: BLOOD SPECIMENOrdering Facility: [facility] Address: [facility] [place] [address] Performed By: #### 2 4323-8 ####[facility] MILLWNCLIA [id number] [place] [id number] [place] Chloride [Moles/Vol] 103 mmol/L Normal 98-107 [facility] Comment on above: Order Comment: Speci men Type: BLOOD SPECIMENOrdering Facility: [facility] Address: [address] [place] [address] Performed By: #### 2 4323-8 ####[facility] [id number] [place] [address] [place] CO2 [Moles/Vol] 18 mmol/L Low 22-30 [facility] Comment on above: Order Comment: Speci men Type: BLOOD SPECIMENOrdering Facility: [facility] Address: [address] [place] [address] Performed By: #### 2 4323-8 ####[facility] [id number] [place] [address] [place] [place] Creatinine [Mass/Vol] 0.60 mg/dL Normal 0.58-0.96 [facility] Comment on above: Order Comment: Speci men Type: BLOOD SPECIMENOrdering Facility: [facility] Address: [address] [place] [address] Performed By: #### 2 4323-8 ####[facility] [id number] [address] [place] Creatinine and Glomerular filtration rate.predicted panel (S/P/Bld) 127 mL/min/1.73m??? Normal >=60 [facility] Comment on above: Order Comment: Speci men Type: BLOOD SPECIMENOrdering Facility: [facility] Address: [address] [place] [address] Result Comment: Nichelle mated Glomerular Filtration Rate [...] actual GFR. Performed By: #### 2 4323-8 ####[facility] SONWNCLIA [id number] [place] [address] [place] Glucose [Mass/Vol] 90 mg/dL Normal 74-99 [facility] Comment on above: Order Comment: Speci men Type: BLOOD SPECIMENOrdering Facility: [facility] Address: [address] [place] [address] Result Comment: The Stateless Diabetes Association (ADA) provides guidance for cutoff [...] Standards of Medical Care in Diabetes 2016, Stateless Diabetes Association. Diabetes Care. 2016.39(Suppl 1). Performed By: #### 2 4323-8 ####[facility] [id number] [place] [address] [place] Potassium [Moles/Vol] 3.9 mmol/L Normal 3.7-5.1 [facility] Comment on above: Order Comment: Speci men Type: BLOOD SPECIMENOrdering Facility: [facility] Address: [address] [place] [address] Performed By: #### 2 4323-8 ####[facility] [id number] [place] [address] [place] Protein [Mass/Vol] 6.8 g/dL Normal 6.3-8.0 [facility] Comment on above: Order Comment: Speci men Type: BLOOD SPECIMENOrdering Facility: [facility] Address: [address] [place], [place] [address] Performed By: #### 2 4323-8 ####[facility] [id number] [place] [address] [place] Sodium [Moles/Vol] 134 mmol/L Low 136-144 [facility] Comment on above: Order Comment: Speci men Type: BLOOD SPECIMENOrdering Facility: [facility] Address: [address] [place] [address] Performed By: #### 2 4323-8 ####[facility] [id number] [place] [address] [place] Urea nitrogen [Mass/Vol] 8 mg/dL Normal 7-21 [facility] Comment on above: Order Comment: Speci men Type: BLOOD SPECIMENOrdering Facility: [facility] Address: [address] [place] [address] Performed By: #### 2 4323-8 ####[facility] [id number] [place] [address] [place] HBV surface Ag Ql (S)on 08-26 Interpretation and review of laboratory results Normal [facility] HBV surface Ag Ser Qlon 08-26 HBV surface Ag Ql (S) Negative Normal Negative [facility] Comment on above: Order Comment: Speci men Type: BLOOD SPECIMEN [facility] Address: [address] [place] [address] Performed By: #### 5 8410-2 #### [facility] CLIA [id number] [address] [place] [address] [place] HCV Ab Ql (S)on 09-05-2024 Interpretation and review of laboratory results Normal [facility] HCV Ab Ser Qlon 09-05-2024 HCV Ab Ql (S) Negative Normal Negative [facility] Comment on above: Order Comment: Speci men Type: BLOOD SPECIMENOrdering Facility: [facility] Address: [address] [place] [address] Result Comment: The result suggests no evidence of infection with Hepatitis C virus. Should recent infection be suspected, repeat testing may be considered 4-6 weeks after this draw. Performed By: #### 1 6128-1 ####[facility] LABCLIA [id number] [place] [address] [place] HEPATITIS B SURFACE ANTIGENo n 09-05-2024 HBV surface Ag Ql (S) Negative Negative [facility] HEPATITIS C ANTIBODY IA WITH CONFIRMATIONon 09-05-2024 HCV Ab Ql (S) Negative Negative [facility] Comment on above: The result suggests no evidence of infection with Hepatitis C virus. Should recent infection be suspected, repeat testing may be considered 4-6 weeks after this draw. HGB ELECTROPHORESIS FOR EVAL (LAB ORDER)on 09-05-2024 Hemoglobin A (Bld) [Mass fraction] 97.6 % Normal 96.2-98.0 [facility] Comment on above: Order Comment: Speci men Type: BLOOD SPECIMENOrdering Facility: [facility] Address: [address] [place] [address] Performed By: #### H GBISRRAELV, [id number] ####[facility] LABCLIA [id number] [place] [address] [place] Hemoglobin A2 (Bld) [Mass fraction] 2.4 % Normal 2.0-3.1 [facility] Comment on above: Order Comment: Speci men Type: BLOOD SPECIMENOrdering Facility: [facility] Address: [address] [place] [address] Performed By: #### H GBELEV, [id number] ####[facility] LABCLIA [id number] [place] [address] [place] Hemoglobin Unsp Elph (Bld) [Mass fraction] No abnormal hemoglobin identified. Normal No abnormal hemoglobin identified. [facility] Comment on above: Order Comment: Speci men Type: BLOOD SPECIMENOrdering Facility: [facility] Address: [address] [place] [address] Performed By: #### H GBELEV, [id number] ####[facility] LABCLIA [id number] [place] [address] [place] HGB EVALUATION CASCADE INTER David 09-05-2024 Hemoglobin pattern (Bld) [Interp] Reviewed by Jenna Gerber M.D. Normal [facility] Comment on above: Order Comment: Speci men Type: BLOOD SPECIMENOrdering Facility: [facility] Address: [address] [place] [address] Performed By: #### H REMINGTONV, [id number] ####[facility] LABCLIA [id number] [address] [place] INTERPRETATION (HGB EVAL) Normal [facility] Comment on above: Order Comment: Speci men Type: BLOOD SPECIMENOrdering Facility: [facility] Address: [address] [place] [address] Result Comment: Hemo globins were analyzed by capillary electrophoresis and CBC red cell parameters were reviewed. No abnormal hemoglobin is identified. There is a normal hemoglobin capillary electrophoresis pattern. Performed By: #### H VA, [id number] ####[facility] LABCLIA [id number] [place] [address] [place] HIV 1+2 Ab IA Qlon HIV 1 and 2 Ab IA.rapid Nom (S/P/Bld) [facility] Comment on above: Test not indicated. HIV 1+2 Ab+HIV1 p24 Ag IA Ql Non-Reactive Nonreactive [facility] HIV immunoassay testing algorithm interpretation (S/P/Bld) [Interp] [facility] Comment on above: No evidence of HIV-1 or HIV-2 infection. Should recent infection be suspected, repeat testing may be considered 2-3 weeks after this draw. [place] Rev. Code 3701.243(E): This information has been [...] release of HIV test results or diagnoses. [facility] HIV 1 and 2 Ab IA.rapid Nom (S/P/Bld) Normal [facility] Comment on above: Order Comment: Speci men Type: BLOOD SPECIMEN [facility] Address: [address] [place] [address] Result Comment: Test not indicated. Performed By: #### 5 8410-2 #### [facility] CLIA [id number] [address] [place] [address] [place] HIV 1+2 Ab+HIV1 p24 Ag IA Ql Non-Reactive Normal Nonreactive [facility] Comment on above: Order Comment: Speci men Type: BLOOD SPECIMEN [facility] Address: [address] [place] [address] Performed By: #### 5 8410-2 #### [facility] CLIA [id number] [address] [place] [address] [place] HIV immunoassay testing algorithm interpretation (S/P/Bld) [Interp] Normal [facility] Comment on above: Order Comment: Speci men Type: BLOOD SPECIMEN [facility] Address: [address] [place] [address] Result Comment: No e vidence of HIV-1 or HIV-2 infection. Should recent infection be suspected, repeat testing may be considered 2-3 weeks after this draw. [place] Rev. Code 3701.243(E): This information has been [...] 5 8410-2 #### [facility] CLIA [id number] [address] [place] [address] [place] HbA1c (Bld)on 09-05-2024 Average glucose Estimated from glycated hemoglobin (Bld) [Mass/Vol] 126 mg/dL [facility] Comment on above: eAG: (Estimated aver age glucose) is a calculated value from HgbA1c and is manufacturing sales representative of the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 [address] Sodium [Moles/Vol] 137 mmol/L Normal 136 - 145 [facility] Comment on above: Performed By: #### B MP ####[id number] [place] [address] Urea nitrogen [Mass/Vol] 9 mg/dL Normal 6 - 23 [facility] Comment on above: Performed By: #### B MP ####[id number] [place] [address] CBCon 07-10-2020 Erythrocyte distribution width (RBC) [Ratio] 12.5 % Normal 11.5 - 14.5 [facility] Comment on above: Performed By: #### C BC #### [facility] [address] [place] [address] Hematocrit (Bld) [Volume fraction] 35.3 % Low 36.0 - 46.0 [facility] Comment on above: Performed By: #### C BC #### [facility] [address] [place] [address] Hemoglobin (Bld) [Mass/Vol] 11.9 g/dL Low 12.0 - 16.0 [facility] Comment on above: Performed By: #### C BC #### [facility] [address] [place] [address] MCHC (RBC) [Mass/Vol] 33.7 g/dL Normal 32.0 - 36.0 [facility] Comment on above: Performed By: #### C BC #### [facility] [address] [place] [address] MCV (RBC) [Entitic vol] 93 fL Normal 80 - 100 [facility] Comment on above: Performed By: #### C BC #### [place] [address] [place] [address] NUCLEATED RBC 0.0 /100 WBC Normal 0.0-0.0 [facility] Comment on above: Performed By: #### C BC #### [facility] [address] [place] [address] Platelets (Bld) [#/Vol] 209 10*3/uL Normal 150 - 450 [facility] Comment on above: Performed By: #### C BC #### [place] [address] [place] [address] RBC 3.81 x10E12/L Low 4.00 - 5.20 [facility] Comment on above: Performed By: #### C BC #### [facility] [address] [place] [address] WBC (Bld) [#/Vol] 13.1 10*3/uL High 4.4 - 11.3 [facility] Comment on above: Performed By: #### C BC #### [facility] [address] [place] [address] Admission Risk Screen - Adul ton 07-09-2020 [...] Learning Preferenceswritten material Cultural Considerationsnone Developmental Considerationsnone Mandaeism Considerationsnone Learning Assessment (Other Learner): Other learner availableno Depression Screen: During the past month, have you often been bothered by feeling down, depressed or hopelessno During the past month, have you often had little interest or pleasure in doing thingsno Have you had any thoughts of harming anyone elseno [place] Suicide: Risk Screen Not Applicable/Able to Answerable [...] Was this within the past 3 monthsno [place] Suicide Riskmoderate Adult Nutrition Screen: Have you [...] Spiritual Screen: Are there any cultural, spiritual, latter-day practices/values/needs that are important for us to knowno CAGE: Is this an injured patient at a Trauma Center ([facility]/[place]/Prabhakar/Sameer Barron/Fabien): no Vaccinations: Vaccination - Influenza Vaccination Screen: Is it flu season (between and June 25)No Vaccination - Pneumonia Vaccination Screen: Patient has received a previous pneumonia vaccine:no/unknown... Immunocompetent persons with underlying chronic conditions or reside in penitentiary care facilitiesnone of these conditions Persons with [...] l (more content not included)... Normal [facility] Discharge [id number] 021 Discharge Profile2 Discharge Orders: Anticipated Discharge Date: Anticipated Discharge [id number] DNAR: DNAR Status: none Activity: activity as [...] If: Any questions, problems or concerns. Call [phone] to have the SPRING SETTER Provider paged. Severe abdominal pain. Some discomfort is expected. Fever greater than 100.4 degree Fahrenheit. Heavy vaginal bleeding, soaking a large pad every 1 hour & passing large clots. Severe nausea and vomiting. Follow-Up - SPRING SETTER Provider: Physician/Dept/ServiceGYN Provider CommentsPlease call your primary faculty dean to schedule a follow-up visit in 2 weeks. Provider FINAL REVIEW of Orders: Final Review: Final Review of Medication Reconciliation and Orders Completedby Physician Reviewing ProviderPhilippe Dickson MD (Resident) at 10-Jul-2020 08:01:26 Appointments: Follow-Up Appointment 01: Physician/Dept/ServiceDr. Carolee Munoz - TRIMMER SORTER Reason for Referralpost op Scheduled Date/[id number] 14:00 [facility], [address] [place] [address] [address] Floor, [place] [address] Phone [phone] CommentsPlease wear a mask when entering the building. Please arrive 10-15 minutes early, bring photo ID, current list of medications & dosages, insurance cards and any copay that may apply. If unable to keep this appointment, please call to cancel at least 24 hrs prior to appointment. Other Clinician Instructions: Other Instructions: Nursing InstructionsCall your SPRING SETTER care provider for fever/chills. Nausea/vomiting. Increased pain. [...] Orders, Other Clinician Instructions, Gold Form - Senior Software Quality Analyst Summary Mariann Mccord ( (Resident)) (Signed 09-Jul-2020 14:44) Authored: Discharge Orders, Provider FINAL REVIEW of Orders Last Updated: 10-Jul-2020 08:01 by Philippe Dickson (Resident)) [facility] Order Reconciliationon 07-09 Order Reconciliation Page 1 [...] be shared with your follow-up providers (doctor, social work msw, physical therapist, etc.). Guidelines for a Healthy [...] mg (more content not included)... Normal [facility] Order Reconciliation Page 1 Transfer Reconciliation Document [...] 09-Jul-2020 02:24 Additional Home Medications Normal [facility] Order Reconciliation Page 1 Admission Reconciliation Document [...] 12 Hours and as Needed Normal [facility] Preop Checkliston 07-09-2020 Preop Checklist Preop Checklist: Preop Checklist: Arrival [id number] Arrival Time13:45 Procedure Typediagnostic lap Temperature C36.5 degrees C Temperature F97.7 degrees F Heart Rate89 beats per minute Respiratory Rate16 breath per minute Blood Pressure Oxokjzkr905 mm/Hg Blood Pressure Ywrzrkzbh88 mm/Hg NPO [id number] 00:01 ID Band Onyes Allergy Bandno known [...] 13:59 by Lora Retana (RN) Normal [facility] TYPE + SCREENon 07-09-2020 ABO TYPE A Normal [facility] Comment on above: Performed By: #### T +S ####[id number] [place] [address] RH TYPE Positive Normal [facility] Comment on above: Performed By: #### T +S ####[id number] Surgical Pathology Depar tmenton 07-09-2020 [facility] Surgical Pathology Department Name BRONWYN HIGGINBOTHAM Pathologist: FIDENCIO FINK MD Date of Procedure: 07/09/2020 Date Received: 07/09/2020 Date Reported 07/24/2020 Submitting Physician: UZAIR STOKES M.D. Location: [facility] Copy To/Referring/Attending: UZAIR STOKES M.D. Other [...] 24yo G0 presents as a transfer from [facility] with concern for torsion Specimens [...] is not identified. A photograph is taken. Time Study Statistician sections are submitted in 6 cassettes. AXQ Summary of Cassettes: Specimen Label Site A 1-4 manufacturing sales representative sections of cyst wall 5-6 cyst contents [facility] Department of Pathology [address] [place] [address] [facility] Comment on above: Performed By: #### U [facility] ####[facility] Surgical Pathology [id number] [facility] [address] US DUPLX ART/VEIN ABon 07-09 US DUPLX ART/VEIN AB Patient Name: BRONWYN HIGGINBOTHAM STUDY: US PELVIS; 07/09/2020 5:01 am INDICATION: pelvic pain, known dermoid, concern for torsion. COMPARISON: None. ACCESSION NUMBER(S): [id number] ORDERING CLINICIAN: ROSA PORTILLO TECHNIQUE: Multiple multiplanar [...] signed by: VALENTINA JOHNSON MD Normal [facility] US PELVISon 07-09-2020 US PELVIS Patient Name: BRONWYN HIGGINBOTHAM STUDY: US PELVIS; 07/09/2020 5:01 am INDICATION: pelvic pain, known dermoid, concern for torsion. COMPARISON: None. ACCESSION NUMBER(S): [id number] ORDERING CLINICIAN: ROSA POTRILLO TECHNIQUE: Multiple multiplanar static diaz scale, color [...] signed by: VALENTINA JOHNSON MD Normal [facility] XR ANKLE LEFT 3+ VIEWS (MIRTA ANTHONY)on 02-08-2019 Posterior and latera l malleolar fractures are again noted with suggestion of interval healing. [employer] Workstation ID: [id number] [facility] EXAMINATION: XR ANKL E LEFT 3+ VIEWS [...] obscured suggesting interval healing. Alignment is stable. [facility] Interface, Rad In Jason ji Speechq - [...] again noted with suggestion of interval healing. [employer] Workstation ID: [id number] [facility] XR ANKLE LEFT 3+ VIEWS (STANDARD) EXAMINATION: [...] again noted with suggestion of interval healing. [employer] Workstation ID: [id number] Dictated by: LETY WHITAKER on TueFeb 08, 2019 3:57:16 PM EST Transcribed by: TONY VALDIVIA on TueFeb 08, 2019 4:03:45 PM EST Finalized by: LETY WHITAKER on Radha Feb 08, 2019 4:16:46 PM EST [facility] Comment on above: Order Comment: Injur [...] AM EDT Finalized by: SAMRA CARABALLO on [facility] Jan 11, 2019 9:33:48 AM EDT [facility] Comment on above: Order Comment: Injur [...] new changes are noted. Workstation ID: [id number] [facility] EXAMINATION: XR ANKL E LEFT 3+ VIEWS [...] tissue mass or foreign body is noted. [facility] Interface, Rad In Fu ji Speechq - [...] new changes are noted. Workstation ID: [id number] [facility] XR ANKLE LEFT 3+ VIEWS (MIRTA DARD)on 12-25-2018 Nondisplaced distal posterior tibia and fibular metaphyseal fractures are noted. Ankle mortise appears intact. Clinical picture may warrant additional CT evaluation. RWA/pji Workstation ID: [id number] [facility] EXAMINATION: XR ANKL E LEFT 3+ VIEWS (STANDARD) HISTORY: Pain R52. [place] stress and weightbearing views requested for joint stabilization. COMPARISON: 12/18/2018 [facility]. TECHNIQUE: Erect AP, cross-fire lateral [...] metaphysis is noted. Ankle mortise appears intact. [facility] Interface, Rad In Fu ji Speechq - 12/25/2018 2:03 PM EDT EXAMINATION: XR ANKLE LEFT 3+ VIEWS (STANDARD) HISTORY: Pain R52. [place] stress and weightbearing views requested for joint stabilization. COMPARISON: 12/18/2018 [facility]. TECHNIQUE: Erect AP, cross-fire lateral [...] Clinical picture may warrant additional CT evaluation. [employer] Workstation ID: [id number] [facility] XR ANKLE LEFT 3+ VIEWS (STANDARD) EXAMINATION: XR ANKLE LEFT 3+ VIEWS (STANDARD) HISTORY: Pain R52. [place] stress and weightbearing views requested for joint stabilization. COMPARISON: 12/18/2018 left ankle [facility]. TECHNIQUE: Erect AP, cross-fire lateral [...] Clinical picture may warrant additional CT evaluation. [employer] Workstation ID: [id number] Dictated by: NEERU ONEAL on TueDec 25, 2018 1:40:16 PM EDT Transcribed by: TONY VALDIVIA on TueDec 25, 2018 1:42:37 PM EDT Finalized by: NEERU ONEAL on TueDec 25, 2018 2:01:04 PM EDT [facility] Comment on above: Order Comment: Injur [...] auto-finalized and does not contain a result. [facility] XR Ankle 3+ Views Lefton XR Ankle 3+ Views Left Exam Date/Time: 12/18/2018 13:40 EDT Reason for Exam: Fall Report STUDY: XR Ankle 3+ Views Left;; 12/18/2018 1:40 pm INDICATION: Fall. COMPARISON: None. ACCESSION NUMBER(S): [id number] ORDERING CLINICIAN: Dickson Pacheco FINDINGS: An oblique [...] Pablo Garcia MD Technologist: NICOLE [facility] XR Foot 3+ Views Lefton 11-27 XR Foot 3+ Views Left Exam Date/Time: 12/18/2018 13:40 EDT Reason for Exam: Sprain/Strain Report STUDY: XR Foot 3+ Views Left;; 12/18/2018 1:40 pm INDICATION: Sprain/Strain. COMPARISON: None. ACCESSION NUMBER(S): [id number] ORDERING CLINICIAN: Dickson Pacheco FINDINGS: An oblique [...] Pablo Garcia MD Technologist: Lucinda [facility] Vital Signs Date Time Vital Sign Value Performing Clinician Facility 11-16-2024 12:59-0400 Body mass index (BMI) [Ratio] 37.11 kg/m2 Bea Rose MD Work Phone: [facility] 11-16-2024 12:59-0400 Body weight 98.07 kg Bea Rose MD Work Phone: [facility] 11-16-2024 12:59-0400 Diastolic blood pressure 70 mm[Hg] Bea Rose MD Work Phone: [facility] 11-16-2024 12:59-0400 Systolic blood pressure 110 mm[Hg] Bea Rose MD Work Phone: [facility] 10-18-2024 14:45-0400 Body mass index (BMI) [Ratio] 36.73 kg/m2 Jo Leo MD Work Phone: [facility] 10-18-2024 14:45-0400 Body weight 97.07 kg Jo Leo MD Work Phone: [facility] 10-18-2024 14:45-0400 Diastolic blood pressure 68 mm[Hg] Jo Leo MD Work Phone: [facility] 10-18-2024 14:45-0400 Systolic blood pressure 122 mm[Hg] Jo Leo MD Work Phone: [facility] 10-03-2024 14:41-0400 Body mass index (BMI) [Ratio] 37.76 kg/m2 Tricia Carty MD Work Phone: [facility] 10-03-2024 14:41-0400 Body weight 99.79 kg Tricia Carty MD Work Phone: [facility] 10-03-2024 14:41-0400 Diastolic blood pressure 66 mm[Hg] Tricia Carty MD Work Phone: [facility] 10-03-2024 14:41-0400 Systolic blood pressure 124 mm[Hg] Tricia Carty MD Work Phone: [facility] 09-18-2024 14:11-0400 Body mass index (BMI) [Ratio] 37.93 kg/m2 Bea Rose MD Work Phone: [facility] 09-18-2024 14:11-0400 Body weight 100.25 kg Bea Rose MD Work Phone: [facility] 09-18-2024 14:11-0400 Diastolic blood pressure 62 mm[Hg] Bea Rose MD Work Phone: [facility] 09-18-2024 14:11-0400 Systolic blood pressure 118 mm[Hg] Bea Rose MD Work Phone: [facility] 09-18-2024 12:50-0400 Diastolic blood pressure 75 mm[Hg] Kelvin Thompson MD Work Phone: [facility] 09-18-2024 12:50-0400 Systolic blood pressure 108 mm[Hg] Kelvin Thompson MD Work Phone: [facility] 09-18-2024 12:43-0400 Body mass index (BMI) [Ratio] 37.93 kg/m2 Kelvin Thompson MD Work Phone: [facility] 09-18-2024 12:43-0400 Body weight 100.25 kg Kelvin Thompson MD Work Phone: [facility] 09-05-2024 09:31-0400 Body height 162.6 cm Kendall Delgado DINING SERVICE SUPERVISOR.BLADDER TRIMMER Work Phone: [facility] 09-05-2024 09:31-0400 Body mass index (BMI) [Ratio] 38.11 kg/m2 Kendall Haury DINING SERVICE SUPERVISOR.BLADDER TRIMMER Work Phone: [facility] 09-05-2024 09:31-0400 Body weight 100.7 kg Kendall Haury DINING SERVICE SUPERVISOR.BLADDER TRIMMER Work Phone: [facility] 09-05-2024 09:31-0400 Diastolic blood pressure 70 mm[Hg] Kendall Haury DINING SERVICE SUPERVISOR.BLADDER TRIMMER Work Phone: [facility] 09-05-2024 09:31-0400 Systolic blood pressure 130 mm[Hg] Kendall Haury DINING SERVICE SUPERVISOR.BLADDER TRIMMER Work Phone: [facility] 09-14-2021 03:26-0400 Diastolic blood pressure 87 mm[Hg] No Pcp Required [facility] 09-14-2021 03:26-0400 Heart rate 84 /min No Pcp Required [facility] 09-14-2021 03:26-0400 Respiratory rate 16 /min No Pcp Required [facility] 09-14-2021 03:26-0400 SaO2% (BldA) [Mass fraction] 99 % No Pcp Required [facility] 09-14-2021 03:26-0400 Systolic blood pressure 141 mm[Hg] No Pcp Required [facility] 02-08-2019 09:45-0500 BP Diastolic 84 mm[Hg] Kendall Kemp [facility] 02-08-2019 09:45-0500 BP Systolic 136 mm[Hg] Kendall Kemp [facility] 02-08-2019 09:45-0500 Pulse (Heart Rate) 92 /min Kendall Kemp [facility] 01-11-2019 08:40-0400 BP Diastolic 90 mm[Hg] Kendall Kemp [facility] 01-11-2019 08:40-0400 BP Systolic 150 mm[Hg] Kendall Kemp [facility] 01-11-2019 08:40-0400 Pulse (Heart Rate) 85 /min Kendall Kemp [facility] 12-25-2018 11:14-0400 BP Diastolic 85 mm[Hg] Kendall Kemp [facility] 12-25-2018 11:14-0400 BP Systolic 138 mm[Hg] Kendall Kemp [facility] 12-25-2018 11:14-0400 Pulse (Heart Rate) 83 /min Kendall Kemp [facility] Encounters Encounter Date Encounter Type Care Provider Facility Start: 02-05-2025 End: 02-05-2025 ambulatory MARY MCDANIEL Facility:[facility] Start: 02-05-2025 End: 02-05-2025 ambulatory BEA ROSE Facility:[facility] Start: 02-01-2025 End: 02-01-2025 ambulatory BEA ROSE Facility:[facility] Start: 01-21-2025 End: 01-21-2025 ambulatory JO LEO Facility:[facility] Start: 01-04-2025 End: 01-04-2025 ambulatory TRICIA CARTY Facility:[facility] Start: 12-14-2024 End: 12-14-2024 ambulatory TRICIA CARTY Facility:[facility] Start: 11-16-2024 End: 11-16-2024 Patient [...] Start: 11-16-2024 End: 11-16-2024 ambulatory KENDALL EVELIN Facility:[facility] Start: 11-06-2024 End: 11-06-2024 Patient encounter procedure Marah Barajas 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 ([facility]); Severe obesity with body mass index (BMI) of 35.0 to 39.9 with comorbidity ([facility]); 16 weeks gestation of ([facility]) Start: 10-18-2024 End: 10-18-2024 Refill Jo Leo MD Work Phone: OB/Gynecology Comment on above: Med Change Request Start: 10-18-2024 End: 10-18-2024 Telephone encounter Kendall Delgado APRN.BLADDER TRIMMER Work Phone: OB/Gynecology Comment on above: Endo Dietitian educa tion Start: 10-18-2024 End: 10-18-2024 ambulatory KELVIN THOMPSON Facility:[facility] Start: 10-17-2024 End: 10-17-2024 Orders Only Kendall Delgado APRN.BLADDER TRIMMER Work Phone: OB/Gynecology Comment on above: Diet controlled gest ational diabetes mellitus (GDM) in second trimester ([facility]) (Primary Dx) Start: 10-03-2024 End: 10-03-2024 Office outpatient visit 15 minutes Tricia Carty MD Work Phone: OB/Gynecology Comment on above: 14 weeks gestation o f ([facility]) (Primary Dx); Chronic hypertension affecting ([facility]); Diet controlled gestational diabetes mellitus (GDM) in first trimester ([facility]); Rubella non-immune status, antepartum ([facility]) Start: 10-03-2024 End: 10-03-2024 ambulatory TRICIA CARTY Facility:[facility] Start: 09-25-2024 End: 09-25-2024 Nursing evaluation of patient and report Lucero Mireles RN Work Phone: Endocrinology Comment on above: Diet controlled gest ational diabetes mellitus (GDM) in first trimester ([facility]) Start: 09-25-2024 End: 09-25-2024 ambulatory KENDALL DELGADO Facility:[facility] Start: 09-18-2024 End: 09-18-2024 ambulatory KELVIN R JESSICA Facility:[facility] Start: 09-18-2024 End: 09-18-2024 Patient encounter procedure Whi Tech 1 Low Vision Therapist Mfm [facility]str [facility] Maternal Medicine Comment on [...] trimester (HCC); Chronic hypertension affecting ([facility]); 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, antepartum ([facility]) Start: 09-18-2024 End: 09-18-2024 ambulatory KELVIN THOMPSON Facility:[facility] Start: 09-14-2024 End: 11-14-2024 Follow-up encounter Kendall Delgado APRN.CNP Work Phone: OB/Gynecology Comment on above: Results Start: 09-14-2024 End: 09-14-2024 ambulatory KENDALLJOSE DELGADO Facility:[facility] Start: 09-07-2024 End: 11-07-2024 Follow-up encounter Kendall Delgado APRN.BLADDER TRIMMER Work Phone: OB/Gynecology Comment on above: Results Start: 09-07-2024 End: 09-07-2024 ambulatory KENDALLJOSE QUEZADAJOSEFA Facility:[facility] Start: 09-06-2024 End: 11-06-2024 Follow-up encounter Kendall Delgado APRN.BLADDER TRIMMER Work Phone: OB/Gynecology Comment on above: Results Start: 09-06-2024 End: 09-06-2024 Telephone encounter Tricia Lambert RN Maternal Medic ine Comment on above: Latin Dancer - O ther (PRAF) Start: 09-05-2024 End: 09-05-2024 ambulatory KENDALL DAMIENJOSEFA Facility:[facility] Start: 09-05-2024 End: 09-05-2024 Patient [...] use during in first trimester ([facility]); Nausea and vomiting during ([facility]); History of alcohol abuse Start: 09-05-2024 End: 09-05-2024 ambulatory KENDALL DELGADO Facility:[facility] Start: 06-08-2022 End: 06-08-2022 Emergency department patient visit Mariana Quiroga Jennifer [facility] Emergency 13 Start: 09-14-2021 End: 09-14-2021 Emergency department patient visit Doug Damicojuan [facility] Emergency 11 Start: 02-26-2019 End: 03-02-[address] [facility] Start: 02-26-2019 End: 02-26-2019 Patient encounter procedure Kendall Kemp Work Phone: [facility] Comment on above: Bimalleolar ankle fr acture, left, closed, initial encounter (Primary Dx) Start: 02-21-2019 End: 02-25-[address] [facility] Start: 02-21-2019 End: 02-21-2019 Patient encounter procedure Kendall Kemp Work Phone: [facility] Comment on above: Bimalleolar ankle fr acture, left, closed, initial encounter (Primary Dx) Start: 02-15-2019 End: 02-19-2019 Patient encounter procedure KENDALL [facility] Start: 02-15-2019 End: 02-15-2019 Patient encounter procedure [facility]all [facility]emp [facility] Comment on above: Bimalleolar ankle fr acture, left, closed, initial encounter (Primary Dx) Start: 02-13-2019 End: 02-17-[address] [facility] Start: 02-13-2019 End: 02-13-2019 Patient encounter procedure Kendall Kemp Work Phone: [facility] Comment on above: Bimalleolar ankle fr acture, left, closed, initial encounter (Primary Dx) Start: 02-08-2019 End: 02-09-2019 Patient encounter procedure KENDALL KEMP [facility] Start: 02-08-2019 End: 02-08-2019 Subsequent hospital visit by physician Kendall Kemp Work Phone: [facility] Comment on above: Bimalleolar ankle fr acture, left, closed, initial encounter Start: 02-08-2019 End: 02-08-2019 Office outpatient visit 15 minutes Kendall Kemp Work Phone: [facility] Comment on above: Bimalleolar ankle fr acture, left, closed, with routine healing, subsequent encounter (Primary Dx) Start: 02-07-2019 End: 02-11-2019 Patient encounter procedure KENDALLJOSE TURNER [facility] Start: 02-07-2019 End: 02-07-2019 Patient encounter procedure Kendall Kemp Work Phone: [facility] Comment on above: Bimalleolar ankle fr acture, left, closed, initial encounter (Primary Dx) Start: 02-05-2019 End: 02-09-2019 Patient encounter procedure KENDALLJOSE TURNER [facility] Start: 02-05-2019 End: 02-05-2019 Patient encounter procedure Kendall Kemp Work Phone: [facility] Comment on above: Bimalleolar ankle fr acture, left, closed, initial encounter (Primary Dx) Start: 02-01-2019 End: 02-05-2019 Patient encounter procedure KENDALL TURNER [facility] Start: 02-01-2019 End: 02-01-2019 Patient encounter procedure Kendall Kemp Work Phone: [facility] Comment on above: Bimalleolar ankle fr acture, left, closed, initial encounter Start: 01-11-2019 End: 01-12-2019 Patient encounter procedure KENDALL KEMP [facility] Start: 01-11-2019 End: 01-11-2019 Subsequent hospital visit by physician Kendall Kemp Work Phone: [facility] Comment on above: Bimalleolar ankle fr acture, left, closed, initial encounter Start: 01-11-2019 End: 01-11-2019 Office outpatient visit 15 minutes Kendall Kemp Work Phone: [facility] Comment on above: Bimalleolar ankle fr acture, left, closed, initial encounter (Primary Dx) Start: 12-25-2018 End: 12-26-2018 Patient encounter procedure PROVIDER NOT IN [facility] Start: 12-25-2018 End: 12-25-2018 Subsequent hospital visit by physician Provider Not In [facility] External Films Comment on above: Arrived Pain Start: 12-25-2018 End: 12-25-2018 Office outpatient new 30 minutes Kendall Kemp Work Phone: [facility] Comment on above: Bimalleolar ankle fr acture, left, closed, initial encounter (Primary Dx) Procedures Date Procedure Procedure Detail Performing Clinician Start: 11-16-2024 Us preg uterus after 1st trimest 1/1st gestation Kendall Delgado APRN.BLADDER TRIMMER Work Phone: Start: 10-18-2024 Us preg uterus after 1st trimest 1/1st gestation Kelvin Thompson MD Work Phone: Start: 09-18-2024 Urnls dip stick/tabl et rgnt non-auto w/o micrscp Bea Rose MD Work Phone: Start: 09-18-2024 Us preg uterus after 1st trimest 1/1st gestation Kendall Delgado APRN.BLADDER TRIMMER Work Phone: Start: 09-05-2024 Antibody screen KELVIN THOMPSON Comment on above: Order Comment: Speci men Type: BLOOD SPECIMENOrdering Facility: [facility] Address: [address] [place] [address] Performed By: #### T SPN ####CC MAIN BLOOD BANKCLIA [id number] [address] [place] Start: 09-05-2024 Us uterus l imited 1/> fetuses Kendall Delgado DINING SERVICE SUPERVISOR.BLADDER TRIMMER Work Phone: Start: 06-08-2022 End: 06-08-2022 EKG impression Aurelio Spence Start: 07-09-2020 Antibody screen Comment on above: Performed By: #### T +S ####[id number] [place] [address] Start: 02-08-2019 X-ray of left ankle Sarina [...] RSV Vaccine (1 - 1-dose 75+ series) [facility] Start: 09-06-2027 Screening for malign ant neoplasm of cervix Cervical Cancer Screening [facility] Start: 02-02-2025 RSV Vaccine (1 - Ris k 1-dose series) RSV Vaccine (1 - Risk 1-dose series) [facility] Start: 12-14-2024 End: 12-14-2024 Patient encounter procedure OB/Gynecology Comment on above: OB OB-needs growth ultr asounds ordered Start: 11-26-2024 Influenza vaccination [facility] Start: 11-16-2024 End: 11-16-2024 Patient encounter procedure Maternal Medicine Comment on above: NEEDS TO RESH Anatom y OB Start: 11-06-2024 End: 11-06-2024 Patient encounter procedure 11/06/2024 11:00 AM EDT [facility] [address] [place] [address] Marah Barajas, [facility] [address] [place] [address] Encounter for supervision of high risk in [...] EDT Nurse Visit Diabetic Education Main X20 [address] [place] [address] Alexis Obrien, LUCINDA Supervision of high risk [...] Office Visit OB/Gynecology [address] [place], [place] [id number] Tricia Carty MD [address] [place], [place] [id number] OB OB/Gynecology Comment on above: OB Start: 09-25-2024 End: 09-25-2024 Nursing evaluation of patient and report 09/25/2024 4:00 PM EDT Nurse Visit Endocrinology [address] [place], [place] [id number] Lucero Mireles, LUCINDA [address] [address] Diet controlled gestational diabetes mellitus (GDM) in first trimester (HCC) [O24.410] Endocrinology Comment on above: Diet controlled gest ational diabetes mellitus (GDM) in first trimester (HCC) [O24.410] Start: 09-18-2024 End: 12-18-2024 Chromosome 21 trisomy [Presence] in Blood or Tissue by Cytogenetics [facility] Work Phone: Comment on above: Expected: 09/18/2024 , Expires: 12/18/2024 Start: 09-18-2024 End: 09-18-2025 OBSTETRIC ULTRASOUND WHI OBSTETRIC ULTRASOUND WHI Anc Imaging Routine Encounter for supervision of high risk in first trimester, antepartum (HCC) Expected: 09/18/2024, Expires: 09/18/2025 [facility] Comment on above: Expected: 09/18/2024 , Expires: 09/18/2025 Start: 09-18-2024 End: 09-18-2024 Patient encounter procedure Maternal Medicine Comment on above: Encounter for superv ision of high risk in first trimester, antepartum (HCC) [O09.91] Nuchal OB Start: 09-07-2024 End: 12-07-2024 GEST GLUC GUILHERME, 3-HR, 100 GM, FASTING GEST GLUC GUILHERME, 3-HR, 100 GM, FASTING Lab Routine Elevated glucose tolerance test Expected: 09/07/2024, Expires: 12/07/2024 [facility] Work Phone: Comment on above: Expected: 09/07/2024 , Expires: 12/07/2024 Start: 09-05-2024 End: 12-05-2024 ANEMIA REFLEX PANEL [facility] Work Phone: Comment on above: Expected: 09/05/2024 , Expires: 12/05/2024 Start: 09-05-2024 End: 12-05-2024 HEMOGLOBIN EVALUATION CASCADE [facility] Comment on above: Expected: 09/05/2024 , Expires: 12/05/2024 Start: 09-05-2024 End: 12-05-2024 [employer] FORESIGHT CARRIER SCREEN [facility] Comment on above: Expected: 09/05/2024 , Expires: 12/05/2024 Start: 09-05-2024 End: 09-05-2025 OBSTETRIC ULTRASOUND WHI OBSTETRIC ULTRASOUND WHI Anc Imaging Routine with uncertain dates in first trimester (HCC) Expected: 09/05/2024, Expires: 09/05/2025 [facility] Comment on above: Expected: 09/05/2024 , Expires: 09/05/2025 Start: 09-05-2024 End: 12-05-2024 Protein/Creatinine [Mass Ratio] in Urine [facility] Comment on above: Expected: 09/05/2024 , Expires: 12/05/2024 Start: 09-05-2024 End: 12-05-2024 RUBELLA IGG ANTIBODY [facility] Comment on above: Expected: 09/05/2024 , Expires: 12/05/2024 Start: 09-05-2024 End: 12-05-2024 Thyrotropin [Units/volume] in Serum or Plasma [facility] Comment on above: Expected: 09/05/2024 , Expires: 12/05/2024 Start: 11-27-2023 Covid-19 Vaccine ( season) Covid-19 Vaccine () [facility] Start: 10-27-2020 Urine microalbumin profile DTaP,Tdap,Td Vaccine (7 - Td or Tdap) [facility] Start: 03-14-2019 End: 03-14-2019 Treatment 03/14/2019 Treatment Kendall Chacon MD [address] [place] [address] [phone] Ivis Mcelroy PT [facility] Start: 03-12-2019 End: 03-12-2019 Treatment 03/12/2019 Treatment Kendall Chacon MD [address] [place] [address] [phone] Simona Moreno PTA [facility] Start: 03-07-2019 End: 03-07-2019 Treatment 03/07/2019 Treatment Kendall Chacon MD [address] [place] [address] [phone] Simona Moreno [facility] Start: 03-05-2019 End: 03-05-2019 Treatment 03/05/2019 Treatment Kendall Chacon MD [address] [place] [address] [phone] Homer Hammond [facility] Start: 02-28-2019 End: 02-28-2019 Treatment 02/28/2019 Treatment Kendall Chacon MD [facility] [place] [address] [phone] Simona Moreno [facility] Start: 02-26-2019 End: 02-26-2019 Treatment 02/26/2019 Treatment Kendall Chacon MD [facility] [address] [place] [id number] [phone] [facility] Start: 02-21-2019 End: 02-21-2019 Treatment 02/21/2019 Treatment Kendall Chacon MD [facility] [place] [address] [phone] [facility] Start: 02-19-2019 End: 02-19-2019 Treatment 02/19/2019 Treatment Kendall Chacon MD [address] [place] [address] [phone] Gertrude Raymond [facility] Start: 02-15-2019 End: 02-15-2019 Treatment 02/15/2019 Treatment Kendall Chacon MD [address] [place] [address] [phone] Gertrude Raymond [facility] Start: 02-13-2019 End: 02-13-2019 Treatment 02/13/2019 Treatment Bernarda Chaconily Yue, MD [address] [facility] [place] [place] [address] [phone] Simona Moreno PTA [facility] Start: 02-08-2019 End: 02-08-2019 Office Visit 02/08/2019 Office Visit Orthopedic Surgery Kendall Kemp MD [address] [facility] [place] [address] [phone] [facility] Start: 02-07-2019 End: 02-07-2019 Treatment 02/07/2019 Treatment Rehabilitation Kendall Kemp MD [address] [facility] [place] [address] [phone] Simona Moreno PTA [facility] Start: 02-05-2019 End: 02-05-2019 Treatment 02/05/2019 Treatment Kendall Chacon MD [address] [place] [address] [place] [address] [phone] Simona Moreno PTA [facility] Start: 01-11-2019 End: 01-11-2019 Office Visit 01/11/2019 Office Visit Orthopedic Surgery Kendall Kemp MD [address] [place] [address] [phone] [facility] Start: 11-26-2018 Influenza vaccinatio n given SEQUENTIAL INFLUENZA VACCINE (#1) [facility] Start: 2018 Screening for malign ant neoplasm of cervix Cervical Cancer Screening [facility] Start: 11-24-2015 Anxiety Screening Anxiety Screening [facility] Start: 11-24-2015 Depression Screening Depression Scre ening [facility] Start: 11-24-2015 Hepatitis C screening Hepatitis C Sc reelake [facility] Start: 11-24-2015 HIV screening HIV Screening [facility] Start: 2012 Vaccination for reina n papillomavirus HPV VACCINES (1 - Female 3-dose series) [facility] Start: 11-24-2011 Peds To Adult Transition Annual Assessment Peds To Adult Transition Annual Assessment [facility] Start: 2009 Peds To Adult Transition Initial Discussion Peds To Adult Transition Initial Discussion [facility] Start: 2008 Vaccination for reina n papillomavirus HPV VACCINES (1 - Female 2-dose series) [facility] Start: 2000 History and physical examination, annual for health maintenance Wellness Visit [facility] Start: 1997 Screening for Chlamy sulaiman trachomatis Chlamydia Screening [facility] Start: 1997 Screening for malign ant neoplasm of cervix PAP SMEAR [facility] Start: 1995 Tetanus vaccination TETANUS EVERY 10 YR [facility] Bacteria identified in Urine by Culture BACTERIAL CULTURE, URINE Microbiology Routine with uncertain dates in first trimester ([facility]) 09/05/2024 10:19 AM EDT [facility] Chlamydia trachomatis+Neisseria gonorrhoeae DNA [Presence] in Unspecified specimen by TAYLOR with probe detection GONORRHEA/CHLAMYDIA NAAT Lab Routine with uncertain dates in first trimester ([facility]) Screen for STD (sexually transmitted disease) 09/05/2024 10:19 AM EDT [facility] ECG COMPLETE ECG COMPLETE ECG Routine Chronic hypertension affecting ([facility]) Diet controlled gestational diabetes mellitus (GDM) in third trimester ([facility]) Ordered: 09/18/2024 [facility] Work Phone: Comment on above: Ordered: 09/18/2024 GEST GLUC GUILHERME, 3-HR, 100 GM, FASTING GEST GLUC GUILHERME, 3-HR, 100 GM, FASTING Lab Routine Elevated glucose tolerance test 09/14/2024 8:41 AM T [facility] PAP TEST PAP TEST Lab Rou julia with uncertain dates in first trimester ([facility]) Screening for cervical cancer 09/05/2024 10:19 AM EDT [facility] TRICHOMONAS VAGINALI S NAAT TRICHOMONAS VAGINALIS NAAT Lab Routine with uncertain dates in first trimester ([facility]) Screen for STD (sexually transmitted disease) 09/05/2024 10:19 AM T [facility] URINE OB DIP B/O URINE OB DIP B/ O Lab Routine Supervision of high risk in second trimester ([facility]) Diet controlled gestational diabetes mellitus (GDM) in second trimester ([facility]) Chronic hypertension affecting ([facility]) 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, antepartum ([facility]) Ordered: 10/18/2024 [facility] Work Phone: Comment on above: Ordered: 10/18/2024 URINE OB DIP B/O URINE OB DIP B/ O Lab Routine 20 weeks gestation of (HCC) Supervision of high risk in second trimester (HCC) Diet controlled gestational diabetes mellitus (GDM) in second trimester (HCC) Chronic hypertension affecting (HCC) Ordered: 11/16/2024 [facility] Work Phone: Comment on above: Ordered: 11/16/2024 Payers Date Payer Category Payer Medicaid [id number] 2018 Medicaid [id number] 1995 Unknown [id number] [id number] 1997 Unknown [id number] [id number]. [id number] 1997 Unknown [id number] 2.16. [id number] 1997 Unknown [id number] 1997 Unknown [id number] Private Health Insurance [id number] Unknown Social History Date Type Detail Facility Start: 12-25-2018 End: 02-08-2019 Tobacco smoking status NHIS Current every day smoker [facility] Start: 12-25-2018 End: 09-05-2024 Cigarettes smoked current (pack per day) - Reported [facility] Start: 12-25-2018 End: 02-08-2019 Alcohol intake Lifetime non-drinker (finding) [facility] Start: 12-25-2018 History SDOH Alcohol Frequency 1 [facility] Start: 1995 Sex Assigned At Not on file [facility] Tobacco smoking consumption unknown [facility] Start: 09-04-2024 Tobacco smoking stat us NHIS Never smoked tobacco [facility] Start: 09-04-2024 Tobacco use and exposure Smokeless tobacco non-user [facility] Start: 09-05-2024 End: 11-16-2024 Alcoholic beverage intake Ex-drinker (finding) [facility] Start: 09-04-2024 End: 09-05-2024 Tobacco use panel [facility] Start: 08-24-2024 Adult Depression Screening Assessment 0 [facility] Start: 07-07-2024 [facility] Medical Equipment Procedure Code Equipment Code Equipment Origin al Text Equipment Identifier Dates Use as directed to check glucose levels up to seven times daily. [id number] Start: 09-14-2024 Use as directed to check glucose levels up to seven times daily. [id number] Start: 09-14-2024 Goals Date Patient Goal Desired Activity /State Personal health goal Clinical Notes 07-09-2020 to 02-01-2025 Quick Notes - Bea Rose MD - 11/16/2024 1:19 PM EDTPrenatal Quick Notes - Bea Rose MD - 11/16/2024 1:19 PM EDTPatient Alexis Olson RN - 10/19/2024 10:00 AM EDT Note Date & Type Note Facility 02-01-2025 Note HNO ID: [id number] Author: KAYLEE PAZ MA Service: ? Author Type: It Senior Analyst Type: Progress Notes Filed: 02/01/2025 14:50 Note [...] severely ill: Yes Patient denies history of Guillain-[place] Syndrome (a severe paralytic illness): Yes Tdap Adacel injection was given without incident. See immunizations for details of immunizations administered today. VIS sheet provided: Yes Provider Bea Rose MD was present in office at time of injection. Kaylee Paz MA [facility] 11-16-2024 Progress note Formatting of t his note might be different from the original. S: Bronwyn denies LOF, contractions or vaginal bleeding O: 20w6d, see flow sheet SENSITIVE EXAM: Sensitive exam not performed. A/P: Assessment & Plan 20 weeks gestation of ([facility]) Orders: URINE OB DIP B/O Supervision of high risk in second trimester ([facility]) Orders: URINE OB DIP B/O Diet controlled gestational diabetes mellitus (GDM) in second trimester (HCC) Patient was not able to check regulary last week as was camping. Patient has prior 2 weeks and the majority are normal. Orders: URINE OB DIP B/O Chronic hypertension affecting (HCC) Orders: URINE OB DIP B/O Anatomy US today Bea Rose MD [facility] 11-16-2024 Miscellaneous Notes S: Bronwyn denies LOF, contractions or vaginal bleeding O: 20w6d, see flow sheet SENSITIVE EXAM: Sensitive exam not performed. A/P: Assessment & Plan 20 weeks gestation of (HCC) Orders: URINE OB DIP B/O Supervision of high risk in second trimester ([facility]) Orders: URINE OB DIP B/O Diet controlled gestational diabetes mellitus (GDM) in second trimester ([facility]) Patient was not able to check regulary last week as was camping. Patient has prior 2 weeks and the majority are normal. Orders: URINE OB DIP B/O Chronic hypertension affecting ([facility]) Orders: URINE OB DIP B/O Anatomy US today Bea Rose MD documented in this encounter [facility] 11-16-2024 Instructions Kaylee Paz MA - 11/16/2024 12:57 PM EDT SEQUENTIAL SCREENINGS The [facility] offers sequential screenings for women who are [...] It will require an appointment with our food science technician. This is not an ultrasound performed [...] the above symptoms, contact our office at [phone] and ask to speak with a nurse. After hours, you can call doctors registry at [phone] OR call [facility] at [phone] and ask to have the doctor generation manager paged. If you consider this an emergency, dial - or go to your nearest emergency department. NEED HELP? Are you dealing with a violent or abusive relationship? Are you a victim of rape or sexual assult? Call [facility] ([place]) 24 hour Crisis Hotline: 610.767.1333 or 629-647-9766. MANUAL Your Guide to a Healthy manual is now on-line. Visit [email or web address] [email or web address] to download your free copy documented in this encounter [facility] 11-06-2024 History of Presen t illness Narrative Images from the original note were not included. REPRODUCTIVE GENETIC COUNSELING INITIAL VISIT Bronwyn Higginbotham : 1995 Above identifiers confirmed by Marah Barajas MS, [facility] Consultation requested by: Dr. Kelvin Thompson Date of clinic visit: November 06, 2024 Customer Field Representative offered/present: No, Malagasy in [facility] EMR demographics Bronwyn Higginbotham is a 28 year old, female referred by Dr. Kelvin Thompson for genetic counseling to discuss her Bronwyn Higginbotham . Bronwyn Higginbotham is seen via a virtual Distance Health visit today via [employer] platform per patient choice. The visit is conducted synchronously in real-time. The patient attended the appointment on her own. I have communicated my name and active licensure. The patient's identity and physical location were verified at the time of this visit. Either the patient or their legal manufacturing sales representative has been informed of the risks and benefits of -- and alternatives to -- treatment through a remote evaluation and consents to proceed with the evaluation remotely. PRESENTING PROBLEM: Bronwyn Higginbotham is currently 19w3d gestation (by LMP). 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 Ms. Higginbotham presents for genetic counseling to discuss these results and to make a plan for next steps. REPRODUCTIVE HISTORY: Currently : Yes / 19w3d (by LMP) LMP: 06/23/2024 JANIS: 03/30/2025 history: First Aneuploidy screening: low risk cfDNA screen for Trisomies 13, 18, 21 and sex chromosome aneuploidies ('[id number]') - result under lab tab [facility]: No [...] identified as heterozygous for the CFTR:c. 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 We reviewed that she was offered jackson-ethnic [...] Patient declines. She opts for testing via [place] [employer]. Questions answered to the best of my ability; support provided throughout. SUGGESTIONS/PLAN: Bronwyn Higginbotham is recently identified as a CF carrier. Recommend CF carrier screening for patient's partner. Patient declines at this time indicating that her partner does not have insurance. Reviewed financial options through the lab, which patient declines. Reviewed that [place] has CF as a part of the screen. Follow-up as clinically indicated. Thank you for allowing me to participate in Bronwyn Higginbotham's care. Please feel free to contact me if either you or the family has questions, or concerns. I spent a total of 30 minutes on the date of the service, which included preparing to see the patient, [id number] patient care, completing clinical documentation, obtaining and/or [...] the electronic medical record. Marah Barajas MS, [facility] [place] Licensed, Certified Genetic Counselor documented in this encounter [facility] 11-06-2024 Note HNO ID: [id number] Author: MARAH BARAJAS LGC Service: ? Author Type: Genetic Counselor Type: Progress Notes Filed: 01/03/2025 13:53 Note Text: REPRODUCTIVE GENETIC COUNSELING INITIAL VISIT Bronwyn Higginbotham : 1995 Above identifiers confirmed by Marah Barajas MS, LGC Consultation requested by: Dr. Kelvin Thompson Date of clinic visit: November 06, 2024 Customer Field Representative offered/present: No, Malagasy in [facility] EMR demographics Bronwyn Higginbotham is a 28 year old, female referred by Dr. Kelvin Thompson for genetic counseling to discuss her Bronwyn Higginobtham . Bronwyn Higginbotham is seen via a virtual Distance Health visit today via [employer] platform per patient choice. The visit is conducted synchronously in real-time. The patient attended the appointment on her own. I have communicated my name and active licensure. The patient's identity and physical location were verified at the time of this visit. Either the patient or their legal manufacturing sales representative has been informed of the risks and benefits of -- and alternatives to -- treatment through a remote evaluation and consents to proceed with the evaluation remotely. PRESENTING PROBLEM: Bronwyn Higginbotham is currently 19w3d gestation (by LMP). 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 Ms. Higginbotham presents for genetic counseling to discuss these results and to make a plan for next steps. 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 We reviewed that she was offered jackson-ethnic [...] the lab, which patient declines. Reviewed that [place] has CF as a part (more content not included)... [facility] 10-19-2024 History of Presen t illness Narrative DIABETES SELF-MANAGEMENT EDUCATION AND SUPPORT FOLLOW-UP VISIT Type of Diabetes: Gestational ( diabetes in ) Location: [place] Type of visit: Virtual (with video) individual -- I have communicated my name and active licensure. The patient's identity and physical location were verified at the time of this visit. Either the patient or their legal manufacturing sales representative has been informed of the [...] 8:41 AM PAGER: documented in this encounter [facility] 10-19-2024 Note HNO ID: [id number] Author: ALEXIS OBRIEN RN Service: ? Author Type: Registered Nurse Type: Progress Notes Filed: 10/19/2024 10:52 Note Text: DIABETES SELF-MANAGEMENT EDUCATION AND SUPPORT FOLLOW-UP VISIT Type of Diabetes: Gestational ( diabetes in ) Location: [place] Type of visit: Virtual (with video) individual -- I have communicated my name and active licensure. The patient's identity and physical location were verified at the time of this visit. Either the patient or their legal manufacturing sales representative has been informed of the [...] October 19, 2024 TIME: 8:41 AM PAGER: [facility] 10-18-2024 Telephone encounter Note filed [facility] 10-18-2024 Miscellaneous Notes filed [facility] does not dispense rx for medical supply. Spoke to patient and she is requesting [facility] [place]. Requested Prescriptions Pending Prescriptions Disp Refills Miscellaneous Medical Supply (BLOOD PRESSURE CUFF) [Pharmacy Med Name: BLOOD PRESSURE CUFF - ADULT] 1 each 0 Sig: EVERY DAY Lillian Tracy RN documented in this encounter [facility] 10-18-2024 Telephone encounter Note Pt is scheduled on 10/19/24 with endo dietitian education VV. Eleazar Hamilton RN [facility] 10-18-2024 Telephone encounter Note Images from the original note were not included. FW: Refrral for an ENDO dietitian Received: Yesterday Kendall Delgado, DINING SERVICE SUPERVISOR.BLADDER TRIMMER P Wstr Ob-Bl[employer]her Pool Can we make sure she gets scheduled? I put in the endo social work msw consult order they requested. Have always placed [...] for her to schedule. Thank you! Poppy [facility] 10-18-2024 Miscellaneous Notes Pt is scheduled on 10/19/24 with endo dietitian education VV. Eleazar Hamilton RN Images from the original note were not included. FW: Refrral for an ENDO dietitian Received: Yesterday Kendall Delgado APRN.CNP P W[facility]-[employer] Pool Can we make sure she gets scheduled? I put in the endo social work msw consult order they requested. Have always placed [...] Thank you! Poppy documented in this encounter [facility] 10-18-2024 Telephone encounter Note [facility] does not dispense rx for medical supply. Spoke to patient and she is requesting [facility] [place]. Requested Prescriptions Pending Prescriptions Disp Refills Miscellaneous Medical Supply (BLOOD PRESSURE CUFF) [Pharmacy Med Name: BLOOD PRESSURE CUFF - ADULT] 1 each 0 Sig: EVERY DAY Lillian Tracy RN [facility] 10-18-2024 Progress note Formatting of t his [...] - RTO 4 wks Jo Leo DO [facility] 10-18-2024 Miscellaneous Notes SW- pt doing well. [...] Jo Leo DO documented in this encounter [facility] 10-18-2024 Instructions Lili Han MA - 10/18/2024 1:44 PM EDT SEQUENTIAL SCREENINGS The [facility] offers sequential screenings for women who are [...] It will require an appointment with our food science technician. This is not an ultrasound performed [...] the above symptoms, contact our office at [phone] and ask to speak with a nurse. After hours, you can call doctors registry at [phone] OR call [facility] at [phone] and ask to have the doctor generation manager paged. If you consider this an emergency, dial 9-1-1 or go to your nearest emergency department. NEED HELP? Are you dealing with a violent or abusive relationship? Are you a victim of rape or sexual assult? Call [facility] [place] ([facility] 24 hour Crisis Hotline: 208.522.4613 or 277-814-7973. MANUAL Your Guide to a Healthy manual is now on-line. Visit [email or web address] to download your free copy documented in this encounter [facility] 10-03-2024 Progress note Formatting of t his [...] 1. 14 weeks gestation of ([facility]) - ICD9: V22.2, ICD10: Z3A.14 (primary diagnosis) 2. Chronic hypertension affecting ([facility]) - ICD9: 642.00, ICD10: O10.919 Controlled 3. Diet controlled gestational diabetes mellitus (GDM) in first trimester ([facility]) - ICD9: 648.83, ICD10: O24.410 improving 4. Rubella non-immune status, antepartum ([facility]) - ICD9: 646.83, V15.83, ICD10: O09.899, Z28.39 MMR at delivery Tricia Carty MD [facility] 10-03-2024 Miscellaneous Notes S: Bronwyn Higginbotham is [...] 1. 14 weeks gestation of ([facility]) - ICD9: V22.2, ICD10: Z3A.14 (primary diagnosis) 2. Chronic hypertension affecting ([facility]) - ICD9: 642.00, ICD10: O10.919 Controlled 3. Diet controlled gestational diabetes mellitus (GDM) in first trimester ([facility]) - ICD9: 648.83, ICD10: O24.410 improving 4. Rubella non-immune status, antepartum ([facility]) - ICD9: 646.83, V15.83, ICD10: O09.899, Z28.39 MMR at delivery Tricia Carty MD documented in this encounter [facility] 10-03-2024 Instructions Laura Deng LPN - 10/03/2024 2:38 PM EDT SEQUENTIAL SCREENINGS The [facility] offers sequential screenings for women who are [...] It will require an appointment with our food science technician. This is not an ultrasound performed [...] the above symptoms, contact our office at [phone] and ask to speak with a nurse. After hours, you can call doctors registry at [phone] OR call [facility] at [phone] and ask to have the doctor generation manager paged. If you consider this an emergency, dial 9-1-2 or go to your nearest emergency department. NEED HELP? Are you dealing with a violent or abusive relationship? Are you a victim of rape or sexual assult? Call [facility] ([facility] 24 hour Crisis Hotline: 457.562.2799 or 714-894-6353. MANUAL Your Guide to a Healthy manual is now on-line. Visit [email or web address] [email or web address] to download your free copy documented in this encounter [facility] 09-25-2024 History of Presen t illness Narrative DIABETES SELF-MANAGEMENT EDUCATION AND SUPPORT Location: [place] Type of visit: Virtual (with video) individual -- I have communicated my name and active licensure. The patient's identity and physical location were verified at the time of this visit. Either the patient or their legal manufacturing sales representative has been informed of the [...] Race/Ethnic Origin: White/ Does you culture or restorationist require any of the following: No cultural/latter-day practices affecting DM Do you have problems with: No difficulty seeing/hearing/reading/writing/s peaking Occupation: [employer] Work hours: 1st shift - 5a-3p Support [...] TIME: 3:47 PM documented in this encounter [facility] 09-25-2024 Note HNO ID: [id number] Author: LUCERO MIRELES RN Service: ? Author Type: Registered Nurse Type: Progress Notes Filed: 09/25/2024 16:37 Note Text: DIABETES SELF-MANAGEMENT EDUCATION AND SUPPORT Location: [place] Type of visit: Virtual (with video) individual -- I have communicated my name and active licensure. The patient's identity and physical location were verified at the time of this visit. Either the patient or their legal manufacturing sales representative has been informed of the [...] Race/Ethnic Origin: White/ Does you culture or restorationist require any of the following: No cultural/latter-day practices affecting DM Do you have problems with: No difficulty seeing/hearing/reading/writing/s peaking Occupation: [employer] Work hours: 1st shift - 5a-3p Support [...] mellitus (GDM) in first trimester ([facility]) 09/14/2024 Elevated hemoglobin A1c 09/06/2024 Hypertension Pre-diabetes [...] your lancets? asked/not (more content not included)... [facility] 09-20-2024 Progress note Formatting of t his note might be different from the original. KJ - S: Bronwyn denies LOF, contractions or vaginal bleeding. O: 12w5d, see flow sheet SENSITIVE EXAM: Sensitive exam not performed. A/P: Assessment & Plan 12 weeks gestation of ([facility]) Orders: URINE OB DIP B/O Diet controlled gestational diabetes mellitus (GDM) in first trimester ([facility]) Diabetic education & nutrition consults scheduled. Orders: URINE OB DIP B/O Chronic hypertension affecting ([facility]) Orders: URINE OB DIP B/O Cystic fibrosis [...] at 37-39 weeks gestation. Bea Rose MD [facility] 09-20-2024 Miscellaneous Notes KJ - S: Bronwyn denies LOF, contractions or vaginal bleeding. O: 12w5d, see flow sheet SENSITIVE EXAM: Sensitive exam not performed. A/P: Assessment & Plan 12 weeks gestation of ([facility]) Orders: URINE OB DIP B/O Diet controlled gestational diabetes mellitus (GDM) in first trimester ([facility]) Diabetic education & nutrition consults scheduled. 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 MFM consult today. [...] Bea Rose MD documented in this encounter [facility] 09-18-2024 Instructions Kori Trent MA - 09/18/2024 2:09 PM EDT SEQUENTIAL SCREENINGS The [facility] offers sequential screenings for women who are [...] It will require an appointment with our food science technician. This is not an ultrasound performed [...] the above symptoms, contact our office at [phone] and ask to speak with a nurse. After hours, you can call doctors registry at [phone] OR call [facility] at [phone] and ask to have the doctor generation manager paged. If you consider this an emergency, dial 6-9-2 or go to your nearest emergency department. NEED HELP? Are you dealing with a violent or abusive relationship? Are you a victim of rape or sexual assult? Call [facility] [place] ([facility] 24 hour Crisis Hotline: 142.545.3721 or 918-017-7560. MANUAL Your Guide to a Healthy manual is now on-line. Visit [email or web address] [email or web address] to download your free copy SEQUENTIAL SCREENINGS The [facility] offers sequential screenings for women who are [...] It will require an appointment with our food science technician. This is not an ultrasound performed [...] the above symptoms, contact our office at [phone] and ask to speak with a nurse. After hours, you can call doctors registry at [phone] OR call [facility] at [phone] and ask to have the doctor generation manager paged. If you consider this an emergency, dial 9-1-1 or go to your nearest emergency department. NEED HELP? Are you dealing with a violent or abusive relationship? Are you a victim of rape or sexual assult? Call [facility] ([place]) 24 hour Crisis Hotline: 742.737.8260 or [phone]. MANUAL Your Guide to a Healthy manual is now on-line. Visit [email or web address] to download your free copy documented in this encounter [facility] 09-18-2024 History of Presen t illness Narrative [...] blood sugars. She reports dietary/nutritional counseling at [facility], hwoever she has not yet had a [...] IMPRESSION: - Single, live, intrauterine . - [place] rump length measurement is consistent with the [...] GDM (and sequelae), delivery, preeclampsia, and IUFD. [place] of medicine weight gain guidelines for reviewed. [...] which included preparing to see the patient, [id number] patient care, completing clinical documentation, obtaining and/or reviewing separately obtained history, performing a medically appropriate examination, counseling and educating the patient/family/caregiver, ordering medications, tests, or procedures, communicating results to the patient/family/caregiver, and care coordination (not separately reported). documented in this encounter [facility] 09-18-2024 Note HNO ID: [id number] Author: KELVIN THOMPSON MD Service: ? Author [...] blood sugars. She reports dietary/nutritional counseling at [facility], hwoever she has not yet had a [...] normal S1S2 wi (more content not included)... [facility] 09-14-2024 Telephone encounter Note Please notify patient: Abnormal 3 hour, consistent with early GDM. Can stop 3 hour testing as she has already met criteria for diagnosis. Supplies ordered. Nutrition consult and diabetes consult placed. Patient to bring glucose logs to next appointment. Kendall Delgado APRN.CNP [facility] 09-14-2024 Miscellaneous Notes Please notify patient: Abnormal 3 hour, consistent with early GDM. Can stop 3 hour testing as she has already met criteria for diagnosis. Supplies ordered. Nutrition consult and diabetes consult placed. Patient to bring glucose logs to next appointment. Kendall Delgado APRN.CNP documented in this encounter [facility] 09-06-2024 Telephone encounter Note 1st risk assessment form submitted 09/06/2024. Tricia Lambert RN [facility] 09-06-2024 Miscellaneous Notes 1st risk assessment form submitted 09/06/2024. Tricia Lambert RN documented in this encounter [facility] 09-06-2024 Telephone encounter Note Please notify patient: A1C 6.0 Needs to complete early 1 hour Kendall Delgado APRN.CNP [facility] 09-06-2024 Miscellaneous Notes Please notify patient: A1C 6.0 Needs to complete early 1 hour Kendall Delgado APRN.CNP documented in this encounter [facility] 09-05-2024 Instructions Kendall Delgado APRN.BLADDER TRIMMER - 09/05/2024 9:17 AM EDT Please select the following link to access the [facility] Your Guide to a Healthy . [email or web address] [...] smoke. (This information is provided by the [facility] and is not intended to replace the medical advice of your doctor or health care provider. Please consult your health care provider for advice about a specific medical condition. For additional written health information, please call the Cancer Answer Line at [facility] [place] Tuesday - Tuesday 8-4:30 for assistance: [phone]. Or visit [email or web address]/) [facility] s Smoking Cessation Program The [facility] Smoking Cessation Program is a comprehensive, multifaceted program that can be tailored to your individual needs. We offer a variety of services designed to help you throughout the process, including office visits, distance health visits (virtual or telephone), and the eCoach program or pharmacy consultations. To schedule, call [phone] Appointments: An office visit: This is a [...] You will need to sign up for Anturishart prior to your virtual visit. Telephone visits [...] spray Bupropion SR Varenicline (Chantix ) The [employer] Cancer Society (ACS) has a section devoted to quitting tobacco with information on where to get help, interactive tools, the relationship of tobacco and cancer, how to keep your kids smoke-free, smoke-free communities and the ACS s annual Great [place] Smokeout. Visit this link for more info: https://www.cancer.org/cancer/ri sk-prevention/tobacco/guide-quit ting-smoking.html The [employer] Lung Association has tools, tips, support and fact sheets to help you stop smoking or to help a loved one quit. There s also more information about [place] From Smoking , the program we use in our smoking classes at [facility]. Visit this link for more info: https://www.lung.org/quit-smokin g/rzky-wbajajy-flgv-smoking The National Cancer [place] s site, Smokefree.gov, has an abundance of free and accurate resources to encourage smokers to stop: Smokefree apps for your smartphone offer individualized guidance once you input your information You can sign up for the SmokefreeVersusT text messaging program, which sends you daily text messages with encouragement, tips and advice to help making quitting easier Create a personalized Quit Plan by choosing a quit date and answering seven questions Take a quiz on your withdrawal symptoms See how you can prepare to quit 5-720-ELVY-NOW is the national portal to a network of state quitlines. Quitlines offer evidence-based support--like counseling, referrals to local programs, and free medication--to people who want to quit tobacco. documented in this encounter [facility] 09-04-2024 Note HNO ID: [id number] Author: KENDALL DELGADO APRN.JOHN Service: ? Author Type: Nurse Practitioner Type: Progress Notes Filed: 09/05/2024 10:26 Note Text: Allied Health Instructor offered: Patient declines. INITIAL OB ASSESSMENT HPI: [...] Status:Partnering Partner: Name: Frantz Age: 30 Occupation: [employer] Gender: Male PAST MEDICAL HISTORY Diagnosis Date [...] not? No Based (more content not included)... [facility] 09-04-2024 History of Presen t illness Narrative Images from the original note were not included. Allied Health Instructor offered: Patient declines. INITIAL OB ASSESSMENT HPI: [...] Status:Partnering Partner: Name: Frantz Age: 30 Occupation: [employer] Gender: Male PAST MEDICAL HISTORY Diagnosis Date [...] to rescreen early third trimester. Kendall Delgado APRN.BLADDER TRIMMER REVIEW OF SYSTEMS: GENERAL: Negative for: Fever [...] discussed with the Patient or Patient's Authorized Time Study Statistician. As applicable, any other physician, advance practice provider, medical student, or other health professional student that will be observing or involved in the sensitive examination for educational or training purposes was discussed with the Patient or Authorized Time Study Statistician. The Patient or Authorized Time Study Statistician has agreed to proceed with the sensitive [...] Your guide to a health and the Comic Writer. Discussed hemoglobin electrophoresis. Patient: Accepts Reviewed midwifery and emergency veterinarian services that are available. 2) Screening: Hemoglobin [...] of High Risk in First Trimester, Antepartum ([facility]) - 09/05/2024 Comment: Care Checklist [...] (28-30 weeks): [] Consent [] Contraception [] Aluminum Hydroxide Process Operator [] TeamBirth handout Third trimester (36-40 weeks): [] GBS [] Presentation - [] Scheduled [] yes - Hibiclens, pre-op instructions, CBC, T&S ordered [] no [] H&P [] Preferences worksheet [] Obesity Affecting in First Trimester ([facility]) - 09/05/2024 Comment: -Pre BMI 36 - Plan for 32 week growth q 4 weeks. - Weekly NSTs at 36 weeks. Chronic Hypertension Affecting ([facility]) - 09/05/2024 Comment: Chronic HTN [...] - 09/05/2024 Comment: September 05, 2024 Drinking [employer] energy drinks. Recommend replacing with coffee/tea and [...] Kendall Delgado APRN.CNP documented in this encounter [facility] 07-10-2020 Note Send Summary: Discharge Summary Providers: [...] at Discharge: .Home Vital Signs: T PRBPSpO2 [id number]% Date/Time07/10 4:284/15 4: 4: 4: 4:28 Range(35.6C - 37.3C ) (73 - 101 ) (16 - 18 ) (108 - 131 )/ (69 - 81 ) (95% - 98% ) Highest temp of 37.3 C was recorded at 07/09 22:55 Date: Weight/Scale Type:Height: 09-Jul-2020 02:5288.6 kg / cm Physical Exam: Gen: NAD CV: RRR [...] on POD#1. She will follow up with [facility] as an outpatient. [facility] 07/09 24yo G0 presents as a transfer from [facility] with concern for torsion. Patient [...] liquids and hasn't tried solids yet. At [facility], a CT scan was performed that showed an [id number] pelvic mass concerning for mature teratoma. Vitals [...] but no history of premenstrual pelvic pain. [place] with women only. 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 FH: denies All: NKDA Meds: Tylenol PRN [...] them off. Follow Up Appointments: Follow-Up - [facility] Provider: Physician/Dept/Service: [facility] Provider Follow-Up Appointment 01: Physician/Dept/Service: Dr. Carolee Munoz - [facility]TER Reason for Referral: post op Scheduled Date/Time: 29-Jul-2020 14:00 Location: [facility], [address] [place] [address] [address] [facility], [place] [address] Discharge Medications: Home Medication Colace 100 mg oral capsule - 1 cap(s) orally 2 times a day PRN Medication remy (more content not included)... [facility] 07-09-2020 Note Post Operative Note: PreOp Diagnosis: ovarian mass Post-Procedure Diagnosis: left ovarian mass, left ovarian torsion Procedure: 1. diagnostic laparoscopy 2. left ovarian detorsion 3. left ovarian cystectomy 4. laparoscopic washout of cystic contents Surgeon: malu Resident/Fellow/Other Cook Taco: justo mccord Anesthesia: GETA Estimated Blood Loss [...] copiously irrigatin (more content not included)... [facility] 07-09-2020 Note History & Physical R eviewed: [...] the note. I personally evaluated the patient [id number] Attending Provider Inpatient Certification StatementI certify this [...] From History and Physical 09-Jul-2020 02:59 [facility] 07-09-2020 Note History of Present I llness: /Lactating: Are You no (1) Are You Currently Breastfeedingno (1) Admission Reason: Abdominal pain HPI: 24yo G0 presents as a transfer from [facility] with concern for torsion. Patient [...] liquids and hasn't tried solids yet. At [facility], a CT scan was performed that showed an [id number] pelvic mass concerning for mature teratoma. Vitals [...] but no history of premenstrual pelvic pain. [facility] only. 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 FH: denies All: NKDA Meds: Tylenol PRN Family History: Family History: reviewed and not pertinent to presenting problem Allergies: No Known Allergies: Medications Prior to Admission: Outpatient Meds have not been reviewed. Review of Systems: Gastrointestinal: POSITIVE: Constipation, Abdominal Pain; COMMENTS: 09/04 All Other Systems: All other systems reviewed and are negative Objective: Objective Information: T PRBPSpO2 [id number]/8295% Date/Time07/09 2: 2: 2: 2: 2:02 Range(37.6C [...] Authorization (EUA) and has been verified by [facility]. This test is only authorized for the duration of time that circum Urine Test 08-Jul-2020 17:26:00 ResultValue HCG, Urine NEGATIVE Urinalysis 08-Jul-2020 17:26:00 ResultValue Color, Urine Yellow Reference Range: STRAW,YELLOW Appearance, Urine HAZY Specific [place], Urine 1.017 pH, Urine 6.0 Protein, Urine [...] Serum 9.4 (more content not included)... [facility] Evaluation note Diagnosis Encounter for supervision of high risk in first trimester, antepartum (HCC)- Primary 10 weeks gestation of ([facility]) state, incidental with uncertain dates in first trimester ([facility]) Screen for STD (sexually transmitted disease) Screening examination for venereal disease Screening for cervical cancer Screening for malignant neoplasm of the cervix Family history of deafness Family history of deafness or hearing loss Chronic hypertension affecting ([facility]) Obesity affecting in first trimester, unspecified obesity type ([facility]) Nicotine dependence due to vaping tobacco product Caffeine use during in first trimester ([facility]) Nausea and vomiting during ([facility]) History of alcohol abuse Nondependent alcohol abuse, in remission [facility] Diagnosis with uncertain dates in first trimester ([facility]) [facility] Diagnosis Diet controlled gestational diabetes mellitus (GDM) in third trimester ([facility])- Primary Encounter for supervision of high risk in first trimester, antepartum ([facility]) Chronic hypertension affecting ([facility]) [facility] Diagnosis 12 weeks gestation of ([facility])- Primary state, incidental Diet controlled gestational diabetes mellitus (GDM) in first trimester ([facility]) Chronic hypertension affecting ([facility]) 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, antepartum (HCC) Diet controlled gestational diabetes mellitus (GDM) in first trimester (HCC) documented in this encounter [facility] note* Diagnosis 12 weeks gestation of (HCC)- Primary state, incidental Diet controlled gestational diabetes mellitus (GDM) in first trimester (HCC) Chronic hypertension affecting (HCC) 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, antepartum (HCC) 14 weeks gestation of (HCC)- Primary state, incidental Chronic hypertension affecting (HCC) Diet controlled gestational diabetes mellitus (GDM) in first trimester ([facility]) Rubella non-immune status, antepartum ([facility]) Other specified complication, antepartum documented in this encounter [facility] note* Diagnosis 12 weeks gestation of (HCC)- Primary state, incidental Diet controlled gestational diabetes mellitus (GDM) in first trimester (HCC) Chronic hypertension affecting (HCC) 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, antepartum (HCC) Diet controlled gestational diabetes mellitus (GDM) in second trimester (HCC)- Primary documented in this encounter [facility] note* Diagnosis 12 weeks gestation of [...] trimester, antepartum (HCC) documented in this encounter [facility] note* Diagnosis 12 weeks gestation of (HCC)- Primary state, incidental Diet controlled gestational diabetes mellitus (GDM) in first trimester (HCC) Chronic hypertension affecting (HCC) 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, antepartum (HCC) Supervision of high risk in second trimester (HCC) Unspecified high-risk Diet controlled gestational diabetes mellitus (GDM) in second trimester (HCC) Chronic hypertension affecting ([facility]) [facility] Diagnosis 12 weeks gestation of ([facility])- Primary state, incidental Diet controlled gestational diabetes mellitus (GDM) in first trimester (HCC) Chronic hypertension affecting (HCC) 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, antepartum ([facility]) Supervision of high risk in second trimester ([facility]) Unspecified high-risk Diet controlled gestational diabetes mellitus (GDM) in second trimester ([facility]) [facility] Diagnosis 12 weeks gestation of ([facility])- Primary state, incidental Diet controlled gestational diabetes mellitus (GDM) in first trimester ([facility]) Chronic hypertension affecting ([facility]) 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, antepartum ([facility]) Supervision of high risk in second trimester ([facility])- Primary Unspecified high-risk Diet controlled gestational diabetes mellitus (GDM) in second trimester ([facility]) Chronic hypertension affecting ([facility]) 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, antepartum ([facility]) 18 weeks gestation of ([facility]) state, incidental Cystic fibrosis carrier in second trimester, antepartum ([facility])- Primary [facility] Diagnosis Elevated hemoglobin A1c- Primary Other abnormal blood chemistry 12 weeks gestation of ([facility])- Primary state, incidental Diet controlled gestational diabetes mellitus (GDM) in first trimester ([facility]) Chronic hypertension affecting (HCC) 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, antepartum ([facility]) Supervision of high risk in second trimester ([facility])- Primary Unspecified high-risk Diet controlled gestational diabetes mellitus (GDM) in second trimester ([facility]) Chronic hypertension affecting ([facility]) 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, antepartum ([facility]) 18 weeks gestation of ([facility]) state, incidental [facility] Diagnosis Elevated glucose tolerance test- Primary Impaired glucose tolerance test 12 weeks gestation of ([facility])- Primary state, incidental Diet controlled gestational diabetes mellitus (GDM) in first trimester ([facility]) Chronic hypertension affecting (HCC) 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, antepartum ([facility]) Supervision of high risk in second trimester ([facility])- Primary Unspecified high-risk Diet controlled gestational diabetes mellitus (GDM) in second trimester ([facility]) Chronic hypertension affecting (HCC) 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, antepartum ([facility]) 18 weeks gestation of ([facility]) state, incidental [facility] Diagnosis 12 weeks gestation of ([facility])- Primary state, incidental Diet controlled gestational diabetes mellitus (GDM) in first trimester ([facility]) Chronic hypertension affecting ([facility]) 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, antepartum ([facility]) Encounter for routine screening for malformation using ultrasonics ([facility])- Primary Encounter for routine screening for malformation using ultrasonics Encounter for supervision of high risk in first trimester, antepartum ([facility]) 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 ([facility]) Severe obesity with body mass index (BMI) of 35.0 to 39.9 with comorbidity ([facility]) 16 weeks gestation of ([facility]) state, incidental Supervision of high risk in second trimester ([facility])- Primary Unspecified high-risk Diet controlled gestational diabetes mellitus (GDM) in second trimester ([facility]) Chronic hypertension affecting ([facility]) 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, antepartum ([facility]) 18 weeks gestation of ([facility]) state, incidental documented in this encounter [facility] note* Diagnosis Diet controlled gestational diabetes mellitus (GDM) in first trimester ([facility])- Primary Elevated glucose tolerance test Impaired glucose tolerance test 12 weeks gestation of ([facility])- Primary state, incidental Diet controlled gestational diabetes mellitus (GDM) in first trimester ([facility]) Chronic hypertension affecting ([facility]) 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, antepartum ([facility]) Supervision of high risk in second trimester ([facility])- Primary Unspecified high-risk Diet controlled gestational diabetes mellitus (GDM) in second trimester ([facility]) Chronic hypertension affecting ([facility]) 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, antepartum ([facility]) 18 weeks gestation of ([facility]) state, incidental documented in this encounter [facility] note* Diagnosis 12 weeks gestation of ([facility])- Primary state, incidental Diet controlled gestational diabetes mellitus (GDM) in first trimester ([facility]) Chronic hypertension affecting ([facility]) 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, antepartum ([facility]) Supervision of high risk in second trimester ([facility])- Primary Unspecified high-risk Diet controlled gestational diabetes mellitus (GDM) in second trimester ([facility]) Chronic hypertension affecting ([facility]) 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, antepartum ([facility]) 18 weeks gestation of ([facility]) state, incidental 20 weeks gestation of (HCC)- Primary state, incidental Supervision of high risk in second trimester (HCC) Unspecified high-risk Diet controlled gestational diabetes mellitus (GDM) in second trimester (HCC) Chronic hypertension affecting (HCC) * Assessment & Plan Note - Bea Rose MD - 11/16/2024 1:21 PM EDTAssociated Problem(s): Chronic hypertension affecting (HCC) Orders: URINE OB DIP B/O [facility] Diagnosis 12 weeks gestation of (HCC)- [...] trimester (HCC) Chronic hypertension affecting ([facility]) documented in this encounter [facility] for visit Narrative* Consult, Test, Treat (Routine) - Closed Specialty Diagnoses / Procedures Referred By Contraghavendra t Referred To Contact Diagnoses Diet controlled gestational diabetes mellitus (GDM) in first trimester (HCC) Procedures CONSULT TO DIABETES EDUCATION DSME MEDICAL NUTRITION ASSMT&IVNTJ INDIV EACH 15 PA MEDICAL NUTRITION ASSMT&IVNTJ INDIV EACH 15 PA MEDICAL NUTRITION ASSMT&IVNTJ INDIV EACH 15 PA MEDICAL NUTRITION ASSMT&IVNTJ INDIV EACH 15 PA Kendall Delgado APRN.[place] [address] [place] [address] Phone: tel: fax: Referral ID Status Reason Start Date Expiration Date V isits Requested Visits Authorized [id number] Closed PCP Requested Referral 09/14/2024 09/14/2025 1 1 [facility] History of Present Illness * Kendall Kemp [...] the injury on 12/13/2018. She was in [facility] where she was living at the time. She twisted her ankle when she was standing in the sand. She had immediate pain. She was actually movingback to the [facility] at the time. She went to the [place] emergency department on 12/18/2018 where x-rays were [...] is improved with elevation. She is taking [id number] medication, Tylenol for pain. This helps.. She is not currently employed. She smokes 1 pack/day. She is not a diabetic. History reviewed. No pertinent past medical history. and History reviewed. No pertinent surgical history. Past medical, past surgical, family history, medications, allergies, and smoking status reviewed and updated as appropriate in [facility]. A 10-system review of systems was [...] the injury on 12/13/2018. She was in [facility] where she was living at the time. She twisted her ankle when she was standing in the sand. She had immediate pain. She was actually movingback to the [facility] at the time. She went to the [place] emergency department on 12/18/2018 where x-rays were [...] is improved with elevation. She is taking vojz-frv-jylxrdj medication, Tylenol for pain. This helps.. She is not currently employed. She smokes 1 pack/day. She is not a diabetic. History reviewed. No pertinent past medical history. and History reviewed. No pertinent surgical history. Past medical, past surgical, family history, medications, allergies, and smoking status reviewed and updated as appropriate in [employer]. A 10-system review of systems was completed [...] Mcelroy, PT - 02/01/2019 10:00 AM EST [facility] Evaluation Today's Date 02/01/2019 [...] up to 50# again Social History Occupation: [employer] - worked at [employer] of lifting/standing/brisk walking/climbing ladders Home environment: house Mandaeism, social, or cultural considerations to be made [...] OTHER Notes Ivis 04/08 10:00-10:45 Therapeutic Exercise (03050) Intervention Scifit (A) Parameters Shuttle squat (A) Intervention 4 way ankle (A) Parameters marble pick ups (A) Intervention weight shifting (A) Parameters Gastroc stretch (A) Manual Therapy (70006) Intervention STM gastroc stretches (A) PT Treatment [...] normal ADLs. Ivis Mcelroy PT State License, [id number] documented in this encounter* Simona Moreno, WAITER/WAITRESS FIRST CLASS - 02/05/2019 2:30 PM EST [facility] DAILY TREATMENT NOTE Today's [...] OTHER Notes Simona 05/09 2:30-3:00 Therapeutic Exercise (84897) Intervention Scifit 6' lv 1 Parameters Shuttle squat (A) Intervention 4 way ankle RTB 2x10 Parameters marble pick ups (A) Intervention weight shifting (A) Parameters Gastroc stretch x10 Manual Therapy (11512) Intervention STM gastroc stretches 30 x10 PT Treatment Times Therex Total Time 30 Direct Treatment Time 30 Total Treatment Time 30 Skilled Intervention demonstrated by modifications of treatment per exercise log including increased intensity and safety interventions per exercise log. Progress towards goals as expected. Plan for Next Visit: Treatment Visit with focus on strength Simona Moreno PTA STATE LICENSE, [id number] documented in this encounter* Simona Moreno PTA - 02/07/2019 2:30 PM EST [facility] DAILY TREATMENT NOTE Today's [...] OTHER Notes Simona 05/09 2:20-3:00 Therapeutic Exercise (37317) Intervention Scifit 8' lv 1 Parameters Shuttle squat BLE 25# Intervention 4 way ankle RTB 2x10 Parameters marble pick ups (A) Intervention weight shifting (A) Parameters Gastroc stretch x10 Intervention rocker board 30 x3 Parameters clamshells RTB x20 Intervention towel scrunches Neuro Re-Ed (46848) Intervention Ambulates in facility with boot 6x 50 feet without crutches Manual Therapy (36988) Intervention STM gastroc /HS with stick 8' [...] on strengthening Simona Moreno PTA STATE LICENSE, [id number] documented in this encounter* Simona Moreno PTA - 02/13/2019 2:30 PM EST [facility] DAILY TREATMENT NOTE Today's [...] Treatments: Physical Therapy Exercise Log - 02/13/19 6512 OTHER Notes Simona 05/09 2:30-3:05 Vitals concurrent Therapeutic Exercise (79479) Intervention Scifit 8' lv 1 Parameters Shuttle squat BLE 25# Intervention 4 way ankle RTB 2x10 Parameters marble pick ups (A) Intervention weight shifting (A) Parameters Gastroc stretch x10 Intervention rocker board 30 x3 Parameters clamshells RTB x20 Intervention towel scrunches Neuro Re-Ed (78910) Intervention Ambulates in facility with boot 6x 50 feet without crutches Manual Therapy (82285) Intervention STM gastroc /HS 8' PT Treatment Times Therex Total Time 30 Direct Treatment Time 30 Total Treatment Time 30 Progress towards goals as expected. Plan for Next Visit: Treatment Visit with focus on WB and strength Simona Moreno PTA STATE LICENSE, [id number] documented in this encounter* Simona Moreno PTA - 02/21/2019 2:[address] [facility] DAILY TREATMENT NOTE Today's Date [...] 1500 OTHER Notes 07/07 2:20-259 Therapeutic Exercise (98644) Intervention Scifit 8' lv 1 Parameters Shuttle squat BLE 25# x[address] ankle RTB 2x10 Parameters Gastroc stretch 10x10 Intervention rocker board seated 30x3 Parameters clamshells RTB x20 Parameters bridges with RTB x20 Intervention step up taps 8 forward/lateral x15 each Neuro Re-Ed (05477) Intervention Ambulates in facility with shoe 2x 50 feet without crutches Manual Therapy (92901) Intervention STM gastroc /HS 6' PT Treatment [...] and ROM Simona Moreno PTA STATE LICENSE, [id number] documented in this encounter* Simona Moreno PTA - 02/26/2019 2:[address] [facility] DAILY TREATMENT NOTE Today's Date [...] Notes 08/06 2:20-3:00 Vitals concurrent Therapeutic Exercise (39969) Intervention Scifit 8' lv 1 Parameters Shuttle squat BLE 37# x[address] ankle GTB 2x10 Parameters Gastroc stretch 10x10 Intervention rocker board seated 30x3 Parameters clamshells GTB x20 Parameters bridges with GTB x20 Intervention step up taps 8 forward/lateral x15 each Neuro Re-Ed (18276) Intervention Ambulates in facility with shoe 2x 50 feet without crutches Manual Therapy (77609) Intervention STM gastroc /HS 6' PT Treatment Times Therex Total Time 30 Direct Treatment Time 30 Total Treatment Time 40 Skilled Intervention demonstrated by modifications of treatment per exercise log including increased intensity and safety interventions per exercise log. Progress towards goals as expected. Plan for Next Visit: Treatment Visit with focus on strength Simona Moreno PTA STATE LICENSE, [id number] documented in this encounter* Gertrude Raymond PTA - 02/15/2019 2:[address] [facility] DAILY TREATMENT NOTE Today's Date [...] 1422 OTHER Notes 06/06 2:20-259 Therapeutic Exercise (41350) Intervention Scifit 8' lv 1 Parameters Shuttle squat BLE 25# x[address] ankle RTB 2x10 Parameters Gastroc stretch 10x10 Intervention rocker board seated 30x3 Parameters clamshells RTB x20 Neuro Re-Ed (02337) Intervention Ambulates in facility with boot 6x 50 feet without crutches Manual Therapy (42950) Intervention STM gastroc /HS 8' PT Treatment [...] gentle strengthening Gertrude Raymond PTA STATE LICENSE, [id number] documented in this encounter* Exten, Kendall Turner [...] FoundDocuments on File Type Date Recorded Patient Time Study Statistician Expl anation Advance Directives and Livin g Will 12/25/2018 11:44 AM Documents on File Type Date Recorded Patient Time Study Statistician Expl anation Advance Directives and Livin g Will 01/11/2019 8:40 AM Documents on File Type Date Recorded Patient Time Study Statistician Expl anation Advance Directives and Livin g [...] closed, initial encounter Kendall Kemp MD [address] [place] [address] [place] [address] Reason Comments Pain LT ANKLE PAIN Pain Reason Comments Follow-up LT BI. MAL FX DOI Follow-up Reason Comments Physical Therapy Bimalleolar ankle fr acture, left, closed, initial encounter Reason Comments Post-op POST OP LEFT BI. 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 [address] Phone: tel: fax: [facility] [address] [place] [address] Referral ID Status Reason Start Date Expiration Date V isits Requested Visits Authorized [id number] Closed Auto-Generate d Referral 09/05/2024 09/05/2025 1 1 Reason Comments Consult Specialty Diagnoses / Procedures Referred By Contac t Referred To Contact Diagnoses Encounter for supervision of high risk in first trimester, antepartum (HCC) Chronic hypertension affecting (HCC) Procedures CONSULT TO MATERNAL MEDI OFFICE/OUTPATIENT [facility] MDM 60 MINUTES Kendall Delgado APRN.BLADDER TRIMMER [address] [place] [address] Phone: tel: fax: Referral ID Status Reason Start Date Expiration Date V isits Requested Visits Authorized [id number] Closed PCP Requested Referral Auto-Generated Referral 09/05/2024 [...] trimester (HCC) Procedures CONSULT TO ENDOCRINOLOGY OFFICE/OUTPATIENT [facility] 60 MINUTES Jo Leo MD [address] [place] [address] Phone: tel: fax: Referral ID Status Reason Start Date Expiration Date V isits Requested Visits Authorized [id number] Closed PCP Requested Referral 10/18/2024 10/18/2025 1 1 Reason Comments Care Genetics Specialty Diagnoses / Procedures Referred By Contac t Referred To Contact Diagnoses Encounter for supervision of high risk in first trimester, antepartum (HCC) Procedures MEDICAL GENETICS COUNSELING EACH 30 MINUTES Kelvin Thompson MD [address] [place] [address] Phone: tel: fax: [facility] [address] [place] [phone] Referral ID Status Reason Start Date Expiration Date Visits Requested Visits Authorized [id number] Pending Review PCP Requested Referral Auto-Generate d Referral 09/18/2024 09/18/2025 1 1 Reason Onset Date Comments Results 09/06/2024 Reason Onset Date Comments Results 09/07/2024 Specialty Diagnoses / Procedures Referred By Contac t Referred To Contact [facility] Diagnoses Encounter for supervision of high risk in first trimester, antepartum (HCC) Procedures OBSTETRIC ULTRASOUND WHI US PREG UTERUS AFTER 1ST TRIMEST GESTATION Kelvin Thompson MD [address] [place] [address] Phone: tel: fax: [facility] [address] [place] [address] Referral ID Status Reason Start Date Expiration Date V isits Requested Visits Authorized [id number] Closed Auto-Generate d Referral 09/18/2024 09/18/2025 1 1 Reason Onset Date Comments Results 09/14/2024 Reason Onset Date Comments Care 11/16/2024 Referral ID Status Reason Start Date Expiration Date V isits Requested Visits Authorized [id number] Closed Auto-Generate d Referral 09/05/2024 09/05/2025 1 1 INFORMATION SOURCE (unrecogn ized section and content) DATE CREATED AUTHOR 01/11/2019 [facility] DATE CREATED AUTHOR AUTHOR'S ORGANIZ ATION 02/03/2019 [facility] DATE CREATED AUTHOR AUTHOR'S ORGANIZ ATION 02/08/2019 [facility] DATE CREATED AUTHOR AUTHOR'S ORGANIZ ATION 04/06/2019 [facility] DATE CREATED AUTHOR AUTHOR'S ORGANIZ ATION 07/30/2020 [facility] DATE CREATED AUTHOR AUTHOR'S ORGANIZ ATION 08/01/2020 [facility] DATE CREATED AUTHOR AUTHOR'S ORGANIZ ATION 08/05/2022 [facility] DATE CREATED AUTHOR AUTHOR'S ORGANIZ ATION 02/06/2025 [facility] <item><item> Privacy Markings (unrecogniz ed section and [...] or prosecute any alcohol or drug abuse patient.[facility] MemorialIn the event this information is protected by the Federal Confidentiality of Alcohol and Drug Abuse Patient Records regulations: The Federal rules restrict any use of the information to criminally investigate or prosecute any alcohol or drug abuse patient.[facility] MemorialIn the event this information is protected by the Federal Confidentiality of Alcohol and Drug Abuse Patient Records regulations: The Federal rules restrict any use of the information to criminally investigate or prosecute any alcohol or drug abuse patient.[facility] MemorialIn the event this information is protected by the Federal Confidentiality of Alcohol and Drug Abuse Patient Records regulations: The Federal rules restrict any use of the information to criminally investigate or prosecute any alcohol or drug abuse patient.[facility] MemorialIn the event this information is protected by the Federal Confidentiality of Alcohol and Drug Abuse Patient Records regulations: The Federal rules restrict any use of the information to criminally investigate or prosecute any alcohol or drug abuse patient.[facility] MemorialIn the event this information is protected by the Federal Confidentiality of Alcohol and Drug Abuse Patient Records regulations: The Federal rules restrict any use of the information to criminally investigate or prosecute any alcohol or drug abuse patient.[facility] MemorialIn the event this information is protected by the Federal Confidentiality of Alcohol and Drug Abuse Patient Records regulations: The Federal rules restrict any use of the information to criminally investigate or prosecute any alcohol or drug abuse patient.[facility] MemorialIn the event this information is protected by the Federal Confidentiality of Alcohol and Drug Abuse Patient Records regulations: The Federal rules restrict any use of the information to criminally investigate or prosecute any alcohol or drug abuse patient.[facility] MemorialIn the event this information is protected by the Federal Confidentiality of Alcohol and Drug Abuse Patient Records regulations: The Federal rules restrict any use of the information to criminally investigate or prosecute any alcohol or drug abuse patient.[facility] MemorialIn the event this information is protected by the Federal Confidentiality of Alcohol and Drug Abuse Patient Records regulations: The Federal rules restrict any use of the information to criminally investigate or prosecute any alcohol or drug abuse patient.[facility] MemorialIn the event this information is protected by the Federal Confidentiality of Alcohol and Drug Abuse Patient Records regulations: The Federal rules restrict any use of the information to criminally investigate or prosecute any alcohol or drug abuse patient.[facility] MemorialIn the event this information is protected by the Federal Confidentiality of Alcohol and Drug Abuse Patient Records regulations: The Federal rules restrict any use of the information to criminally investigate or prosecute any alcohol or drug abuse patient.[facility] MemorialIn the event this information is protected by the Federal Confidentiality of Alcohol and Drug Abuse Patient Records regulations: The Federal rules restrict any use of the information to criminally investigate or prosecute any alcohol or drug abuse patient.[facility] MemorialIn the event this information is protected by the Federal Confidentiality of Alcohol and Drug Abuse Patient Records regulations: The Federal rules restrict any use of the information to criminally investigate or prosecute any alcohol or drug abuse patient.[facility] MemorialIn the event this information is protected by the Federal Confidentiality of Alcohol and Drug Abuse Patient Records regulations: The Federal rules restrict any use of the information to criminally investigate or prosecute any alcohol or drug abuse patient.[facility] MemorialIn the event this information is protected by the Federal Confidentiality of Alcohol and Drug Abuse Patient Records regulations: The Federal rules restrict any use of the information to criminally investigate or prosecute any alcohol or drug abuse patient.[facility] MemorialIn the event this information is protected by the Federal Confidentiality of Alcohol and Drug Abuse Patient Records regulations: The Federal rules restrict any use of the information to criminally investigate or prosecute any alcohol or drug abuse patient.[facility] MemorialIn the event this information is protected by the Federal Confidentiality of Alcohol and Drug Abuse Patient Records regulations: The Federal rules restrict any use of the information to criminally investigate or prosecute any alcohol or drug abuse patient.[facility] MemorialIn the event this information is protected by the Federal Confidentiality of Alcohol and Drug Abuse Patient Records regulations: The Federal rules restrict any use of the information to criminally investigate or prosecute any alcohol or drug abuse patient.[facility] MemorialIn the event this information is protected by the Federal Confidentiality of Alcohol and Drug Abuse Patient Records regulations: The Federal rules restrict any use of the information to criminally investigate or prosecute any alcohol or drug abuse patient.[facility] FOR RECORDS PERTAINING TO PATIENTS WHO ARE [...] BE BASED ON THE PRIMARY CLINICAL RECORDS. [employer] [facility]. provides no warranty or guarantee of the accuracy or completeness of information in this document.
[2025-03-22 09:31] LABS: Syphilis Antibodies Nonreactive (Nonreactive)
[2025-03-22 10:47] LABS: Barbiturate Urine NEGATIVE (< 200 ng/mL); Benzodiazepine Urine NEGATIVE (< 200 ng/mL); PCP Urine NEGATIVE (< 25 ng/mL); THC Urine NEGATIVE (< 50 ng/mL)
[2025-03-22] MEDS: 0.9% Normal Saline Single 100 ML IV.SOLN. INTRA-UTER (11:59)
--- NOTE | 2025-03-22 12:01 | HP.PCM.OB_ITS ---
HPI - General General Date of Admission: 03/22/25 Date of Service: 03/22/25 HPI Narrative LORA MAGAÑA, is a 29 F who presents for induction. Maternal Data Information JANIS Calculator Estimated Delivery Date Method Current WG Current Estimate 03/30/25 Manual 38w 6d PFSH PFS Medical History (Updated 03/22/25 @ 12:[address] Mike Simpson MD) Headache Family history of hearing loss at age younger than 7 years Chronic hypertension Gestational diabetes Home Medications ?Medication ?Instructions ?Recorded ?Last Taken ?Type aspirin 81 mg chewable tablet 162 mg PO DAILY pregnanc y 03/02/25 03/21/25 21:00 History (Aspirin Childrens) 162 mg ferrous sulfate 325 mg (65 mg 325 mg PO DAILY anemia 1 05/03/24 03/21/25 21:00 History iron) tablet 325 mg insulin NPH isoph U-100 human 100 14 unit subcut QPM G DM 03/02/25 03/21/25 21:00 History unit/mL (3 mL) subcutaneous pen 14 uni ts vitamin-ferrous fumarate 1 tab PO DAILY pregn ruddy 03/02/25 03/21/25 21:00 History 28 mg iron-folic acid 800 mcg 2 tabs tablet ( Tablet) Allergy/AdvReac Type Severity Reaction Status Date / Time adhesive Allergy Intermediate Rash Verified 03/22/25 07:48 Surgical History (Updated 03/22/25 @ 09:27 by Lorie Garcia) History of surgery Social History Smoking Status: Current some day smoker tobacco type: e-cigarettes History Elective abortions Hx Para 0 Spontaneous abortions Hx # Term Pregnancies Ectopic pregnancies Hx # Pregnancies Multiple births # of living children NST FHR Rate Baby A Baseline: 140 Variability:: Moderate Accelerations:: 15 x 15 Decelerations:: None Uterine Activity:: Q3 minutes at times Vital Signs Vital Signs Vital Signs: 03/22/25 08:01 03/22/25 08:01 03/22/25 08:01 Temperature Temperature Source Temporal Pulse Rate 96 Respiratory Rate Blood Pressure 110/67 BP Systolic 110 BP Diastolic 67 03/22/25 08:01 03/22/25 08:01 03/22/25 11:41 Temperature 97.5 F L Temperature Source Temporal Pulse Rate Respiratory Rate 16 Blood Pressure BP Systolic BP Diastolic 03/22/25 11:41 03/22/25 11:41 03/22/25 11:42 Temperature 97.9 F Temperature Source Pulse Rate Respiratory Rate 16 Blood Pressure 126/74 H BP Systolic 126 BP Diastolic 74 03/22/25 11:42 Temperature Temperature Source Pulse Rate 72 Respiratory Rate Blood Pressure BP Systolic BP Diastolic Weight Weight: 232 lb Body Mass Index (BMI) 41.1 PRE- weight 215 lb PRE- Body Mass Index 38.0 (BMI) Physical Exam Const alert, oriented x3 and no apparent distress Chest inspection of chest normal Resp normal respiratory effort GI non-tender, non-distended and no masses Inspection: gravid external exam normal Narrative: cvx - /-/-3, intracervical barahona placed Labs Labs Labs: Blood Type A POSITIVE Antibody Screen NEGATIVE Hct, (37-47) 30.2 % L Hgb, (12.0-15.0) 10.1 g/dL L Syphilis Total Ab, (Nonreactive) Nonreactive Assessment & Plan (1) Chronic hypertension affecting : (2) GDM (gestational diabetes mellitus): QUALIFIERS: Gestational diabetes mellitus control: insulin- controlled Trimester: third trimester Qualified Code(s): O24.414 - Gestational diabetes mellitus in , insulin controlled PLAN: Plan Admit to L&D Induction -continue cytotec and intracervical barahona placed GBS negative EFW less than 4500g and patient with adequate pelvis Pain - epidural as desired Routine care
[2025-03-22] MEDS: Lactated Ringers 1,000 ML 50 ML IV (19:25)
--- NOTE | 2025-03-22 20:43 | PN.OBGYN_ITS ---
Subjective Subjective Resting in bed. Partner at bedside. Coping well and comfortable. Objective Data Objective Data Vital Signs: Vital Signs Temp Pulse Resp BP 97.9 F 74 16 130/83 H 03/22/25 16:25 03/22/25 19:22 03/22/25 16:25 03/22/25 19:22 Weight: 232 lb Body Mass Index (BMI) 41.1 Intake & Output: Intake and Output for Last 24 Hours 03/20/25 03/21/25 03/22/25 23:59 23:59 23:59 Intake Total 0.83 / 0.83 Balance 0.83 / 0.83 Lab / Micro Data 03/22/25 08:15 Labs: Laboratory Results - last 24 hr 03/22/25 08:15: WBC 6.7, RBC 3.37 L, Hgb 10.1 L, Hct 30.2 L, MCV 89.6, MCH 30.0, MCHC 33.4, RDW Std Deviation 43.8, RDW Coeff of Carlito 13.5, Plt Count 170, MPV 10.7, Immature Gran % (Auto) 0.400, Neut % (Auto) 73.8 H, Lymph % (Auto) 19.7, Alpine % (Auto) 5.3, Eos % (Auto) 0.7, Baso % (Auto) 0.1, Absolute Neuts (auto) 5.0, Absolute Lymphs (auto) 1.33, Nucleated RBC % 0, Syphilis Total Ab Nonreactive, Blood Type Cancelled, Antibody Screen Cancelled 03/22/25 09:50: Urine Opiates Screen NEGATIVE 03/22/25 09:50: Urine Opiates Screen Cancelled, U Buprenorphine Qual NEGATIVE 03/22/25 09:50: U Buprenorphine Qual Cancelled, Ur Oxycodone Screen NEGATIVE 03/22/25 09:50: Ur Oxycodone Screen Cancelled, Urine Methadone Screen NEGATIVE 03/22/25 09:50: Urine Methadone Screen Cancelled, Urine Fentanyl Screen NEGATIVE 03/22/25 09:50: Urine Fentanyl Screen Cancelled, Ur Barbiturates Screen NEGATIVE 03/22/25 09:50: Ur Barbiturates Screen Cancelled, Ur Phencyclidine Scrn NEGATIVE 03/22/25 09:50: Ur Phencyclidine Scrn Cancelled, Ur Amphetamines Screen NEGATIVE 03/22/25 09:50: Ur Amphetamines Screen Cancelled, U Benzodiazepines Scrn NEGATIVE 03/22/25 09:50: U Benzodiazepines Scrn Cancelled, Urine Cocaine Screen NEGATIVE 03/22/25 09:50: Urine Cocaine Screen Cancelled, U Cannabinoids Screen NEGATIVE 03/22/25 09:50: U Cannabinoids Screen Cancelled, Ur Drug Screen Comment Cancelled, Blood Type A POSITIVE, Antibody Screen NEGATIVE 03/22/25 09:58: POC Glucose 105 03/22/25 10:58: POC Glucose 92 03/22/25 16:24: POC Glucose 83 Physical Exam Manual OB Exam: presentation cephalic, dilated 4cm, effaced 50, station -2 and other AROM large amount of clear fluid NST FHR Rate Baby A Baseline: 135 Variability:: Moderate Accelerations:: 15 x 15 Decelerations:: None FHR Category:: Category I Uterine Activity:: Every 2-4 minutes, moderate to strong Assessment & Plan (1) GDM (gestational diabetes mellitus): QUALIFIERS: Gestational diabetes mellitus control: insulin- controlled Trimester: third trimester Qualified Code(s): O24.414 - Gestational diabetes mellitus in , insulin controlled (2) Chronic hypertension affecting : (3) Encounter for induction of labor: PLAN: Plan 1) AROM clear fluid 2) notified of above patient update and ROM. caring for patient.
[2025-03-22] MEDS: Oxytocin 15 Units/NS 250ml 15 UNITS/250 ML IV.SOLN 2 UNITS IV (21:47)
[2025-03-23] VITALS (61 sets, daily range): BP systolic 66–145; BP diastolic 41–81; PULSE 64–180; RESP 14–18; TEMP 36.4–37.7; O2SAT 80–100
[2025-03-23] MEDS: 0.9% Saline Lock 10 ML Syringe IV (00:09)
[2025-03-23] MEDS: Amnioinfusion- 0.9% NS 1,000 ML IV.SOLN. 1000 ML INTRA-UTER (02:16)
--- NOTE | 2025-03-23 03:17 | PCM.PN.OB ---
Subjective Subjective Called by RN for FHR in 60's. Upon arrival patient & staff in OR and FHR reassuring. Patient painful with contractions. Objective Data Objective Data Vital Signs: Vital Signs Temp Pulse Resp BP Pulse Ox 97.5 F L 77 16 136/78 H 80 03/23/25 01:11 03/23/25 01:12 03/23/25 01:11 03/23/25 01:12 03/23/25 02:18 Weight: 232 lb Body Mass Index (BMI) 41.1 Intake & Output: Intake and Output for Last 24 Hours 03/21/25 03/22/25 03/23/25 23:59 23:59 23:59 Intake Total 4.66 / 4.66 Balance 4.66 / 4.66 Lab / Micro Data 03/22/25 08:15 Labs: Laboratory Results - last 24 hr 03/22/25 08:15: WBC 6.7, RBC 3.37 L, Hgb 10.1 L, Hct 30.2 L, MCV 89.6, MCH 30.0, MCHC 33.4, RDW Std Deviation 43.8, RDW Coeff of Carlito 13.5, Plt Count 170, MPV 10.7, Immature Gran % (Auto) 0.400, Neut % (Auto) 73.8 H, Lymph % (Auto) 19.7, [place] % (Auto) 5.3, Eos % (Auto) 0.7, Baso % (Auto) 0.1, Absolute Neuts (auto) 5.0, Absolute Lymphs (auto) 1.33, Nucleated RBC % 0, Syphilis Total Ab Nonreactive, Blood Type Cancelled, Antibody Screen Cancelled 03/22/25 09:50: Urine Opiates Screen NEGATIVE 03/22/25 09:50: Urine Opiates Screen Cancelled, U Buprenorphine Qual NEGATIVE 03/22/25 09:50: U Buprenorphine Qual Cancelled, Ur Oxycodone Screen NEGATIVE 03/22/25 09:50: Ur Oxycodone Screen Cancelled, Urine Methadone Screen NEGATIVE 03/22/25 09:50: Urine Methadone Screen Cancelled, Urine Fentanyl Screen NEGATIVE 03/22/25 09:50: Urine Fentanyl Screen Cancelled, Ur Barbiturates Screen NEGATIVE 03/22/25 09:50: Ur Barbiturates Screen Cancelled, Ur Phencyclidine Scrn NEGATIVE 03/22/25 09:50: Ur Phencyclidine Scrn Cancelled, Ur Amphetamines Screen NEGATIVE 03/22/25 09:50: Ur Amphetamines Screen Cancelled, U Benzodiazepines Scrn NEGATIVE 03/22/25 09:50: U Benzodiazepines Scrn Cancelled, Urine Cocaine Screen NEGATIVE 03/22/25 09:50: Urine Cocaine Screen Cancelled, U Cannabinoids Screen NEGATIVE 03/22/25 09:50: U Cannabinoids Screen Cancelled, Ur Drug Screen Comment Cancelled, Blood Type A POSITIVE, Antibody Screen NEGATIVE 03/22/25 09:58: POC Glucose 105 03/22/25 10:58: POC Glucose 92 03/22/25 16:24: POC Glucose 83 03/22/25 20:24: POC Glucose 72 L 03/23/25 00:42: POC Glucose 102 03/23/25 01:56: POC Glucose 101 NST FHR Rate Baby A Baseline: 150 Variability:: Moderate Accelerations:: 15 x 15 Decelerations:: Early Uterine Activity:: Q3-5 minutes currently Assessment & Plan (1) Encounter for induction of labor: PLAN: Plan FHT's improved and patient monitored in hands/knees in OR. Discussed plan with patient & decision made to proceed with epidural. Epidural placed for pain relief. Restarting pitocin and if tolerated will move patient from OR back to L&D room.
[2025-03-23] MEDS: fentaNYL-bupivacaine (epidural) 100 ML BAG EPIDURAL (03:24)
[2025-03-23] MEDS: Lactated Ringers 1,000 ML 200 ML IV ×2 (03:57→06:41)
--- NOTE | 2025-03-23 06:14 | NURSING ---
verbal order to place Ott at 0320 due to KANCHAN, category [address] Simpson in OR room
--- NOTE | 2025-03-23 09:36 | EX.PCM.OBVAG ---
Maternal Data Information JANIS Calculator Estimated Delivery Date Method Current Current Estimate 03/30/25 Manual 39w 0d Vaginal Delivery Maternal Presentation Maternal Presentation: Medically Indicated Induction Type of Induction: Pitocin Vaginal Delivery Information Procedure Performed: Spontaneous Vaginal Delivery Date of Procedure: 03/23/25 Pre-Procedure Diagnosis: (1) GDMA2 (2) CHTN Post-Procedure Diagnosis: Same Type of anesthesia: Epidural Estimated Blood Loss: 500ml Findings Description of procedure: Called to room when patient C/C/+2. She was prepped & draped. Patient pushed well to deliver the head. head was gently guided to allow delivery of anterior and posterior shoulders. No excess traction placed on the head. The body delivered with slight delay as patient pushing without a contraction. 3VC clamped and cut in delayed fashion. Placenta delivered with gentle traction and good uterine tone obtained. Presentation: MELITON Amniotic Membrane Rupture Type: Artificial Amniotic Fluid Description: Clear Placental Delivery Description: Expressed Placenta Disposition: [facility] Specimen collected: No Cord Vessel Description: 3 Vessels Cord Entanglement: None Infant A Gender: Female (1 minute): 6 (5 minute): 9 Delayed Cord Clamping: No Transaction Advisory Services Manager building insulation supervisor: No Post Vaginal Deli Medications given after delivery: IV Pitocin Episiotomy Description: None Laceration: None Complication Complications: No
[2025-03-23] MEDS: Oxytocin 15 Units/NS 250ml 15 UNITS/250 ML IV.SOLN 83 UNITS IV (09:50)
--- NOTE | 2025-03-23 17:31 | CASEMGMT ---
Social Work Assessment Labor and Delivery Unit Date/Time of referral: 03/22/25, 8:46am Referred By: Lorie Garcia Date/Time of intervention: 03/23/25, 2pm Reason for Referral: hx of alcohol abuse History obtained from: STEPHANIE, medical record. FOB present in room however he was asleep, MOB okay w/SW speaking w/her w/him present. Pt's sister also present, SW asked her to step out of the room. Household Composition: MOB, FOB, now baby Vance, and MOB's mother and father Parent/Guardian Status: MOB is guardian, FOB and MOB are not Medical History: MOB: Chronic hypertension, GDM. Baby: Born 03/23/25, 9:18am, 7 lb 6 oz, Apgars 6 and 9 at one and five minutes Educational Status: MOB completed high school, FOB some college Financial Status: MOB does have financial concerns. 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 FOB is in between jobs, MOB states he cannot apply for unemployment. They moved in w/her parents to try to save some money, she states they still owe some money on their rental and for utilities. MOB does plan to return to work, but wants to stay home initially with the baby Supplies: They have all needed supplies including diapers, wipes, clothing, crib, car seat. She has access to bottles and formula if needed, has [facility] Childcare/Caregivers: MOB, FOB, MOB's mother, MOB's sister Gracia (who is visiting, stepped out for assessment) Transportation: They have a car and can get to [facility] Programs/Agencies involved: WIC, [facility] Children[facility] Services/Legal Issues: None Behavioral Health Issues: MH history: MOB reports none. Substance use history: STEPHANIE reports history of alcohol abuse. She states has been sober for 2 years and 7 months, did this on her own, no agency or outside support. Tox screen negative for MOB on this admission, Tox screen not completed for baby. Family history: STEPHANIE's father is a functional alcoholic as per MOB. She has no safety concerns around this however. She states her father does not yell, is not abusive. She state she is disabled actually and would not be able to help w/the care of the baby. MOB reports no safety concerns at all at home. Family/Social Stressors: MOB is concerned about finances Support Systems: MOB's parents, sister, FOB's mother and grandmother are also supportive Information on depression/shaken baby/safe sleeping/Help Me Grow/Counseling resources/County Resources: SW gave pt information on all of the listed topics and reviewed w/pt. SW asked pt's sister to come back in when SW reviewed information, so she could also be aware, in particular about signs and symptoms of PPD and anxiety. SW encouraged MOB if she is having symptoms to speak w/her physician consider counseling. MOB states understanding. SW also gave MOB the number for [employer] in [facility], explained they may be able to help with some of her bills. She has contacted another agency that may be able to help with the water bill. Assessment: MOB appropriate w/SW, answered all questions. FOB asleep on couch for entirety of visit. SW did not observe MOB interacting w/baby as baby asleep. No homegoing concerns at this time. Plan: Baby to return home w/MOB, FOB, MOB's mother and father at time of discharge. SW remains available should any additional needs arise. HERMILO Azevedo
--- NOTE | 2025-03-23 19:22 | PCM.DC.SUM ---
Providers Date of Admission: 03/22/25 Date of Discharge: 03/24/25 Primary Care Physician: Olena Primary Care Phys Reason For Visit: VAGINAL DELIVERY Diagnosis Discharge Diagnosis (1) Vaginal delivery: Status: Acute Code(s): O80 - Encounter for full-term uncomplicated delivery Medications at Discharge Home Medications vitamin-ferrous fumarate 28 mg iron-folic acid 800 mcg tablet ( Tablet) 1 tab PO DAILY 03/02/25 acetaminophen 500 mg tablet 1,000 mg (2 x 500 mg) PO Q6H PRN PRN Pain 1-10 Or Fever #0 tabs 03/23/25 ibuprofen 600 mg tablet 600 mg PO Q6H PRN PRN Pain Score 1-10 #0 tabs 03/23/25 Hospital Course Operations None Procedures None Summary of Care Provided Minutes Spent on Discharge: 15 Weight / BMI Weight Weight: 232 lb Body Mass Index (BMI) 41.1 PRE- weight 215 lb PRE- Body Mass Index 38.0 (BMI) ABG / Lab / Microbiology Data 03/22/25 08:15 Laboratory: Laboratory Results - last 24 hr 03/23/25 07:48: POC Glucose 117 H 03/23/25 08:52: POC Glucose 115 H 03/23/25 09:48: POC Glucose 120 H 03/24/25 05:57: POC Glucose 100 D/C Instructions Discharge Activity: May Shower May resume sexual activity in: 6 weeks Weight Bearing Status: Weight bearing as tolerated Call your doctor if you observe: Fever of 101 or Higher, Coldness, Increased Pain, Change in Color, Inability to urinate, Inability to have a bowel movement, Using more than 1 pad per hour, Shortness of breath, Dizziness, Fainting spells, Chest pain, Increased palpitations (irregular heartbeat), Calf discomfort and Uncontrolled pain DC O2, CPAP, BIPAP Needs Home O2 Discharge instructions: No Please Follow Up With: Mike Simpson MD When: Follow up in 2 and 6 weeks for visits. Meaningful Use Info Meaningful Use Meaningful Use Diagnoses (Choose all that apply): None applicable Discharge Plan Admission Admit Date/Time: 03/22/25 07:25 Primary Reason for Your Visit: Vaginal delivery Attending Provider: Mike Simpson Primary Care Provider: Care Physician,Olena Primary Discharge Orders/Prescriptions Prescriptions: New acetaminophen 500 mg Tablet 1,000 mg PO Q6H PRN PRN (Reason: Pain 1-10 Or Fever) Qty: 0 0RF ibuprofen 600 mg Tablet 600 mg PO Q6H PRN PRN (Reason: Pain Score 1-10) Qty: 0 0RF Continued vit-iron fum-folic ac [ Tablet] 28 mg iron- 800 mcg tablet 1 tab PO DAILY Discontinued aspirin [Aspirin Childrens] 81 mg tablet,chewable 162 mg PO DAILY ferrous sulfate 325 mg (65 mg iron) tablet 325 mg PO DAILY Rx Instructions: every other day insulin NPH isoph U-100 human 100 unit/mL (3 mL) insulin pen 14 unit subcut QPM Referrals / Follow Up: Care Physician,No Primary [Primary Care Provider, Medical] Disposition Disposition (needs filled in before D/C Order can be placed): Home, Self Care
[2025-03-23] MEDS: MEASLES,MUMPS,RUBELLA VACC/PF 0.5 ML SC (21:16)
[2025-03-24] VITALS (9 sets, daily range): BP systolic 115–150; BP diastolic 64–78; PULSE 74–96; RESP 16; TEMP 35.7–36.6; O2SAT 98–100
--- NOTE | 2025-03-24 09:28 | PN.OBGYN_ITS ---
Subjective Subjective Denies complaints Objective Data Objective Data Vital Signs: Vital Signs Temp Pulse Resp BP Pulse Ox O2 Del Method 97.6 F L 83 16 115/64 98 Room Air 03/24/25 04:18 03/24/25 04:18 03/24/25 04:18 03/24/25 04:18 03/24/25 04:18 03/24/25 04:18 Oxygen Delivery Method Room Air Weight: 232 lb Body Mass Index (BMI) 41.1 Intake & Output: Intake and Output for Last 24 Hours 03/22/25 03/23/25 03/24/25 23:59 23:59 23:59 Intake Total 4.66 / 4.66 2705.04 / 2705.04 Output Total 3000 / 3000 Balance 4.66 / 4.66 -294.96 / -294.96 Lab / Micro Data 03/22/25 08:15 Labs: Laboratory Results - last 24 hr 03/23/25 07:48: POC Glucose 117 H 03/23/25 08:52: POC Glucose 115 H 03/23/25 09:48: POC Glucose 120 H 03/24/25 05:57: POC Glucose 100 Physical Exam Const alert, oriented x3 and no apparent distress HEENT normocephalic GI soft to palpation, non-tender and non-distended GI Narrative: fundus firm, mid & below umbilicus Extremity normal to inspection and no calf tenderness Assessment & Plan (1) Vaginal delivery: COMMENT: PPD#1 (2) GDM (gestational diabetes mellitus): QUALIFIERS: Gestational diabetes mellitus control: insulin- controlled Trimester: third trimester Qualified Code(s): O24.414 - Gestational diabetes mellitus in , insulin controlled (3) Chronic hypertension affecting : PLAN: Plan D/c home per patient request
[2025-03-25 03:20] VITALS: BP 138/94; PULSE 88; RESP 16; TEMP 36.4
[2025-03-25 07:50] VITALS: BP 127/74; PULSE 78; RESP 16; TEMP 36.2; O2SAT 98
[2025-03-25 07:58] VITALS: BP 127/74; PULSE 78
--- NOTE | 2025-03-25 08:04 | PN_ITS ---
Subjective Subjective patient seen at bedside, doing well. Patient reports good pain control. lochia mild. Objective Data Objective Data Vital Signs: Vital Signs Temp Pulse Resp BP Pulse Ox O2 Del Method 97.6 F L 78 16 127/74 H 100 Room Air 03/25/25 03:20 03/25/25 07:58 03/25/25 03:20 03/25/25 07:58 03/24/25 09:31 03/25/25 03:20 Oxygen Delivery Method Room Air Weight: 105.233 kg Body Mass Index (BMI) 41.1 Intake & Output: Intake and Output for Last 24 Hours 03/23/25 03/24/25 03/25/25 23:59 23:59 23:59 Intake Total 2705.04 / 2705.04 Output Total 3000 / 3000 Balance -294.96 / -294.96 Lab / Micro Data 03/22/25 08:15 Labs: Laboratory Results - last 24 hr 03/24/25 19:06: POC Glucose 136 H Physical Exam Narrative Abd: fundus firm. Const alert and oriented x3 General Appearance: cooperative HEENT normocephalic Neck General: normal visual inspection GI soft to palpation and non-distended GI Narrative: Fundus firm Extremity normal to inspection and no calf tenderness Skin no rashes or lesions noted Neuro oriented x3 and CN's II-XII intact bilaterally Psych mental status grossly normal Assessment & Plan Assessment/Plan (1) GDM (gestational diabetes mellitus): QUALIFIERS: Gestational diabetes mellitus control: insulin- controlled Trimester: third trimester Qualified Code(s): O24.414 - Gestational diabetes mellitus in , insulin controlled (2) Chronic hypertension affecting : (3) Vaginal delivery: PLAN: Plan PPD#2 , Doing well Routine care pain mgmt ambulation dc home- will need follow up within 72 hrs for BP check
[2025-03-25 11:53] VITALS: BP 124/86; PULSE 90
[2025-03-25 11:59] VITALS: BP 124/86; PULSE 91; RESP 16; TEMP 36.3; O2SAT 97
--- NOTE | 2025-03-30 16:42 | NURSING ---
follow up phone call made. Patient and infant are doing well. Pt states that she has had some headaches and some swelling in her ankles but has seen her OB and they are not concerned. Patient is . had a licensed pesticide applicator appointment yesterday and is back up to discharge weight. has a follow up weight check next week. Pt denies having any questions or concerns about discharge teaching.
== END 2025-03-25 13:50 | disposition home or self-care (01) | DRG 560 ==
PROVIDERS: Advanced Practice Midwife; Admitting Provider Obstetrics & Gynecology; Referring Provider Obstetrics & Gynecology; Visit Provider Obstetrics & Gynecology
DX: O24.424 Gestational diabetes mellitus in childbirth, insulin controlled (principal); Z37.0 Single live birth; F17.290 Nicotine dependence, other tobacco product, uncomplicated; O10.92 Unspecified pre-existing hypertension complicating childbirth; O99.334 Smoking (tobacco) complicating childbirth; O76 Abnormality in fetal heart rate and rhythm complicating labor and delivery; Z79.82 Long term (current) use of aspirin; Z3A.39 39 weeks gestation of pregnancy
CPT/HCPCS: 59025; 59050; 80307; 82962; 85025; 86780; 86850; 86900; 86901; 99221; A4216; G0378; J2405